=== PATIENT | female | born 1985 | race Caucasian/White ===

== ENCOUNTER 2019-11-16 11:21 | Outpatient (REF) | payer OTHER, SELFPAY ==
--- NOTE | 2019-11-16 | US_ITS ---
EXAMINATION: US PELVIS, COMPLETE CLINICAL INFORMATION: Menorrhagia COMPARISON: Previous CT of the abdomen and pelvis February 2019 and pelvic ultrasound from 2013 TECHNIQUE: Transabdominal imaging was performed. Patient declined transvaginal exam. FINDINGS: The uterus is anteverted and anteflexed and measures 8.4 x 4.9 x 7.3 cm in dimension. There is a hypoechoic lesion in the left uterine body suggestive of a fibroid that measures 3.1 x 2.6 x 3 cm. This was not appreciated on previous exam. No other focal uterine lesion is seen. Endometrial thickness is normal estimated at 0.4 cm. The ovaries are normal-appearing. The right ovary measures 2.5 x 1.7 x 1.9 cm and the left ovary measures 2.3 x 1.7 x 2.2 cm. There is no fluid in the pelvis. IMPRESSION: 3 cm left uterine body fibroid or otherwise unremarkable exam.
== END 2019-11-16 11:22 | disposition home or self-care (01) ==
LOC: HO.US 11:21
PROVIDERS: Visit Provider Advanced Practice Midwife
DX: N92.0 Excessive and frequent menstruation with regular cycle (principal)
CPT/HCPCS: 76856

== ENCOUNTER 2019-12-14 12:10 | Outpatient (REF) | payer OTHER, SELFPAY | END 2019-12-14 12:11 | disposition home or self-care (01) | LOC: HO.LAB 12:10 | PROVIDERS: PCP Family Medicine; Visit Provider Internal Medicine | DX: Z20.828 Contact with and (suspected) exposure to other viral communicable diseases (principal) | CPT/HCPCS: C9803; U0003 ==

== ENCOUNTER 2020-02-06 14:28 | Outpatient (REF) | payer OTHER, SELFPAY ==
--- NOTE | 2020-02-06 | US_ITS ---
EXAMINATION: US RETROPERITONEAL LIMITED (RENAL ONLY) CLINICAL INFORMATION: Renal stone. COMPARISON: Renal ultrasound 08/04/2019 and 03/07/2018. CT abdomen and pelvis 02/15/2019. KUB 07/28/2017. TECHNIQUE: Real-time imaging of the kidneys. FINDINGS: RIGHT KIDNEY: 10.0 x 5.6 x 5.3 cm (SAG x AP x TRV). The kidney is normal in size, contour, and echogenicity. Renal cortical thickness is normal. No calculi or focal parenchymal lesions. No hydronephrosis. LEFT KIDNEY: 10.0 x 4.8 x 4.4 cm (SAG x AP x TRV). The kidney is normal in size, contour, and echogenicity. Renal cortical thickness is normal. No calculi or focal parenchymal lesions. No hydronephrosis. US/US renal BI IMPRESSION: Unremarkable renal ultrasound..
== END 2020-02-06 14:29 | disposition home or self-care (01) ==
LOC: HO.US 14:28
PROVIDERS: Visit Provider Urology
DX: N20.0 Calculus of kidney (principal)
CPT/HCPCS: 76775

== ENCOUNTER → 2020-02-19 09:16 | Outpatient (BNVA) | payer OTHER, SELFPAY | PROVIDERS: PCP Family Medicine; Visit Provider Urology | DX: N20.0 Calculus of kidney (principal) | CPT/HCPCS: 99212 ==

== ENCOUNTER 2020-04-02 06:32 | Outpatient (REF) | payer OTHER, SELFPAY ==
--- NOTE | ~2020-04-02 | XR_ITS ---
EXAMINATION: XR KNEE, RIGHT CLINICAL INFORMATION: Pain. COMPARISON: None. TECHNIQUE: 4 views of the right knee. FINDINGS: No fracture or joint effusion. Alignment is anatomic. Joint spaces are well maintained. No abnormal soft tissue calcification. XR/XR knee RT 4V IMPRESSION: No acute osseous abnormality.
--- NOTE | ~2020-04-02 | XR_ITS ---
EXAMINATION: XR FOOT, RIGHT CLINICAL INFORMATION: Pain. COMPARISON: None TECHNIQUE: AP, lateral, and oblique views of the right foot. FINDINGS: There is a question of subtle cortical irregularity/periostitis along the lateral aspect of the 4th metatarsal distal shaft. Otherwise, no evidence of acute fracture or malalignment. Joint spaces are maintained. XR/XR foot RT min 3V IMPRESSION: Apparent subtle cortical irregularity/periostitis along the lateral aspect of the 4th metatarsal distal shaft. This is of indeterminate etiology. Please clinically correlate. Further evaluation with cross-sectional imaging/MRI as clinically warranted. Alternately, recommend followup radiograph for reassessment.
== END 2020-04-02 06:33 | disposition home or self-care (01) ==
LOC: HO.XRAY 06:32
PROVIDERS: Absent Provider Family Medicine; PCP Family Medicine; Visit Provider Emergency Medicine
DX: M25.561 Pain in right knee (principal); M79.671 Pain in right foot
CPT/HCPCS: 73564; 73630

== ENCOUNTER 2020-04-05 11:56 | Emergency (ER) | payer OTHER, SELFPAY ==
--- NOTE | ~2020-04-05 | XR_ITS ---
EXAMINATION: XR FOOT, RIGHT CLINICAL INFORMATION: Injury COMPARISON: April 02, 2020 TECHNIQUE: AP, lateral, and oblique views of the right foot. FINDINGS: The region of irregularity along the lateral cortex of the distal right fourth metatarsal appears unchanged. Clinical correlation for site of injury suggested. The region of periostitis, cortical irregularity, may be related to previous fracture or stress injury but not an acute fracture. This also could be related to an osteochondroma. No definite acute fractures appreciated. No dislocation. Joint spaces are maintained. No significant soft tissue swelling is seen. XR/XR foot RT min 3V IMPRESSION: No significant change in appearance of cortical irregularity about the lateral aspect of the right fourth metatarsal which does not have the appearance of an acute fracture but could be related to a healing fracture, previous fracture which worse stress injury, or possible osteochondroma. No acute fracture or significant degenerative change of the right foot identified.
[2020-04-05 12:02] VITALS: BP 141/66; PULSE 90; RESP 18; TEMP 36.4; O2SAT 99; BMI 27.1
--- NOTE | 2020-04-05 14:34 | ED.LOWEXIN ---
HPI - Extremity Injury (Lower) General Chief Complaint: Extremity Injury, Lower Stated Complaint: fx rt foot Time Seen by Provider: 04/05/20 13:14 History of Present Illness HPI Narrative: Patient complains of right foot pain for 1 month after twisting it and injuring it, no numbness no weakness no tingling, no other injury Related Data Home Medications Medication Instructions Recorded Confirmed beclomethasone dipropionate 40 mcg INHALATION 11/30/19 02/19/20 mcg/actuation aerosol inhaler montelukast 10 mg tablet 10 mg PO BEDTIME 11/30/19 02/19/20 melatonin 3 mg tablet 3 mg PO BEDTIME 02/19/20 02/19/20 mepolizumab 100 mg subcutaneous mg SUBCUT 02/19/20 02/19/20 solution mometasone-formoterol HFA 200 2 puff INHALATION BID 02/19/20 02/19/20 mcg-5 mcg/actuation aerosol inhaler Previous Rx's Medication Instructions Recorded ibuprofen 600 mg PO Q6H PRN #20 tab 04/05/20 Allergies Allergy/AdvReac Type Severity Reaction Status Date / Time benzonatate [BENZONATATE] Allergy Severe ANAPHYLAXIS Verified 04/05/20 12:09 banana [BANANA] Allergy Intermediate RASH Unverified 10/26/19 16:44 coconut [COCONUT] Allergy Intermediate RASH Unverified 10/26/19 16:44 cucumber [CUCUMBER] Allergy Intermediate RASH Unverified 10/26/19 16:44 grape [GRAPE] Allergy Intermediate RASH Unverified 10/26/19 16:44 arthur [ARTHUR] Allergy Intermediate RASH Unverified 10/26/19 16:44 sulfamethoxazole Allergy Intermediate RASH Verified 04/05/20 12:09 [From BACTRIM] trimethoprim [From BACTRIM] Allergy Intermediate RASH Verified 04/05/20 12:09 cephalexin [Keflex] Allergy Unknown Unknown Verified 04/05/20 12:08 duloxetine [From CYMBALTA] Allergy Unknown UNKNOWN Verified 04/05/20 12:08 Sulfa (Sulfonamide Allergy Unknown Unknown Verified 04/05/20 12:08 Antibiotics) SEAFOOD Allergy Intermediate RASH Uncoded 10/26/19 16:44 Tessalon Allergy Unknown Unknown Uncoded 04/05/20 12:08 Review of Systems Review of Systems: Positive for right foot pain negatives are dizziness weakness fainting head injury headache neck pain no numbness no tingling no paresthesias no redness no rash Yes all other systems are reviewed and are negative [facility] Past Medical History Source: nursing notes reviewed Medical History History of depression Hx of anxiety disorder Hx of migraine headaches Kidney stone Surgical History Hx laparoscopic cholecystectomy Hx of bilateral salpingectomy Hx of section Hx of tonsillectomy Hx of tubal ligation Family History Family History Mother Diabetes mellitus Hypertension Dementia Father Diabetes mellitus Hypertension Social History Social History Alcohol intake: never Smoking Status: Never smoker Physical Exam Vital Signs: Vital Signs: Last Vital Signs Temp 97.5 F 04/05/20 12:02 Pulse 90 04/05/20 12:02 Resp 18 04/05/20 12:02 BP 141/66 H 04/05/20 12:02 Pulse Ox 99 04/05/20 12:02 Body Mass Index 27.1 General appearance is no acute distress, comfortable and cooperative Head is normocephalic atraumatic Neck is supple and nontender Respiratory no distress Extremities the right foot head tenderness over the dorsal lateral aspect of the foot, there was mild swelling no ecchymosis, the ankle was nontender the knee was nontender with full range of motion in ankle and knee Skin was normal with no rash or laceration Course Course Course Narrative: X-ray showed question of right 4th metatarsal fracture, patient is given postop shoe for this 4-week-old fracture and will follow with orthopedist Discharge Plan Discharge Clinical Impression: Foot fracture, right Qualifiers: Encounter type: sequela Fracture type: closed Qualified Code(s): S92.901S - Unspecified fracture of right foot, sequela Patient Disposition: Home, Self-Care Additional Instructions: Follow with internet database specialist for further evaluation of right foot fracture Prescriptions: New ibuprofen 600 mg tablet 600 mg PO Q6H PRN (Reason: pain) Qty: 20 RF: 0 No Action beclomethasone dipropionate 40 mcg/actuation aerosol inhalation RF: 0 montelukast [Singulair] 10 mg tablet 10 mg PO BEDTIME RF: 0 Nucala 100 mg recon soln subcut RF: 0 Dulera 200-5 mcg/actuation HFA aerosol inhaler 2 puff inhalation BID RF: 0 melatonin 3 mg tablet 3 mg PO BEDTIME RF: 0 Referrals: Lynda Hameed MD [Physician] - 2 days (Right foot fracture several weeks old) Interventions: ED Discharge Assessment Last Done: 04/05/20 14:46 Discharge Date/Time: 04/05/20 14:46
== END 2020-04-05 14:46 | disposition home or self-care (01) ==
PROVIDERS: Emergency Provider Emergency Medicine Emergency Medical Services; PCP Family Medicine
DX: S92.901A Unspecified fracture of right foot, initial encounter for closed fracture (principal); X50.1XXA Overexertion from prolonged static or awkward postures, initial encounter; M79.671 Pain in right foot; Y93.01 Activity, walking, marching and hiking; Y92.9 Unspecified place or not applicable; Y99.9 Unspecified external cause status; Z79.899 Other long term (current) drug therapy
CPT/HCPCS: 73630; 99283

== ENCOUNTER → 2020-04-08 14:01 | Outpatient (BNVA) | payer OTHER, SELFPAY | PROVIDERS: PCP Family Medicine; Visit Provider Physician Assistant | DX: M84.374A Stress fracture, right foot, initial encounter for fracture (principal); M25.571 Pain in right ankle and joints of right foot | CPT/HCPCS: 99202 ==

== ENCOUNTER 2020-05-06 10:00 | Outpatient (RCR) | payer OTHER, SELFPAY ==
--- NOTE | 2020-04-15 10:53 | MHC.PT.EP ---
[facility] [place] Office [place] Office [place] Office [address] Kaitlyn Dsouza [address] [phone] F: [phone] F: [phone] F: [phone] F: [phone] Physical Therapy Plan of Care Date of Evaluation: 04/15/20 Date of Surgery: N/A Diagnosis: Pain in Right Ankle and Joints of Right Foot Stress Fracture, Right Foot Assessment: Claribel is a 34-year-old female presenting to physical therapy with pain in her right foot. She demonstrates impairments in BL LE strength, R ankle ROM, impaired posture, and impaired gait mechanics. She would benefit from skilled therapy to address the aforementioned impairments and improve her tolerance to standing, walking, performing bar catcher, and sleeping through the night. She is motivated to participate in therapy in order to return to her PLOF. Frequency and Duration: The patient will be seen 2 visits per week for 6 weeks Short Term Goals: -Pt will tolerate walking for 10 minutes w/o use of AD within 3 weeks in order to allow her to grocery shop. -Pt will have 50% decrease in pain which will enable her to sleep through the night in 3 weeks. Publications Sales Representative Goals: -Pt will demonstrate 5-/5 RLE strength to allow for performance of heavy bar catcher within 6 weeks -Pt will be independent with HEP for symptom management and maintenance following discharge from therapy within 6 weeks. Treatment Plan: Modalities to reduce pain, spasms and effusion. Manual therapy to restore motion and function. Therapeutic exercise to improve strength and flexibility. Neuromuscular re-education for posture and balance. Therapeutic activities to return to functional activities of daily living. Electronically signed by: Nahomi Duran, PT, DPT Please sign and return to therapist. Thank you for your referral.
--- NOTE | 2020-06-03 09:34 | MHC.PT.DC ---
[facility] [place] Office [place] Office [place] Office [address] Kaitlyn Dsouza 140 [facility] [phone] F: [phone] F: [phone] F: [phone] F: [phone] Physical Therapy Discharge Report Diagnosis: Pain in Right Ankle and Joints of Right Foot Stress Fracture, Right Foot Date of Surgery: N/A Date of Evaluation: 04/15/20 Date of Discharge: 06/03/20 Treatments to Date: 6 Cancellations to Date: 0 No Shows to Date: 0 Discharge Status: Visit Non-compliance Discharge Summary: Claribel nicholas showed 4 visits after her walking boot was discharged. Attempted to call her several times however pt did not return any of the calls. She is therefore being d/c for non compliance. Electronically signed by: Nahomi Duran DPT Please sign and return to therapist. Thank you for your referral.
== END 2020-06-03 09:35 | disposition other institution (70) ==
LOC: HO.PT 10:00
PROVIDERS: PCP Family Medicine; Visit Provider Physician Assistant
DX: M25.571 Pain in right ankle and joints of right foot (principal); M84.374A Stress fracture, right foot, initial encounter for fracture
CPT/HCPCS: 97110; 97112; 97161

== ENCOUNTER 2020-05-21 09:21 | Outpatient (REF) | payer OTHER, SELFPAY ==
--- NOTE | ~2020-05-21 | XR_ITS ---
EXAMINATION: XR FOOT, RIGHT CLINICAL INFORMATION: Right ankle and right foot pain. COMPARISON: Most recent right foot radiographs dated 04/05/2020. TECHNIQUE: AP, lateral, and oblique views of the right foot. FINDINGS: No acute fracture or dislocation. No joint space narrowing or marginal osteophytes. No osseous erosion. Stable focal cortical irregularity along the lateral aspect of the 4th metatarsal diaphysis, which may represent normal variation. XR/XR foot RT min 3V IMPRESSION: No acute osseous abnormality.
== END 2020-05-21 09:22 | disposition home or self-care (01) ==
LOC: HO.HOSX 09:21
PROVIDERS: PCP Family Medicine; Visit Provider Physician Assistant
DX: M25.571 Pain in right ankle and joints of right foot (principal)
CPT/HCPCS: 73630; 99212

== ENCOUNTER 2020-07-16 13:37 | Outpatient (REF) | payer OTHER, SELFPAY | END 2020-07-16 13:38 | disposition home or self-care (01) | LOC: HO.LAB 13:37 | PROVIDERS: PCP Family Medicine; Visit Provider Internal Medicine | DX: Z20.822 Contact with and (suspected) exposure to COVID-19 (principal) | CPT/HCPCS: C9803; U0003; U0005 ==

== ENCOUNTER 2020-10-06 09:18 | Emergency (ER) | payer OTHER, SELFPAY ==
[2020-10-06 09:24] VITALS: BP 140/89; PULSE 88; RESP 16; TEMP 36.1; O2SAT 100; BMI 28.2
[2020-10-06] MEDS: Meclizine HCl 25 MG TABLET 50 MG PO (10:26)
--- NOTE | 2020-10-06 10:39 | ED_ITS ---
HPI - Dizziness General Chief Complaint: Dizziness Stated Complaint: dizziness Time Seen by Provider: 10/06/20 09:40 Source: patient Mode of arrival: ambulatory Limitations: no limitations and language barrier History of Present Illness HPI Narrative: 35 y/o female with history of mild intermittent asthma presents t o the ER from home c/o dizziness with standing for the last 2 days. She reports when she changes positions it feels like the room is spinning and it is making her feel off balance. She denies history of similar episodes. She admits to not eating very much lately because she is stressed with taking care of her children and getting them ready for school. She reports drinking plenty of water and stay ing hydrated. No fever, chills, weakness, numbness. MD elicited complaint: dizziness Onset (ago): day(s) (2) Timing: awoke with symptoms Severity: moderate Description: room spinning History of similar symptoms: No Exacerbating factors: movement/ambulation and change in body position Relieving factors: remaining still, rest and lying down Associated symptoms: denies other symptoms Related Data Home Medications Medication Instructions Recorded Confirmed beclomethasone dipropionate 40 mcg INHALATION 11/30/19 02/19/20 mcg/actuation aerosol inhaler montelukast 10 mg tablet 10 mg PO BEDTIME 11/30/19 02/19/20 (Singulair) melatonin 3 mg tablet 3 mg PO BEDTIME 02/19/20 02/19/20 mepolizumab 100 mg subcutaneous mg SUBCUT 02/19/20 02/19/20 solution mometasone-formoterol HFA 200 2 puff INHALATION BID 02/19/20 02/19/20 mcg-5 mcg/actuation aerosol inhaler Previous Rx's Medication Instructions Recorded ibuprofen 600 mg tablet 600 mg PO Q6H PRN #20 tab 04/05/20 meclizine 25 mg tablet 25 mg PO TID PRN #10 tab 10/06/20 Allergies Allergy/AdvReac Type Severity Reaction Status Date / Time benzonatate [BENZONATATE] Allergy Severe ANAPHYLAXIS Verified 10/06/20 09:27 banana [BANANA] Allergy Intermediate RASH Verified 10/06/20 09:27 coconut [COCONUT] Allergy Intermediate RASH Verified 10/06/20 09:27 cucumber [CUCUMBER] Allergy Intermediate RASH Verified 08/29/21 09:27 grape [GRAPE] Allergy Intermediate RASH Verified 10/06/20 09:27 arthur [ARTHUR] Allergy Intermediate RASH Verified 10/06/20 09:27 sulfamethoxazole Allergy Intermediate RASH Verified 10/06/20 09:27 [From BACTRIM] trimethoprim [From BACTRIM] Allergy Intermediate RASH Verified 10/06/20 09:27 cephalexin [Keflex] Allergy Unknown Unknown Verified 10/06/20 09:27 duloxetine [From CYMBALTA] Allergy Unknown UNKNOWN Verified 10/06/20 09:27 Sulfa (Sulfonamide Allergy Unknown Unknown Verified 10/06/20 09:27 Antibiotics) SEAFOOD Allergy Intermediate RASH Uncoded 10/26/19 16:44 Tessalon Allergy Unknown Unknown Uncoded 04/05/20 12:08 Review of Systems Constitutional: Constitutional: Denies chills, Reports fatigue, Denies fev er(s) and Denies headache(s) Eyes: Eyes: Reports no additional eye complaints ENT: Reports Normal hearing present, Reports dizziness, Denies otalgia, Denies headache(s), Denies hearing loss, Denies neck pain, Denies tinnitus and Denies sore throat Cardiovascular: Cardiovascular: Denies chest pain and Denies dyspnea Respiratory: Respiratory: Denies cough and Denies dyspnea Gastrointestinal: Gastrointestinal: Denies abdominal pain, Denies diarrhea, Denies nausea and Denies vomiting Musculoskeletal: Musculoskeletal: Denies neck pain, Denies numbness and Denies tingling Integumentary/Breasts: Skin/Breast: Denies rash Neurologic: Reports Normal hearing present, Denies Abnormal speech present, Denies confusion, Reports dizziness, Denies headache(s), Denies memory loss, Denies numbness, Denies Sensory deficit (Neuro), Denies tingling and Denies paresthesias Psychiatric: Psychiatric: Denies confusion and Denies memory loss Endocrine: Endocrine: Reports fatigue PMFSH Past Medical History Attestation statement: The following information was validated with the patient. Medical History Asthma History of depression Hx of anxiety disorder Hx of migraine headaches Kidney stone Surgical History Hx laparoscopic cholecystectomy Hx of bilateral salpingectomy Hx of section Hx of tonsillectomy Hx of tubal ligation Family History Family History Mother Diabetes mellitus Hypertension Dementia Father Diabetes mellitus Hypertension Social History Social History (Updated 05/21/20 @ 09:42 by Zandra Peterson) Alcohol intake: never Advance Directives: Yes Advance Directives Information Provided: Yes Advance Directives on File: No Patient : No Current occupational status: disabled Current occupation: right handed Physical Exam Vital Signs: Vital Signs: Last Vital Signs Temp 97 F 10/06/20 09:24 Pulse 73 10/06/20 14:08 Resp 16 10/06/20 14:08 BP 113/82 10/06/20 14:08 Pulse Ox 100 10/06/20 14:08 Body Mass Index 28.2 Const: General: cooperative, healthy appearing, comfortable and no acute distress; No confusion Nutritional Appearance: average body habitus Orientation/consciousness: patient oriented x3 and No confusion Limitations: no limitations HENMT: Head: Yes normal to inspection, Yes normocephalic and Yes atraumatic Ears: hearing grossly normal bilaterally, external ears normal and TM's normal bilaterally General nose exam: Normal external nose present and Normal nares present Face and sinus: Yes normal facial exam and Yes face symmetric Mouth: Normal oral and palatal mucosa present, lip normal, tongue normal, oropharynx normal and moist mucous membranes Teeth and gingiva: dentition normal and gingiva normal Throat: Yes posterior oropharynx normal, Yes tonsils normal and Yes uvula midline Eyes: General: appearance normal, both eyes and all related structures Pupils: Equal, round and reactive pupils present EOM: EOMs intact bilaterally Neck: Neck: Yes normal visual inspection, Yes full ROM, Yes no lymphadenopathy and Yes no meningeal signs Chest: Chest palpation & inspection: normal inspection of the chest Resp: Effort & Inspection: normal respiratory effort and able to speak in complete sentences Auscultation: clear to auscultation bilaterally Cardio: Rate: regular rate Rhythm: regular rhythm Heart sounds: S1 normal heart sound present and S2 normal heart sound present GI: Inspection: Yes normal to inspection Palpation (GI): Soft to palpation and nontender Auscultation: normal bowel sounds Rectal Exam - Female: deferred Skin: General skin exam: no rashes or lesions noted Neuro: General: patient oriented x3, gait normal, tone normal, moves all extremities, no meningeal signs, no focal motor deficits, CN's II-XI intact bilaterally and No confusion Cranial nerves: Yes Equal, round and reactive pupils present and Yes Normal hearing present Speech: No Abnormal speech present Sensory Exam: No Sensory deficit (Neuro) Extrem: General: Yes normal to inspection, Yes full ROM, Yes no pedal edema and Yes no calf tenderness Psych: Appearance: grossly normal and well kempt Mental Status: mental status grossly normal Speech and movement: Normal speech and movement present Affect: normal affect Attitude: cooperative Thought process: Normal thought process present Thought content: Normal thought content present Course Course Course Narrative: 35 y/o female presenting with positional dizziness described as room spinning. Will check orthostatic VS and give a dose of Meclizine for probable vertigo. Will reassess. Reevaluation(s) Reevaluation #1: Orthostatics + increase in HR 20 points, BP stable. IVF ordered and labs. Reevaluation #2: Patient is feeling much better after meclizine and IVF. Labs are unremarkable. She is stable for d/c home with PRN meclizine. She will f/u with her PCP. MDM - Dizziness Lab Data Result diagrams: 10/06/20 11:40 10/06/20 12:40 Labs: Lab Results 10/06/20 10/06/20 10/06/20 Range/Units 11:40 11:40 12:40 WBC 7.8 (4.8-10.8) X10*3/uL RBC 4.50 (4.20-5.50) X10*6/uL Hgb 13.1 (12.0-16.0) g/dl Hct 38.9 (37-47) % MCV 86.4 (80-98) fL MCH 29.1 (27.0-33.0) pg MCHC 33.7 (31.0-35.0) g/dl RDW 12.6 (11.0-16.0) % Plt Count 339 (160-400) X10*3/uL MPV 9.3 L (9.4-12.3) fL Immature Gran % (Auto) 0.6 H (0.0-0.4) % Neut % (Auto) 64.0 (45-73) % Lymph % (Auto) 26.8 (20-40) % [place] % (Auto) 7.7 (2-11) % Eos % (Auto) 0.5 (0-4) % Baso % (Auto) 0.4 (0-2) % Lymph # (Auto) 2.1 (1.2-4.9) X10*3/uL [place] # (Auto) 0.6 (0.1-1.2) X10*3/uL Eos # (Auto) 0.0 (0.0-0.4) X10*3/uL Baso # (Auto) 0.0 (0.0-0.2) X10*3/uL Abs Immat Gran (auto) 0.05 H (0.00-0.03) X10*3/uL Absolute Neuts (auto) 5.0 (2.0-8.3) X10*3/uL Absolute Nucleated RBC 0.000 (0.0-0.012) X10*3/uL Nucleated RBC % (auto) 0.0 (0.0-0.2) /100WBC Sodium 137 (135-145) mmol/L Potassium 4.0 (3.3-5.1) mmol/L Chloride 107 (96-108) mmol/L Carbon Dioxide 23 (22-29) mmol/L Anion Gap 11 L (12-20) BUN 11 (9-16) mg/dL Creatinine 0.69 (0.5-1.4) mg/dL Estim Creat Clear Calc 88.1 Estimated GFR > 60 Random Glucose 86 (60-115) mg/dL Calcium 8.7 (8.4-10.2) mg/dL Magnesium 2.1 (1.6-2.6) mg/dL Total Bilirubin 0.2 (0.0-1.0) mg/dL Direct Bilirubin < 0.2 (0.0-0.5) mg/dL AST 12 (5-31) U/L ALT 21 (0-31) U/L Alkaline Phosphatase 71 (39-117) U/L Total Protein 6.9 (6.5-8.0) g/dL Albumin 4.0 (3.5-5.0) g/dL COVID-19 (ILENE) Negative (Negative) COVID-19 Clin Com See Note Discharge Plan Discharge Clinical Impression: Benign paroxysmal positional vertigo Qualifiers: Laterality: unspecified laterality Qualified Code(s): H81.10 - Benign paroxysmal vertigo, unspecified ear Patient Disposition: Home, Self-Care Instructions: Vertigo (ED) Additional Instructions: Your lab workup today was normal. Your COVID swab was negative. Your dizziness is most likely due to vertigo. Recommend rest. Drink plenty of water. When changing positions do so slowly. Take the prescribed medication as needed for dizziness. Follow up with your doctor this week. If you develop new or worsening symptoms call 911 or come back to the ER for further evaluation. Prescriptions: New meclizine 25 mg tablet 25 mg PO TID PRN (Reason: dizziness) Qty: 10 RF: 0 No Action ibuprofen 600 mg tablet 600 mg PO Q6H PRN (Reason: pain) Qty: 20 RF: 0 beclomethasone dipropionate 40 mcg/actuation aerosol inhalation RF: 0 montelukast [Singulair] 10 mg tablet 10 mg PO BEDTIME RF: 0 Nucala 100 mg recon soln subcut RF: 0 Dulera 200-5 mcg/actuation HFA aerosol inhaler 2 puff inhalation BID RF: 0 melatonin 3 mg tablet 3 mg PO BEDTIME RF: 0 Interventions: ED Discharge Assessment Last Done: 10/06/20 14:07 Discharge Date/Time: 10/06/20 14:08
[2020-10-06 10:54] VITALS: BP 113/72; PULSE 69
[2020-10-06 10:55] VITALS: BP 127/90; BP 129/78; PULSE 74; PULSE 89
[2020-10-06] MEDS: 0.9 % Sodium Chloride 1,000 ML 999 ML IVCONT (11:41)
[2020-10-06 11:44] LABS: MANUAL DIFF FLAG NO
[2020-10-06 11:46] LABS: Basophils Percent Auto 0.4 % (0-2); Eosinophils Percent Auto 0.5 % (0-4); Hematocrit 38.9 % (37-47); Hemoglobin 13.1 g/dl (12.0-16.0); Imm Gran Abs Auto 0.05 X10*3/uL (0.00-0.03); Imm Gran Pct Auto 0.6 % (0.0-0.4); Lymphocytes Absolute Auto 2.1 X10*3/uL (1.2-4.9); Lymphocytes Percent Auto 26.8 % (20-40); Mean Corpuscular HGB Conc 33.7 g/dl (31.0-35.0); Mean Corpuscular Hemoglobin 29.1 pg (27.0-33.0); Mean Corpuscular Volume 86.4 fL (80-98); Mean Platelet Volume 9.3 fL (9.4-12.3); Monocytes Absolute Auto 0.6 X10*3/uL (0.1-1.2); Monocytes Percent Auto 7.7 % (2-11); Platelet Count 339 X10*3/uL (160-400); Red Cell Distribution Width 12.6 % (11.0-16.0); White Blood Count 7.8 X10*3/uL (4.8-10.8)
[2020-10-06 12:02] LABS: COVID-19 Test Negative (Negative)
[2020-10-06 13:13] LABS: Alanine Aminotransferase 21 U/L (0-31); Alkaline Phosphatase 71 U/L (39-117); Anion Gap 11 (12-20); Aspartate Amino Transferase 12 U/L (5-31); Bilirubin Direct < 0.2 mg/dL (0.0-0.5); Bilirubin Total 0.2 mg/dL (0.0-1.0); Blood Urea Nitrogen 11 mg/dL (9-16); Calcium 8.7 mg/dL (8.4-10.2); Carbon Dioxide 23 mmol/L (22-29); Chloride 107 mmol/L (96-108); Creatinine Clr Calc Pharmacy 88.1; Estimated Glomerular Filt Rate > 60; Glucose Random 86 mg/dL (60-115); Magnesium 2.1 mg/dL (1.6-2.6); Sodium 137 mmol/L (135-145); Total Protein 6.9 g/dL (6.5-8.0)
[2020-10-06 14:08] VITALS: BP 113/82; PULSE 73; RESP 16; O2SAT 100
== END 2020-10-06 14:08 | disposition home or self-care (01) ==
PROVIDERS: Physician Assistant; Emergency Provider Emergency Medicine; PCP Family Medicine
DX: H81.10 Benign paroxysmal vertigo, unspecified ear (principal); J45.909 Unspecified asthma, uncomplicated; Z79.899 Other long term (current) drug therapy; Z20.822 Contact with and (suspected) exposure to COVID-19
CPT/HCPCS: 36415; 80048; 80076; 83735; 85025; 87635; 99283

== ENCOUNTER 2020-11-27 09:55 | Outpatient (REF) | payer OTHER, SELFPAY ==
--- NOTE | 2020-11-27 09:45 | EMG_ITS ---
This is a 35-year-old woman with 6-month history of bilateral hand pain and numbness. Neurological examination: Cranial nerves II through XII are normal. Muscle tone and strength are normal in all 4 extremities. Deep tendon reflexes are symmetrical. No sensory deficits. No Tinel or Phalen sign. IMPRESSION: Rule out carpal tunnel syndrome. Nerve conduction EMG study: Normal electrodiagnostic study of both upper extremity with no evidence of carpal tunnel syndrome or nerve entrapment. Normal EMG of the left C5-T1 innervated muscles. MD AAKASH Dave/JENNIFER / [phone]
== END 2020-11-27 09:56 | disposition home or self-care (01) ==
LOC: HO.NEURO 09:55
PROVIDERS: PCP Emergency Medicine; Visit Provider Emergency Medicine
DX: G56.03 Carpal tunnel syndrome, bilateral upper limbs (principal)
CPT/HCPCS: 95886; 95913

== ENCOUNTER 2021-02-06 10:58 | Outpatient (REF) | payer OTHER, SELFPAY ==
--- NOTE | ~2021-02-06 | US_ITS ---
EXAMINATION: US RETROPERITONEAL LIMITED (RENAL ONLY) CLINICAL INFORMATION: Calculus of kidney. COMPARISON: Renal ultrasound 02/06/2020 and 08/04/2019. CT abdomen and pelvis 02/15/2019. X-ray KUB 07/28/2017. TECHNIQUE: Real-time imaging of the kidneys. FINDINGS: RIGHT KIDNEY: 9.5 x 4.1 x 3.5 cm (SAG x AP x TRV). The kidney is normal in size, contour, and echogenicity. Renal cortical thickness is normal. No calculi or focal parenchymal lesions. No hydronephrosis. LEFT KIDNEY: 9.7 x 5.7 x 4.3 cm (SAG x AP x TRV). The kidney is normal in size, contour, and echogenicity. Renal cortical thickness is normal. No calculi or focal parenchymal lesions. No hydronephrosis. US/US renal BI IMPRESSION: No significant renal abnormality.
== END 2021-02-06 10:59 | disposition home or self-care (01) ==
LOC: HO.US 10:58
PROVIDERS: Visit Provider Urology
DX: N20.0 Calculus of kidney (principal)
CPT/HCPCS: 76775

== ENCOUNTER → 2021-02-21 09:35 | Outpatient (BNVA) | payer OTHER, SELFPAY | PROVIDERS: PCP Family Medicine | DX: Z13.89 Encounter for screening for other disorder (principal) | CPT/HCPCS: Q3014 ==

== ENCOUNTER 2021-05-27 11:18 | Emergency (ER) | payer OTHER, SELFPAY ==
[2021-05-27 11:30] VITALS: BP 146/86; PULSE 97; RESP 16; TEMP 37.1; O2SAT 100; BMI 26.4
[2021-05-27 12:03] LABS: Influenza A Negative (Negative); Influenza B2 Negative (Negative)
[2021-05-27 12:05] LABS: COVID-19 Test Negative (Negative); IDNOW Serial# 55D5AD1C
== END 2021-05-27 14:57 | disposition left against medical advice (07) ==
LOC: HO.ED 13:56
PROVIDERS: Emergency Provider Emergency Medicine; PCP Family Medicine
DX: R50.9 Fever, unspecified (principal); J45.909 Unspecified asthma, uncomplicated; Z20.822 Contact with and (suspected) exposure to COVID-19
CPT/HCPCS: 87502; 87635; 99281; 99283

== ENCOUNTER 2021-05-29 09:02 | Emergency (ER) | payer OTHER, SELFPAY ==
--- NOTE | 2021-05-29 | ECG_ITS ---
Test Reason : cp Blood Pressure : / mmHG Vent. Rate : 097 BPM Atrial Rate : 097 BPM P-R Int : 132 ms QRS Dur : 084 ms QT Int : 310 ms P-R-T Axes : 053 066 017 degrees QTc Int : 393 ms Sinus rhythm with marked sinus arrhythmia Nonspecific ST and T wave abnormality Abnormal ECG When compared with ECG of 13-DEC-2018 08:46, Nonspecific T wave abnormality, worse in Inferior leads Nonspecific T wave abnormality now evident in Lateral leads QT has shortened Referred By: Generic ED Physician Electronically Signed By:LINA BRANCH MD
--- NOTE | ~2021-05-29 | XR_ITS ---
EXAMINATION: XR CHEST CLINICAL INFORMATION: Chest pain COMPARISON: Chest radiograph from 02/22/2019 TECHNIQUE: Frontal view of the chest was obtained. FINDINGS: Bilateral low lung volumes. No pneumothorax. Trachea is midline. Cardiomediastinal silhouette is not enlarged. No large pleural effusion. Osseous structures are intact. Soft tissues are unremarkable. XR/XR chest 1V IMPRESSION: No acute cardiopulmonary process.
[2021-05-29 09:14] VITALS: BP 155/96; PULSE 85; RESP 20; TEMP 36.5; O2SAT 100; BMI 29.2
[2021-05-29 09:30] LABS: MANUAL DIFF FLAG NO
[2021-05-29 09:39] LABS: Basophils Percent Auto 0.5 % (0-2); Eosinophils Percent Auto 0.5 % (0-4); Hemoglobin 12.1 g/dl (12.0-16.0); Imm Gran Abs Auto 0.02 X10*3/uL (0.00-0.03); Imm Gran Pct Auto 0.3 % (0.0-0.4); Lymphocytes Percent Auto 29.4 % (20-40); Mean Corpuscular HGB Conc 33.6 g/dl (31.0-35.0); Mean Corpuscular Hemoglobin 27.9 pg (27.0-33.0); Mean Corpuscular Volume 82.9 fL (80.0-98.0); Mean Platelet Volume 8.9 fL (9.4-12.3); Monocytes Absolute Auto 0.5 X10*3/uL (0.1-1.2); Monocytes Percent Auto 6.8 % (2-11); Neutrophils Absolute Auto 4.2 x10*3/uL (2.0-8.3); Neutrophils Percent Auto 62.5 % (45-73); Platelet Count 323 X10*3/uL (160-400); Red Blood Count 4.34 X10*6/uL (4.20-5.50); Red Cell Distribution Width 12.8 % (11.0-16.0); White Blood Count 6.6 X10*3/uL (4.8-10.8)
[2021-05-29 09:49] LABS: COVID-19 Test Negative (Negative); IDNOW Serial# 16C4AD1C
[2021-05-29 09:51] LABS: Anion Gap 12 (12-20); Blood Urea Nitrogen 8 mg/dL (9-16); Carbon Dioxide 22 mmol/L (22-29); Chloride 105 mmol/L (96-108); Creatinine Clr Calc Pharmacy 82.5; Estimated Glomerular Filt Rate > 60; Glucose Random 101 mg/dL (60-115); Potassium 3.9 mmol/L (3.3-5.1); Sodium 135 mmol/L (135-145); Troponin-I High Sensitivity < 3.5 ng/L (<3.5-17.0)
--- NOTE | 2021-05-29 09:53 | ED_ITS ---
HPI - Chest Pain General Chief Complaint: Chest Pain Stated Complaint: cough chest pain hbp fever Time Seen by Provider: 05/29/21 09:53 Source: patient Mode of arrival: ambulatory Limitations: no limitations History of Present Illness HPI narrative: Patient is a 35 year old female presenting to the emergency department today with a cough and left sided chest pain. Patient states that for the last few days, she has had a cough and some left sided chest pain specifically when she coughs. Patient denies any dizziness, lightheadedness, abdominal pain, nausea, vomiting, fever, chills, blurry vision, double vision, loss of vision, difficulty breathing, shortness of breath, back pain, night sweats, pain with urination, increased urinary frequency, increased urinary urgency, blood in her urine or stool, syncope or a near syncopal episode, recent trauma or falls, bowel incontinence, bladder incontinence, bowel retention, bladder retention, or any other complaints at this time. MD complaint: chest pain Onset: other (with coughing) Pain radiation: none Severity: mild Pain scale (0-10): 3 Quality: dull Relieving factors: nothing Exacerbating factors: other (coughing) Treatment prior to arrival: none Risk Factors Coronary artery disease risk factors: none Thoracic aortic dissection risk factors: none Related Data Home Medications Medication Instructions Recorded Confirmed beclomethasone dipropionate 40 mcg INHALATION 11/30/19 02/19/20 mcg/actuation aerosol inhaler montelukast 10 mg tablet 10 mg PO BEDTIME 11/30/19 02/19/20 (Singulair) melatonin 3 mg tablet 3 mg PO BEDTIME 02/19/20 02/19/20 mepolizumab 100 mg subcutaneous mg SUBCUT 02/19/20 02/19/20 solution mometasone-formoterol HFA 200 2 puff INHALATION BID 02/19/20 02/19/20 mcg-5 mcg/actuation aerosol inhaler Previous Rx's Medication Instructions Recorded ibuprofen 600 mg tablet 600 mg PO Q6H PRN #20 tab 04/05/20 meclizine 25 mg tablet 25 mg PO TID PRN #10 tab 10/06/20 Allergies Allergy/AdvReac Type Severity Reaction Status Date / Time benzonatate [BENZONATATE] Allergy Severe ANAPHYLAXIS Verified 05/29/21 09:17 banana [BANANA] Allergy Intermediate RASH Verified 05/29/21 09:17 coconut [COCONUT] Allergy Intermediate RASH Verified 05/29/21 09:17 cucumber [CUCUMBER] Allergy Intermediate RASH Verified 05/29/21 09:17 grape [GRAPE] Allergy Intermediate RASH Verified 05/29/21 09:17 arthur [ARTHUR] Allergy Intermediate RASH Verified 05/29/21 09:17 sulfamethoxazole Allergy Intermediate RASH Verified 05/29/21 09:17 [From BACTRIM] trimethoprim [From BACTRIM] Allergy Intermediate RASH Verified 05/29/21 09:17 cephalexin [Keflex] Allergy Unknown Unknown Verified 05/29/21 09:17 duloxetine [From CYMBALTA] Allergy Unknown UNKNOWN Verified 05/29/21 09:17 Sulfa (Sulfonamide Allergy Unknown Unknown Verified 05/29/21 09:17 Antibiotics) SEAFOOD Allergy Intermediate RASH Uncoded 05/29/21 09:17 Tessalon Allergy Unknown Unknown Uncoded 05/29/21 09:17 Review of Systems Constitutional: Constitutional: Reports no additional constitutional complaints, Denies chills, Denies fever(s) and Denies night sweats Eyes: Eyes: Reports no additional eye complaints, Denies blurry vision, Denies change in vision, Denies diplopia, Denies eye discharge, Denies loss of vision and Denies eye pain ENT: Denies dizziness Cardiovascular: Cardiovascular: Reports no additional cardiovascular complaints, Reports chest pain, Denies lightheadedness, Denies Loss of Consciousness and Denies dyspnea Respiratory: Respiratory: Reports no additional respiratory complaints, Reports cough and Denies dyspnea Gastrointestinal: Gastrointestinal: Reports no additional gastrointestinal complaints, Denies abdominal pain, Denies melena, Denies hematochezia, Denies change in bowel habits and Denies change in stool character Genitourinary: Genitourinary: Denies hematuria, Denies urinary frequency, Denies dysuria, Denies urinary incontinence, Denies urinary hesitancy and Denies urinary urgency Musculoskeletal: Musculoskeletal: Reports no additional musculoskeletal complaints, Denies numbness and Denies tingling Neurologic: Denies dizziness, Denies loss of vision, Denies numbness and Denies tingling Psychiatric: Psychiatric: Reports no additional psychiatric complaints Endocrine: Endocrine: Reports no additional endocrine complaints Hematologic/Lymphatic: Hematologic/Lymphatic: Reports no additional hematologic/lymphatic complaints Allergic/Immunologic: Allergic/Immunologic: Reports no additional allergic/immunologic complaints PMFSH Past Medical History Attestation statement: The following information was validated with the patient. Source: old records reviewed Medical History Asthma History of depression Hx of anxiety disorder Hx of migraine headaches Kidney stone Surgical History Hx laparoscopic cholecystectomy Hx of bilateral salpingectomy Hx of section Hx of tonsillectomy Hx of tubal ligation Family History Family History Mother Diabetes mellitus Hypertension Dementia Father Diabetes mellitus Hypertension Social History Social History Alcohol intake: never Advance Directives: No Advance Directives Information Provided: Yes Patient : No Current occupational status: disabled Current occupation: right handed Physical Exam Vital Signs: Vital Signs: Last Vital Signs Temp 97.7 F 05/29/21 09:14 Pulse 85 05/29/21 09:14 Resp 20 05/29/21 09:14 BP 155/96 H 05/29/21 09:14 Pulse Ox 100 05/29/21 09:14 BMI result Body Mass Index 29.2 Const: General: cooperative, no acute distress, alert and awake Nutritional Appearance: well nourished Orientation/consciousness: patient oriented x3 Limitations: no limitations HEENT: Head: Yes normal to inspection and Yes atraumatic Ears: hearing grossly normal bilaterally and external ears normal General nose exam: Normal external nose present, no nasal discharge noted and no epistaxis Face and sinus: Yes normal facial exam, No abrasion and No laceration Mouth: Normal oral and palatal mucosa present, no drooling and no muffled voice Eyes: General: appearance normal, both eyes and all related structures Periorbital: periorbital findings normal Eyelids: Yes eyelids normal Conjunctivae: conjunctivae normal Pupils: Equal, round and reactive pupils present EOM: EOMs intact bilaterally Neck: Neck: Yes normal visual inspection, Yes full ROM and Yes no lymphadenopathy Chest: Chest palpation & inspection: normal inspection of the chest Resp: Effort & Inspection: normal respiratory effort and able to speak in complete sentences Auscultation: clear to auscultation bilaterally Cardio: Rate: regular rate Rhythm: regular rhythm GI: Inspection: Yes normal to inspection Neuro: General: patient oriented x3 and moves all extremities Cranial nerves: Yes Equal, round and reactive pupils present Cognition (Neuro): normal cognition Motor exam (neuro): 5/5 motor strength present throughout Sensory Exam: Normal double simultaneous stimulation for sensation Coordination: [id number] test normal Extrem: General: Yes normal to inspection, Yes full ROM and Yes capillary refill normal Psych: Appearance: grossly normal Mental Status: mental status grossly normal Affect: normal affect Attitude: cooperative Thought process: Normal thought process present Thought content: Normal thought content present Insight: Good insight present (Psych) MDM - Chest Pain MDM Narrative Medical decision making narrative: Patient is a 35 year old female presenting to the emergency department today with a cough. Patient's physical exam was unremarkable. Patient's blood work was unremarkable. Patient's urine showed no acute process. Patient's EKG was unremarkable. Patient's chest x-ray showed no acute process. I explained my phys ical exam findings as well as all test results to the patient. I answered all questions asked by the patient. I stressed the importance of the patient taking her medication as prescribed. I stressed the importance of the patient following up with her primary care provider. I stressed the importance of the patient returning to the emergency department immediately if her symptoms were to worsen or if she were to develop any dizziness, shortness of breath, difficulty breathing, chest pain, blurry vision, loss of vision, nausea, vomiting, abdominal pain, fever, chills, back pain, or any other complaints. Patient verbalized agreement and understanding with this treatment plan and discharge. Differential Diagnosis Differential diagnosis: Likely stable angina, atypical chest pain and costochondritis Differential diagnosis: URI Medical Records Data Attestation: I reviewed the patient's medical records. Lab Data Attestation: I reviewed the patient's lab results. Result diagrams: 05/29/21 09:25 05/29/21 09:25 Labs: Lab Results 05/29/21 05/29/21 05/29/21 Range/Units 09:25 09:25 09:25 WBC 6.6 (4.8-10.8) X10*3/uL RBC 4.34 (4.20-5.50) X10*6/uL Hgb 12.1 (12.0-16.0) g/dl Hct 36.0 L (37.0-47.0) % MCV 82.9 (80.0-98.0) fL MCH 27.9 (27.0-33.0) pg MCHC 33.6 (31.0-35.0) g/dl RDW 12.8 (11.0-16.0) % Plt Count 323 (160-400) X10*3/uL MPV 8.9 L (9.4-12.3) fL Immature Gran % (Auto) 0.3 (0.0-0.4) % Neut % (Auto) 62.5 (45-73) % Lymph % (Auto) 29.4 (20-40) % [place] % (Auto) 6.8 (2-11) % Eos % (Auto) 0.5 (0-4) % Baso % (Auto) 0.5 (0-2) % Lymph # (Auto) 2.0 (1.2-4.9) X10*3/uL [place] # (Auto) 0.5 (0.1-1.2) X10*3/uL Eos # (Auto) 0.0 (0.0-0.4) X10*3/uL Baso # (Auto) 0.0 (0.0-0.2) X10*3/uL Abs Immat Gran (auto) 0.02 (0.00-0.03) X10*3/uL Absolute Neuts (auto) 4.2 (2.0-8.3) x10*3/uL Absolute Nucleated RBC 0.000 (0.0-0.012) X10*3/uL Nucleated RBC % (auto) 0.0 (0.0-0.2) /100WBC Sodium 135 (135-145) mmol/L Potassium 3.9 (3.3-5.1) mmol/L Chloride 105 (96-108) mmol/L Carbon Dioxide 22 (22-29) mmol/L Anion Gap 12 (12-20) BUN 8 L (9-16) mg/dL Creatinine 0.75 (0.5-1.4) mg/dL Estim Creat Clear Calc 82.5 Estimated GFR > 60 Random Glucose 101 (60-115) mg/dL Calcium 9.0 (8.4-10.2) mg/dL Troponin I High Sens < 3.5 (<3.5-17.0) ng/L COVID-19 (ILENE) (Negative) COVID-19 Clin Com 05/29/21 Range/Units 09:25 WBC (4.8-10.8) X10*3/uL RBC (4.20-5.50) X10*6/uL Hgb (12.0-16.0) g/dl Hct (37.0-47.0) % MCV (80.0-98.0) fL MCH (27.0-33.0) pg MCHC (31.0-35.0) g/dl RDW (11.0-16.0) % Plt Count (160-400) X10*3/uL MPV (9.4-12.3) fL Immature Gran % (Auto) (0.0-0.4) % Neut % (Auto) (45-73) % Lymph % (Auto) (20-40) % [place] % (Auto) (2-11) % Eos % (Auto) (0-4) % Baso % (Auto) (0-2) % Lymph # (Auto) (1.2-4.9) X10*3/uL [place] # (Auto) (0.1-1.2) X10*3/uL Eos # (Auto) (0.0-0.4) X10*3/uL Baso # (Auto) (0.0-0.2) X10*3/uL Abs Immat Gran (auto) (0.00-0.03) X10*3/uL Absolute Neuts (auto) (2.0-8.3) x10*3/uL Absolute Nucleated RBC (0.0-0.012) X10*3/uL Nucleated RBC % (auto) (0.0-0.2) /100WBC Sodium (135-145) mmol/L Potassium (3.3-5.1) mmol/L Chloride (96-108) mmol/L Carbon Dioxide (22-29) mmol/L Anion Gap (12-20) BUN (9-16) mg/dL Creatinine (0.5-1.4) mg/dL Estim Creat Clear Calc Estimated GFR Random Glucose (60-115) mg/dL Calcium (8.4-10.2) mg/dL Troponin I High Sens (<3.5-17.0) ng/L COVID-19 (ILENE) Negative (Negative) COVID-19 Clin Com See Note Imaging Data Chest x-ray: Attestation: I personally reviewed and interpreted this imaging study as follows: My impression: No acute process. Radiologist's impression: EXAMINATION: XR CHEST CLINICAL INFORMATION: Chest pain COMPARISON: Chest radiograph from 02/22/2019 TECHNIQUE: Frontal view of the chest was obtained. FINDINGS: Bilateral low lung volumes. No pneumothorax. Trachea is midline. Cardiomediastinal silhouette is not enlarged. No large pleural effusion. Osseous structures are intact. Soft tissues are unremarkable. XR/XR chest 1V IMPRESSION: No acute cardiopulmonary process. ? Dictated By: Ren Singh MD Signed By: Electronically signed by Ren Singh MD 05/29/21 105 ECG Data ECG #1: Attestation: I personally reviewed and interpreted this ECG as follows: ECG interpretation date: 05/29/21 ECG interpretation time: 09:04 Prior ECG tracings: available for review Interpretation: Vent. Rate: 097 BPM ? ? Atrial Rate: 097 BPM P-R Int: 132 ms? QRS Dur: 084 ms QT Int: 310 ms ? ? ? P-R-T Axes: 053 066 017 degrees QTc Int: 393 ms ? Sinus rhythm with marked sinus arrhythmia Nonspecific ST and T wave abnormality Abnormal ECG When compared with ECG of 13-DEC-2018 08:46, Nonspecific T wave abnormality, worse in Inferior leads Nonspecific T wave abnormality now evident in Lateral leads QT has shortened ? Referred By: Generic ED Physician ? Electronically Signed By:DARNELL BRANCH MD Dictated By: Darnell Branch MD Signed By: Electronically signed by Darnell Branch MD 05/29/21 1647 Discharge Plan Discharge Clinical Impression: Upper respiratory infection Patient Disposition: Home, Self-Care Instructions: Upper Respiratory Infection (DC) Additional Instructions: Follow up with your primary care provider. Return to the emergency department immediately if your symptoms worsen or if you develop any dizziness, shortness of breath, difficulty breathing, chest pain, blurry vision, loss of vision, nausea, vomiting, abdominal pain, fever, chills, back pain, or any other complaints. Prescriptions: No Action ibuprofen 600 mg tablet 600 mg PO Q6H PRN (Reason: pain) Qty: 20 0RF meclizine 25 mg tablet 25 mg PO TID PRN (Reason: dizziness) Qty: 10 0RF beclomethasone dipropionate 40 mcg/actuation aerosol inhalation 0RF montelukast [Singulair] 10 mg tablet 10 mg PO BEDTIME 0RF Nucala 100 mg recon soln subcut 0RF Dulera 200-5 mcg/actuation HFA aerosol inhaler 2 puff inhalation BID 0RF melatonin 3 mg tablet 3 mg PO BEDTIME 0RF Referrals: Anne Carrion MD [Primary Care Provider] - (Follow up with your PCP. ) Interventions: ED Discharge Assessment Last Done: 05/29/21 11:21 Discharge Date/Time: 05/29/21 11:22 Print Language: Tajik
== END 2021-05-29 11:22 | disposition home or self-care (01) ==
PROVIDERS: Emergency Provider Student in an Organized Health Care Education/Training Program; PCP Family Medicine
DX: J06.9 Acute upper respiratory infection, unspecified (principal); R07.89 Other chest pain; R50.9 Fever, unspecified; R05.9 Cough, unspecified; Z20.822 Contact with and (suspected) exposure to COVID-19; Z79.899 Other long term (current) drug therapy
CPT/HCPCS: 36415; 71045; 80048; 84484; 85025; 87635; 93005; 99283; 99284

== ENCOUNTER 2021-08-12 11:46 | Emergency (ER) | payer OTHER, SELFPAY ==
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
[2021-08-12 12:11] VITALS: BP 142/74; PULSE 83; O2SAT 98
[2021-08-12 12:52] VITALS: BP 147/101; PULSE 80; RESP 18; TEMP 36.7; O2SAT 99; BMI 27.3
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
[2021-08-12] MEDS: Ibuprofen 600 MG TABLET PO (13:53)
== END 2021-08-12 14:31 | disposition home or self-care (01) ==
PROVIDERS: Emergency Provider Emergency Medicine; PCP Family Medicine
DX: S93.402A Sprain of unspecified ligament of left ankle, initial encounter (principal); M79.672 Pain in left foot; V43.52XA Car driver injured in collision with other type car in traffic accident, initial encounter; Y93.9 Activity, unspecified; Y92.410 Unspecified street and highway as the place of occurrence of the external cause; Y99.9 Unspecified external cause status; Z79.899 Other long term (current) drug therapy
CPT/HCPCS: 73600; 73620; 99284

== ENCOUNTER 2021-08-14 07:19 | Emergency (ER) | payer OTHER, SELFPAY ==
[2021-08-14 07:43] VITALS: BP 136/71; PULSE 84; RESP 16; TEMP 36.1; O2SAT 99; BMI 27.3
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
== END 2021-08-14 09:03 | disposition home or self-care (01) ==
PROVIDERS: Emergency Provider Emergency Medicine; PCP Family Medicine
DX: S93.402A Sprain of unspecified ligament of left ankle, initial encounter (principal); X58.XXXA Exposure to other specified factors, initial encounter; Y93.9 Activity, unspecified; Y92.9 Unspecified place or not applicable; Y99.9 Unspecified external cause status; Z79.899 Other long term (current) drug therapy
CPT/HCPCS: 29515; 99282; 99283

== ENCOUNTER 2021-10-31 08:15 | Emergency (ER) | payer OTHER, SELFPAY ==
--- NOTE | ~2021-10-31 | XR_ITS ---
EXAMINATION: XR CHEST 2 VIEW CLINICAL INFORMATION: Covid, cough and wheezing COMPARISON: 05/29/2021 TECHNIQUE: PA and lateral views of the chest obtained. FINDINGS: The lungs are clear. There are no pleural effusions. The cardiomediastinal silhouette is normal. XR/XR chest 2V IMPRESSION: No active cardiopulmonary disease.
[2021-10-31 08:44] VITALS: BP 134/98; PULSE 98; RESP 18; TEMP 36.9; O2SAT 100; BMI 27.3
[2021-10-31 09:00] LABS: COVID-19 Test Negative (Negative)
--- NOTE | 2021-10-31 11:17 | ED_ITS ---
HPI - Asthma General Chief Complaint: Upper Respiratory Symptoms Stated Complaint: flu like symptoms/diarrhea Time Seen by Provider: 10/31/21 10:32 Source: patient Mode of arrival: ambulatory Limitations: no limitations History of Present Illness HPI Narrative: 36-year-old female with a past medical history of asthma, anxiety disorder, depression, migraine headaches and kidney stones presenting to the ER with com plaints of subjective fevers, chills, fatigue, malaise, intermittent headaches, nasal congestion/rhinorrhea, nausea, diarrhea, intermittent productive cough with yellow colored sputum with chest tightness/wheezing despite using her albuterol inhaler and nebulizer along with her daily Montelukast 10 mg tablets for the past few days worse today. She denies any measured fevers, dizziness, neck pain/stiffness, jaw pain, sore throat, ear pain, vomiting, palpitations, chest pain, dyspnea on exertion, orthopnea, abdominal pain, flank pain, dysuria, hematuria, abnormal vaginal discharge, rashes, recent travel or sick contacts, lower extremity edema or calf tenderness, possible bad food exposure others with similar symptoms or any other symptoms complaints or concerns at this time. MD complaint: asthma attack , shortness of breath and wheezing Onset (ago): day(s) (Past few days worse today) Severity: mild Context: none known Associated symptoms: productive cough Asthma History: childhood onset, history of frequent attacks, history of prior ED visit and followed by specialist Treatments Prior to Arrival: inhaled bronchodilator and inhaled steroid Related Data Current Asthma Therapy: inhaled bronchodilator, inhaled steroid and recent oral steroid Home Medications Medication Instructions Recorded Confirmed beclomethasone dipropionate 40 mcg inhalation 11/30/19 02/19/20 mcg/actuation aerosol inhaler montelukast 10 mg tablet 10 mg PO BEDTIME 11/30/19 02/19/20 (Singulair) melatonin 3 mg tablet 3 mg PO BEDTIME 02/19/20 02/19/20 mepolizumab 100 mg subcutaneous mg subcut 02/19/20 02/19/20 solution mometasone-formoterol HFA 200 2 puff inhalation BID 02/19/20 02/19/20 mcg-5 mcg/actuation aerosol inhaler Previous Rx's Medication Instructions Recorded ibuprofen 600 mg tablet 600 mg PO Q6H PRN pain #20 tabs 04/05/20 meclizine 25 mg tablet 25 mg PO TID PRN dizziness #10 tabs 10/06/20 ibuprofen 800 mg tablet 800 mg PO Q8H PRN pain #30 tabs 08/14/21 albuterol sulfate 0.63 mg/3 mL 0.63 mg (3 mL) inhalation QID PRN 10/31/21 solution for nebulization shortness of breath or wheezing #75 mL albuterol sulfate 90 mcg/actuation 1 inh inhalation QID PRN shortness 10/31/21 aerosol inhaler of breath or wheezing #8.5 grams azithromycin 250 mg tablet See Rx Instructions PO .COMPLEX #6 10/31/21 tabs codeine 10 mg-guaifenesin 100 mg/5 5 ml PO Q6H PRN cold symptoms #120 10/31/21 mL oral liquid (Guaifenesin AC) mL prednisone 20 mg tablet 40 mg PO DAILY rash 5 days #10 tabs 10/31/21 Allergies Allergy/AdvReac Type Severity Reaction Status Date / Time benzonatate [BENZONATATE] Allergy Severe ANAPHYLAXIS Verified 08/12/21 12:54 banana [BANANA] Allergy Intermediate RASH Verified 08/12/21 12:54 coconut [COCONUT] Allergy Intermediate RASH Verified 08/12/21 12:54 cucumber [CUCUMBER] Allergy Intermediate RASH Verified 08/12/21 12:54 grape [GRAPE] Allergy Intermediate RASH Verified 08/12/21 12:54 arthur [ARTHUR] Allergy Intermediate RASH Verified 08/12/21 12:54 sulfamethoxazole Allergy Intermediate RASH Verified 08/12/21 12:54 [From BACTRIM] trimethoprim [From BACTRIM] Allergy Intermediate RASH Verified 08/12/21 12:54 cephalexin [Keflex] Allergy Unknown Unknown Verified 08/12/21 12:54 duloxetine [From CYMBALTA] Allergy Unknown UNKNOWN Verified 08/12/21 12:54 Sulfa (Sulfonamide Allergy Unknown Unknown Verified 08/12/21 12:54 Antibiotics) SEAFOOD Allergy Intermediate RASH Uncoded 05/29/21 09:17 Tessalon Allergy Unknown Unknown Uncoded 05/29/21 09:17 Review of Systems Review of Systems: Constitutional : + subjective fevers/chills, denies med noncompliance, no history of PE or DVT, denies recent travel ENT/Mouth : + nasal congestion/rhinorrhea, No Hoarseness, No sore throat, No Sinus Pressure, No Ear Pain, No stridor, Eyes: No Redness, No Discharge, No Vision Changes Cardiovascular : No Chest Pain, + SOB, No Dyspnea on Exertion, No Edema, no pleurisy, Respiratory : + Cough, + wheezing, + Sputum, no stridor, no hemoptysis, Gastrointestinal : + Nausea, No Vomiting, + Diarrhea, No abdominal Pain Genitourinary : No Dysuria, No Hematuria Musculoskeletal : No joint pain/swelling, + Myalgias Extremities: no extremity swelling /pain Skin : No rash, no itching, no swelling Neuro : No Weakness, No Numbness, No Headache, No Dizziness, No Paresthesias Psych : No anxiety, depression Heme/Lymph: No Bruising, No Bleeding Endocrine : No Polyuria, No Polydipsia Yes all other systems are reviewed and are negative [facility] Past Medical History Attestation statement: The following information was validated with the patient. Source: old records reviewed and nursing notes reviewed Medical History Asthma History of depression Hx of anxiety disorder Hx of migraine headaches Kidney stone Surgical History Hx laparoscopic cholecystectomy Hx of bilateral salpingectomy Hx of section Hx of tonsillectomy Hx of tubal ligation Family History Family History Mother Diabetes mellitus Hypertension Dementia Father Diabetes mellitus Hypertension Social History Social History Alcohol intake: never Advance Directives: No Advance Directives Information Provided: No Current occupational status: disabled Current occupation: right handed Physical Exam Vital Signs: Vital Signs: Last Vital Signs Temp 98.4 F 10/31/21 08:44 Pulse 98 10/31/21 08:44 Resp 18 10/31/21 08:44 BP 134/98 H 10/31/21 08:44 Pulse Ox 100 10/31/21 08:44 O2 Del Method 10/31/21 08:44 BMI result Body Mass Index 27.3 vital signs have been reviewed as normal and appeared to be correct. Blood pressure 134/98. Heart rate normal. Respiration rate normal. Temperature normal. Oxygen saturation normal. Appearance: Alert. Oriented X3. No acute distress. Head: Normal external exam. Normocephalic. Atraumatic. Eyes: PERRLA. EOMI. Conjunctiva and sclera normal. Eyelids normal. ENT: EAC normal. TM's Normal. Pharynx normal. Uvula midline. Moist mucous m embranes. No lesions/ulcerations or masses noted on the tongue. Normal voice. No trismus noted. No drooling noted. No muffled voice noted. Neck: Normal inspection. Neck supple. FROM. No adenopathy. Thyroid Normal. No tracheal deviation noted. No crepitus is noted. No meningeal signs. No neck mass noted. No signs of trauma noted. CVS: Normal heart rate and rhythm. Heart sound normal. Pulses normal throughout. No murmurs/rales/gallops. Respiratory: In mild respiratory distress with decreased breath sounds and inspiratory and expiratory wheezing throughout. No rales/rhonchi noted. Chest is nontender. No crepitus is noted. No accessory muscle usage noted or tracheal tugging or abdominal retractions. Abdomen: Soft and nontender. Nondistended. No guarding. No rigidity. Bowel sounds normal in all 4 quadrants. No distention noted. No organomegaly noted. No visible injury noted. No rebound tenderness. Negative Rovsing sign. Negative obturator's sign. Negative psoas sign. Negative Lowe sign. Back: No CVA tenderness. Full range of motion noted. Nontender. No signs of trauma. Patient neuro intact bilaterally and distally on all 4 extremities. Patient's reflexes intact bilaterally and distally on all 4 extremities. No rashes/lesion/induration/fluctuance or signs of infection noted. Skin: Skin warm and dry. Normal skin color. Normal skin turgor. No rashes/les ions/lacerations noted. Extremities: No lower extremity edema. No calf tenderness is noted. Extremities exhibit normal range of motion and nontender. Neuro: Oriented X 3. No motor deficit. No sensory deficit. Reflexes normal. Normal steady gait. No focal neuro deficits noted. CN's II-XII intact bilaterally? Vascular: + radial pulses/+ 2 distal pedal pulses/+2 dorsalis pedis b/l. Normal cap refill. No cyanosis noted to upper extremity nails and lower extremity toes nails. Course Course Course Narrative: 10:40am - 36-year-old female with a past medical history of asthma, anxiety disorder, depression, migraine headaches and kidney stones presenting to the ER with complaints of subjective fevers, chills, fatigue, malaise, intermittent headaches, nasal congestion/rhinorrhea, nausea, diarrhea, intermittent productive cough with yellow colored sputum with chest tightness/wheezing de spite using her albuterol inhaler and nebulizer along with her daily Montelukast 10 mg tablets for the past few days worse today. Plan: Will provide a breathing treatment, 60 mg of prednisone, Robitussin for the patient's cough, chest x-ray. Patient was negative for COVID and the waiting room. Will re-evaluate. Reevaluation(s) Reevaluation #1: - chest x-ray within normal limits. Will DC home with symptomatic treatment instructions return if any new or worsening symptoms follow up with primary care provider. Patient understands agrees with this plan. Time: 11:23 [facility] - Asthma Medical Records Attestation: I reviewed the patient's medical records. Lab Data Attestation: I reviewed the patient's lab results. Labs: Lab Results 10/31/21 Range/Units 08:31 COVID-19 ([facility]) Negative (Negative) COVID-19 Clin Com See Note Imaging Data Chest x-ray: Attestation: I personally reviewed and interpreted this imaging study as follows: Radiologist's impression: FINDINGS: The lungs are clear. There are no pleural effusions. The cardiomediastinal silhouette is normal. XR/XR chest 2V IMPRESSION: No active cardiopulmonary disease. Discharge Plan Discharge Clinical Impression: Acute bronchitis with asthma with acute exacerbation Patient Disposition: Home, Self-Care Instructions: Asthma (ED), Acute Bronchitis (ED), Bronchospasm (ED) Prescriptions: New albuterol sulfate 90 mcg/actuation HFA aerosol inhaler 1 inh inhalation QID PRN (Reason: shortness of breath or wheezing) Qty: 8.5 0RF albuterol sulfate 0.63 mg/3 mL solution for nebulization 0.63 mg inhalation QID PRN (Reason: shortness of breath or wheezing) Qty: 75 0RF azithromycin 250 mg tablet See Rx Instructions .ROUTE .COMPLEX Qty: 6 0RF Rx Instructions: take 500 mg today (day 1), then 250 mg for 4 days (days 2-5) codeine-guaifenesin [Guaifenesin AC] 10-100 mg/5 mL liquid 5 ml PO Q6H PRN (Reason: cold symptoms) Qty: 120 0RF prednisone 20 mg tablet 40 mg PO DAILY 5 Days Qty: 10 0RF No Action ibuprofen 600 mg tablet 600 mg PO Q6H PRN (Reason: pain) Qty: 20 0RF meclizine 25 mg tablet 25 mg PO TID PRN (Reason: dizziness) Qty: 10 0RF ibuprofen 800 mg tablet 800 mg PO Q8H PRN (Reason: pain) Qty: 30 0RF beclomethasone dipropionate 40 mcg/actuation aerosol inhalation montelukast [Singulair] 10 mg tablet 10 mg PO BEDTIME Nucala 100 mg recon soln subcut Dulera 200-5 mcg/actuation HFA aerosol inhaler 2 puff inhalation BID melatonin 3 mg tablet 3 mg PO BEDTIME Referrals: Anne Carrion MD [Primary Care Provider] - 2 days Stand Alone Forms: Work/School Release Print Language: [place]
[2021-10-31 11:49] VITALS: BP 136/84; PULSE 86; RESP 16; TEMP 37.6; O2SAT 100
[2021-10-31] MEDS: predniSONE 20 MG TABLET 60 MG PO (11:50)
[2021-10-31] MEDS: guaiFENesin 200 MG/10 ML 10 ML LIQUID PO (11:51)
--- NOTE | 2021-10-31 11:55 | PC.NURSE ---
pt is a/o x 4 no sob/lidia noted skin pink warm dry speaks in full sentences. lungs - slightly tight/diminished. duo neb tx as ordered then d/c'd home.
[2021-10-31] MEDS: Albuterol Sulfate 2.5 MG, Albuterol Sulfate (0.083%) 2.5 MG 5 MG INHALE (12:03)
[2021-10-31 12:04] VITALS: PULSE 88; RESP 16; O2SAT 98
== END 2021-10-31 12:51 | disposition home or self-care (01) ==
PROVIDERS: Emergency Provider Emergency Medicine; PCP Family Medicine
DX: J20.9 Acute bronchitis, unspecified (principal); J45.901 Unspecified asthma with (acute) exacerbation; Z20.822 Contact with and (suspected) exposure to COVID-19; R50.9 Fever, unspecified
CPT/HCPCS: 71046; 87635; 94640; 99284

== ENCOUNTER 2021-11-03 08:33 | Emergency (ER) | payer OTHER, SELFPAY ==
--- NOTE | ~2021-11-03 | XR_ITS ---
EXAMINATION: XR CHEST CLINICAL INFORMATION: Shortness of breath COMPARISON: 10/31/2021 TECHNIQUE: 2 views of the chest were obtained. FINDINGS: Lungs grossly clear. Heart and pulmonary vessels are normal. XR/XR chest 2V IMPRESSION: No active disease.
[2021-11-03 09:28] VITALS: BP 142/95; PULSE 101; RESP 20; TEMP 37; O2SAT 100; BMI 27.3
[2021-11-03 15:01] VITALS: PULSE 83; RESP 20; O2SAT 100
== END 2021-11-03 17:23 | disposition left against medical advice (07) ==
PROVIDERS: Emergency Provider Emergency Medicine; PCP Family Medicine
DX: J45.909 Unspecified asthma, uncomplicated (principal)
CPT/HCPCS: 71046; 99282; 99283

== ENCOUNTER 2021-12-09 02:05 | Observation (INO) | payer OTHER, SELFPAY ==
[2021-12-09] VITALS (10 sets, daily range): BP systolic 119–128; BP diastolic 74–91; PULSE 83–105; RESP 16–20; TEMP 36.3–36.8; O2SAT 09–99; BMI 26.4
--- NOTE | ~2021-12-09 | XR_ITS ---
EXAMINATION: XR CHEST CLINICAL INFORMATION: Shortness of breath, history of asthma. COMPARISON: 11/03/2021 chest radiographs. TECHNIQUE: Frontal view of the chest was obtained. FINDINGS: No significant abnormality is noted involving the heart, lungs, mediastinum, bony thorax or soft tissues. XR/XR chest 1V IMPRESSION: No acute cardiopulmonary process.
[2021-12-09 02:40] LABS: COVID-19 Test Negative (Negative); IDNOW Serial# 16C4AD1C; Influenza A Negative (Negative); Influenza B2 Negative (Negative)
--- NOTE | 2021-12-09 04:41 | ED_ITS ---
HPI - URI/Sore Throat General Chief Complaint: Upper Respiratory Symptoms Stated Complaint: asthma Time Seen by Provider: 12/09/21 04:36 Source: patient Mode of arrival: ambulatory Limitations: no limitations History of Present Illness HPI Narrative: Patient comes to the emergency room complaining of shortness of breath, wheezing, nasal congestion. Patient denies fever or chills. Patient states she has been using her inhaler every 4 hours without any significant relief. Related Data Home Medications Medication Instructions Recorded Confirmed beclomethasone dipropionate 40 mcg inhalation 11/30/19 02/19/20 mcg/actuation aerosol inhaler montelukast 10 mg tablet 10 mg PO BEDTIME 11/30/19 02/19/20 (Singulair) melatonin 3 mg tablet 3 mg PO BEDTIME 02/19/20 02/19/20 mepolizumab 100 mg subcutaneous mg subcut 02/19/20 02/19/20 solution mometasone-formoterol HFA 200 2 puff inhalation BID 02/19/20 02/19/20 mcg-5 mcg/actuation aerosol inhaler Previous Rx's Medication Instructions Recorded ibuprofen 600 mg tablet 600 mg PO Q6H PRN pain #20 tabs 04/05/20 meclizine 25 mg tablet 25 mg PO TID PRN dizziness #10 tabs 10/06/20 ibuprofen 800 mg tablet 800 mg PO Q8H PRN pain #30 tabs 08/14/21 albuterol sulfate 0.63 mg/3 mL 0.63 mg (3 mL) inhalation QID PRN 10/31/21 solution for nebulization shortness of breath or wheezing #75 mL albuterol sulfate 90 mcg/actuation 1 inh inhalation QID PRN shortness 10/31/21 aerosol inhaler of breath or wheezing #8.5 grams azithromycin 250 mg tablet See Rx Instructions PO .COMPLEX #6 10/31/21 tabs codeine 10 mg-guaifenesin 100 mg/5 5 ml PO Q6H PRN cold symptoms #120 10/31/21 mL oral liquid (Guaifenesin AC) mL prednisone 20 mg tablet 40 mg PO DAILY rash 5 days #10 tabs 10/31/21 Allergies Allergy/AdvReac Type Severity Reaction Status Date / Time benzonatate [BENZONATATE] Allergy Severe ANAPHYLAXIS Verified 12/09/21 02:16 banana [BANANA] Allergy Intermediate RASH Verified 12/09/21 02:16 coconut [COCONUT] Allergy Intermediate RASH Verified 12/09/21 02:16 cucumber [CUCUMBER] Allergy Intermediate RASH Verified 12/09/21 02:16 grape [GRAPE] Allergy Intermediate RASH Verified 12/09/21 02:16 arthur [ARTHUR] Allergy Intermediate RASH Verified 12/09/21 02:16 sulfamethoxazole Allergy Intermediate RASH Verified 12/09/21 02:16 [From BACTRIM] trimethoprim [From BACTRIM] Allergy Intermediate RASH Verified 12/09/21 02:16 cephalexin [Keflex] Allergy Unknown Unknown Verified 12/09/21 02:16 duloxetine [From CYMBALTA] Allergy Unknown UNKNOWN Verified 12/09/21 02:16 Sulfa (Sulfonamide Allergy Unknown Unknown Verified 12/09/21 02:16 Antibiotics) SEAFOOD Allergy Intermediate RASH Uncoded 05/29/21 09:17 Tessalon Allergy Unknown Unknown Uncoded 05/29/21 09:17 Review of Systems Review of Systems: Constitutional : No Weight loss, No Fever, No Chills, No Night Sweats, No Fatigue, No Malaise ENT/Mouth : No Hearing loss, No Ear Pain, No Nasal Congestion, No Sinus Pain, No Hoarseness, No sore throat, No Rhinorrhea, No Swallowing Difficulty Eyes: No Eye Pain, No Swelling, No Redness, No Foreign Body, No Discharge, No Vision Changes Cardiovascular : No Chest Pain, No SOB, No Dyspnea on Exertion, No Orthopnea, No Edema, No Palpitations Respiratory : Complaining of cough, wheezing, shortness of breath not responding well to breathing treatments/albuterol Gastrointestinal : No Nausea, No Vomiting, No Diarrhea, No Constipation, No abdominal Pain, No Hematochezia, No Melena Genitourinary : no irregular bleeding, No Dysuria, No Urinary Frequency, No Hematuria, No Urinary Incontinence, No Urgency, No Flank Pain, No Urinary Flow Changes, No Hesitancy Musculoskeletal : No joint pain, No Myalgias, No Joint Swelling Skin : No Skin Lesions, No rash Neuro : No Weakness, No Numbness, No Paresthesias, No Loss of Consciousness, No Dizziness, No Headache Psych : No Anxiety/Panic, No Depression, No SI/HI/AH/VH, No Social Issues, Heme/Lymph: No Bruising, No Bleeding,No Lymphadenopathy Endocrine : No Polyuria, No Polydipsia, No Temperature Intolerance COUNTS INCLUDE 234 BEDS AT THE [facility] Past Medical History Medical History Asthma History of depression Hx of anxiety disorder Hx of migraine headaches Kidney stone Surgical History Hx laparoscopic cholecystectomy Hx of bilateral salpingectomy Hx of section Hx of tonsillectomy Hx of tubal ligation Family History Family History Mother Diabetes mellitus Hypertension Dementia Father Diabetes mellitus Hypertension Social History Social History Alcohol intake: never Patient Tobacco Use Status: Never used Tobacco Smoked in Last 30 Days: No Use of substances other than those prescribed or required for medical reasons: No Advance Directives: No Advance Directives Information Provided: Yes Patient : No Current occupational status: disabled Current occupation: right handed Physical Exam Vital Signs: Vital Signs: Last Vital Signs Temp 98.3 F 12/09/21 05:03 Pulse 93 12/09/21 06:42 Resp 18 12/09/21 06:42 BP 122/83 12/09/21 05:03 Pulse Ox 97 12/09/21 05:03 O2 Del Method 12/09/21 05:03 BMI result Body Mass Index 26.4 Const: Other: Appearance: Alert. Oriented X3. No acute distress. Eyes: Pupils equal, round and reactive to light. ENT: Pharynx normal. Congested, nasal voice Neck: Normal inspection. Neck supple. No lymph nodes noted. No crepitus CVS: Normal heart rate and rhythm. Pulses normal. Normal S1 and S2 Respiratory: No respiratory distress. Bilateral wheezing, moderate air movement, oxygen saturation 98% on room air Abdomen: Soft and nontender. No rigidity. No distention. Skin: Skin warm and dry. Normal skin color. Normal skin turgor. Extremities: No lower extremity edema. No Lacerations. No Rash Neuro: Oriented X 3. No motor deficit. No sensory deficit. Moving all extremities. No slurred speech. CN 2 through 12 grossly intact Psych: calm, cooperative, normal affect Course Course Course Narrative: Patient has an asthma exacerbation, patient receiving IV magnesium, Solu-Medrol and 10 mg of inhaled albuterol. Influenza and COVID tests pending. Despite IV treatment, and nebulization treatments with albuterol and DuoNebs, patient still wheezing. Oxygen saturation in the mid to high 90s. all of the labs pending, sign out given to Dr. Morel MDM - URI/Sore Throat Lab Data Labs: Lab Results 12/09/21 12/09/21 Range/Units 02:18 02:18 COVID-19 (ILENE) Negative (Negative) COVID-19 Clin Com See Note Influenza Type A (DIONY) Negative (Negative) Influenza Type B (DIONY) Negative (Negative) Influenza A & B Note See Note Discharge Plan Discharge Clinical Impression: Asthma exacerbation Patient Disposition: Still a Patient Prescriptions: No Action ibuprofen 600 mg tablet 600 mg PO Q6H PRN (Reason: pain) Qty: 20 0RF meclizine 25 mg tablet 25 mg PO TID PRN (Reason: dizziness) Qty: 10 0RF ibuprofen 800 mg tablet 800 mg PO Q8H PRN (Reason: pain) Qty: 30 0RF albuterol sulfate 90 mcg/actuation HFA aerosol inhaler 1 inh inhalation QID PRN (Reason: shortness of breath or wheezing) Qty: 8.5 0RF albuterol sulfate 0.63 mg/3 mL solution for nebulization 0.63 mg inhalation QID PRN (Reason: shortness of breath or wheezing) Qty: 75 0RF azithromycin 250 mg tablet See Rx Instructions .ROUTE .COMPLEX Qty: 6 0RF Rx Instructions: take 500 mg today (day 1), then 250 mg for 4 days (days 2-5) codeine-guaifenesin [Guaifenesin AC] 10-100 mg/5 mL liquid 5 ml PO Q6H PRN (Reason: cold symptoms) Qty: 120 0RF prednisone 20 mg tablet 40 mg PO DAILY 5 Days Qty: 10 0RF beclomethasone dipropionate 40 mcg/actuation aerosol inhalation montelukast [Singulair] 10 mg tablet 10 mg PO BEDTIME Nucala 100 mg recon soln subcut Dulera 200-5 mcg/actuation HFA aerosol inhaler 2 puff inhalation BID melatonin 3 mg tablet 3 mg PO BEDTIME
[2021-12-09] MEDS: Albuterol Sulfate (0.083%) 2.5 MG/3 ML VIAL.NEB 10 MG INHALE (05:07)
[2021-12-09] MEDS: Magnesium Sulfate/H2O 2 GM/50 ML PIGGYBACK IV (05:46)
[2021-12-09] MEDS: methylPREDNISolone Sod Succ 125 MG/2 ML VIAL IVPUSH (05:46)
[2021-12-09] MEDS: Albuterol/Iprat 2.5/0.5MG 3 ML AMPUL.NEB INHALE ×4 (06:42→19:29)
[2021-12-09 07:54] LABS: Basophils Percent Auto 0.5 % (0-2); Eosinophils Percent Auto 0.1 % (0-4); Hematocrit 36.6 % (37.0-47.0); Hemoglobin 12.1 g/dl (12.0-16.0); Imm Gran Abs Auto 0.05 X10*3/uL (0.00-0.03); Imm Gran Pct Auto 0.7 % (0.0-0.4); Lymphocytes Absolute Auto 1.3 X10*3/uL (1.2-4.9); Lymphocytes Percent Auto 17.8 % (20-40); MANUAL DIFF FLAG NO; Mean Corpuscular HGB Conc 33.1 g/dl (31.0-35.0); Mean Corpuscular Volume 81.7 fL (80.0-98.0); Mean Platelet Volume 8.6 fL (9.4-12.3); Monocytes Absolute Auto 0.3 X10*3/uL (0.1-1.2); Monocytes Percent Auto 3.4 % (2-11); Neutrophils Absolute Auto 5.8 x10*3/uL (2.0-8.3); Neutrophils Percent Auto 77.5 % (45-73); Platelet Count 324 X10*3/uL (160-400); Red Blood Count 4.48 X10*6/uL (4.20-5.50); Red Cell Distribution Width 13.2 % (11.0-16.0); White Blood Count 7.4 X10*3/uL (4.8-10.8)
[2021-12-09 08:12] LABS: Anion Gap 17 (12-20); Blood Urea Nitrogen 11 mg/dL (9-16); Carbon Dioxide 21 mmol/L (22-29); Chloride 105 mmol/L (96-108); Creatinine Clr Calc Pharmacy 83.6; Estimated Glomerular Filt Rate > 60; Glucose Random 127 mg/dL (60-115); Potassium 3.8 mmol/L (3.3-5.1); Sodium 139 mmol/L (135-145)
[2021-12-09] MEDS: Ketorolac Tromethamine 15 MG/ML VIAL IVPUSH (08:12)
--- NOTE | 2021-12-09 08:23 | PC.NURSE ---
PT A&Ox3, reports increasing SOB and wheezing with no relief of home meds. Reports a dry non-productive cough and headache. Expiratory wheezing, o2 sat 97% on RA. No apparent distress. Meds given as documented.
--- NOTE | 2021-12-09 08:30 | PHA.MEDREC ---
Pharmacy Consult ? Medication Reconciliation Pharmacy has completed the medication reconciliation. Patient is no longer taking amlodipine [place]
[2021-12-09] MEDS: guaiFEN/Codeine SF 200/20/10ML 10 ML LIQUID 5 ML PO (10:00)
--- NOTE | 2021-12-09 10:46 | P.HPHOSP_ITS ---
History of Present Illness Date of Service: 12/09/21 Attending physician on admission: Beltran Leedzma Chief Complaint: sob 36-year-old female with past medical history of asthma, depression, anxiety, migraine, kidney stone: came to the hospital because of shortness of breath , nasal congestion, generalized weakness, aggressive coughing for 2 days duration. She said that she tried multiple doses of home inhalation treatment but did not help- subsequently came to the hospital because her wheezing shortness of breath was not improving. she denies any current trigger except may be seasonal changes. she denies any sick contacts or any recent travel. she denies any history of BiPAP use or intubations. She had COVID time to injections last year, Moderna. Denies any new complaint of chest pain or abdominal pain or fever or chills or nausea or vomiting Denies any weakness or numbness. lab imaging reviewed: New leukocytosis, BMP fine, chest x-ray seems fine . In the ED: patient received nebulizer, steroids, cough medication and magnesium but still feels short of breath, currently does not feel comfortable to go home- ED requested observation admission for asthma exacerbation. Review of Systems Review of Systems: As above. [facility] Medical History Asthma History of depression Hx of anxiety disorder Hx of migraine headaches Kidney stone Family History Mother Diabetes mellitus Hypertension Dementia Father Diabetes mellitus Hypertension Pertinent family history: As per the patient her children has asthma. Surgical History Hx laparoscopic cholecystectomy Hx of bilateral salpingectomy Hx of section Hx of tonsillectomy Hx of tubal ligation Social History Alcohol intake: never Patient Tobacco Use Status: Never used Tobacco Smoked in Last 30 Days: No Use of substances other than those prescribed or required for medical reasons: No Advance Directives: No Advance Directives Information Provided: Yes Patient : No Current occupational status: disabled Current occupation: right handed Meds Allergies Allergy/AdvReac Type Severity Reaction Status Date / Time benzonatate [BENZONATATE] Allergy Severe ANAPHYLAXIS Verified 12/09/21 02:16 banana [BANANA] Allergy Intermediate RASH Verified 12/09/21 02:16 coconut [COCONUT] Allergy Intermediate RASH Verified 12/09/21 02:16 cucumber [CUCUMBER] Allergy Intermediate RASH Verified 12/09/21 02:16 grape [GRAPE] Allergy Intermediate RASH Verified 12/09/21 02:16 arthur [ARTHUR] Allergy Intermediate RASH Verified 12/09/21 02:16 sulfamethoxazole Allergy Intermediate RASH Verified 12/09/21 02:16 [From BACTRIM] trimethoprim [From BACTRIM] Allergy Intermediate RASH Verified 12/09/21 02:16 cephalexin [Keflex] Allergy Unknown Unknown Verified 12/09/21 02:16 duloxetine [From CYMBALTA] Allergy Unknown UNKNOWN Verified 12/09/21 02:16 Sulfa (Sulfonamide Allergy Unknown Unknown Verified 12/09/21 02:16 Antibiotics) SEAFOOD Allergy Intermediate RASH Uncoded 05/29/21 09:17 Tessalon Allergy Unknown Unknown Uncoded 05/29/21 09:17 Active Medications: Current Medications Pharmacy Consult (Consult Rx Perform Med Rec) 1 each MISCELLANE ONCE PRN PRN Reason: Consult order Sodium Chloride (0.9 % Sodium Chloride Flush 3 Ml Syringe) 3 ml IVFLUSH [facility] Home Medications Medication Instructions Recorded Confirmed Last Taken Type montelukast 10 mg tablet 10 mg PO BEDTIME 11/30/19 12/09/21 12/08/21 History (Singulair) melatonin 3 mg tablet 3 mg PO BEDTIME 02/19/20 12/09/21 12/08/21 History mepolizumab 100 mg subcutaneous 100 mg subcut Q4W 02/19/20 12/09/21 Unknown History solution albuterol sulfate 2.5 mg/3 mL 3 mg inhalation Q4H PRN Wheezing 12/09/21 12/09/21 12/08/21 History (0.083 %) solution for nebulization cetirizine 10 mg tablet 10 mg PO BID 12/09/21 12/09/21 12/08/21 History mometasone-formoterol HFA 200 2 puff inhalation BID 12/09/21 12/09/21 12/08/21 History mcg-5 mcg/actuation aerosol inhaler (Dulera) Physical Exam Vital Signs and Narrative: Vital Signs: Last Vital Signs Temp 98.2 F 12/09/21 08:27 Pulse 99 12/09/21 08:27 Resp 16 12/09/21 08:27 BP 127/80 12/09/21 08:27 Pulse Ox 97 12/09/21 08:27 O2 Del Method 12/09/21 08:27 BMI result Body Mass Index 26.4 Appearance: Alert.? Oriented X3.? not in distress.? Eyes: Pupils equal, round and reactive to light.? Sclera nonicteric.? ENT: seems mild nasal congestion. cvs: rrr, [id number] , no murmur res: breath sounds somewhat diminshed at bases ,b/l expiratory wheezin abd: no rebound or guarding ,nt, bs present. ext pulses present , no cyanosis. neuro: axo3 , nonfocal. Results Labs CBC and Chem 7: 12/09/21 07:49 12/09/21 07:49 Labs: Laboratory Results - last 24 hr 12/09/21 12/09/21 12/09/21 02:18 02:18 07:49 MCV 81.7 MCH 27.0 MCHC 33.1 RDW 13.2 Plt Count 324 MPV 8.6 L Immature Gran % (Auto) 0.7 H Neut % (Auto) 77.5 H Lymph % (Auto) 17.8 L [place] % (Auto) 3.4 Eos % (Auto) 0.1 Baso % (Auto) 0.5 Lymph # (Auto) 1.3 [place] # (Auto) 0.3 Eos # (Auto) 0.0 Baso # (Auto) 0.0 Abs Immat Gran (auto) 0.05 H Absolute Neuts (auto) 5.8 Absolute Nucleated RBC 0.000 Nucleated RBC % (auto) 0.0 Anion Gap Estim Creat Clear Calc Estimated GFR Random Glucose Calcium COVID-19 (ILENE) Negative COVID-19 Clin Com See Note Influenza Type A (DIOYN) Negative Influenza Type B (DIONY) Negative Influenza A & B Note See Note 12/09/21 07:49 MCV MCH MCHC RDW Plt Count MPV Immature Gran % (Auto) Neut % (Auto) Lymph % (Auto) [place] % (Auto) Eos % (Auto) Baso % (Auto) Lymph # (Auto) [place] # (Auto) Eos # (Auto) Baso # (Auto) Abs Immat Gran (auto) Absolute Neuts (auto) Absolute Nucleated RBC Nucleated RBC % (auto) Anion Gap 17 Estim Creat Clear Calc 83.6 Estimated GFR > 60 Random Glucose 127 H Calcium 9.0 COVID-19 (ILENE) COVID-19 Clin Com Influenza Type A (DIONY) Influenza Type B (DIONY) Influenza A & B Note Imaging Radiologist's Impressions: Impressions Chest X-Ray 12/09/21 08:05 IMPRESSION: No acute cardiopulmonary process. Assessment and Plan (1) Asthma exacerbation: Status: Acute Plan 36-year-old female with past medical history of asthma, depression, anxiety, migraine, kidney stone-admitted for asthma excerebation. 1.asthma excerebation: admit obervation feels weak , still sob/cough ,?tight and wheezy, multiple nebs, notes her asthma has been bad x 1 month not hypoxic respanel added , continue nebs, steroids,loratidine,nucala if needed will add oxygen support. dvt prophylax: s/c lovenox Quality Stroke Does the patient have a stroke diagnosis?: No VTE Prior VTE?: No VTE Risk Level:: Medical - moderate - high VTE Device Contraindication: N/A - Device Ordered VTE Drug Contraindication: N/A - Med Ordered
[2021-12-09] MEDS: methylPREDNISolone Sod Succ 40 MG/ML VIAL IVPUSH ×2 (14:05→20:41)
[2021-12-09] MEDS: 0.9 % Sodium Chloride Flush 3 ML SYRINGE IVFLUSH (15:03)
--- NOTE | 2021-12-09 20:08 | PC.NURSE ---
Report was given to Clara nurse in [facility], pt is ready to be transported.
[2021-12-09] MEDS: Melatonin 3 MG TABLET PO (20:41)
[2021-12-09] MEDS: Montelukast Sodium 10 MG TABLET PO (20:41)
[2021-12-09] MEDS: Loratadine 10 MG TABLET PO (20:41)
[2021-12-09] MEDS: Enoxaparin Sodium 40 MG/0.4 ML SYRINGE SUBCUT (20:41)
[2021-12-09] MEDS: guaiFENesin 100 MG/5 ML LIQUID 10 ML PO (22:48)
[2021-12-09] MEDS: Acetaminophen 325 MG TABLET 650 MG PO (22:58)
[2021-12-10] MEDS: 0.9 % Sodium Chloride Flush 3 ML SYRINGE IVFLUSH ×2 (00:27→09:22)
[2021-12-10 03:40] VITALS: BP 117/75; PULSE 93; RESP 18; TEMP 37; O2SAT 98
[2021-12-10] MEDS: guaiFENesin 100 MG/5 ML LIQUID 10 ML PO ×2 (03:44→09:32)
[2021-12-10 07:26] VITALS: BP 136/92; PULSE 98; RESP 20; TEMP 36.3; O2SAT 96
[2021-12-10 07:37] VITALS: PULSE 98; RESP 18; O2SAT 95
[2021-12-10] MEDS: Albuterol/Iprat 2.5/0.5MG 3 ML AMPUL.NEB INHALE ×2 (07:37→11:37)
--- NOTE | 2021-12-10 07:47 | P.CDIC_ITS ---
CDI Concurrent Query Documentation Clarification: PHYSICIAN'S DOCUMENTATION REQUEST Date of Query: 12/10/21 0748 Patient Name: Claribel Albright Admit Date: 12/09/21 Dear Doctor, Please review the following and provide your response in the progress notes. Clinical Indicators: Risk Factors/Clinical Indicators/Treatments Dx: asthma exacerbation Still sob, cough, tight, wheezing. Add respanel, steroids, nebs. Based on the above, please clarify in the Progress Notes further specificity regarding the type and acuity of the asthma: Type: * Mild intermittent - less than 2x/week * Mild persistent - more than 2x/week but not daily * Moderate persistent - daily and may restrict physical activity * Severe persistent - throughout the day with frequent attacks, limiting activities * Exercise induced * Other ? please specify * Unable to determine Acuity: * With acute exacerbation * With status asthmaticus * Uncomplicated * Unable to determine Use of terms such as suspected, likely, concern for, or probable (associated with a specific diagnosis that is being evaluated, monitored, or treated as if it exists) are acceptable and can be coded in the inpatient setting, when documented at the time of discharge. Thank you, Yancy Childs [facility], CDIS Extension [phone] Please use your independent medical judgment in providing your response. THIS QUERY IS PART OF THE PERMANENT MEDICAL RECORD Provider Response: Other Other Diagnosis: Acute asthma exacerbation( mild intermittent).
--- NOTE | 2021-12-10 07:47 | MHC.CDI.CONC ---
CDI Concurrent Query Documentation Clarification: PHYSICIAN'S DOCUMENTATION REQUEST Date of Query: 12/10/21 0748 Patient Name: Claribel Albright Admit Date: 12/09/21 Dear Doctor, Please review the following and provide your response in the progress notes. Clinical Indicators: Risk Factors/Clinical Indicators/Treatments Dx: asthma exacerbation Still sob, cough, tight, wheezing. Add respanel, steroids, nebs. Based on the above, please clarify in the Progress Notes further specificity regarding the type and acuity of the asthma: Type: Mild intermittent - less than 2x/week Mild persistent - more than 2x/week but not daily Moderate persistent - daily and may restrict physical activity Severe persistent - throughout the day with frequent attacks, limiting activities Exercise induced Other ? please specify Unable to determine Acuity: With acute exacerbation With status asthmaticus Uncomplicated Unable to determine Use of terms such as suspected, likely, concern for, or probable (associated with a specific diagnosis that is being evaluated, monitored, or treated as if it exists) are acceptable and can be coded in the inpatient setting, when documented at the time of discharge. Thank you, Yancy Childs [facility], [facility] Extension [phone] Please use your independent medical judgment in providing your response. THIS QUERY IS PART OF THE PERMANENT MEDICAL RECORD Provider Response: Other Other Diagnosis: Acute asthma exacerbation( mild intermittent).
[2021-12-10 08:53] LABS: Adenovirus PCR Not Detected (Not Detect.); Bordetella parapertussis PCR Not Detected (Not Detect.); Bordetella pertussis PCR Not Detected (Not Detect.); Chlamydia pneumoniae PCR Not Detected (Not Detect.); Coronavirus 229E PCR Not Detected (Not Detect.); Coronavirus HKU1 PCR Not Detected (Not Detect.); Coronavirus NL63 PCR Not Detected (Not Detect.); Coronavirus OC43 PCR Not Detected (Not Detect.); Human metapneumovirus PCR Not Detected (Not Detect.); Influenza A PCR Not Detected (Not Detect.); Influenza B PCR Not Detected (Not Detect.); Mycoplasma pneumoniae PCR Not Detected (Not Detect.); Parainfluenza 1 PCR Not Detected (Not Detect.); Parainfluenza 2 PCR Not Detected (Not Detect.); Parainfluenza 3 PCR Not Detected (Not Detect.); Parainfluenza 4 PCR Not Detected (Not Detect.); RSV PCR Detected (Not Detect.); Rhino/Enterovirus PCR Not Detected (Not Detect.); SARS-CoV-2 PCR Not Detected (Not Detect.)
[2021-12-10] MEDS: methylPREDNISolone Sod Succ 40 MG/ML VIAL IVPUSH (09:22)
[2021-12-10] MEDS: Loratadine 10 MG TABLET PO (09:22)
[2021-12-10] MEDS: Acetaminophen 325 MG TABLET 650 MG PO (09:32)
[2021-12-10 11:32] VITALS: BP 131/75; PULSE 95; RESP 20; TEMP 36.1; O2SAT 97
[2021-12-10 11:37] VITALS: PULSE 97; RESP 18; O2SAT 94
--- NOTE | 2021-12-10 11:51 | PM.DS ---
DS: Providers Provider Date of Service: 12/10/21 Date of admission: 12/09/21 10:42 Date of discharge: 12/10/21 Primary care physician: Anne Carrion MD Admitting clinician: Beltran Ledezma Attending physician on discharge: Beltran Ledezma DS: Diagnosis Discharge Diagnosis (1) Acute asthma exacerbation: Status: Acute (2) RSV (respiratory syncytial virus infection): Status: Acute DS: Summary Hospital Course Hospital Course: 36-year-old female with past medical history of asthma, depression, anxiety, migraine, kidney stone:? came to the hospital because of shortness of breath , nasal congestion, generalized weakness, aggressive coughing for 2 days duration.? She said that she tried multiple doses of home? inhalation treatment but did not help- subsequently came to the hospital because her wheezing shortness of breath was not improving. ?she denies any current trigger except may be seasonal changes. ?she denies any sick contacts or any recent travel. ?she denies any history of BiPAP use or intubations. ? She had COVID time to injections last year, Moderna. ?Denies any new complaint of chest pain or abdominal pain or fever or chills or nausea or vomiting Denies any weakness or numbness. ?lab imaging reviewed:? New leukocytosis, BMP fine, chest x-ray seems fine . ? In the ED:? patient received nebulizer, steroids, cough medication and magnesium but still feels short of breath,? currently does not feel comfortable to go home- ED requested observation admission for asthma exacerbation. Hospital course: Acute asthma exacerbation ( asthma mild intermittent) possible secondary to use viral RSV/URI (positive respiratory panel)- patient was started on IV steroids and nebulizers- shortness of breath seems to be improving still has cough. patient will go home with p.o. steroids and cough medication. Follow-up outpatient with PCP. Plan: Complete course of steroids as well as given cough medication for cough follow-up with PCP outpatient. Above management discussed the patient detail length he understand and in agreement with the plan, time spent 50 minute. Time spent discussing smoking cessation with patient: more than 10 minutes Time Spent with Patient Time attestation: Total time spent providing and/or coordinating discharge services: Discharge coordination time: Greater than 30 minutes Quality: Safe Use of Opioids Does Pt have an Active Cancer Diagnosis on the Problem List?: No Quality: Stroke Does the patient have a stroke diagnosis?: No Physical Exam Vital Signs: Vital Signs: Last Vital Signs Temp 97 F 12/10/21 11:32 Pulse 97 12/10/21 11:37 Resp 18 12/10/21 11:37 BP 131/75 12/10/21 11:32 Pulse Ox 97 12/10/21 11:32 O2 Del Method 12/10/21 11:32 BMI result Body Mass Index 26.4 Appearance: Alert.? Oriented X3.? not in distress.? Eyes: Pupils equal, round and reactive to light.? Sclera nonicteric.? ENT: Pharynx normal.? Moist mucous membranes. cvs: rrr, [id number] . res: clear to auscultation ,no rhonchii or wheezing abd: no rebound or guarding ,nt, bs present. ext pulses present , no cyanosis ,Gait well balanced well coordinated. neuro: axo3 , nonfocal. DS: Data Data Completed and Pending Labs on day of discharge: Laboratory Results - last 24 hr 12/10/21 00:20 Respiratory Panel Lee See Note Adenovirus (Rapid PCR) Not Detected B.pert (TEM-PCR) Not Detected B.parapertussis DNA PCR Not Detected C. pneumoniae DNA (PCR) Not Detected Coronavirus OC43 (PCR) Not Detected Coronavirus HKU1 (PCR) Not Detected Coronavirus 229E (PCR) Not Detected Coronavirus NL63 (PCR) Not Detected Human Metapneumovir PCR Not Detected Influenza A (RT-PCR) Not Detected Influenza B (RT-PCR) Not Detected M. pneumoniae (PCR) Not Detected Parainfluenza 1 (PCR) Not Detected Parainfluenza 2 (PCR) Not Detected Parainfluenza 3 (PCR) Not Detected Parainfluenza 4 (PCR) Not Detected RSV (PCR) Detected A Entero/Rhino (PCR) Not Detected SARS-CoV-2 RNA (RT-PCR) Not Detected Additional Comments Additional comments: XR/XR chest 1V IMPRESSION: No acute cardiopulmonary process. Discharge Plan Discharge Patient Disposition: Home, Self-Care Discharge Diagnosis: Acute asthma exacerbation ( asthma mild intermittent),RSV URI. Referrals: Anne Carrion MD [Primary Care Provider] - 1 Week Discharge Medications: New prednisone 20 mg tablet 40 mg PO DAILY Qty: 8 0RF Robitussin Cough-Chest Air DM 5-100 mg/5 mL liquid 10 ml PO Q4-8H PRN (Reason: cough) Qty: 118 0RF Continued albuterol sulfate 2.5 mg /3 mL (0.083 %) solution for nebulization 3 mg inhalation Q4H PRN (Reason: Wheezing) Dulera 200-5 mcg/actuation HFA aerosol inhaler 2 puff inhalation BID cetirizine 10 mg tablet 10 mg PO BID albuterol sulfate 90 mcg/actuation HFA aerosol inhaler 1 inh inhalation QID PRN (Reason: shortness of breath or wheezing) Qty: 8.5 0RF montelukast [Singulair] 10 mg tablet 10 mg PO BEDTIME mepolizumab 100 mg recon soln 100 mg subcut Q4W melatonin 3 mg tablet 3 mg PO BEDTIME Discharge Orders: Discharge Order (Routine); Ordered 12/10/21 Ordered By: Beltran Ledezma Diet: Advance to usual diet Activity on Discharge: As tolerated Stand Alone Forms: Patient Portal Discharge page Care Plan Goals: Acute asthma exacerbation ( asthma mild intermittent) possible secondary to use viral URI( positive for RSV)- patient was started on IV steroids and nebulizers- shortness of breath seems to be improving still has cough. patient will go home with p.o. steroids and cough medication. Follow-up outpatient with PCP. Health Concerns: As above. Plan of Treatment: As above. Assessment: As above. Patient Instructions: Respiratory Syncytial Virus (DC), Asthma (DC)
--- NOTE | 2021-12-10 12:17 | MHC.CM.PN ---
pt dcd home no skilled servxies ordered by
== END 2021-12-10 13:15 | disposition home or self-care (01) ==
LOC: HO.ED 07:56 → HO.EDOVER 10:46 → HO.IMC 18:50
PROVIDERS: Emergency Medicine; Admitting Provider Internal Medicine; Emergency Provider Emergency Medicine; PCP Family Medicine; Visit Provider Internal Medicine
DX: J45.21 Mild intermittent asthma with (acute) exacerbation (principal); B97.4 Respiratory syncytial virus as the cause of diseases classified elsewhere; J06.9 Acute upper respiratory infection, unspecified; B33.8 Other specified viral diseases; Z20.822 Contact with and (suspected) exposure to COVID-19; Z79.899 Other long term (current) drug therapy
CPT/HCPCS: 36415; 71045; 80048; 85025; 87502; 87633; 87635; 94640; 96365; 96366; 96372; 96375; 96376; 99218; 99285; J1650; J1885; J2920; J2930; J3475

== ENCOUNTER 2022-02-11 09:21 | Outpatient (REF) | payer OTHER, SELFPAY ==
[2022-02-11 09:57] LABS: MANUAL DIFF FLAG NO
[2022-02-11 10:10] LABS: Basophils Percent Auto 0.4 % (0-2); Eosinophils Percent Auto 0.1 % (0-4); Hematocrit 35.1 % (37.0-47.0); Hemoglobin 11.6 g/dl (12.0-16.0); Imm Gran Abs Auto 0.03 X10*3/uL (0.00-0.03); Imm Gran Pct Auto 0.4 % (0.0-0.4); Lymphocytes Absolute Auto 2.1 X10*3/uL (1.2-4.9); Lymphocytes Percent Auto 30.2 % (20-40); Mean Corpuscular Hemoglobin 27.8 pg (27.0-33.0); Monocytes Absolute Auto 0.5 X10*3/uL (0.1-1.2); Monocytes Percent Auto 6.7 % (2-11); Neutrophils Absolute Auto 4.2 x10*3/uL (2.0-8.3); Neutrophils Percent Auto 62.2 % (45-73); Platelet Count 384 X10*3/uL (160-400); Red Blood Count 4.18 X10*6/uL (4.20-5.50); Red Cell Distribution Width 13.3 % (11.0-16.0); White Blood Count 6.8 X10*3/uL (4.8-10.8)
== END 2022-02-11 09:22 | disposition home or self-care (01) ==
LOC: HO.LAB 09:21
PROVIDERS: PCP Family Medicine; Visit Provider Internal Medicine Pulmonary Disease
DX: J45.909 Unspecified asthma, uncomplicated (principal); Z91.09 Other allergy status, other than to drugs and biological substances
CPT/HCPCS: 36415; 82785; 85025; 86003; 99202

== ENCOUNTER 2022-02-13 12:17 | Outpatient (REF) | payer OTHER, SELFPAY ==
--- NOTE | ~2022-02-13 | US_ITS ---
EXAMINATION: US RETROPERITONEAL LIMITED (RENAL ONLY) CLINICAL INFORMATION: Calculus of kidney. COMPARISON: Renal ultrasound 02/06/2021 and 02/06/2020. CT abdomen and pelvis 02/15/2019. X-ray KUB 07/28/2017. TECHNIQUE: Real-time imaging of the kidneys. FINDINGS: RIGHT KIDNEY: 9.4 x 4.7 x 4.6 cm (SAG x AP x TRV). The kidney is normal in size, contour, and echogenicity. Renal cortical thickness is normal. No calculi or focal parenchymal lesions. No hydronephrosis. Redemonstration of scattered nonspecific hyperechoic foci in the sinus fat, more prominent than when compared to 01/10/2021 with no associated shadowing nor twinkle artifact. LEFT KIDNEY: 10.1 x 4.6 x 4.4 cm (SAG x AP x TRV). The kidney is normal in size, contour, and echogenicity. Renal cortical thickness is normal. No renal calculi or focal parenchymal lesions. Mild pelviectasis, possibly increased compared to 02/06/2021. No calyectasis. US/US renal BI IMPRESSION: 1. No nephrolithiasis. 2. Mild left pelviectasis with no calyectasis, new/increased compared to 01/10/2021. 3. Scattered hyperechoic foci in the right renal sinus fat, more prominent than when compared to 01/10/2021, favoring to represent calcifications.
== END 2022-02-13 12:18 | disposition home or self-care (01) ==
LOC: HO.US 12:17
DX: N20.0 Calculus of kidney (principal)
CPT/HCPCS: 76775

== ENCOUNTER 2022-02-19 14:56 | Outpatient (REF) | payer OTHER, SELFPAY ==
--- NOTE | 2022-02-19 17:17 | PFT_ITS ---
FLOWS: FEV1 71% of predicted at 2.00 L. FVC 73% of predicted at 2.45 L. FEV1 to FVC ratio of 0.82. No bronchodilator response. LUNG VOLUMES: Total lung capacity 77% of predicted at 3.59 L. Residual volume 81% of predicted at 1.11 L. Slow vital capacity 76% of predicted at 2.48 L. Expiratory reserve volume 5% of predicted at 0.06 L. Diffusion capacity is normal. IMPRESSION: Moderate restrictive ventilatory defect with no bronchodilator response. Decreased expiratory reserve volume suggests extrathoracic restriction likely secondary to abdominal obesity. Carmine Rivas MD AP/MODL / [id number]
== END 2022-02-19 14:57 | disposition home or self-care (01) ==
LOC: HO.RESP 14:56
PROVIDERS: PCP Family Medicine; Visit Provider Internal Medicine Pulmonary Disease
DX: J45.909 Unspecified asthma, uncomplicated (principal)
CPT/HCPCS: 94060; 94727; 94729

== ENCOUNTER → 2022-02-23 10:38 | Outpatient (BNVA) | payer OTHER, SELFPAY | PROVIDERS: PCP Family Medicine; Visit Provider Nurse Practitioner Family | DX: N20.0 Calculus of kidney (principal); N28.89 Other specified disorders of kidney and ureter | CPT/HCPCS: 99212 ==

== ENCOUNTER 2022-03-13 14:17 | Outpatient (REF) | payer OTHER, SELFPAY ==
--- NOTE | ~2022-03-13 | US_ITS ---
EXAMINATION: US PELVIS COMPLETE CLINICAL INFORMATION: Abnormal uterine bleeding COMPARISON: CT abdomen pelvis 02/15/2019, pelvic ultrasound 11/16/2019 TECHNIQUE: Transabdominal and transvaginal imaging was performed. FINDINGS: The uterus is of normal size and echogenicity measuring 9.0 x 5.1 x 8.3 cm. A regular homogeneous endometrium is identified measuring 0.9 cm. Trace fluid is noted in the endometrial canal. 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 Both ovaries are of normal size and echogenicity. The right measures 3.7 x 2.0 x 1.9 cm for a volume of 7.4 mL. The left measures 1.9 x 1.9 x 1.4 cm for a volume of 2.7 mL. There is normal vascular flow present. There is question of somewhat whorled appearance of the vessels in the right adnexa however given normal morphology of the right ovary would be unlikely to reflect ovarian torsion. There is no pelvic free fluid. US/US pelvic and transvaginal IMPRESSION: There is question of somewhat whirled appearance of the vessels in the right adnexa however given the right ovary is normal in size, appearance and echogenicity with normal vascular flow present this would be considered very unlikely to reflect ovarian torsion. A 4.5 cm subserosal myoma in the left fundus increased in size from prior. Trace fluid in the endometrial canal.
== END 2022-03-13 14:18 | disposition home or self-care (01) ==
LOC: HO.US 14:17
PROVIDERS: Visit Provider Family Medicine
DX: N93.9 Abnormal uterine and vaginal bleeding, unspecified (principal)
CPT/HCPCS: 76830; 76856

== ENCOUNTER → 2022-03-26 10:04 | Outpatient (BNVA) | payer OTHER, SELFPAY | PROVIDERS: PCP Family Medicine; Visit Provider Internal Medicine Pulmonary Disease | DX: J45.909 Unspecified asthma, uncomplicated (principal); Z91.09 Other allergy status, other than to drugs and biological substances | CPT/HCPCS: 99212 ==

== ENCOUNTER 2022-03-31 11:04 | Outpatient (REF) | payer OTHER, SELFPAY | END 2022-03-31 11:05 | disposition home or self-care (01) | LOC: HO.MDS 11:04 | PROVIDERS: Visit Provider Internal Medicine Pulmonary Disease | DX: J45.50 Severe persistent asthma, uncomplicated (principal) | CPT/HCPCS: 96372 ==

== ENCOUNTER 2022-04-29 11:04 | Outpatient (REF) | payer OTHER, SELFPAY | END 2022-04-29 11:05 | disposition home or self-care (01) | LOC: HO.MDS 11:04 | PROVIDERS: Visit Provider Internal Medicine Pulmonary Disease | DX: J45.50 Severe persistent asthma, uncomplicated (principal) | CPT/HCPCS: 96372 ==

== ENCOUNTER 2022-05-14 13:57 | Outpatient (REF) | payer OTHER, SELFPAY ==
--- NOTE | ~2022-05-14 | MM_ITS ---
EXAMINATION: MM DIAGNOSTIC DIGITAL BREAST TOMOSYNTHESIS, BILATERAL US DIAGNOSTIC ULTRASOUND BREAST, RIGHT CLINICAL INFORMATION: 36-year-old with recent scaly rash near right areola. No discharge or palpable mass. No prior breast imaging. No known family history breast cancer. Symptoms improved on ointment. The lifetime risk of breast cancer based on the Tyrer-Cuzick Model is 9%. COMPARISON: None (current study represents initial baseline exam). TECHNIQUE: Digital breast tomosynthesis is performed in both the craniocaudal and mediolateral oblique views along with computer-aided detection (CAD). Synthesized 2D images are generated from the tomosynthesis. Additional magnification right CC and magnification right ML views are obtained. Ultrasound right breast is targeted to the areolar and subareolar breast as well as an intramammary node mid upper outer right breast. FINDINGS: There are scattered areas of fibroglandular density (ACR BI-RADS breast composition Category b). There is no significant mass or architectural abnormality. The bilateral axilla and skin contours are unremarkable. There is no skin thickening or coarsening of the Bry's ligaments. The right breast has an intramammary node mid upper outer quadrant with normal fatty hilus. There are circumferential calcifications in the node, relatively coarse on additional magnification views. No abnormal breast parenchymal calcifications. Ultrasound right areola and subareolar region shows no skin thickening or intradermal mass. There is no cystic or solid mass or focal duct ectasia. No architectural abnormality. Ultrasound targeted to the node upper outer quadrant demonstrates benign-appearing circumscribed node measuring approximately 0.9 x 0.5 cm with normal abundant fatty hilus and uniform thin yani cortex. There is normal color flow pattern. There is tattoo on the contralateral left breast but not on the right breast. No axillary node mineralization. Results are discussed with the patient at time of visit. Patient notes the rest right breast has largely resolved with topical ointment. There is no suspicious breast finding. The intramammary node with coarse calcifications is likely related to prior occult granulomatous infectious or inflammatory condition. MM/MM tomosynthesis diagnostic BI IMPRESSION: -No mammographic evidence of malignancy or acute inflammatory abnormality. -Unremarkable right breast ultrasound. ASSESSMENT: BI-RADS 2: Benign RECOMMENDATION: 1. Patient should be managed based on the clinical impression. 2. Otherwise, routine annual screening mammography, beginning age 40, or earlier as clinical risk factors warrant. This patient's information was entered into a reminder system with a target due date for their next mammogram.
== END 2022-05-14 13:58 | disposition home or self-care (01) ==
LOC: HO.MAMMO 13:57
PROVIDERS: PCP Family Medicine; Visit Provider Family Medicine
DX: R92.1 Mammographic calcification found on diagnostic imaging of breast (principal); R21 Rash and other nonspecific skin eruption
CPT/HCPCS: 76642; 77062; 77066

== ENCOUNTER 2022-05-27 10:46 | Outpatient (REF) | payer OTHER, SELFPAY | END 2022-05-27 10:47 | disposition home or self-care (01) | LOC: HO.MDS 10:46 | PROVIDERS: Visit Provider Internal Medicine | DX: J45.50 Severe persistent asthma, uncomplicated (principal) | CPT/HCPCS: 96372 ==

== ENCOUNTER → 2022-06-16 11:10 | Outpatient (BNVA) | payer OTHER, SELFPAY | PROVIDERS: PCP Family Medicine; Visit Provider Internal Medicine Pulmonary Disease | DX: J45.909 Unspecified asthma, uncomplicated (principal); Z91.09 Other allergy status, other than to drugs and biological substances; Z79.51 Long term (current) use of inhaled steroids | CPT/HCPCS: 99212 ==

== ENCOUNTER 2022-06-24 10:37 | Outpatient (REF) | payer OTHER, SELFPAY | END 2022-06-24 10:38 | disposition home or self-care (01) | LOC: HO.MDS 10:37 | PROVIDERS: Visit Provider Internal Medicine Pulmonary Disease | DX: J45.50 Severe persistent asthma, uncomplicated (principal) | CPT/HCPCS: 96372 ==

== ENCOUNTER 2022-07-22 14:56 | Outpatient (REF) | payer OTHER, SELFPAY | END 2022-07-22 14:57 | disposition home or self-care (01) | LOC: HO.MDS 14:56 | PROVIDERS: Visit Provider Internal Medicine Pulmonary Disease | DX: J45.50 Severe persistent asthma, uncomplicated (principal) | CPT/HCPCS: 96372 ==

== ENCOUNTER 2022-08-19 11:05 | Outpatient (REF) | payer OTHER, SELFPAY | END 2022-08-19 11:06 | disposition home or self-care (01) | LOC: HO.MDS 11:05 | PROVIDERS: Visit Provider Internal Medicine Pulmonary Disease | DX: J45.50 Severe persistent asthma, uncomplicated (principal) | CPT/HCPCS: 96372 ==

== ENCOUNTER 2022-09-03 13:19 | Emergency (ER) | payer OTHER, SELFPAY | END 2022-09-03 17:37 | disposition left against medical advice (07) | PROVIDERS: Emergency Provider Emergency Medicine; PCP Family Medicine | DX: S81.811A Laceration without foreign body, right lower leg, initial encounter (principal); X58.XXXA Exposure to other specified factors, initial encounter; Y93.9 Activity, unspecified; Y92.9 Unspecified place or not applicable; Y99.9 Unspecified external cause status ==

== ENCOUNTER 2022-09-16 10:44 | Outpatient (REF) | payer OTHER, SELFPAY | END 2022-09-16 10:45 | disposition home or self-care (01) | LOC: HO.MDS 10:44 | PROVIDERS: Visit Provider Internal Medicine Pulmonary Disease | DX: J45.50 Severe persistent asthma, uncomplicated (principal) | CPT/HCPCS: 96372 ==

== ENCOUNTER 2022-10-13 13:12 | Outpatient (REF) | payer OTHER, SELFPAY | END 2022-10-13 13:13 | disposition home or self-care (01) | LOC: HO.MDS 13:12 | PROVIDERS: Visit Provider Internal Medicine Pulmonary Disease | DX: J45.50 Severe persistent asthma, uncomplicated (principal) | CPT/HCPCS: 96372 ==

== ENCOUNTER 2022-11-10 08:54 | Outpatient (REF) | payer OTHER, SELFPAY | END 2022-11-10 08:55 | disposition home or self-care (01) | LOC: HO.MDS 08:54 | PROVIDERS: Visit Provider Internal Medicine Pulmonary Disease | DX: J45.50 Severe persistent asthma, uncomplicated (principal) | CPT/HCPCS: 96372 ==

== ENCOUNTER 2022-12-11 08:50 | Outpatient (REF) | payer OTHER, SELFPAY | END 2022-12-11 08:51 | disposition home or self-care (01) | LOC: HO.MDS 08:50 | PROVIDERS: Visit Provider Internal Medicine Pulmonary Disease | DX: J45.50 Severe persistent asthma, uncomplicated (principal) | CPT/HCPCS: 96372 ==

== ENCOUNTER 2022-12-15 11:36 | Outpatient (AMB) | payer OTHER, SELFPAY ==
[2022-12-15 11:37] VITALS: BP 118/80; PULSE 94; O2SAT 100; BMI 28.4
--- NOTE | 2022-12-15 11:37 | A.OFFVIS_ITS ---
Intake Vital Signs 12/15/22 11:37 Height 5 ft Weight 145 lb 8.081 oz BMI 28.4 BP 118/80 Blood Pressure Location Rt brachial Position Sitting Pulse 94 Pulse Source Auscultation Pulse Oximetry (%) 100 Oxygen Delivery Method Room Air Intake Visit Reasons: 3 Mo Follow Up Allergies benzonatate [BENZONATATE] Allergy (Severe, Verified 12/15/22 11:39) ANAPHYLAXIS banana [BANANA] Allergy (Intermediate, Verified 12/15/22 11:39) RASH coconut [COCONUT] Allergy (Intermediate, Verified 12/15/22 11:39) RASH cucumber [CUCUMBER] Allergy (Intermediate, Verified 12/15/22 11:39) RASH grape [GRAPE] Allergy (Intermediate, Verified 12/15/22 11:39) RASH arthur [ARTHUR] Allergy (Intermediate, Verified 12/15/22 11:39) RASH sulfamethoxazole [From BACTRIM] Allergy (Intermediate, Verified 12/15/22 11:39) RASH trimethoprim [From BACTRIM] Allergy (Intermediate, Verified 12/15/22 11:39) RASH cephalexin [Keflex] Allergy (Unknown, Verified 12/15/22 11:39) Unknown duloxetine [From CYMBALTA] Allergy (Unknown, Verified 12/15/22 11:39) UNKNOWN Sulfa (Sulfonamide Antibiotics) Allergy (Unknown, Verified 12/15/22 11:39) Unknown SEAFOOD Allergy (Intermediate, Uncoded 02/23/22 20:23) RASH Tessalon Allergy (Unknown, Uncoded 02/23/22 20:23) Unknown HPI 3 Mo Follow Up HPI Details 37-year-old lady followed for underlying asthma and environmental allergies. Her asthma symptoms much better controlled after she started Nucala. She continues to use Dulera and albuterol MDI. She denies recent exacerbations. Patient does complain of underlying food allergies and like to have additional testing. [facility] Medical History (Updated 02/23/22 @ 11:00 by JEFFREY Foster) Pelviectasis Asthma Kidney stone Hx of migraine headaches Hx of anxiety disorder History of depression Surgical History Hx laparoscopic cholecystectomy Hx of bilateral salpingectomy Hx of section Hx of tonsillectomy Hx of tubal ligation Family History Mother Diabetes mellitus Hypertension Dementia Father Diabetes mellitus Hypertension Social History (Updated 12/15/22 @ 11:40 by Georgie Watters Rolan) Alcohol intake: never Patient Tobacco Use Status: Current someday Tobacco user Tobacco use type: Cigarette Cigarettes Per Day: 2 service: No Current occupational status: disabled Current occupation: right handed Female Reproductive History Menstrual Age of Menarche: 10 Review of Systems Const Denies daytime sleepiness, Denies excessive sweating, Denies fatigue, Denies fever(s), Denies lethargy, Denies malaise, Denies night sweats, Denies snoring and Denies weight loss Eyes Denies blurry vision and Denies itchy eyes ENT Denies nasal congestion, Denies post nasal drip, Denies sinus pain, Denies sinus pressure and Denies other ( Thrush) Card Denies chest pain, Denies pedal edema, Denies dyspnea, Denies orthopnea and Denies paroxysmal nocturnal dyspnea Resp Denies cough, Denies hemoptysis, Denies excessive phlegm production, Denies dyspnea, Denies snoring and Denies wheezing GI Denies abdominal pain and Denies heartburn Musc Denies myalgias, Denies arthralgias and Denies joint swelling Skin/Breast Denies rash Neuro Denies memory loss and Denies seizure-like activity Psych Denies abnormal sleep pattern, Denies anxiety and Denies memory loss Endo Denies excessive sweating, Denies fatigue and Denies heat intolerance Edgar/Lymph Denies easy bruising Aller/Immun Denies itchy eyes, Denies seasonal rhinorrhea and Denies wheezing Physical Exam Vital Signs: Last Vital Signs Pulse 94 12/15/22 11:37 BP 118/80 12/15/22 11:37 Pulse Ox 100 12/15/22 11:37 Oxygen Delivery Method Room Air 12/15/22 11:37 BMI result Body Mass Index 28.4 Const General: no acute distress and alert Nutritional Appearance: not obese Orientation/consciousness: Other orientation findings ( oriented) HEENT Head: Yes atraumatic Eyes General: appearance normal, both eyes and all related structures Sclerae: sclerae normal EOM: EOMs intact bilaterally Neck Neck: Yes supple Lymphatic: no lymphadenopathy noted Resp Effort & Inspection: normal respiratory effort and no use of accessory muscles Auscultation: clear to auscultation bilaterally Cardio Rate: regular rate Rhythm: regular rhythm Heart sounds: no gallops, no murmurs and no rubs Skin General skin exam: other ( warm) Extrem General: No clubbing, No cyanosis and No edema Assessment & Plan Assessment & Plan (1) Asthma: Code(s): J45.909 - Unspecified asthma, uncomplicated Plan: Significantly improved control on Nucala. Continue Nucala, Dulera, and albuterol MDI. (2) Environmental allergies: Code(s): Z91.09 - Other allergy status, other than to drugs and biological substances Plan: Environmental allergies well controlled on Nucala. Will obtain RAST for evalua tion of food allergies. Orders: Orders Rast Allergen Today Z91.09 - Other allergy status, other than to drugs and biological substances Coding Level of Care Code Est Pt Level 4 (30327) Diagnoses Asthma J45.909 Environmental allergies Z91.09
== END 2022-12-15 11:52 | disposition home or self-care (01) ==
PROVIDERS: PCP Family Medicine; Visit Provider Internal Medicine Pulmonary Disease
DX: J45.909 Unspecified asthma, uncomplicated (principal); Z91.09 Other allergy status, other than to drugs and biological substances
CPT/HCPCS: 99214

== ENCOUNTER 2022-12-15 11:36 | Outpatient (REF) | payer OTHER, SELFPAY | END 2022-12-15 11:37 | disposition home or self-care (01) | LOC: HO.LAB 11:36 | PROVIDERS: PCP Family Medicine; Visit Provider Internal Medicine Pulmonary Disease | DX: J45.909 Unspecified asthma, uncomplicated (principal); Z91.09 Other allergy status, other than to drugs and biological substances | CPT/HCPCS: 36415; 99212 ==

== ENCOUNTER 2023-01-08 09:13 | Outpatient (REF) | payer OTHER, SELFPAY | END 2023-01-08 09:14 | disposition home or self-care (01) | LOC: HO.MDS 09:13 | PROVIDERS: Visit Provider Internal Medicine Pulmonary Disease | DX: J45.50 Severe persistent asthma, uncomplicated (principal) | CPT/HCPCS: 96372 ==

== ENCOUNTER 2023-02-05 12:02 | Outpatient (REF) | payer OTHER, SELFPAY | END 2023-02-05 12:03 | disposition home or self-care (01) | LOC: HO.MDS 12:02 | PROVIDERS: Visit Provider Internal Medicine Pulmonary Disease | DX: J45.50 Severe persistent asthma, uncomplicated (principal) | CPT/HCPCS: 96372 ==

== ENCOUNTER 2023-02-10 10:28 | Outpatient (AMB) | payer OTHER, SELFPAY ==
[2023-02-10 10:29] VITALS: BP 132/92; PULSE 93; O2SAT 100; BMI 28.0
--- NOTE | 2023-02-10 10:29 | MHC.OFFVIS ---
Intake Vital Signs 02/10/23 10:29 Height 5 ft Weight 143 lb 4.807 oz BMI 28.0 BP 132/92 H Blood Pressure Location Lt brachial Position Sitting Pulse 93 Pulse Source Doppler Pulse Oximetry (%) 100 Oxygen Delivery Method Room Air Intake Visit Reasons: Asthma Allergies benzonatate [BENZONATATE] Allergy (Severe, Verified 02/10/23 10:32) ANAPHYLAXIS banana [BANANA] Allergy (Intermediate, Verified 02/10/23 10:32) RASH coconut [COCONUT] Allergy (Intermediate, Verified 02/10/23 10:32) RASH cucumber [CUCUMBER] Allergy (Intermediate, Verified 02/10/23 10:32) RASH grape [GRAPE] Allergy (Intermediate, Verified 02/10/23 10:32) RASH arthur [ARTHUR] Allergy (Intermediate, Verified 02/10/23 10:32) RASH sulfamethoxazole [From BACTRIM] Allergy (Intermediate, Verified 02/10/23 10:32) RASH trimethoprim [From BACTRIM] Allergy (Intermediate, Verified 02/10/23 10:32) RASH cephalexin [Keflex] Allergy (Unknown, Verified 02/10/23 10:32) Unknown duloxetine [From CYMBALTA] Allergy (Unknown, Verified 02/10/23 10:32) UNKNOWN Sulfa (Sulfonamide Antibiotics) Allergy (Unknown, Verified 02/10/23 10:32) Unknown SEAFOOD Allergy (Intermediate, Uncoded 02/23/22 20:23) RASH Tessalon Allergy (Unknown, Uncoded 02/23/22 20:23) Unknown HPI Asthma HPI Details 37-year-old lady followed for underlying asthma and environmental allergies. Recently her asthma control started to get worse on Nucala and she also started getting more food allergies. With most recent event for days prior with significant hives. [facility] Medical History (Updated 02/23/22 @ 11:00 by JEFFREY Foster) Pelviectasis Asthma Kidney stone Hx of migraine headaches Hx of anxiety disorder History of depression Surgical History Hx laparoscopic cholecystectomy Hx of bilateral salpingectomy Hx of section Hx of tonsillectomy Hx of tubal ligation Family History Mother Diabetes mellitus Hypertension Dementia Father Diabetes mellitus Hypertension Social History Alcohol intake: never Patient Tobacco Use Status: Current someday Tobacco user Tobacco use type: Cigarette Cigarettes Per Day: 2 service: No Current occupational status: disabled Current occupation: right handed Female Reproductive History Menstrual Age of Menarche: 10 Review of Systems Const Denies daytime sleepiness, Denies excessive sweating, Denies fatigue, Denies fever(s), Denies lethargy, Denies malaise, Denies night sweats, Denies snoring and Denies weight loss Eyes Denies blurry vision and Denies itchy eyes ENT Denies nasal congestion, Denies post nasal drip, Denies sinus pain, Denies sinus pressure and Denies other ( Thrush) Card Denies chest pain, Denies pedal edema, Denies dyspnea, Denies orthopnea and Denies paroxysmal nocturnal dyspnea Resp Denies cough, Denies hemoptysis, Denies excessive phlegm production, Denies dyspnea, Denies snoring and Reports wheezing GI Denies abdominal pain and Denies heartburn Musc Denies myalgias, Denies arthralgias and Denies joint swelling Skin/Breast Denies rash and Reports other (hives) Neuro Denies memory loss and Denies seizure-like activity Psych Denies abnormal sleep pattern, Denies anxiety and Denies memory loss Endo Denies excessive sweating, Denies fatigue and Denies heat intolerance Edgar/Lymph Denies easy bruising Aller/Immun Denies itchy eyes, Denies seasonal rhinorrhea and Reports wheezing Physical Exam Vital Signs: Last Vital Signs Pulse 93 02/10/23 10:29 BP 132/92 H 02/10/23 10:29 Pulse Ox 100 02/10/23 10:29 Oxygen Delivery Method Room Air 02/10/23 10:29 BMI result Body Mass Index 28.0 Const General: no acute distress and alert Nutritional Appearance: not obese Orientation/consciousness: Other orientation findings ( oriented) HEENT Head: Yes atraumatic Eyes General: appearance normal, both eyes and all related structures Sclerae: sclerae normal EOM: EOMs intact bilaterally Neck Neck: Yes supple Lymphatic: no lymphadenopathy noted Resp Effort & Inspection: normal respiratory effort and no use of accessory muscles Auscultation: clear to auscultation bilaterally Cardio Rate: regular rate Rhythm: regular rhythm Heart sounds: no gallops, no murmurs and no rubs Skin General skin exam: other ( warm) Extrem General: No clubbing, No cyanosis and No edema Assessment & Plan Assessment & Plan (1) Asthma: Code(s): J45.909 - Unspecified asthma, uncomplicated Plan: Worsening control on Nucala, will request switching to Dupixent. Continue Dulera and albuterol MDI. (2) Environmental allergies: Code(s): Z91.09 - Other allergy status, other than to drugs and biological substances Plan: Expect to improve after switching to Dupixent. Continue Singulair. Medications: New prednisone 40 mg (2 x 20 mg) PO DAILY 10 tabs 0RF Coding Level of Care Code Est Pt Level 4 (13970) Diagnoses Asthma J45.909 Environmental allergies Z91.09
== END 2023-02-10 10:48 | disposition home or self-care (01) ==
PROVIDERS: PCP Family Medicine; Visit Provider Internal Medicine Pulmonary Disease
DX: J45.909 Unspecified asthma, uncomplicated (principal); Z91.09 Other allergy status, other than to drugs and biological substances
CPT/HCPCS: 99214

== ENCOUNTER → 2023-02-10 10:28 | Outpatient (BNVA) | payer OTHER, SELFPAY | PROVIDERS: PCP Family Medicine; Visit Provider Internal Medicine Pulmonary Disease | DX: J45.909 Unspecified asthma, uncomplicated (principal); Z91.09 Other allergy status, other than to drugs and biological substances | CPT/HCPCS: 99212 ==

== ENCOUNTER 2023-02-15 12:13 | Outpatient (REF) | payer OTHER, SELFPAY ==
--- NOTE | ~2023-02-15 | US_ITS ---
EXAMINATION: US RETROPERITONEAL LIMITED (RENAL ONLY) CLINICAL INFORMATION: Calculus of kidney. COMPARISON: Renal ultrasound 02/13/2022 and 02/06/2021. CT abdomen and pelvis without contrast 02/15/2019. X-ray abdomen KUB 07/28/2017. TECHNIQUE: Real-time imaging of the kidneys. FINDINGS: RIGHT KIDNEY: 9.8 x 5.9 x 4.8 cm (SAG x AP x TRV). The kidney is normal in size, contour, and echogenicity. Renal cortical thickness is normal. 3 mm nonobstructing lower pole calculus. No hydronephrosis. LEFT KIDNEY: 10.4 x 4.8 x 3.9 cm (SAG x AP x TRV). The kidney is normal in size, contour, and echogenicity. Renal cortical thickness is normal. 3 mm nonobstructing mid/lower pole calculus. No hydronephrosis. US/US retroperitoneal limited IMPRESSION: Tiny bilateral nonobstructing renal calculi. No hydronephrosis of either kidney.
== END 2023-02-15 12:14 | disposition home or self-care (01) ==
LOC: HO.US 12:13
PROVIDERS: PCP Family Medicine; Visit Provider Nurse Practitioner Family
DX: N20.0 Calculus of kidney (principal); N28.89 Other specified disorders of kidney and ureter
CPT/HCPCS: 76775

== ENCOUNTER 2023-02-16 08:22 | Emergency (ER) | payer OTHER, SELFPAY ==
--- NOTE | ~2023-02-16 | XR_ITS ---
EXAMINATION: XR ELBOW, RIGHT CLINICAL INFORMATION: Pain COMPARISON: None available. TECHNIQUE: AP, lateral, and oblique views of the right elbow. FINDINGS: The bones are intact. No fracture or joint effusion. Alignment is anatomic. Joint spaces are maintained. XR/XR elbow RT min 3V IMPRESSION: No bony abnormality.
[2023-02-16 08:46] VITALS: BP 137/95; PULSE 81; RESP 18; TEMP 36.6; O2SAT 98; BMI 29.3
--- NOTE | 2023-02-16 10:01 | ED.EXTPRO ---
HPI - Extremity Problem General Chief complaint: Extremity Injury, Upper Stated complaint: Pain R Elbow No Injury Time Seen by Provider: 02/16/23 09:31 Source: patient, RN notes reviewed and old records reviewed Mode of arrival: ambulatory History of Present Illness HPI Narrative: 37-year-old female with a past medical history of asthma, depression, tennis elbow, presenting to the ED complaining of atraumatic right elbow pain x5 days. Has been taking Tylenol/Motrin and lidocaine patches without relief. Denies known injury/trauma or fall, numbness/tingling, CP/SOB, fever MD Complaint: extremity pain Related Data Home Medications Medication Instructions Recorded Confirmed albuterol sulfate 2.5 mg/3 mL 3 mg inhalation Q4H PRN Wheezing 12/09/21 02/23/22 (0.083 %) solution for nebulization Previous Rx's Medication Instructions Recorded albuterol sulfate 90 mcg/actuation 1 inh inhalation QID PRN shortness 10/31/21 aerosol inhaler of breath or wheezing #8.5 grams Dulera 200 mcg-5 mcg/actuation HFA 2 puff inhalation BID 30 days #1 ea 03/26/22 aerosol inhaler (mometasone-formoterol) cetirizine 10 mg tablet 10 mg PO BID 30 days #60 tabs 09/18/22 montelukast 10 mg tablet 10 mg PO BEDTIME 30 days #30 tabs 09/18/22 (Singulair) prednisone 20 mg tablet 40 mg (2 x 20 mg) PO DAILY #10 tabs 02/10/23 cyclobenzaprine 5 mg tablet 5 mg PO Q8H PRN pain (scale score 02/16/23 7-10) 5 days #8 tabs diclofenac sodium 1 % topical gel 4 g topical QID #100 grams 02/16/23 (Arthritis Pain (diclofenac)) dupilumab 300 mg/2 mL subcutaneous 300 mg (2 mL) subcut Q2W 28 days 02/16/23 pen injector (Dupixent) #4 mL Allergies Allergy/AdvReac Type Severity Reaction Status Date / Time benzonatate [BENZONATATE] Allergy Severe ANAPHYLAXIS Verified 02/16/23 08:46 banana [BANANA] Allergy Intermediate RASH Verified 02/16/23 08:46 coconut [COCONUT] Allergy Intermediate RASH Verified 02/16/23 08:46 cucumber [CUCUMBER] Allergy Intermediate RASH Verified 02/16/23 08:46 grape [GRAPE] Allergy Intermediate RASH Verified 02/16/23 08:46 arthur [ARTHUR] Allergy Intermediate RASH Verified 02/16/23 08:46 sulfamethoxazole Allergy Intermediate RASH Verified 02/16/23 08:46 [From BACTRIM] trimethoprim [From BACTRIM] Allergy Intermediate RASH Verified 02/16/23 08:46 cephalexin [Keflex] Allergy Unknown Unknown Verified 02/16/23 08:46 duloxetine [From CYMBALTA] Allergy Unknown UNKNOWN Verified 02/16/23 08:46 Sulfa (Sulfonamide Allergy Unknown Unknown Verified 02/16/23 08:46 Antibiotics) SEAFOOD Allergy Intermediate RASH Uncoded 02/16/23 08:46 Tessalon Allergy Unknown Unknown Uncoded 02/16/23 08:46 Review of Systems Review of Systems: Constitutional: No Fever, No Chills ENT/Mouth: No Ear Pain, No Nasal Congestion, No sore throat, No Rhinorrhea, No Swallowing Difficulty Cardiovascular: No Chest Pain, No SOB Respiratory: No Cough, No Sputum, No Wheezing Gastrointestinal: No Nausea, No Vomiting, No Abdominal pain Musculoskeletal: +joint pain, No Myalgias, No Joint Swelling Skin: No Skin Lesions, No rash Neuro: No Weakness, No Numbness, No Paresthesias Yes all other systems are reviewed and are negative Constitutional: Constitutional: Reports as per [facility] Past Medical History Attestation statement: The following information was validated with the patient. Source: old records reviewed Onset Date is defined in the Problem List Problems that require an onset date and time if occurred within 24 hrs of arrival to the ED Aortic Dissection and Rupture; Neurologic impairment; Cardiopulmonary Arrest; Endotracheal Intubation; Insertion or Replacement of Mechanical Circulatory Assist Device Medical History Pelviectasis Asthma Kidney stone Hx of migraine headaches Hx of anxiety disorder History of depression Surgical History Hx of bilateral salpingectomy Hx of tubal ligation Hx of section Hx of tonsillectomy Hx laparoscopic cholecystectomy Family History Family History Mother Diabetes mellitus Hypertension Dementia Father Diabetes mellitus Hypertension Social History Social History Alcohol intake: never Patient Tobacco Use Status: Current someday Tobacco user Tobacco use type: Cigarette Cigarettes Per Day: 2 service: No Current occupational status: disabled Current occupation: right handed Physical Exam Vital Signs: Vital Signs: Last Vital Signs Temp 98 F 02/16/23 08:46 Pulse 81 02/16/23 08:46 Resp 18 02/16/23 08:46 BP 137/95 H 02/16/23 08:46 Pulse Ox 98 02/16/23 08:46 BMI result Body Mass Index 29.3 Const: General: cooperative, healthy appearing and no acute distress Orientation/consciousness: patient oriented x3 Limitations: no limitations HEENT: Head: Yes normal to inspection and Yes atraumatic Ears: hearing grossly normal bilaterally General nose exam: Normal external nose present Face and sinus: Yes normal facial exam Eyes: General: appearance normal, both eyes and all related structures EOM: EOMs intact bilaterally Neck: Neck: Yes normal visual inspection and Yes no meningeal signs Resp: Effort & Inspection: normal respiratory effort and no respiratory distress Cardio: Rate: regular rate : General: Yes no CVA tenderness Back/Spine/Pelvis: Back: no CVA tenderness Skin: Rashes: no rashes Wounds: no wounds Neuro: General: patient oriented x3, tone normal and no meningeal signs Cranial nerves: Yes CN's II-XII intact bilaterally Gait exam (Neuro): Normal gait present Extrem: Other: Right elbow without noted deformity. No erythema/warmth. Diffusely tender to palpation. No crepitus. ROM intact with pain. Neurovascularly intact distally General: Yes normal to inspection Course Course Course Narrative: XR elbow RT min 3V IMPRESSION: No bony abnormality. Results discussed with patient including worrisome signs and symptoms and strict return precautions, and when to return to the emergency department. They verbalized understanding and feel safe for discharge at this time. Medications Administered Discontinued Medications Generic Name Dose Route Start Last Admin Trade Name Freq PRN Reason Stop Dose Admin Ketorolac Tromethamine 30 mg 02/16/23 09:52 02/16/23 10:19 Ketorolac Tromethamine 30 Mg/Ml Vial IM 02/16/23 09:53 30 mg ONCE ONE Administration Medical Decision Making Medical Decision Making MDM Narrative: 37-year-old female with a past medical history of asthma, depression, tennis elbow, presenting to the ED complaining of atraumatic right elbow pain x5 days. On exam vital signs stable, NAD, nontoxic appearing, physical exam as noted above. Concern for tendinitis vs MSK pain/strain vs fracture/contusion. Low suspicion for septic joint/arthritis or abscess or ACS Plan: X-ray, IM Toradol Please refer to course for remaining clinical decision making, interpretation of labs/imaging results, and discussions with consultants and/or family members. Differential Diagnosis Differential Diagnoses: The differential diagnosis associated with the presentation includes As above Independent Interpretation I performed an independent interpretation of an: Plain X-Ray (Appears unremarkable) Radiology Impression Discussion of test interpretation with radiology: I have reviewed the radiologist's reading. External Record Review External record reviewed: Inpatient record, Office record, Outpatient record, Prior outpatient labs, Prior outpatient radiology, Primary care record and Outside ED record Tests considered The following testing was considered but not selected: As above Prescription Management I considered prescription management with: Pain Medication Discharge Plan Discharge Clinical Impression: Right elbow pain Patient Disposition: Home, Self-Care Instructions: Tendinitis (ED), Arm Pain (ED) Additional Instructions: Your x-ray is unremarkable Flexeril is a muscle relaxer, take at night as it makes you drowsy, do not drive, drink alcohol, or operate machinery while taking it Diclofenac as a topical anti-inflammatory/pain medicine apply to your elbow joint In addition take Tylenol and Motrin at home Please follow-up with retail service specialist as needed and your doctor If symptoms persist or worsen, pain becomes unbearable, you developed urinary retention or incontinence, or weakness return to the ED Prescriptions: New diclofenac sodium [Arthritis Pain (diclofenac)] 1 % gel 4 g topical QID Qty: 100 0RF Rx Instructions: apply to single knee, ankle, foot; for foot includes sole/toes/top of foot cyclobenzaprine 5 mg tablet 5 mg PO Q8H PRN (Reason: pain (scale score 7-10)) 5 Days Qty: 8 0RF No Action cetirizine 10 mg tablet 10 mg PO BID 30 Days Qty: 60 6RF montelukast [Singulair] 10 mg tablet 10 mg PO BEDTIME 30 Days Qty: 30 6RF Dupixent Pen 300 mg/2 mL pen injector 300 mg subcut Q2W 28 Days Qty: 4 12RF Rx Instructions: Initial loading dose 600 mg, then 300 mg subcutaneously every 2 weeks albuterol sulfate 2.5 mg /3 mL (0.083 %) solution for nebulization 3 mg inhalation Q4H PRN (Reason: Wheezing) albuterol sulfate 90 mcg/actuation HFA aerosol inhaler 1 inh inhalation QID PRN (Reason: shortness of breath or wheezing) Qty: 8.5 0RF Dulera 200-5 mcg/actuation HFA aerosol inhaler 2 puff inhalation BID 30 Days Qty: 1 6RF prednisone 20 mg tablet 40 mg PO DAILY Qty: 10 0RF Referrals: [facility] [place] [facility] [Provider Group] Anne Carrion MD [Primary Care Provider] - Interventions: ED Discharge Assessment Last Done: 02/16/23 10:23 Discharge Date/Time: 02/16/23 10:23
[2023-02-16] MEDS: Ketorolac Tromethamine 30 MG/ML VIAL IM (10:19)
== END 2023-02-16 10:23 | disposition home or self-care (01) ==
PROVIDERS: Emergency Provider Emergency Medicine Emergency Medical Services; PCP Family Medicine
DX: M25.521 Pain in right elbow (principal); Z79.899 Other long term (current) drug therapy
CPT/HCPCS: 73080; 96372; 99283; 99284; J1885

== ENCOUNTER 2023-02-17 07:49 | Emergency (ER) | payer OTHER, SELFPAY ==
[2023-02-17 08:05] VITALS: BP 143/94; PULSE 88; RESP 16; TEMP 36.1; O2SAT 99; BMI 29.3
--- NOTE | 2023-02-17 09:09 | ED_ITS ---
HPI - General Adult General Chief complaint: Skin/Abscess/Foreign Body Stated complaint: Pain/rash on elbow Time Seen by Provider: 02/17/23 09:05 Source: patient Mode of arrival: ambulatory Limitations: no limitations History of Present Illness HPI narrative: 37 year old female with pmhx significant for asthma and multiple allergies presents to the ED today for evaluation of skin rash x1 day. She was seen in ED yesterday for right elbow pain, diagnosed with tennis elbow, administered a dose of toradol in her left arm, & discharged home with diclofenac and flexeril. Upon waking up from her nap after being discharged, she reports noticing an itchy rash to her right elbow. Rash has remained the same since onset. Denies rash to any other area of her body. Denies taking any additional medications yesterday or today other than the toradol she received in ED. Denies sick contacts. Denies trauma or injury to the elbow. Denies new detergents, lotions, body washes. Denies is known tic or insect bites. Denies fever, chills, N/V, chest pain, SOB, sore throat, wheezing, difficulty swallowing. Related Data Home Medications Medication Instructions Recorded Confirmed albuterol sulfate 2.5 mg/3 mL 3 mg inhalation Q4H PRN Wheezing 12/09/21 02/23/22 (0.083 %) solution for nebulization Previous Rx's Medication Instructions Recorded albuterol sulfate 90 mcg/actuation 1 inh inhalation QID PRN shortness 10/31/21 aerosol inhaler of breath or wheezing #8.5 grams Dulera 200 mcg-5 mcg/actuation HFA 2 puff inhalation BID 30 days #1 ea 03/26/22 aerosol inhaler (mometasone-formoterol) cetirizine 10 mg tablet 10 mg PO BID 30 days #60 tabs 09/18/22 montelukast 10 mg tablet 10 mg PO BEDTIME 30 days #30 tabs 09/18/22 (Singulair) prednisone 20 mg tablet 40 mg (2 x 20 mg) PO DAILY #10 tabs 02/10/23 cyclobenzaprine 5 mg tablet 5 mg PO Q8H PRN pain (scale score 02/16/23 7-10) 5 days #8 tabs diclofenac sodium 1 % topical gel 4 g topical QID #100 grams 02/16/23 (Arthritis Pain (diclofenac)) dupilumab 300 mg/2 mL subcutaneous 300 mg (2 mL) subcut Q2W 28 days 02/16/23 pen injector (Dupixent) #4 mL cetirizine 10 mg tablet (Zyrtec) 10 mg PO DAILY PRN allergy 02/17/23 symptoms #10 tabs diphenhydramine HCl 25 mg tablet 25 mg PO Q8H PRN itching #14 tabs 02/17/23 (Benadryl Allergy) prednisone 20 mg tablet 20 mg PO DAILY 5 days #5 tabs 02/17/23 Allergies Allergy/AdvReac Type Severity Reaction Status Date / Time benzonatate [BENZONATATE] Allergy Severe ANAPHYLAXIS Verified 02/16/23 08:46 banana [BANANA] Allergy Intermediate RASH Verified 02/16/23 08:46 coconut [COCONUT] Allergy Intermediate RASH Verified 02/16/23 08:46 cucumber [CUCUMBER] Allergy Intermediate RASH Verified 02/16/23 08:46 grape [GRAPE] Allergy Intermediate RASH Verified 02/16/23 08:46 arthru [ARTHUR] Allergy Intermediate RASH Verified 02/16/23 08:46 sulfamethoxazole Allergy Intermediate RASH Verified 02/16/23 08:46 [From BACTRIM] trimethoprim [From BACTRIM] Allergy Intermediate RASH Verified 02/16/23 08:46 cephalexin [Keflex] Allergy Unknown Unknown Verified 02/16/23 08:46 duloxetine [From CYMBALTA] Allergy Unknown UNKNOWN Verified 02/16/23 08:46 Sulfa (Sulfonamide Allergy Unknown Unknown Verified 02/16/23 08:46 Antibiotics) SEAFOOD Allergy Intermediate RASH Uncoded 02/16/23 08:46 Tessalon Allergy Unknown Unknown Uncoded 02/16/23 08:46 Review of Systems 2 Review of Systems: Constitutional: No fever, chills, fatigue, night sweats, weight changes ENT/Mouth: No ear pain, hearing loss, nasal congestion, sinus pain, rhinorrhea, sore throat Eyes: No eye pain, swelling, redness, vision changes, discharge Cardio: No chest pain, palpitations, VERA, orthopnea, peripheral edema Pulm: No SOB, cough, sputum, wheezing, dyspnea, hemoptysis GI: No nausea, vomiting, hematemesis, abdominal pain, diarrhea, constipation, hematochezia, melena : No irregular bleeding, dysuria, frequency, urgency, hesitancy, hematuria, flank pain, urinary flow changes, urinary incontinence or retention MSK: No back pain, neck pain, joint pain, myalgias Skin: No lesions, +rash Neuro: No weakness, numbness, paresthesias, LOC, dizziness, headache All other systems reviewed and are negative. [facility] Past Medical History Attestation statement: The following information was validated with the patient. Source: old records reviewed and nursing notes reviewed Onset Date is defined in the Problem List Problems that require an onset date and time if occurred within 24 hrs of arrival to the ED Aortic Dissection and Rupture; Neurologic impairment; Cardiopulmonary Arrest; Endotracheal Intubation; Insertion or Replacement of Mechanical Circulatory Assist Device Medical History Pelviectasis Asthma Kidney stone Hx of migraine headaches Hx of anxiety disorder History of depression Surgical History Hx of bilateral salpingectomy Hx of tubal ligation Hx of section Hx of tonsillectomy Hx laparoscopic cholecystectomy Family History Family History Mother Diabetes mellitus Hypertension Dementia Father Diabetes mellitus Hypertension Social History Social History Alcohol intake: never Patient Tobacco Use Status: Current someday Tobacco user Tobacco use type: Cigarette Cigarettes Per Day: 2 Smoked in Last 30 Days: No Use of substances other than those prescribed or required for medical reasons: No Advance Directives: Yes Advance Directives on File: Yes Advance Directives Date on File: 12/11/21 service: No Current occupational status: disabled Current occupation: right handed Physical Exam ED Vital Signs: Vital Signs - 24 hr 02/17/23 08:05 02/17/23 10:20 02/17/23 11:47 Temperature 97 F 98.5 F 98.3 F Pulse Rate 88 73 76 Respiratory Rate 16 16 16 Blood Pressure 143/94 H 149/87 H 145/94 H Pulse Oximetry 99 98 98 Oxygen Delivery Method Room Air Room Air Room Air BMI result Body Mass Index 29.3 Patient hypertensive to 143/94. No history of HTN. Will repeat vitals. Const General: cooperative, no acute distress, alert and awake Orientation/consciousness: patient oriented x3 Limitations: no limitations HENMT Ears: hearing grossly normal bilaterally General nose exam: no nasal discharge noted Eyes General: appearance normal, both eyes and all related structures Neck Neck: Yes normal visual inspection Chest Chest palpation & inspection: normal inspection of the chest Resp Effort & Inspection: normal respiratory effort and able to speak in complete sentences Auscultation: clear to auscultation bilaterally and no wheezes Cardio Rate: regular rate Rhythm: regular rhythm Peripheral pulses: radial pulses present GI Inspection: Yes normal to inspection Palpation (GI): Soft to palpation, nontender, no guarding and hepatosplenomegaly present Skin Other: + please refer to photos below of right elbow/ upper arm no obvious edema of the right elbow joint. There are flat, purpuritic lesions noted to the dorsal aspect of the right elbow and ecchymosis noted the ventral aspect of the right tricep. No palpable effusion, warmth, fluctuance. Non blanching. No involvement of the webbed spaces or mucous membranes. No sloughing. Full ROM intact to right elbow, shoulder. No other rashes noted to skin. Neuro Other: Neurovascular intact distally.? General: patient oriented x3, gait normal and moves all extremities Extrem Other: + please refer to photos above General: Yes full ROM, Yes capillary refill normal, Yes normal exam except as noted, Yes no joint enlargement and Yes no clubbing, cyanosis or edema Course Course Course Narrative: 1119-- CBC with stable H&H. No leukocytosis. No eosinophilia. No thrombocytopenia or thrombocytosis. Coags wnl. No electrolyte abnormality requiring intervention. lyme/ tick bourne panel pending however unlikely that this is to return positive as rash is less consistent with tick etiology. >> On re-evaluation, patient's reports improvement with medications. On exam, her rash is improving. She no longer feels itchy. She tells me that she was heating her elbow at home prior to rash onset. Concern for heat rash vs allergic dermatitis. Will send patient home with prednisone, benadryl, and zyrtec along with derm referral. She was also noted to be mildly hypertensive in ED. Denies previous diagnosis of HTN. Advised her to follow up with her PCP for further work up. Patient has remained stable throughout ED visit today. Discussed strict return precautions. All questions answered at this time. Patient is agreeable with disposition and stable for discharge. Medications Administered Discontinued Medications Generic Name Dose Route Start Last Admin Trade Name [place] PRN Reason Stop Dose Admin Diphenhydramine HCl 50 mg 02/17/23 09:17 02/17/23 10:29 Diphenhydramine Hcl 50 Mg/Ml Vial IM 02/17/23 09:18 50 mg ONCE ONE Administration Famotidine 20 mg 02/17/23 09:17 02/17/23 10:29 Famotidine 20 Mg Tablet PO 02/17/23 09:18 20 mg ONCE ONE Administration Methylprednisolone Sodium Succinate 60 mg 02/17/23 09:17 02/17/23 10:29 Methylprednisolone Sod Succ 125 Mg/2 Ml Vial IM 02/17/23 09:18 60 mg ONCE ONE Administration Medical Decision Making Medical Decision Making [facility] Narrative: 37 year old female with pmhx significant for asthma and multiple allergies presents to the ED today for evaluation of skin rash x1 day. Vital signs notable for hypertension. Denies HTN history, will repeat and manage as indicated. Patient is nontoxic appearing and in NAD. airway patent. On exam, there is no obvious edema of the right elbow joint. There are flat, purpuritic lesions noted to the dorsal aspect of the right elbow and ecchymosis noted the ventral aspect of the right tricep. No palpable effusion, warmth, fluctuance. Non blanching. No involvement of the webbed spaces or mucous membranes. No sloughing. Full ROM intact to right elbow, shoulder. No other rashes noted to skin. Clinical concern for atraumatic ecchymosis, milliaria, anemia, thrombocytopenia, allergic reaction, contact dermatitis. Less likely lyme disease, tick bourne illness, gout, medication reaction, SJS, TEN, herpes zoster, fungal. Plan for labs and medication. Differential Diagnosis Differential Diagnoses: The differential diagnosis associated with the presentation includes as above Admission/Observation not indicated. Lab Data [facility] Lab Attestation statement: I reviewed the patient's lab results. as above. 02/17/23 10:20 02/17/23 10:20 Labs: Lab Results 02/17/23 Range/Units 10:20 WBC 6.5 (4.8-10.8) X10*3/uL RBC 4.29 (4.20-5.50) X10*6/uL Hgb 11.9 L (12.0-16.0) g/dl Hct 35.5 L (37.0-47.0) % MCV 82.8 (80.0-98.0) fL MCH 27.7 (27.0-33.0) pg MCHC 33.5 (31.0-35.0) g/dl RDW 13.2 (11.0-16.0) % Plt Count 344 (160-400) X10*3/uL MPV 8.7 L (9.4-12.3) fL Immature Gran % (Auto) 0.3 (0.0-0.4) % Neut % (Auto) 64.8 (45-73) % Lymph % (Auto) 28.8 (20-40) % [place] % (Auto) 5.3 (2-11) % Eos % (Auto) 0.3 (0-4) % Baso % (Auto) 0.5 (0-2) % Lymph # (Auto) 1.9 (1.2-4.9) X10*3/uL [place] # (Auto) 0.3 (0.1-1.2) X10*3/uL Eos # (Auto) 0.0 (0.0-0.4) X10*3/uL Baso # (Auto) 0.0 (0.0-0.2) X10*3/uL Abs Immat Gran (auto) 0.02 (0.00-0.03) X10*3/uL Absolute Neuts (auto) 4.2 (2.0-8.3) x10*3/uL Absolute Nucleated RBC 0.000 (0.0-0.012) X10*3/uL Nucleated RBC % (auto) 0.0 (0.0-0.2) /100WBC PT 11.1 (11.1-13.3) SEC INR 0.9 (0.9-1.1) Sodium 138 (135-145) mmol/L Potassium 4.1 (3.3-5.1) mmol/L Chloride 107 (96-108) mmol/L Carbon Dioxide 23 (22-29) mmol/L Anion Gap 12 (12-20) BUN 7 L (9-16) mg/dL Creatinine 0.67 (0.5-1.4) mg/dL Estim Creat Clear Calc 90.6 Estimated GFR > 60 Random Glucose 87 (60-115) mg/dL Calcium 8.8 (8.4-10.2) mg/dL Magnesium 2.1 (1.6-2.6) mg/dL Total Bilirubin 0.3 (0.0-1.0) mg/dL AST 12 (5-31) U/L ALT 13 (0-31) U/L Alkaline Phosphatase 66 (39-117) U/L Total Protein 6.9 (6.5-8.0) g/dL Albumin 3.9 (3.5-5.0) g/dL Lipase 16 (8-78) U/L External Record Review External record reviewed: Inpatient record, Office record, Outpatient record, Prior outpatient labs, Prior outpatient radiology, Primary care record and Outside ED record Prescription Management I considered prescription management with: Other (antihistamine, steroid) Chronic Conditions Patient?s care impacted by: Other (asthma) Critical Care Time Critical Care Time Critical Care Time: No Discharge Plan Discharge Clinical Impression: Rash Patient Disposition: Home, Self-Care Instructions: Contact Dermatitis (ED), Acute Rash (ED) Additional Instructions: Your blood work today was normal. You may have a heat rash vs allergic reaction. Your symptoms improved with medications today. Benadryl is an antihistamine that has been sent to your pharmacy. Take this as needed for rash. Zyrtec is an antihistamine that has been sent to your pharmacy. Take this as needed for rash. Prednisone is a steroid that has been sent to your pharmacy. Take this for the next five days. Do not apply heat to the area as this may worsen rash. You have been provided with a dermatology referral for follow up. You may call them to make an appointment. They will not call you. Please follow up with your primary care provider regarding your elevated blood pressure as this may warrant further work up. If symptoms persist or worsen, please return to the ED. In the case of an emergency, call 911. Prescriptions: New diphenhydramine HCl [Benadryl Allergy] 25 mg tablet 25 mg PO Q8H PRN (Reason: itching) Qty: 14 0RF cetirizine [Zyrtec] 10 mg tablet 10 mg PO DAILY PRN (Reason: allergy symptoms) Qty: 10 0RF prednisone 20 mg tablet 20 mg PO DAILY 5 Days Qty: 5 0RF No Action cetirizine 10 mg tablet 10 mg PO BID 30 Days Qty: 60 6RF montelukast [Singulair] 10 mg tablet 10 mg PO BEDTIME 30 Days Qty: 30 6RF Dupixent Pen 300 mg/2 mL pen injector 300 mg subcut Q2W 28 Days Qty: 4 12RF Rx Instructions: Initial loading dose 600 mg, then 300 mg subcutaneously every 2 weeks albuterol sulfate 2.5 mg /3 mL (0.083 %) solution for nebulization 3 mg inhalation Q4H PRN (Reason: Wheezing) albuterol sulfate 90 mcg/actuation HFA aerosol inhaler 1 inh inhalation QID PRN (Reason: shortness of breath or wheezing) Qty: 8.5 0RF diclofenac sodium [Arthritis Pain (diclofenac)] 1 % gel 4 g topical QID Qty: 100 0RF Rx Instructions: apply to single knee, ankle, foot; for foot includes sole/toes/top of foot cyclobenzaprine 5 mg tablet 5 mg PO Q8H PRN (Reason: pain (scale score 7-10)) 5 Days Qty: 8 0RF Dulera 200-5 mcg/actuation HFA aerosol inhaler 2 puff inhalation BID 30 Days Qty: 1 6RF prednisone 20 mg tablet 40 mg PO DAILY Qty: 10 0RF Referrals: Vipul Justice MD [Physician] - Randy Bazzi FNP-BC [Nurse Practitioner] - Interventions: ED Discharge Assessment Last Done: 02/17/23 11:47 Discharge Date/Time: 02/17/23 11:47
[2023-02-17 10:20] VITALS: BP 149/87; PULSE 73; RESP 16; TEMP 36.9; O2SAT 98
[2023-02-17 10:24] LABS: MANUAL DIFF FLAG NO
[2023-02-17 10:26] LABS: Basophils Percent Auto 0.5 % (0-2); Eosinophils Percent Auto 0.3 % (0-4); Hematocrit 35.5 % (37.0-47.0); Hemoglobin 11.9 g/dl (12.0-16.0); Imm Gran Abs Auto 0.02 X10*3/uL (0.00-0.03); Imm Gran Pct Auto 0.3 % (0.0-0.4); Lymphocytes Absolute Auto 1.9 X10*3/uL (1.2-4.9); Lymphocytes Percent Auto 28.8 % (20-40); Mean Corpuscular HGB Conc 33.5 g/dl (31.0-35.0); Mean Corpuscular Hemoglobin 27.7 pg (27.0-33.0); Mean Corpuscular Volume 82.8 fL (80.0-98.0); Mean Platelet Volume 8.7 fL (9.4-12.3); Monocytes Absolute Auto 0.3 X10*3/uL (0.1-1.2); Monocytes Percent Auto 5.3 % (2-11); Neutrophils Absolute Auto 4.2 x10*3/uL (2.0-8.3); Neutrophils Percent Auto 64.8 % (45-73); Platelet Count 344 X10*3/uL (160-400); Red Blood Count 4.29 X10*6/uL (4.20-5.50); Red Cell Distribution Width 13.2 % (11.0-16.0); White Blood Count 6.5 X10*3/uL (4.8-10.8)
[2023-02-17] MEDS: methylPREDNISolone Sod Succ 125 MG/2 ML VIAL 60 MG IM (10:29)
[2023-02-17] MEDS: Famotidine 20 MG TABLET PO (10:29)
[2023-02-17] MEDS: diphenhydrAMINE HCL 50 MG/ML VIAL IM (10:29)
[2023-02-17 10:39] LABS: INTERNATIONAL NORM RATIO 0.9 (0.9-1.1); Prothrombin Time 11.1 SEC (11.1-13.3)
[2023-02-17 10:45] LABS: Alanine Aminotransferase 13 U/L (0-31); Albumin Level 3.9 g/dL (3.5-5.0); Alkaline Phosphatase 66 U/L (39-117); Anion Gap 12 (12-20); Aspartate Amino Transferase 12 U/L (5-31); Bilirubin Total 0.3 mg/dL (0.0-1.0); Blood Urea Nitrogen 7 mg/dL (9-16); Calcium 8.8 mg/dL (8.4-10.2); Carbon Dioxide 23 mmol/L (22-29); Chloride 107 mmol/L (96-108); Creatinine Clr Calc Pharmacy 90.6; Estimated Glomerular Filt Rate > 60; Glucose Random 87 mg/dL (60-115); Lipase 16 U/L (8-78); Magnesium 2.1 mg/dL (1.6-2.6); Potassium 4.1 mmol/L (3.3-5.1); Sodium 138 mmol/L (135-145); Total Protein 6.9 g/dL (6.5-8.0)
[2023-02-17 11:47] VITALS: BP 145/94; PULSE 76; RESP 16; TEMP 36.8; O2SAT 98
[2023-02-19 02:19] LABS: Lyme Abs Screen <0.90 index
[2023-02-20 15:18] LABS: A. Phagocytphilium DNA,RT-PCR NOT DETECTED (NOT DETECTED); Babesia Microti DNA, RT-PCR NOT DETECTED (NOT DETECTED); Borrelia Miyamotoi,DNA RT-PCR NOT DETECTED (NOT DETECTED); E.Chaffeensis DNA RT-PCR NOT DETECTED (NOT DETECTED); Lyme(Borrelia ssp)DNA RT-PCR NOT DETECTED (NOT DETECTED)
== END 2023-02-17 11:47 | disposition home or self-care (01) ==
PROVIDERS: Physician Assistant Medical; Emergency Provider Emergency Medicine; PCP Family Medicine
DX: R21 Rash and other nonspecific skin eruption (principal); R03.0 Elevated blood-pressure reading, without diagnosis of hypertension; J45.909 Unspecified asthma, uncomplicated; N28.89 Other specified disorders of kidney and ureter; Z91.09 Other allergy status, other than to drugs and biological substances; F17.210 Nicotine dependence, cigarettes, uncomplicated; Z79.899 Other long term (current) drug therapy
CPT/HCPCS: 36415; 80053; 83690; 83735; 85025; 85610; 86617; 86618; 87468; 87469; 87478; 87484; 87798; 96372; 99284; J1200; J2930

== ENCOUNTER 2023-03-02 09:31 | Outpatient (AMB) | payer OTHER, SELFPAY ==
--- NOTE | 2023-03-02 09:44 | MHC.OFFVIS ---
Intake Intake Visit Reasons: 1Y Us(set) Intake Note: Patient is present for follow up ultrasound/kidney stones (imaging 02/15/23) Urology Medication: none Blood Thinner: none Trauma Surgeon Required: No Accompanied by: Self / Same As Patient Allergies benzonatate [BENZONATATE] Allergy (Severe, Verified 03/02/23 10:40) ANAPHYLAXIS banana [BANANA] Allergy (Intermediate, Verified 03/02/23 10:40) RASH coconut [COCONUT] Allergy (Intermediate, Verified 03/02/23 10:40) RASH cucumber [CUCUMBER] Allergy (Intermediate, Verified 03/02/23 10:40) RASH grape [GRAPE] Allergy (Intermediate, Verified 03/02/23 10:40) RASH arthur [ARTHUR] Allergy (Intermediate, Verified 03/02/23 10:40) RASH sulfamethoxazole [From BACTRIM] Allergy (Intermediate, Verified 03/02/23 10:40) RASH trimethoprim [From BACTRIM] Allergy (Intermediate, Verified 03/02/23 10:40) RASH cephalexin [Keflex] Allergy (Unknown, Verified 03/02/23 10:40) Unknown duloxetine [From CYMBALTA] Allergy (Unknown, Verified 03/02/23 10:40) UNKNOWN Sulfa (Sulfonamide Antibiotics) Allergy (Unknown, Verified 03/02/23 10:40) Unknown SEAFOOD Allergy (Intermediate, Uncoded 03/02/23 10:40) RASH Tessalon Allergy (Unknown, Uncoded 03/02/23 10:40) Unknown Medication List - Last Reconciled 03/02/23 by JEFFREY Foster albuterol sulfate 3 mg inhalation Q4H PRN albuterol sulfate 90 mcg/actuation 1 inh inhalation QID PRN cetirizine (Zyrtec) 10 mg PO DAILY PRN cetirizine 10 mg PO BID 30 days cyclobenzaprine 5 mg PO Q8H PRN 5 days diclofenac sodium 1% (Arthritis Pain (diclofenac)) 4 grams topical QID diphenhydramine HCl (Benadryl Allergy) 25 mg PO Q8H PRN Dulera 200-5 mcg/actuation (mometasone-formoterol) 2 puffs inhalation BID 30 days NS dupilumab (Dupixent) 300 mg (2 mL) subcut Q2W 28 days montelukast (Singulair) 10 mg PO BEDTIME 30 days HPI HPI Comments History of Present Illness Details Claribel is a pleasant 37-year-old female patient of Dr. Carrion. She has a past medical history of asthma, migraines, anxiety, and depression. She is being seen today in the office for follow-up regarding her nephrolithiasis. Patient reports losing her mother approximately 4 months ago and has been having ongoing health issues with low iron, abdominal pain, and generally just not feeling well. She reports following up with [facility] for therapy for her mental health. She does report having intermittent episodes of bilateral flank pain. She otherwise denies any bothersome urinary issues or concerns. Recent renal imaging results reviewed with the patient today. Bilateral 0.3 cm nonobstructing renal calculi. When asked she denies urinary urgency, urinary frequency, incontinence, nocturia, hematuria, dysuria, foul smelling urine, changes to urinary stream, fever, and or chills. She is happy with her current voiding parameters. In office urinalysis results reviewed with the patient today. Microscopic hematuria noted. Discussed at length potential causes for microscopic hematuria. Discussed further workup with cytology, CT urogram, and in office cystoscopy versus surveillance monitoring. Risks and benefits of these interventions were discussed at length. She does report to be smoking cigarettes daily as well as recreational marijuana at times. She otherwise denies any previous known chemical workplace exposure. Discussed at length potential causes of nephrolithiasis. Discussed and stressed the importance of drinking plenty of water daily. [facility] Medical History Pelviectasis Asthma Kidney stone Hx of migraine headaches Hx of anxiety disorder History of depression Surgical History Hx of bilateral salpingectomy Hx of tubal ligation Hx of section Hx of tonsillectomy Hx laparoscopic cholecystectomy Family History Mother Diabetes mellitus Hypertension Dementia Father Diabetes mellitus Hypertension Social History Alcohol intake: never Patient Tobacco Use Status: Current someday Tobacco user Tobacco use type: Cigarette Cigarettes Per Day: 2 Advance Directives Date on File: 12/11/21 service: No Current occupational status: disabled Current occupation: right handed Female Reproductive History Menstrual Age of Menarche: 10 Review of Systems Const Reports as per HPI Eyes Reports no additional complaints ENT Reports no additional complaints Card Reports no additional complaints Resp Reports as per HPI GI Reports as per HPI Reports as per HPI Musc Reports no additional complaints Neuro Reports no additional complaints Psych Reports as per HPI Endo Reports no additional complaints Physical Exam Const General: cooperative, healthy appearing, comfortable, no acute distress, well developed, alert and awake Orientation/consciousness: patient oriented x3 Limitations: no limitations HEENT Head: Yes normal to inspection, Yes normocephalic and Yes atraumatic Ears: hearing grossly normal bilaterally Eyes General: appearance normal, both eyes and all related structures Neck Neck: Yes normal visual inspection and Yes trachea midline Chest Chest palpation & inspection: normal inspection of the chest Resp Effort & Inspection: normal respiratory effort and able to speak in complete sentences Cardio Rate: regular rate GI Inspection: Yes normal to inspection General: Yes no CVA tenderness Back/Spine/Pelvis Back: no CVA tenderness Cervical Spine: normal cervical lordosis Neuro General: patient oriented x3 Extrem General: Yes normal to inspection Psych Appearance: grossly normal and well kempt Mental Status: mental status grossly normal Speech and movement: Normal speech and movement present and Clear speech present Affect: normal affect Attitude: cooperative Thought process: Normal thought process present Thought content: Normal thought content present Insight: Good insight present (Psych) Judgement: Good judgement present (Psych) Results AMB Urinalysis, Automated UA Leukoctes 0 Mandi/uL Last Edit by Sprinklr Alexsandra on 03/02/23 10:07 UA Nitrite Negative Last Edit by Jabier Upton on 03/02/23 10:07 UA Urobilinogen 0.2 mg/dL Last Edit by Urbantechmena on 03/02/23 10:07 UA Protein 15 mg/dL Last Edit by Sprinklr Alexsandra on 03/02/23 10:07 UA pH 6.0 Last Edit by Bjondjoe Upton on 03/02/23 10:07 UA Blood 200 Santos/uL Last Edit by Sprinklr Alexsandra on 03/02/23 10:07 UA Specific [place] 1.025 Last Edit by Sprinklr Alexsandra on 03/02/23 10:07 UA Ketone Negative Last Edit by Jabier Uptno on 03/02/23 10:07 UA Bilirubin 0 mg/dL Last Edit by Jabier Upton on 03/02/23 10:07 UA Glucose 0 mg/dL Last Edit by Jabier Upton on 03/02/23 10:07 Results Reviewed Results Reviewed: Laboratory Last Values Urine pH (Auto) 6.0 03/02/23 09:46 Specific [place] (Auto) 1.025 03/02/23 09:46 Urine Protein (Auto) 15 mg/dL 03/02/23 09:46 Glucose (UA)(Auto) 0 mg/dL 03/02/23 09:46 Urine Ketones (Auto) Negative 03/02/23 09:46 Urine Blood (Auto) 200 Santos/uL 03/02/23 09:46 Urine Nitrite (Auto) Negative 03/02/23 09:46 Urine Bilirubin (Auto) 0 mg/dL 03/02/23 09:46 Urine Urobilinogen (Auto) 0.2 mg/dL 03/02/23 09:46 Leukocyte Esterase (Auto) 0 Mandi/uL 03/02/23 09:46 Assessment & Plan Assessment & Plan (1) Kidney stone: Code(s): N20.0 - Calculus of kidney (2) Pelviectasis: Code(s): N28.89 - Other specified disorders of kidney and ureter Plan In office urinalysis results reviewed with the patient today; as noted above; will send for urine cytology. Recent renal imaging results reviewed with the patient today. Discussed at length potential causes for nephrolithiasis as well as microscopic hematuria. Discussed at length further workup of microscopic hematuria given history of nicotine dependence as well as recreational marijuana with CT urogram, cytology, in office cystoscopy versus surveillance monitoring; these interventions were discussed at length risks and benefits of these interventions; will continue with surveillance monitoring at this time per patient request. Discussed and stressed the importance of limiting/quitting nicotine dependence as well as recreational marijuana for overall health and well-being. Educated, instructed, and encouraged to continue drinking adequate amount of daily fluid intake. Continue to follow-up with PCP regarding low iron and abdominal pain as planned Renal ultrasound in 6 months. Follow-up in 6 months with imaging to be completed prior; or sooner with any issues, concerns, and or questions. Orders: Orders Urine Cytology Today Z13.9 - Encounter for screening, unspecified AMB Urinalysis Automated Today Z13.9 - Encounter for screening, unspecified US renal BI 6 Months N20.0 - Calculus of kidney Patient Instructions: The patient had an opportunity to ask questions regarding the treatment plan. All questions were answered. Physical exam, labs, and imaging were discussed and reviewed in detail. As well as risks, benefits, and discussion of treatment choices. No major barriers to understanding were identified. The patient expressed understanding and agreement with the above treatment plan. The patient was made aware they should contact our office by phone for worsening of their current condition, the appearance of new symptoms, or with any questions or concerns. Compliance is encouraged with any medications and follow up testing that is ordered. It is a privilege to be allowed the opportunity to participate in? your urological care.? Again, if you have any questions or concerns If you have any questions or concerns please do not hesitate to contact me. The office is [phone]. This note is constructed using voice recognition software. While every effort has been made to ensure accuracy sanding machine operator errors may have been included. Yours sincerely, JEFFREY Foster Coding Level of Care Code Est Pt Level 3 (90442) Diagnoses Kidney stone N20.0 Pelviectasis N28.89
== END 2023-03-02 10:27 | disposition home or self-care (01) ==
PROVIDERS: PCP Family Medicine; Visit Provider Nurse Practitioner Family
DX: N20.0 Calculus of kidney (principal); N28.89 Other specified disorders of kidney and ureter; Z13.9 Encounter for screening, unspecified
CPT/HCPCS: 99213

== ENCOUNTER 2023-03-02 09:31 | Outpatient (REF) | payer OTHER, SELFPAY ==
[2023-03-02 16:45] LABS: Urine Cytology See Pathology rpt
== END 2023-03-02 09:32 | disposition home or self-care (01) ==
LOC: HO.LNP 09:31
PROVIDERS: Visit Provider Nurse Practitioner Family
DX: N20.0 Calculus of kidney (principal); N28.89 Other specified disorders of kidney and ureter; Z79.899 Other long term (current) drug therapy
CPT/HCPCS: 81003; 88112; 99212

== ENCOUNTER 2023-03-05 09:55 | Outpatient (REF) | payer OTHER, SELFPAY | END 2023-03-05 09:56 | disposition home or self-care (01) | LOC: HO.MDS 09:55 | PROVIDERS: Visit Provider Internal Medicine Pulmonary Disease | DX: J45.50 Severe persistent asthma, uncomplicated (principal) ==

== ENCOUNTER 2023-03-12 08:54 | Outpatient (AMB) | payer OTHER, SELFPAY ==
[2023-03-12 09:01] VITALS: BMI 29.3
--- NOTE | 2023-03-12 09:01 | A.OFFVIS_ITS ---
Intake Vital Signs 03/12/23 09:01 Height 4 ft 10 in Weight 140 lb BMI 29.3 Intake Visit Reasons: Newprob- RT Elbow pain Intake Note: Claribel is a 37 year old right hand dominant female who presents today for a evaluation of her right elbow pain. Patient reports ongoing pain for about a month an a half. She states that her pain stays near the elbow. Allergies benzonatate [BENZONATATE] Allergy (Severe, Verified 03/12/23 09:02) ANAPHYLAXIS banana [BANANA] Allergy (Intermediate, Verified 03/12/23 09:02) RASH coconut [COCONUT] Allergy (Intermediate, Verified 03/12/23 09:02) RASH cucumber [CUCUMBER] Allergy (Intermediate, Verified 03/12/23 09:02) RASH grape [GRAPE] Allergy (Intermediate, Verified 03/12/23 09:02) RASH arthur [ARTHUR] Allergy (Intermediate, Verified 03/12/23 09:02) RASH sulfamethoxazole [From BACTRIM] Allergy (Intermediate, Verified 03/12/23 09:02) RASH trimethoprim [From BACTRIM] Allergy (Intermediate, Verified 03/12/23 09:02) RASH cephalexin [Keflex] Allergy (Unknown, Verified 03/12/23 09:02) Unknown duloxetine [From CYMBALTA] Allergy (Unknown, Verified 03/12/23 09:02) UNKNOWN Sulfa (Sulfonamide Antibiotics) Allergy (Unknown, Verified 03/12/23 09:02) Unknown SEAFOOD Allergy (Intermediate, Uncoded 03/03/23 14:11) RASH antibacterial soap Allergy (Unknown, Uncoded 03/03/23 14:11) rash Tessalon Allergy (Unknown, Uncoded 03/03/23 14:11) Unknown HPI Newprob- RT Elbow pain HPI Details 37-year-old right hand dominant female jas mccarthy presents in the office today, as a new patient, for an evaluation of right elbow pain. The patient pr esented to the ED on 02/16/2023 with a complaint of right elbow pain for the past 5 days (02/11/2023). X-rays were obtained. She was prescribed Diclofenac topical QID and Cyclobenzaprine 5 mg PO Q8H PRN. While in the office today the patient reports ongoing pain for 1.5 months. She states the pain is in the right elbow with no radiation. [facility] Medical History Pelviectasis Asthma Kidney stone Hx of migraine headaches Hx of anxiety disorder History of depression Surgical History Hx of bilateral salpingectomy Hx of tubal ligation Hx of section Hx of tonsillectomy Hx laparoscopic cholecystectomy Family History Mother Diabetes mellitus Hypertension Dementia Father Diabetes mellitus Hypertension Social History Alcohol intake: never Patient Tobacco Use Status: Current someday Tobacco user Tobacco use type: Cigarette Cigarettes Per Day: 2 Advance Directives Date on File: 12/11/21 service: No Current occupational status: disabled Current occupation: right handed Female Reproductive History Menstrual Age of Menarche: 10 Review of Systems Const All systems reviewed & are unremarkable except as noted in HPI and below Physical Exam Vital Signs: BMI result Body Mass Index 29.3 Const General: cooperative and no acute distress Orientation/consciousness: patient oriented x3 Resp Effort & Inspection: normal respiratory effort and able to speak in complete sentences Cardio Peripheral pulses: Peripheral pulses 2+ throughout Skin General skin exam: no rashes or lesions noted Neuro General: patient oriented x3 Extrem Other: Right elbow: Full ROM with flexion, extension, pronation, supination. Extreme tenderness to palpation medial and lateral epicondyles and over the olecranon. NVI. Assessment & Plan Assessment & Plan (1) Medial epicondylitis: Comment: Right elbow Code(s): M77.00 - Medial epicondylitis, unspecified elbow Qualifiers: Laterality: right Qualified Code(s): M77.01 - Medial epicondylitis, right elbow (2) Lateral epicondylitis: Comment: Right elbow Code(s): M77.10 - Lateral epicondylitis, unspecified elbow Qualifiers: Laterality: right Qualified Code(s): M77.11 - Lateral epicondylitis, right elbow Plan Ms. Elvis Albright is a 37-year-old right hand dominant female who presents in the office today, as a new patient, for an evaluation of right elbow pain. The patient presented to the ED on 02/16/2023 with a complaint of right elbow pain for the past 5 days (02/11/2023). X-rays were obtained. She was prescribed Diclofenac topical QID and Cyclobenzaprine 5 mg PO Q8H PRN. While in the office today the patient reports ongoing pain for 1.5 months. She states the pain is in the right elbow with no radiation. The patient will be referred to occupational therapy. After 6 weeks of therapy I would like to see her back for re-evaluation. I have sent a prescription for Diclofenac sodium 75 mg PO BID to the pharmacy. Follow up will be in 6 weeks, or sooner if needed. X-rays of the right elbow which were obtained while in the office today and were reviewed by me, Desi Quijano PA-C, revealed no acute fracture or dislocation. X-rays of the right elbow, obtained on 02/16/2023, revealed no acute fracture or dislocation. Orders: Orders XR elbow RT min 3V Today M25.529 - Pain in unspecified elbow OT Evaluation and Treatment Today M77.11 - Lateral epicondylitis, right elbow Medications: New diclofenac sodium 75 mg PO BID 30 days 60 tabs 0RF Patient Instructions: Scribed for Desi Quijano PA-C by Nely Ortega senior medical director, on 03/12/2023 at 8:58 am, EST. Coding Level of Care Code Est Pt Level 3 (26342) Diagnoses Medial epicondylitis of right elbow M77.01 Laterality: right Lateral epicondylitis of right elbow M77.11 Laterality: right
== END 2023-03-12 09:18 | disposition home or self-care (01) ==
PROVIDERS: PCP Family Medicine; Visit Provider Physician Assistant
DX: M77.01 Medial epicondylitis, right elbow (principal); M77.11 Lateral epicondylitis, right elbow
CPT/HCPCS: 99213

== ENCOUNTER 2023-03-12 09:17 | Outpatient (REF) | payer OTHER, SELFPAY ==
--- NOTE | ~2023-03-12 | XR_ITS ---
EXAMINATION: XR ELBOW, RIGHT CLINICAL INFORMATION: Pain. COMPARISON: Radiographs dated 02/16/2023. TECHNIQUE: AP, lateral, and oblique views of the right elbow. FINDINGS: The bones and soft tissues are normal. No fracture or joint effusion. Alignment is anatomic. Joint spaces are maintained. XR/XR elbow RT min 3V IMPRESSION: Normal right elbow.
== END 2023-03-12 09:18 | disposition home or self-care (01) ==
LOC: HO.HOSX 09:17
PROVIDERS: Visit Provider Physician Assistant
DX: M25.521 Pain in right elbow (principal); M77.11 Lateral epicondylitis, right elbow; M77.01 Medial epicondylitis, right elbow
CPT/HCPCS: 73080; 99212

== ENCOUNTER 2023-04-06 10:37 | Outpatient (AMB) | payer OTHER, SELFPAY ==
--- NOTE | 2023-04-06 10:38 | A.OFFVIS_ITS ---
Intake Vital Signs 04/06/23 10:39 Height 4 ft 10 in Weight 147 lb BMI 30.7 BP 118/84 Blood Pressure Location Lt brachial Position Sitting Pulse 120 H Pulse Source Doppler Pulse Oximetry (%) 100 Oxygen Delivery Method Room Air Intake Visit Reasons: Asthma Allergies benzonatate [BENZONATATE] Allergy (Severe, Verified 04/06/23 10:43) ANAPHYLAXIS banana [BANANA] Allergy (Intermediate, Verified 04/06/23 10:43) RASH coconut [COCONUT] Allergy (Intermediate, Verified 04/06/23 10:43) RASH cucumber [CUCUMBER] Allergy (Intermediate, Verified 04/06/23 10:43) RASH grape [GRAPE] Allergy (Intermediate, Verified 04/06/23 10:43) RASH arthur [ARTHUR] Allergy (Intermediate, Verified 04/06/23 10:43) RASH sulfamethoxazole [From BACTRIM] Allergy (Intermediate, Verified 04/06/23 10:43) RASH trimethoprim [From BACTRIM] Allergy (Intermediate, Verified 04/06/23 10:43) RASH cephalexin [Keflex] Allergy (Unknown, Verified 04/06/23 10:43) Unknown duloxetine [From CYMBALTA] Allergy (Unknown, Verified 04/06/23 10:43) UNKNOWN Sulfa (Sulfonamide Antibiotics) Allergy (Unknown, Verified 04/06/23 10:43) Unknown SEAFOOD Allergy (Intermediate, Uncoded 03/03/23 14:11) RASH antibacterial soap Allergy (Unknown, Uncoded 03/03/23 14:11) rash Tessalon Allergy (Unknown, Uncoded 03/03/23 14:11) Unknown HPI Asthma HPI Details 37-year-old lady followed for underlying asthma and environmental allergies. At the last office visit patient was switched from Nucala to Tezspire, however she has not started on it yet. She continues on Dulera and albuterol MDI. She denies recent exacerbations. [facility] Medical History Pelviectasis Asthma Kidney stone Hx of migraine headaches Hx of anxiety disorder History of depression Surgical History Hx of bilateral salpingectomy Hx of tubal ligation Hx of section Hx of tonsillectomy Hx laparoscopic cholecystectomy Family History Mother Diabetes mellitus Hypertension Dementia Father Diabetes mellitus Hypertension Social History Alcohol intake: never Patient Tobacco Use Status: Current someday Tobacco user Tobacco use type: Cigarette Cigarettes Per Day: 2 Advance Directives Date on File: 12/11/21 service: No Current occupational status: disabled Current occupation: right handed Female Reproductive History Menstrual Age of Menarche: 10 Review of Systems Const Denies daytime sleepiness, Denies excessive sweating, Denies fatigue, Denies fever(s), Denies lethargy, Denies malaise, Denies night sweats, Denies snoring and Denies weight loss Eyes Denies blurry vision and Denies itchy eyes ENT Denies nasal congestion, Denies post nasal drip, Denies sinus pain, Denies sinus pressure and Denies other ( Thrush) Card Denies chest pain, Denies pedal edema, Denies dyspnea, Denies orthopnea and Denies paroxysmal nocturnal dyspnea Resp Denies cough, Denies hemoptysis, Denies excessive phlegm production, Denies dyspnea, Denies snoring and Denies wheezing GI Denies abdominal pain and Denies heartburn Musc Denies myalgias, Denies arthralgias and Denies joint swelling Skin/Breast Denies rash Neuro Denies memory loss and Denies seizure-like activity Psych Denies abnormal sleep pattern, Denies anxiety and Denies memory loss Endo Denies excessive sweating, Denies fatigue and Denies heat intolerance Edgar/Lymph Denies easy bruising Aller/Immun Denies itchy eyes, Denies seasonal rhinorrhea and Denies wheezing Physical Exam Vital Signs: Last Vital Signs Pulse 120 H 04/06/23 10:39 BP 118/84 04/06/23 10:39 Pulse Ox 100 04/06/23 10:39 Oxygen Delivery Method Room Air 04/06/23 10:39 BMI result Body Mass Index 30.7 Const General: no acute distress and alert Nutritional Appearance: not obese Orientation/consciousness: Other orientation findings ( oriented) HEENT Head: Yes atraumatic Eyes General: appearance normal, both eyes and all related structures Sclerae: sclerae normal EOM: EOMs intact bilaterally Neck Neck: Yes supple Lymphatic: no lymphadenopathy noted Resp Effort & Inspection: normal respiratory effort and no use of accessory muscles Auscultation: clear to auscultation bilaterally Cardio Rate: regular rate Rhythm: regular rhythm Heart sounds: no gallops, no murmurs and no rubs Skin General skin exam: other ( warm) Extrem General: No clubbing, No cyanosis and No edema Assessment & Plan Assessment & Plan (1) Asthma: Code(s): J45.909 - Unspecified asthma, uncomplicated Plan: Suboptimal control on Dulera and albuterol MDI. Expect to improve after switching from Nucala to Tezspire. Continue Dulera and albuterol MDI. (2) Environmental allergies: Code(s): Z91.09 - Other allergy status, other than to drugs and biological substances Plan: Expect to improve on Tezspire. Coding Level of Care Code Est Pt Level 4 (64701) Diagnoses Asthma J45.909 Environmental allergies Z91.09
[2023-04-06 10:39] VITALS: BP 118/84; PULSE 120; O2SAT 100; BMI 30.7
== END 2023-04-06 10:55 | disposition home or self-care (01) ==
PROVIDERS: PCP Family Medicine; Visit Provider Internal Medicine Pulmonary Disease
DX: J45.909 Unspecified asthma, uncomplicated (principal); Z91.09 Other allergy status, other than to drugs and biological substances
CPT/HCPCS: 99214

== ENCOUNTER → 2023-04-06 10:37 | Outpatient (BNVA) | payer OTHER, SELFPAY | PROVIDERS: PCP Family Medicine; Visit Provider Internal Medicine Pulmonary Disease | DX: J45.909 Unspecified asthma, uncomplicated (principal); Z91.09 Other allergy status, other than to drugs and biological substances | CPT/HCPCS: 99212 ==

== ENCOUNTER 2023-04-26 10:30 | Outpatient (RCR) | payer OTHER, SELFPAY ==
--- NOTE | 2023-03-17 15:44 | MHC.OT.EP ---
[address] [phone] Occupational Therapy Plan of Care Patient Name: Claribel Albright Date of Evaluation: 03/17/23 Diagnosis: Right lateral epicondylitis Pain Location: 3-10/10 Right lateral elbow , Constant ache Pain Score: 6 Pain Scale Used: Numeric (0 - 10) Aggravating Factors: Right hand and arm use with light activity. Constant pain . Worsening at night Alleviating Factors: nothing Assessment: Pt is a 37 yo right dominant female with worsening right lateral elbow pain since this past February. Initially with writing and texting then worsening in February. She was seen in the ED and referred to OT and prescribed topical Didofenac and Cyclobenzaprine . Pt reports no improvement in pain. She reports she is unable to use her right hand with daily activities due to pain Today she presents with S+S consistent with her diagnosis of right lateral epicondylitis. 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 Thank you once again for your referral.
--- NOTE | 2023-04-22 11:37 | MHC.OT.OP ---
[address] [phone] F: [phone] Occupational Therapy Progress Note Patient Name: Claribel Albright Diagnosis: Right lateral epicondylitis Date of Surgery: 02/11/22 Date of Evaluation: 03/17/23 Treatments to Date: 10 Cancellations to Date: No Shows to Date: Subjective: Pt reports pain improving I can move it move it more. Can't put my hand back to brush my hair Still can not eat with this hand. I can tie my shoes still bother me to sleep Pain Score: 4 Pain Location: Right lat elbow Objective Measures: AROM WNL Procurement Analyst R 5 lb with pain , lateral and medial elbow Status: Not Progressing Assessment: Claribel reports significant improvement in pain since starting OT however continues to grimace with elbow ROM and Tang stretch. There is no change in pain over the past two weeks.She is unable to feed herself with her right dominant hand due to pain. She denies straightening her hair and doing other aggravating activities. Treatment has included heat, massage, US ,NMES, TENS , ROM ex and use of a counter force brace. We have not progressed ex due to continued complaint of high pain. 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
--- NOTE | 2023-04-27 11:34 | MHC.OT.DC ---
[address] [phone] F: [phone] Occupational Therapy Discharge Note Patient Name: Claribel Albright Provider: Desi Quijano PA-C Diagnosis: Right lateral epicondylitis Date of Surgery: 02/11/22 Date of Evaluation: 03/17/23 Date of Discharge: 04/26/23 Treatments to Date: 11 Discharge Status: Independent with HEP Discharge Summary: Claribel reports significant improvement in right elbow pain since starting OT, however continues to report pain w/ full elbow range and general daily activities. She is limited still w/ hair care, oral care, feeding herself, but states she has not been wearing her CFB as often because her pain is down. Treatment has included heat, massage, US ,NMES, TENS, ROM ex and use of a counter force brace. She is Ind w/ HEP and has good understanding of activity modification and joint protection; I anticipate she will continue to improve w/ self management techniques. Electronically Signed By: Padmini Rosales OTR/L CHT Please Sign and return to therapist, thank you for your referral.
== END 2023-04-27 11:34 | disposition home or self-care (01) ==
LOC: HO.OT 10:30
PROVIDERS: PCP Family Medicine; Visit Provider Physician Assistant
DX: M77.11 Lateral epicondylitis, right elbow (principal)
CPT/HCPCS: 29125; 97014; 97035; 97110; 97140; 97166; 97760

== ENCOUNTER 2023-04-27 12:36 | Outpatient (AMB) | payer OTHER, SELFPAY ==
--- NOTE | 2023-04-27 12:42 | A.OFFVIS_ITS ---
Intake Vital Signs 04/27/23 12:44 Height 4 ft 10 in Weight 147 lb BMI 30.7 Handedness Right Intake Visit Reasons: OV-Right elbow follow up Intake Note: Claribel is a 37 year old right hand dominant female who presents today for a follow up of her right lateral epicondylitis. Patient reports that O.T has been helping her a little bit. She has no relief when she takes ibuprofen. Allergies benzonatate [BENZONATATE] Allergy (Severe, Verified 04/27/23 12:45) ANAPHYLAXIS banana [BANANA] Allergy (Intermediate, Verified 04/27/23 12:45) RASH coconut [COCONUT] Allergy (Intermediate, Verified 04/27/23 12:45) RASH cucumber [CUCUMBER] Allergy (Intermediate, Verified 04/27/23 12:45) RASH grape [GRAPE] Allergy (Intermediate, Verified 04/27/23 12:45) RASH arthur [ARTHUR] Allergy (Intermediate, Verified 04/27/23 12:45) RASH sulfamethoxazole [From BACTRIM] Allergy (Intermediate, Verified 04/27/23 12:45) RASH trimethoprim [From BACTRIM] Allergy (Intermediate, Verified 04/27/23 12:45) RASH cephalexin [Keflex] Allergy (Unknown, Verified 04/27/23 12:45) Unknown duloxetine [From CYMBALTA] Allergy (Unknown, Verified 04/27/23 12:45) UNKNOWN Sulfa (Sulfonamide Antibiotics) Allergy (Unknown, Verified 04/27/23 12:45) Unknown SEAFOOD Allergy (Intermediate, Uncoded 03/03/23 14:11) RASH antibacterial soap Allergy (Unknown, Uncoded 03/03/23 14:11) rash Tessalon Allergy (Unknown, Uncoded 03/03/23 14:11) Unknown HPI OV-Right elbow follow up HPI Details 37-year-old right hand dominant female jas mccarthy presents in the office today for a follow up of right elbow pain. I last saw the patient in the office on 03/12/2023 at which time she was referred to occupational therapy and a prescription for Dicolfenac 75 mg PO BID was sent to the pharmacy. While in the office today the patient reports that occupational therapy has been helping her a little. She does not have relief when taking the Ibuprofen. [facility] Medical History Pelviectasis Asthma Kidney stone Hx of migraine headaches Hx of anxiety disorder History of depression Surgical History Hx of bilateral salpingectomy Hx of tubal ligation Hx of section Hx of tonsillectomy Hx laparoscopic cholecystectomy Family History Mother Diabetes mellitus Hypertension Dementia Father Diabetes mellitus Hypertension Social History Alcohol intake: never Patient Tobacco Use Status: Current someday Tobacco user Tobacco use type: Cigarette Cigarettes Per Day: 2 Advance Directives Date on File: 12/11/21 service: No Current occupational status: disabled Current occupation: right handed Female Reproductive History Menstrual Age of Menarche: 10 Review of Systems Const All systems reviewed & are unremarkable except as noted in HPI and below Physical Exam Vital Signs: BMI result Body Mass Index 30.7 Const General: cooperative, healthy appearing and no acute distress Resp Effort & Inspection: normal respiratory effort and able to speak in complete sentences Cardio Rate: regular rate Peripheral pulses: Peripheral pulses 2+ throughout GI Palpation (GI): Soft to palpation Skin Lesions: no lesions Rashes: no rashes Extrem Other: Right elbow: Full ROM with flexion, extension, pronation, supination. Extreme tenderness to palpation medial and lateral epicondyles and over the olecranon. NVI. Assessment & Plan Assessment & Plan (1) Medial epicondylitis: Comment: Right elbow Code(s): M77.00 - Medial epicondylitis, unspecified elbow Qualifiers: Laterality: right Qualified Code(s): M77.01 - Medial epicondylitis, right elbow (2) Lateral epicondylitis: Comment: Right elbow Code(s): M77.10 - Lateral epicondylitis, unspecified elbow Qualifiers: Laterality: right Qualified Code(s): M77.11 - Lateral epicondylitis, right elbow Plan Ms. Elvis Albright is a 37-year-old right hand dominant female who presents in the office today for a follow up of right elbow pain. I last saw the patient in the office on 03/12/2023 at which time she was referred to occupational therapy and a prescription for Dicolfenac 75 mg PO BID was sent to the pharmacy. While in the office today the patient reports that occupational therapy has been helping her a little. She does not have relief when taking the Ibuprofen. Patient reports she is unable to have cortisone injection due to a prior allergic reaction. She has tried the counter force brace with no relief. She has been attending physical therapy and has shown signs of slight improvement. I did discuss PRP injections with the patient, but this would be an out of pocket expense. She would like to exacerbate all conservative treatment options before trying to pursue this. I would like for the patient to be seen by Dr. Aguirre to explore any other possible treatment options. Follow up with Orthopedics will be PRN, or sooner if needed. Patient Instructions: Scribed by Nely Ortega medical record librarians teacher, for Desi Quijano PA-C on 04/27/2023 at 12:38 pm, EST. Coding Level of Care Code Est Pt Level 3 (47714) Diagnoses Medial epicondylitis of right elbow M77.01 Laterality: right Lateral epicondylitis of right elbow M77.11 Laterality: right
[2023-04-27 12:44] VITALS: BMI 30.7
== END 2023-04-27 13:44 | disposition home or self-care (01) ==
PROVIDERS: PCP Family Medicine; Visit Provider Physician Assistant
DX: M77.01 Medial epicondylitis, right elbow (principal); M77.11 Lateral epicondylitis, right elbow
CPT/HCPCS: 99213

== ENCOUNTER → 2023-04-27 12:36 | Outpatient (BNVA) | payer OTHER, SELFPAY | PROVIDERS: PCP Family Medicine; Visit Provider Physician Assistant | DX: M77.01 Medial epicondylitis, right elbow (principal); M77.11 Lateral epicondylitis, right elbow | CPT/HCPCS: 99212 ==

== ENCOUNTER 2023-06-04 11:19 | Outpatient (REF) | payer OTHER, SELFPAY ==
[2023-06-04 13:32] LABS: MANUAL DIFF FLAG NO
[2023-06-04 13:37] LABS: Basophils Absolute Auto 0.1 X10*3/uL (0.0-0.2); Basophils Percent Auto 0.7 % (0-2); Eosinophils Absolute Auto 0.2 X10*3/uL (0.0-0.4); Eosinophils Percent Auto 2.8 % (0-4); Hematocrit 34.7 % (37.0-47.0); Hemoglobin 11.8 g/dl (12.0-16.0); Imm Gran Abs Auto 0.03 X10*3/uL (0.00-0.03); Imm Gran Pct Auto 0.4 % (0.0-0.4); Lymphocytes Absolute Auto 2.2 X10*3/uL (1.2-4.9); Lymphocytes Percent Auto 26.1 % (20-40); Mean Corpuscular Hemoglobin 28.1 pg (27.0-33.0); Mean Corpuscular Volume 82.6 fL (80.0-98.0); Mean Platelet Volume 9.2 fL (9.4-12.3); Monocytes Absolute Auto 0.5 X10*3/uL (0.1-1.2); Monocytes Percent Auto 6.5 % (2-11); Neutrophils Absolute Auto 5.3 x10*3/uL (2.0-8.3); Neutrophils Percent Auto 63.5 % (45-73); Platelet Count 381 X10*3/uL (160-400); White Blood Count 8.3 X10*3/uL (4.8-10.8)
[2023-06-04 14:28] LABS: Cholesterol 199 mg/dL (<200); HDL Cholesterol 40 mg/dL (>40); Iron 31 mcg/dL (30-160); LDL Cholesterol Calculated 144 mg/dL (<100); Percent Iron Saturation 14 % (15-50); Total Iron Binding Capacity 226 mcg/dL (228-428); Triglycerides 77 mg/dL (<150); Unsaturated Iron Binding 195 ug/dL
[2023-06-04 14:29] LABS: TSH reflex Free T4 2.05 uIU/mL (0.32-4.0)
[2023-06-04 14:35] LABS: Folate 4.3 ng/mL (> or = 4.0); Vitamin B12 442 pg/mL (200-900)
== END 2023-06-04 11:20 | disposition home or self-care (01) ==
LOC: HO.HHCL 11:19
PROVIDERS: Visit Provider Family Medicine
DX: Z00.00 Encounter for general adult medical examination without abnormal findings (principal); D64.9 Anemia, unspecified
CPT/HCPCS: 36415; 80061; 82607; 82746; 83540; 84443; 85025

== ENCOUNTER 2023-08-23 10:45 | Outpatient (REF) | payer OTHER, SELFPAY ==
--- NOTE | ~2023-08-23 | US_ITS ---
EXAMINATION: US RETROPERITONEAL LIMITED (RENAL ONLY) CLINICAL INFORMATION: Calculus of kidney. COMPARISON: Renal ultrasound 02/15/2023 and 02/13/2022. CT abdomen and pelvis 02/15/2019. X-ray abdomen 07/28/2017. TECHNIQUE: Real-time imaging of the kidneys. Limited visualization due to bowel gas. FINDINGS: RIGHT KIDNEY: 9.9 x 5.0 x 5.2 cm (SAG x AP x TRV). No hydronephrosis. 5 mm and 4 mm lower pole calculi. Renal cortical thickness is normal. Limited visualization. LEFT KIDNEY: 10.7 x 4.5 x 5.0 cm (SAG x AP x TRV). No hydronephrosis. 5 mm mdx-my-chlia pole calculus. Renal cortical thickness is normal. Limited visualization. US/US renal BI IMPRESSION: Bilateral nonobstructive renal calculi. No hydronephrosis.
== END 2023-08-23 10:46 | disposition home or self-care (01) ==
LOC: HO.US 10:45
PROVIDERS: PCP Family Medicine; Visit Provider Nurse Practitioner Family
DX: N20.0 Calculus of kidney (principal)
CPT/HCPCS: 76775

== ENCOUNTER 2023-08-31 10:33 | Outpatient (AMB) | payer OTHER, SELFPAY ==
--- NOTE | 2023-08-31 10:49 | MHC.OFFVIS ---
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 Accompanied by: Self / Same As Patient Allergies benzonatate [BENZONATATE] Allergy (Severe, Verified 08/31/23 11:12) ANAPHYLAXIS banana [BANANA] Allergy (Intermediate, Verified 08/31/23 11:12) RASH coconut [COCONUT] Allergy (Intermediate, Verified 08/31/23 11:12) RASH cucumber [CUCUMBER] Allergy (Intermediate, Verified 08/31/23 11:12) RASH grape [GRAPE] Allergy (Intermediate, Verified 08/31/23 11:12) RASH arthur [ARTHUR] Allergy (Intermediate, Verified 08/31/23 11:12) RASH sulfamethoxazole [From BACTRIM] Allergy (Intermediate, Verified 08/31/23 11:12) RASH trimethoprim [From BACTRIM] Allergy (Intermediate, Verified 08/31/23 11:12) RASH cephalexin [Keflex] Allergy (Unknown, Verified 08/31/23 11:12) Unknown duloxetine [From CYMBALTA] Allergy (Unknown, Verified 08/31/23 11:12) UNKNOWN Sulfa (Sulfonamide Antibiotics) Allergy (Unknown, Verified 08/31/23 11:12) Unknown SEAFOOD Allergy (Intermediate, Uncoded 08/31/23 11:12) RASH antibacterial soap Allergy (Unknown, Uncoded 08/31/23 11:12) rash Tessalon Allergy (Unknown, Uncoded 08/31/23 11:12) Unknown Medication List - Last Reconciled 08/31/23 by JEFFREY Foster albuterol sulfate 3 mg inhalation Q4H PRN albuterol sulfate 90 mcg/actuation 1 inh inhalation QID PRN cetirizine (Zyrtec) 10 mg PO DAILY PRN cetirizine 10 mg PO BID cyclobenzaprine 5 mg PO Q8H PRN 5 days diclofenac sodium 1% (Arthritis Pain (diclofenac)) 4 grams topical QID diphenhydramine HCl (Benadryl Allergy) 25 mg PO Q8H PRN Dulera 200-5 mcg/actuation (mometasone-formoterol) 2 puffs inhalation BID 30 days NS montelukast 10 mg PO BEDTIME pyridoxine (vitamin B6) 100 mg PO DAILY 90 days tezepelumab-ekko (Tezspire) 210 mg (1.91 mL) subcut Q4W 28 days HPI Comments Details: Claribel is a pleasant 38-year-old female patient of Dr. Carrion. She has a past medical history of asthma, migraines, anxiety, and depression. She is being seen today in the office for follow-up regarding her nephrolithiasis. In discussion with the patient today she reports to be doing and feeling well. Recent renal imaging results reviewed with the patient today. Bilateral kidneys with no hydronephrosis. Right kidney with 5 mm and 4 mm lower pole calculi. Left kidney with 5 mm mid to lower pole calculus. She does report having intermittent episodes of right sided flank pain. She otherwise denies any bothersome urinary issues or concerns. When asked she denies urinary urgency, urinary frequency, incontinence, nocturia, hematuria, dysuria, foul smelling urine, changes to urinary stream, fever, and or chills. She is happy with her current voiding parameters. In office urinalysis results reviewed with the patient today. Microscopic hematuria noted. Discussed at length potential causes for microscopic hematuria. Discussed further workup with cytology, CT urogram, and in office cystoscopy versus surveillance monitoring. Risks and benefits of these interventions were discussed at length. She does report to be smoking cigarettes daily as well as recreational marijuana at times. She otherwise denies any previous known chemical workplace exposure. Discussed at length potential causes of nephrolithiasis. Discussed and stressed the importance of drinking plenty of water daily. Previous urine cytology results reviewed with the patient today 03/03 Negative for high-grade urothelial carcinoma. She otherwise offers no other issues or concerns at this time. [facility] Medical History Pelviectasis Asthma Kidney stone Hx of migraine headaches Hx of anxiety disorder History of depression Surgical History Hx of bilateral salpingectomy Hx of tubal ligation Hx of section Hx of tonsillectomy Hx laparoscopic cholecystectomy Family History Mother Diabetes mellitus Hypertension Dementia Father Diabetes mellitus Hypertension Social History Alcohol intake: never Patient Tobacco Use Status: Current someday Tobacco user Tobacco use type: Cigarette Cigarettes Per Day: 2 Advance Directives Date on File: 12/11/21 service: No Current occupational status: disabled Current occupation: right handed Female Reproductive History Menstrual Age of Menarche: 10 Review of Systems Const Reports as per HPI Eyes Reports no additional complaints ENT Reports no additional complaints Card Reports no additional complaints Resp Reports as per HPI GI Reports as per HPI Reports as per HPI Musc Reports no additional complaints Neuro Reports no additional complaints Psych Reports as per HPI Endo Reports no additional complaints Physical Exam Const General: cooperative, healthy appearing, comfortable, no acute distress, well developed, alert and awake Orientation/consciousness: patient oriented x3 Limitations: no limitations HEENT Head: Yes normal to inspection, Yes normocephalic and Yes atraumatic Ears: hearing grossly normal bilaterally Eyes General: appearance normal, both eyes and all related structures Neck Neck: Yes normal visual inspection and Yes trachea midline Chest Chest palpation & inspection: normal inspection of the chest Resp Effort & Inspection: normal respiratory effort and able to speak in complete sentences Cardio Rate: regular rate GI Inspection: Yes normal to inspection General: Yes no CVA tenderness Back/Spine/Pelvis Back: no CVA tenderness Cervical Spine: normal cervical lordosis Neuro General: patient oriented x3 Extrem General: Yes normal to inspection Psych Appearance: grossly normal and well kempt Mental Status: mental status grossly normal Speech and movement: Normal speech and movement present and Clear speech present Affect: normal affect Attitude: cooperative Thought process: Normal thought process present Thought content: Normal thought content present Insight: Good insight present (Psych) Judgement: Good judgement present (Psych) Results AMB Urinalysis, Automated UA Leukoctes 0 Mandi/uL Last Edit by Jabier Upton on 08/31/23 11:02 UA Nitrite Negative Last Edit by Jabier Upton on 08/31/23 11:02 UA Urobilinogen 0.2 mg/dL Last Edit by Jabier Upton on 08/31/23 11:02 UA Protein 0 mg/dL Last Edit by Jabier Upton on 08/31/23 11:02 UA pH 6.0 Last Edit by Jabier Upton on 08/31/23 11:02 UA Blood 200 Santos/uL Last Edit by Bertazizajoe Lawsmena on 08/31/23 11:02 UA Specific [place] 1.015 Last Edit by Bertazizajoe Lawsmena on 08/31/23 11:02 UA Ketone Negative Last Edit by Jabier Eusebiamena on 08/31/23 11:02 UA Bilirubin 0 mg/dL Last Edit by Jabier Eusebiamena on 08/31/23 11:02 UA Glucose 0 mg/dL Last Edit by Jabier Eusebiamena on 08/31/23 11:02 Results Reviewed Results Reviewed: Laboratory Last Values Urine pH (Auto) 6.0 08/31/23 10:55 Specific [place] (Auto) 1.015 08/31/23 10:55 Urine Protein (Auto) 0 mg/dL 08/31/23 10:55 Glucose (UA)(Auto) 0 mg/dL 08/31/23 10:55 Urine Ketones (Auto) Negative 08/31/23 10:55 Urine Blood (Auto) 200 Santos/uL 08/31/23 10:55 Urine Nitrite (Auto) Negative 08/31/23 10:55 Urine Bilirubin (Auto) 0 mg/dL 08/31/23 10:55 Urine Urobilinogen (Auto) 0.2 mg/dL 08/31/23 10:55 Leukocyte Esterase (Auto) 0 Mandi/uL 08/31/23 10:55 Date of Service: 08/23/23 EXAMINATION: US RETROPERITONEAL LIMITED (RENAL ONLY) FINDINGS: RIGHT KIDNEY: 9.9 x 5.0 x 5.2 cm (SAG x AP x TRV). No hydronephrosis. 5 mm and 4 mm lower pole calculi. Renal cortical thickness is normal. Limited visualization. LEFT KIDNEY: 10.7 x 4.5 x 5.0 cm (SAG x AP x TRV). No hydronephrosis. 5 mm fyj-qa-mreeo pole calculus. Renal cortical thickness is normal. Limited visualization. IMPRESSION: Bilateral nonobstructive renal calculi. No hydronephrosis. Assessment & Plan Assessment & Plan (1) Kidney stone: Code(s): N20.0 - Calculus of kidney Category: Medical (2) Pelviectasis: Code(s): N28.89 - Other specified disorders of kidney and ureter Category: Medical Plan In office urinalysis results reviewed with the patient today; as noted above; Recent renal imaging results reviewed with the patient today. Discussed further metabolic workup with 24 hour urine collection and labs. Previous urine cytology results reviewed with the patient today; as noted above. Discussed at length potential causes for nephrolithiasis as well as microscopic hematuria. Discussed at length further workup of microscopic hematuria given history of nicotine dependence as well as recreational marijuana with CT urogram, cytology, in office cystoscopy versus surveillance monitoring; these interventions were discussed at length risks and benefits of these interventions; will continue with surveillance monitoring at this time per patient request. Discussed and stressed the importance of limiting/quitting nicotine dependence as well as recreational marijuana for overall health and well-being. Educated, instructed, and encouraged to continue drinking adequate amount of daily fluid intake. Start vitamin B6 as discussed and prescribed. Renal ultrasound in 6 months. Follow-up in 6 months with imaging to be completed prior; or sooner with any issues, concerns, and or questions. Orders: Orders US renal BI 6 Months N20.0 - Calculus of kidney AMB Urinalysis Automated 08/31/23 Z13.9 - Encounter for screening, unspecified Medications: New pyridoxine (vitamin B6) 100 mg PO DAILY 90 tabs 1RF 90 days Patient Instructions: The patient had an opportunity to ask questions regarding the treatment plan. All questions were answered. Physical exam, labs, and imaging were discussed and reviewed in detail. As well as risks, benefits, and discussion of treatment choices. No major barriers to understanding were identified. The patient expressed understanding and agreement with the above treatment plan. The patient was made aware they should contact our office by phone for worsening of their current condition, the appearance of new symptoms, or with any questions or concerns. Compliance is encouraged with any medications and follow up testing that is ordered. It is a privilege to be allowed the opportunity to participate in? your urological care.? Again, if you have any questions or concerns If you have any questions or concerns please do not hesitate to contact me. The office is [phone]. This note is constructed using voice recognition software. While every effort has been made to ensure accuracy traffic control officer errors may have been included. Yours sincerely, JEFFREY Foster Coding Level of Care Code Est Pt Level 4 (24574) Diagnoses Kidney stone N20.0 Pelviectasis N28.89
== END 2023-08-31 11:20 | disposition home or self-care (01) ==
PROVIDERS: PCP Family Medicine; Visit Provider Nurse Practitioner Family
DX: N20.0 Calculus of kidney (principal); N28.89 Other specified disorders of kidney and ureter
CPT/HCPCS: 99214

== ENCOUNTER → 2023-08-31 10:33 | Outpatient (BNVA) | payer OTHER, SELFPAY | PROVIDERS: PCP Family Medicine; Visit Provider Nurse Practitioner Family | DX: N20.0 Calculus of kidney (principal); N28.89 Other specified disorders of kidney and ureter | CPT/HCPCS: 81003; 99212 ==

== ENCOUNTER 2023-09-11 10:28 | Emergency (ER) | payer OTHER, SELFPAY ==
--- NOTE | ~2023-09-11 | XR_ITS ---
EXAMINATION: XR CHEST CLINICAL INFORMATION: Cough COMPARISON: 12/09/2021 TECHNIQUE: 2 views of the chest were obtained. FINDINGS: No focal consolidation, pulmonary edema, or pleural effusion. Stable cardiomediastinal silhouette. XR/XR chest 2V IMPRESSION: Normal chest.
[2023-09-11 10:33] VITALS: BP 124/90; PULSE 113; RESP 18; TEMP 37.1; O2SAT 96; BMI 27.8
[2023-09-11 10:47] VITALS: BP 124/90; PULSE 113; RESP 18; TEMP 37.1; O2SAT 96
[2023-09-11 10:48] LABS: MANUAL DIFF FLAG NO
[2023-09-11 10:58] LABS: UPreg QC Valid YES; Urine Pregnancy NEGATIVE (NEGATIVE)
[2023-09-11 11:08] LABS: Basophils Percent Auto 0.7 % (0-2); Eosinophils Absolute Auto 0.1 X10*3/uL (0.0-0.4); Eosinophils Percent Auto 1.7 % (0-4); Hematocrit 38.3 % (37.0-47.0); Hemoglobin 13.1 g/dl (12.0-16.0); Imm Gran Abs Auto 0.02 X10*3/uL (0.00-0.03); Imm Gran Pct Auto 0.3 % (0.0-0.4); Mean Corpuscular HGB Conc 34.2 g/dl (31.0-35.0); Mean Corpuscular Hemoglobin 28.1 pg (27.0-33.0); Mean Corpuscular Volume 82.2 fL (80.0-98.0); Mean Platelet Volume 8.9 fL (9.4-12.3); Monocytes Absolute Auto 0.8 X10*3/uL (0.1-1.2); Monocytes Percent Auto 14.7 % (2-11); Neutrophils Absolute Auto 2.7 x10*3/uL (2.0-8.3); Neutrophils Percent Auto 47.6 % (45-73); Platelet Count 368 X10*3/uL (160-400); Red Blood Count 4.66 X10*6/uL (4.20-5.50); Red Cell Distribution Width 13.7 % (11.0-16.0); White Blood Count 5.7 X10*3/uL (4.8-10.8)
--- NOTE | 2023-09-11 11:09 | ED_ITS ---
HPI - Nausea/Vomiting/Diarrhea General Chief complaint: Nausea/Vomiting/Diarrhea Stated complaint: vomiting x 4 days Time Seen by Provider: 09/11/23 10:41 Source: patient, RN notes reviewed and old records reviewed Mode of arrival: ambulatory History of Present Illness ED Provider: Cristal Burciaga PA-C HPI Narrative: 38-year-old female with past medical history of asthma, renal stones, presenting to the ED complaining of rhinorrhea/congestion, productive cough, epigastric abdominal pain, nausea, nonbloody emesis and diarrhea times 4-5 days. Reports inability to tolerate p.o. + sick contact, son with similar symptoms. Denies fever/chills, chest pain, dysuria/hematuria, suspicious food intake MD elicited complaint: nausea, vomiting, diarrhea and abdominal pain Related Data Home Medications ?Medication ?Instructions ?Recorded ?Confirmed albuterol sulfate 2.5 mg/3 mL 3 mg inhalation Q4H PRN Wheezing 12/09/21 02/23/22 (0.083 %) solution for nebulization Previous Rx's ?Medication ?Instructions ?Recorded albuterol sulfate 90 mcg/actuation 1 inh inhalation QID PRN shortness 10/31/21 aerosol inhaler of breath or wheezing #8.5 grams cyclobenzaprine 5 mg tablet 5 mg PO Q8H PRN pain (scale score 02/16/23 7-10) 5 days #8 tabs diclofenac sodium 1 % topical gel 4 g topical QID #100 grams 02/16/23 (Arthritis Pain (diclofenac)) cetirizine 10 mg tablet (Zyrtec) 10 mg PO DAILY PRN allergy 02/17/23 symptoms #10 tabs diphenhydramine HCl 25 mg tablet 25 mg PO Q8H PRN itching #14 tabs 02/17/23 (Benadryl Allergy) cetirizine 10 mg tablet 10 mg PO BID #180 tabs 04/02/23 Dulera 200 mcg-5 mcg/actuation HFA 2 puff inhalation BID 30 days #1 ea 04/13/23 aerosol inhaler (mometasone-formoterol) tezepelumab-ekko 210 mg/1.91 mL 210 mg (1.91 mL) subcut Q4W 28 06/03/23 (110 mg/mL) subcutaneous syringe days #1.91 mL (Tezspire) montelukast 10 mg tablet 10 mg PO BEDTIME #90 tabs 06/28/23 pyridoxine (vitamin B6) 100 mg 100 mg PO DAILY 90 days #90 tabs 08/31/23 tablet ondansetron 4 mg disintegrating 4 mg PO Q8H PRN nausea and 09/11/23 tablet vomiting #10 tabs Allergies Allergy/AdvReac Type Severity Reaction Status Date / Time benzonatate [BENZONATATE] Allergy Severe ANAPHYLAXIS Verified 09/11/23 10:34 banana [BANANA] Allergy Intermediate RASH Verified 09/11/23 10:34 coconut [COCONUT] Allergy Intermediate RASH Verified 09/11/23 10:34 cucumber [CUCUMBER] Allergy Intermediate RASH Verified 09/11/23 10:34 grape [GRAPE] Allergy Intermediate RASH Verified 09/11/23 10:34 arthur [ARTHUR] Allergy Intermediate RASH Verified 09/11/23 10:34 sulfamethoxazole Allergy Intermediate RASH Verified 09/11/23 10:34 [From BACTRIM] trimethoprim [From BACTRIM] Allergy Intermediate RASH Verified 09/11/23 10:34 cephalexin [Keflex] Allergy Unknown Unknown Verified 09/11/23 10:34 duloxetine [From CYMBALTA] Allergy Unknown UNKNOWN Verified 09/11/23 10:34 Sulfa (Sulfonamide Allergy Unknown Unknown Verified 09/11/23 10:34 Antibiotics) SEAFOOD Allergy Intermediate RASH Uncoded 08/31/23 11:12 antibacterial soap Allergy Unknown rash Uncoded 08/31/23 11:12 Tessalon Allergy Unknown Unknown Uncoded 08/31/23 11:12 Review of Systems 2 Review of Systems: Constitutional: No Fever, No Chills ENT/Mouth: No Ear Pain, + Nasal Congestion, + sore throat, +Rhinorrhea, No Swallowing Difficulty Cardiovascular: No Chest Pain, + SOB Respiratory: + Cough, + Sputum, No Wheezing Gastrointestinal: + Nausea,+Vomiting, +Diarrhea, No Constipation, + Abdominal pain Genitourinary: No Dysuria, No Urinary Frequency, No Hematuria Musculoskeletal: No joint pain, No Myalgias, No Joint Swelling Skin: No Skin Lesions, No rash Neuro: No Weakness, No Numbness, No Paresthesias Yes all other systems are reviewed and are negative Constitutional: Constitutional: Reports as per [facility] Past Medical History Attestation statement: The following information was validated with the patient. Source: old records reviewed Medical History Pelviectasis Asthma Kidney stone Hx of migraine headaches Hx of anxiety disorder History of depression Surgical History Hx of bilateral salpingectomy Hx of tubal ligation Hx of section Hx of tonsillectomy Hx laparoscopic cholecystectomy Family History Family History Mother Diabetes mellitus Hypertension Dementia Father Diabetes mellitus Hypertension Social History Social History Alcohol intake: never Patient Tobacco Use Status: Current someday Tobacco user Tobacco use type: Cigarette Cigarettes Per Day: 2 Smoked in Last 30 Days: No Advance Directives: Yes Advance Directives on File: Yes Advance Directives Date on File: 12/11/21 Do you have a plan to hurt others: No Plan Patient : No service: No Current occupational status: disabled Current occupation: right handed Physical Exam 2 Vital Signs: Vital Signs: Last Vital Signs Temp 98.7 F 09/11/23 14:24 Pulse 74 09/11/23 14:24 Resp 16 09/11/23 14:24 BP 135/74 09/11/23 14:24 Pulse Ox 100 09/11/23 14:24 O2 Del Method Room Air 09/11/23 14:24 BMI result Body Mass Index 27.8 Const: General: cooperative, healthy appearing and no acute distress O rientation/consciousness: patient oriented x3 Limitations: no limitations HEENT: Head: Yes normal to inspection and Yes atraumatic Ears: hearing grossly normal bilaterally and external ears normal General nose exam: Normal external nose present Face and sinus: Yes normal facial exam Mouth: Normal oral and palatal mucosa present Throat: Yes posterior oropharynx normal, Yes tonsils normal, Yes uvula midline, No uvula laterally displaced and No uvular edema Eyes: General: appearance normal, both eyes and all related structures EOM: EOMs intact bilaterally Neck: Neck: Yes normal visual inspection and Yes no meningeal signs Resp: Effort & Inspection: normal respiratory effort and no respiratory distress Auscultation: clear to auscultation bilaterally, no crackles and no wheezes Cardio: Rate: regular rate Heart sounds: S1 normal heart sound present and S2 normal heart sound present GI: Inspection: Yes normal to inspection Palpation (GI): Soft to palpation, Tenderness to palpation present (GI) in the epigastrum and in the RUQ; with no rebound tenderness, no guarding and not rigid : General: Yes no CVA tenderness Back/Spine/Pelvis: Back: no CVA tenderness Skin: Rashes: no rashes Wounds: no wounds Neuro: General: patient oriented x3, tone normal and no meningeal signs C ranial nerves: Yes CN's II-XII intact bilaterally Gait exam (Neuro): Normal gait present Extrem: General: Yes normal to inspection Course Course Course Narrative: -labs and UA reassuring. -1416--COVID/flu/RSV negative. Rapid strep negative. -chest x-ray unremarkable > patient tolerated p.o. in the ED without difficulty. Plan for discharge home Results discussed with patient including worrisome signs and symptoms and strict return precautions, and when to return to the emergency department. They verbalized understanding and feel safe for discharge at this time. Medications Administered Discontinued Medications Generic Name Dose Route Start Last Admin Trade Name Freq PRN Reason Stop Dose Admin Albuterol/Ipratropium 3 ml 09/11/23 11:41 09/11/23 11:43 Albuterol/Iprat 2.5/0.5mg 3 Ml Ampul.Neb INHALE 09/11/23 11:42 3 ml ONCE ONE Administration Famotidine 20 mg 09/11/23 11:18 09/11/23 11:57 Famotidine/Pf 20 Mg/2 Ml Vial IVPUSH 09/11/23 11:19 20 mg ONCE ONE Administration Sodium Chloride 1,000 mls @ 999 mls/hr 09/11/23 11:15 09/11/23 13:14 Ns IV 09/11/23 12:15 Infused .Q1H1M LIZ Infusion Ketorolac Tromethamine 15 mg 09/11/23 14:00 09/11/23 14:11 Ketorolac Tromethamine 15 Mg/Ml Vial IVPUSH 09/11/23 14:01 15 mg ONCE ONE Administration Ondansetron HCl 4 mg 09/11/23 11:11 09/11/23 11:18 Ondansetron Hcl 4 Mg/2 Ml Vial IVPUSH 09/11/23 11:12 4 mg ONCE ONE Administration Medical Decision Making Medical Decision Making [facility] Narrative: 38-year-old female with past medical history of asthma, renal stones, presenting to the ED complaining of rhinorrhea/congestion, productive cough, epigastric abdominal pain, nausea, nonbloody emesis and diarrhea times 4-5 days. On exam initially tachycardic, coughing during evaluation, NAD/nontoxic appearing, congestion appreciated, abdomen soft with epigastric/RUQ tenderness, no rebound or guarding. Concern for viral illness vs pneumonia vs bronchitis vs pancreatitis vs gastritis/GERD and dehydration. Rule out metabolic abnormalities. Low suspicion for appendicitis/diverticulitis or ACS Plan: EKG, labs, CXR, viral studies, IVF, GI cocktail, p.o. challenge Please refer to course for remaining clinical decision making, interpretation of labs/imaging results, and discussions with consultants and/or family members. Differential Diagnosis Differential Diagnoses: The differential diagnosis associated with the presentation includes As above Admission/Observation Consideration of admission/observation: Escalation of care including admission/observation considered Lab Data [facility] Lab Attestation statement: I reviewed the patient's lab results. 09/11/23 10:44 09/11/23 10:44 Labs: Lab Results 09/11/23 09/11/23 09/11/23 Range/Units 10:44 11:28 13:12 WBC 5.7 (4.8-10.8) X10*3/uL RBC 4.66 (4.20-5.50) X10*6/uL Hgb 13.1 (12.0-16.0) g/dl Hct 38.3 (37.0-47.0) % MCV 82.2 (80.0-98.0) fL MCH 28.1 (27.0-33.0) pg MCHC 34.2 (31.0-35.0) g/dl RDW 13.7 (11.0-16.0) % Plt Count 368 (160-400) X10*3/uL MPV 8.9 L (9.4-12.3) fL Immature Gran % (Auto) 0.3 (0.0-0.4) % Neut % (Auto) 47.6 (45-73) % Lymph % (Auto) 35.0 (20-40) % Person % (Auto) 14.7 H (2-11) % Eos % (Auto) 1.7 (0-4) % Baso % (Auto) 0.7 (0-2) % Lymph # (Auto) 2.0 (1.2-4.9) X10*3/uL Person # (Auto) 0.8 (0.1-1.2) X10*3/uL Eos # (Auto) 0.1 (0.0-0.4) X10*3/uL Baso # (Auto) 0.0 (0.0-0.2) X10*3/uL Abs Immat Gran (auto) 0.02 (0.00-0.03) X10*3/uL Absolute Neuts (auto) 2.7 (2.0-8.3) x10*3/uL Absolute Nucleated RBC 0.000 (0.0-0.012) X10*3/uL Nucleated RBC % (auto) 0.0 (0.0-0.2) /100WBC Sodium 138 (135-145) mmol/L Potassium 3.8 (3.3-5.1) mmol/L Chloride 105 (96-108) mmol/L Carbon Dioxide 23 (22-29) mmol/L Anion Gap 14 (12-20) BUN 8 L (9-16) mg/dL Creatinine 0.82 (0.5-1.4) mg/dL Estim Creat Clear Calc 77.9 Estimated GFR > 60 Random Glucose 103 (60-115) mg/dL Calcium 9.3 (8.4-10.2) mg/dL Magnesium 2.0 (1.6-2.6) mg/dL Total Bilirubin 0.3 (0.0-1.0) mg/dL Direct Bilirubin 0.1 (0.0-0.5) mg/dL AST 28 (5-31) U/L ALT 28 (0-31) U/L Alkaline Phosphatase 72 (39-117) U/L Total Protein 7.8 (6.5-8.0) g/dL Albumin 4.4 (3.5-5.0) g/dL Lipase 18 (8-78) U/L Urine Color Yellow Urine Appearance Clear Urine pH 6.5 (5.0-9.0) Ur Specific [place] 1.015 (1.005-1.025) Urine Protein Negative (Neg-Trace) mg/dL Urine Glucose (UA) Negative (Negative) mg/dL Urine Ketones Negative (Negative) mg/dL Urine Blood Small (1+) H (Negative) Urine Nitrite Negative (Negative) Ur Leukocyte Esterase Negative (Negative) Urine RBC 11-20 H (0-2) /HPF Urine WBC 0-5 (0-5) /HPF Ur Squamous Epith Cells 6-10 (0-2) /HPF Urine Bacteria Trace (None Seen) Hyaline Casts 0-2 (0-2) /LPF Urine Test NEGATIVE (NEGATIVE) Influenza Type A (PCR) NEGATIVE (Negative) Influenza Type B (PCR) NEGATIVE (Negative) RSV RNA Qual (PCR) NEGATIVE (Negative) SARS-CoV-2 RNA (RT-PCR) NEGATIVE (Negative) S. pyogenes GrpA DIONY Negative (Negative) Independent Interpretation I performed an independent interpretation of an: EKG and Plain X-Ray Radiology Impression Discussion of test interpretation with radiology: I have reviewed the radiologist's reading. External Record Review External record reviewed: Inpatient record, Office record, Outpatient record, Prior outpatient labs, Prior outpatient radiology, Primary care record and Outside ED record Tests considered The following testing was considered but not selected: As above Prescription Management I considered prescription management with: Pain Medication and Antibiotic Chronic Conditions Patient?s care impacted by: Other Discharge Plan Discharge Clinical Impression: Gastroenteritis, Acute viral syndrome Patient Disposition: Home, Self-Care Instructions: Gastroenteritis (DC), Viral Syndrome (ED) Additional Instructions: Your blood work was reassuring You tested negative for COVID, flu, and RSV Zofran as an antinausea medicine take as needed for nausea and vomiting. Take 15 minutes prior to eating or drinking If you are unable to eat or drink, persistent nausea/vomiting, abdominal pain, or fevers return to the emergency department Follow-up with her doctor Prescriptions: New ondansetron 4 mg tablet,disintegrating 4 mg PO Q8H PRN (Reason: nausea and vomiting) Qty: 10 0RF No Action cetirizine 10 mg tablet 10 mg PO BID Qty: 180 0RF Dulera 200-5 mcg/actuation HFA aerosol inhaler 2 puff inhalation BID 30 Days Qty: 1 6RF Tezspire 210 mg/1.91 mL (110 mg/mL) syringe 210 mg subcut Q4W 28 Days Qty: 1.91 12RF montelukast 10 mg tablet 10 mg PO BEDTIME Qty: 90 0RF albuterol sulfate 2.5 mg /3 mL (0.083 %) solution for nebulization 3 mg inhalation Q4H PRN (Reason: Wheezing) albuterol sulfate 90 mcg/actuation HFA aerosol inhaler 1 inh inhalation QID PRN (Reason: shortness of breath or wheezing) Qty: 8.5 0RF diclofenac sodium [Arthritis Pain (diclofenac)] 1 % gel 4 g topical QID Qty: 100 0RF Rx Instructions: apply to single knee, ankle, foot; for foot includes sole/toes/top of foot cyclobenzaprine 5 mg tablet 5 mg PO Q8H PRN (Reason: pain (scale score 7-10)) 5 Days Qty: 8 0RF diphenhydramine HCl [Benadryl Allergy] 25 mg tablet 25 mg PO Q8H PRN (Reason: itching) Qty: 14 0RF cetirizine [Zyrtec] 10 mg tablet 10 mg PO DAILY PRN (Reason: allergy symptoms) Qty: 10 0RF pyridoxine (vitamin B6) 100 mg tablet 100 mg PO DAILY 90 Days Qty: 90 1RF Referrals: Anne Carrion MD [Primary Care Provider] - 5 days Interventions: ED Discharge Assessment Last Done: 09/11/23 14:24 Discharge Date/Time: 09/11/23 14:25 Print Language: Greek
[2023-09-11] MEDS: 0.9 % Sodium Chloride 1,000 ML 999 ML IV (11:17)
[2023-09-11] MEDS: ondansetron HCL 4 MG/2 ML VIAL IVPUSH (11:18)
[2023-09-11 11:34] LABS: Alanine Aminotransferase 28 U/L (0-31); Albumin Level 4.4 g/dL (3.5-5.0); Alkaline Phosphatase 72 U/L (39-117); Anion Gap 14 (12-20); Aspartate Amino Transferase 28 U/L (5-31); Bilirubin Direct 0.1 mg/dL (0.0-0.5); Bilirubin Total 0.3 mg/dL (0.0-1.0); Blood Urea Nitrogen 8 mg/dL (9-16); Calcium 9.3 mg/dL (8.4-10.2); Carbon Dioxide 23 mmol/L (22-29); Chloride 105 mmol/L (96-108); Creatinine Clr Calc Pharmacy 77.9; Estimated Glomerular Filt Rate > 60; Glucose Random 103 mg/dL (60-115); Potassium 3.8 mmol/L (3.3-5.1); Sodium 138 mmol/L (135-145); Total Protein 7.8 g/dL (6.5-8.0)
[2023-09-11 11:39] LABS: Lipase 18 U/L (8-78)
[2023-09-11 11:43] LABS: IDNOW Serial# 58CA691E; Strep A Nucleic Acid Negative (Negative)
[2023-09-11] MEDS: Albuterol/Iprat 2.5/0.5MG 3 ML AMPUL.NEB INHALE (11:43)
[2023-09-11 11:44] VITALS: PULSE 86; RESP 18; O2SAT 97
[2023-09-11] MEDS: Famotidine/PF 20 MG/2 ML VIAL IVPUSH (11:57)
[2023-09-11 12:29] VITALS: BP 135/74; PULSE 74; RESP 16; O2SAT 100
[2023-09-11 13:23] LABS: Appearance Urine Clear; Color Urine Yellow; Glucose Urine UA Negative (Negative); Leukocyte Esterase Urine Negative (Negative); Nitrite Urine Negative (Negative); PH 6.5 (5.0-9.0); Specific Gravity - Urine 1.015 (1.005-1.025); UMIC TRIGGER UACC YES; Urine Blood Small (1+) (Negative); Urine Ketones Negative (Negative); Urine Protein Negative (Neg-Trace)
[2023-09-11 13:29] LABS: Bacteria Urine Trace (None Seen); Hyaline Casts Urine 0-2 /LPF (0-2); WBC Urine 0-5 /HPF (0-5)
[2023-09-11 14:07] LABS: Influenza A PCR NEGATIVE (Negative); Influenza B PCR NEGATIVE (Negative); Resp Syncy Virus RNA Qual PCR NEGATIVE (Negative); SARS COV2 PCR INHOUSE NEGATIVE (Negative)
[2023-09-11] MEDS: Ketorolac Tromethamine 15 MG/ML VIAL IVPUSH (14:11)
[2023-09-11 14:24] VITALS: BP 135/74; PULSE 74; RESP 16; TEMP 37.1; O2SAT 100
== END 2023-09-11 14:25 | disposition home or self-care (01) ==
PROVIDERS: Physician Assistant; Emergency Provider Emergency Medicine; PCP Family Medicine
DX: K52.9 Noninfective gastroenteritis and colitis, unspecified (principal); B34.9 Viral infection, unspecified; R05.9 Cough, unspecified; Z03.818 Encounter for observation for suspected exposure to other biological agents ruled out; J45.909 Unspecified asthma, uncomplicated; Z79.899 Other long term (current) drug therapy
CPT/HCPCS: 0241U; 36415; 71046; 80053; 81001; 81025; 82248; 83690; 83735; 85025; 87651; 94640; 96361; 96374; 96375; 99284; 99285; J1885; J2405

== ENCOUNTER 2023-10-26 11:22 | Outpatient (AMB) | payer OTHER, SELFPAY ==
[2023-10-26 11:28] VITALS: BP 116/64; PULSE 94; O2SAT 99; BMI 27.8
--- NOTE | 2023-10-26 11:28 | MHC.OFFVIS ---
Vital Signs 10/26/23 11:28 Height 5 ft Weight 142 lb 3.17 oz BMI 27.8 BP 116/64 Blood Pressure Location Rt brachial Position Sitting Pulse 94 Pulse Source Doppler Pulse Oximetry (%) 99 Oxygen Delivery Method Room Air Intake Visit Reasons: asthma Allergies benzonatate [BENZONATATE] Allergy (Severe, Verified 09/11/23 10:34) ANAPHYLAXIS banana [BANANA] Allergy (Intermediate, Verified 09/11/23 10:34) RASH coconut [COCONUT] Allergy (Intermediate, Verified 09/11/23 10:34) RASH cucumber [CUCUMBER] Allergy (Intermediate, Verified 09/11/23 10:34) RASH grape [GRAPE] Allergy (Intermediate, Verified 09/11/23 10:34) RASH arthur [ARTHUR] Allergy (Intermediate, Verified 09/11/23 10:34) RASH sulfamethoxazole [From BACTRIM] Allergy (Intermediate, Verified 09/11/23 10:34) RASH trimethoprim [From BACTRIM] Allergy (Intermediate, Verified 09/11/23 10:34) RASH cephalexin [Keflex] Allergy (Unknown, Verified 09/11/23 10:34) Unknown duloxetine [From CYMBALTA] Allergy (Unknown, Verified 09/11/23 10:34) UNKNOWN Sulfa (Sulfonamide Antibiotics) Allergy (Unknown, Verified 09/11/23 10:34) Unknown SEAFOOD Allergy (Intermediate, Uncoded 08/31/23 11:12) RASH antibacterial soap Allergy (Unknown, Uncoded 08/31/23 11:12) rash Tessalon Allergy (Unknown, Uncoded 08/31/23 11:12) Unknown HPI HPI asthma: Details: 38-year-old lady followed for underlying asthma and environmental allergies. Recently switched from Nucala to Tezspire, and had 4 injections so far with some improvement in her symptoms. She continues on Dulera and albuterol MDI. She denies recent exacerbations. [facility] Medical History Pelviectasis Asthma Kidney stone Hx of migraine headaches Hx of anxiety disorder History of depression Surgical History Hx of bilateral salpingectomy Hx of tubal ligation Hx of section Hx of tonsillectomy Hx laparoscopic cholecystectomy Family History Mother Diabetes mellitus Hypertension Dementia Father Diabetes mellitus Hypertension Social History Alcohol intake: never Patient Tobacco Use Status: Current someday Tobacco user Tobacco use type: Cigarette Cigarettes Per Day: 2 Advance Directives Date on File: 12/11/21 service: No Current occupational status: disabled Current occupation: right handed Female Reproductive History Menstrual Age of Menarche: 10 Review of Systems Const Denies daytime sleepiness, Denies excessive sweating, Denies fatigue, Denies fever(s), Denies lethargy, Denies malaise, Denies night sweats, Denies snoring and Denies weight loss Eyes Denies blurry vision and Denies itchy eyes ENT Denies nasal congestion, Denies post nasal drip, Denies sinus pain, Denies sinus pressure and Denies other ( Thrush) Card Denies chest pain, Denies pedal edema, Denies dyspnea, Denies orthopnea and Denies paroxysmal nocturnal dyspnea Resp Denies cough, Denies hemoptysis, Denies excessive phlegm production, Denies dyspnea, Denies snoring and Denies wheezing GI Denies abdominal pain and Denies heartburn Musc Denies myalgias, Denies arthralgias and Denies joint swelling Skin/Breast Denies rash Neuro Denies memory loss and Denies seizure-like activity Psych Denies abnormal sleep pattern, Denies anxiety and Denies memory loss Endo Denies excessive sweating, Denies fatigue and Denies heat intolerance Edgar/Lymph Denies easy bruising Aller/Immun Denies itchy eyes, Denies seasonal rhinorrhea and Denies wheezing Physical Exam Vital Signs: Last Vital Signs Pulse 94 10/26/23 11:28 BP 116/64 10/26/23 11:28 Pulse Ox 99 10/26/23 11:28 Oxygen Delivery Method Room Air 10/26/23 11:28 BMI result Body Mass Index 27.8 Const General: no acute distress and alert Nutritional Appearance: not obese Orientation/consciousness: Other orientation findings ( oriented) HEENT Head: Yes atraumatic Eyes General: appearance normal, both eyes and all related structures Sclerae: sclerae normal EOM: EOMs intact bilaterally Neck Neck: Yes supple Lymphatic: no lymphadenopathy noted Resp Effort & Inspection: normal respiratory effort and no use of accessory muscles Auscultation: clear to auscultation bilaterally Cardio Rate: regular rate Rhythm: regular rhythm Heart sounds: no gallops, no murmurs and no rubs Skin General skin exam: other ( warm) Extrem General: No clubbing, No cyanosis and No edema Assessment & Plan Assessment & Plan (1) Asthma: Code(s): J45.909 - Unspecified asthma, uncomplicated Category: Medical Plan: Improving control on Tezspire. Continue current regimen including Tezspire, Dulera, and albuterol MDI/nebs. (2) Environmental allergies: Code(s): Z91.09 - Other allergy status, other than to drugs and biological substances Category: Medical Plan: Improving control on Tezspire. Continue current regimen. Medications: Refilled albuterol sulfate 90 mcg/actuation 1 inh inhalation QID PRN 8.5 grams 6RF shortness of breath or wheezing J20.9 - Acute bronchitis, unspecified, J45.901 - Unspecified asthma with (acute) exacerbation Coding Level of Care Code Est Pt Level 4 (05092) Diagnoses Asthma J45.909 Environmental allergies Z91.09
== END 2023-10-26 11:37 | disposition home or self-care (01) ==
PROVIDERS: PCP Family Medicine; Visit Provider Internal Medicine Pulmonary Disease
DX: J45.909 Unspecified asthma, uncomplicated (principal); Z91.09 Other allergy status, other than to drugs and biological substances
CPT/HCPCS: 99214

== ENCOUNTER → 2023-10-26 11:22 | Outpatient (BNVA) | payer OTHER, SELFPAY | PROVIDERS: PCP Family Medicine; Visit Provider Internal Medicine Pulmonary Disease | DX: J45.901 Unspecified asthma with (acute) exacerbation (principal); J20.9 Acute bronchitis, unspecified; Z91.09 Other allergy status, other than to drugs and biological substances | CPT/HCPCS: 99212 ==

== ENCOUNTER 2023-11-25 07:28 | Emergency (ER) | payer OTHER, SELFPAY ==
--- NOTE | ~2023-11-25 | XR_ITS ---
EXAMINATION: XR LUMBOSACRAL SPINE CLINICAL INFORMATION: Lower back pain. No trauma. COMPARISON: None available. TECHNIQUE: Three views of the lumbosacral spine. FINDINGS: 5 nonrib-bearing lumbar vertebral bodies are visualized. Alignment is within normal limits. Lumbar vertebral body heights are maintained. There is mild to moderate narrowing of the L5/S1 disc space height. Sacroiliac joints are symmetric. Surgical clips in the right upper abdomen consistent with prior cholecystectomy. XR/XR lumbar spine 2-3V IMPRESSION: Mild degenerative changes of the lower lumbar spine. Electronically signed by: Bright Strauss MD 11/25/2023 10:40 AM EDT
--- NOTE | ~2023-11-25 | CT_ITS ---
EXAMINATION: CT ABDOMEN AND PELVIS WITHOUT CONTRAST CLINICAL INFORMATION: Right CVA tenderness. History of renal stones. COMPARISON: Renal ultrasound August 23, [address] abdomen pelvis February 15, 2019 TECHNIQUE: Multidetector volumetric imaging was performed from the superior aspect of the liver through the pubic symphysis. Sagittal and coronal reformatted images were obtained on the technologist's workstation. This CT examination was performed using dose optimization techniques as appropriate, variously including the following: *Automated exposure control *Adjustment of mA and/or kV according to patient size (this includes techniques or standardized protocols for targeted exams where dose is matched to indication/reason for exam; i.e. extremities or head) *Use of iterative reconstruction technique DLP: 419 mGy-cm FINDINGS: Visualized lung bases are well aerated. The liver is normal in size. The gallbladder is surgically absent. The pancreas, spleen and adrenal glands are unremarkable. Symmetrically sized kidneys. There are a few 1 to 2 mm nonobstructing calculi within both kidneys, however, there is no hydronephrosis of either kidney. Normal caliber loops of small and large bowel. Mild colonic stool burden. Normal appendix. Normal caliber abdominal aorta. No retroperitoneal lymphadenopathy. The bladder is decompressed and therefore not accurately evaluated. Enlarged uterus containing several suspected fibroids, the largest measuring approximately 5 cm. There is a small amount of free pelvic fluid present. No inguinal lymphadenopathy. No gross free pelvic fluid. No acute osseous abnormality. CT/CT abdomen pelvis wo IV con IMPRESSION: 1. There are a few 1 to 2 mm nonobstructing calculi within both kidneys, however, there is no hydronephrosis of either kidney. 2. Enlarged uterus containing several suspected fibroids, the largest measuring approximately 5 cm. Fleischner guidelines were followed. Electronically signed by: Bright Strauss MD 11/25/2023 11:47 AM EDT
[2023-11-25 07:34] VITALS: BP 132/82; PULSE 94; RESP 16; TEMP 36.7; O2SAT 94; BMI 26.8
--- NOTE | 2023-11-25 09:03 | ED.BACK ---
HPI - Back Pain/Injury General Chief Complaint: Back Pain/Injury Stated Complaint: Back pain Time Seen by Provider: 11/25/23 09:00 Source: patient, RN notes reviewed and old records reviewed Mode of arrival: ambulatory Limitations: no limitations History of Present Illness ED Provider: SHASHI PALUMBO PA-C HPI Narrative: 38 year old female with pmhx significant for asthma and renal stones presents to the ED today for evaluation of bilateral lower back pain, R>L, x3 days. Reports pain began while relaxed and seated. Admits pain has been constant since onset, waxing and waning in severity. 8/10 pain at present. Endorses radiation into her right thigh/groin region which began today. Denies injury or trauma to the back. Denies recent heavy lifting/ exercising. Admits to hx of renal stones requiring lithotripsy, the last being years ago. Is unsure if this feels similar. She has been taking Tylenol and ibuprofen at home with minimal relief. Last dose of these were around 0200 today. Denies fever, chills, abdominal pain, N/V, dysuria, hematuria, bowel or bladder incontinence or retention, saddle anesthesia, numbness/tingling/weakness of the lower extremities. Denies history of IV drug use. Denies history of spinal surgery. Related Data Home Medications ?Medication ?Instructions ?Recorded ?Confirmed albuterol sulfate 2.5 mg/3 mL 3 mg inhalation Q4H PRN Wheezing 12/09/21 02/23/22 (0.083 %) solution for nebulization cholecalciferol (vitamin D3) 25 25 mcg PO DAILY 10/26/23 mcg (1,000 unit) tablet Previous Rx's ?Medication ?Instructions ?Recorded cyclobenzaprine 5 mg tablet 5 mg PO Q8H PRN pain (scale score 02/16/23 7-10) 5 days #8 tabs diclofenac sodium 1 % topical gel 4 g topical QID #100 grams 02/16/23 (Arthritis Pain (diclofenac)) cetirizine 10 mg tablet (Zyrtec) 10 mg PO DAILY PRN allergy 02/17/23 symptoms #10 tabs diphenhydramine HCl 25 mg tablet 25 mg PO Q8H PRN itching #14 tabs 02/17/23 (Benadryl Allergy) cetirizine 10 mg tablet 10 mg PO BID #180 tabs 04/02/23 Dulera 200 mcg-5 mcg/actuation HFA 2 puff inhalation BID 30 days #1 ea 04/13/23 aerosol inhaler (mometasone-formoterol) tezepelumab-ekko 210 mg/1.91 mL 210 mg (1.91 mL) subcut Q4W 28 06/03/23 (110 mg/mL) subcutaneous syringe days #1.91 mL (Tezspire) pyridoxine (vitamin B6) 100 mg 100 mg PO DAILY 90 days #90 tabs 08/31/23 tablet ondansetron 4 mg disintegrating 4 mg PO Q8H PRN nausea and 09/11/23 tablet vomiting #10 tabs montelukast 10 mg tablet 10 mg PO BEDTIME #90 tabs 09/20/23 albuterol sulfate 90 mcg/actuation 1 inh inhalation QID PRN shortness 10/26/23 aerosol inhaler of breath or wheezing #8.5 grams morphine 15 mg immediate release 15 mg PO Q8H PRN pain (scale score 11/25/23 tablet 4-6) #6 tabs nitrofurantoin 100 mg PO BID 5 days #10 caps 11/25/23 monohydrate/macrocrystals 100 mg capsule Allergies Allergy/AdvReac Type Severity Reaction Status Date / Time benzonatate [BENZONATATE] Allergy Severe ANAPHYLAXIS Verified 11/25/23 07:34 banana [BANANA] Allergy Intermediate RASH Verified 11/25/23 07:34 coconut [COCONUT] Allergy Intermediate RASH Verified 11/25/23 07:34 cucumber [CUCUMBER] Allergy Intermediate RASH Verified 11/25/23 07:34 grape [GRAPE] Allergy Intermediate RASH Verified 11/25/23 07:34 arthur [ARTHUR] Allergy Intermediate RASH Verified 11/25/23 07:34 sulfamethoxazole Allergy Intermediate RASH Verified 11/25/23 07:34 [From BACTRIM] trimethoprim [From BACTRIM] Allergy Intermediate RASH Verified 11/25/23 07:34 cephalexin [Keflex] Allergy Unknown Unknown Verified 11/25/23 07:34 duloxetine [From CYMBALTA] Allergy Unknown UNKNOWN Verified 11/25/23 07:34 Sulfa (Sulfonamide Allergy Unknown Unknown Verified 11/25/23 07:34 Antibiotics) SEAFOOD Allergy Intermediate RASH Uncoded 08/31/23 11:12 antibacterial soap Allergy Unknown rash Uncoded 08/31/23 11:12 Tessalon Allergy Unknown Unknown Uncoded 08/31/23 11:12 Review of Systems Review of Systems: Constitutional: No fever, chills, fatigue, night sweats, weight changes ENT/Mouth: No ear pain, hearing loss, nasal congestion, sinus pain, rhinorrhea, sore throat Eyes: No eye pain, swelling, redness, vision changes, discharge Cardio: No chest pain, palpitations, VERA, orthopnea, peripheral edema Pulm: No SOB, cough, sputum, wheezing, dyspnea, hemoptysis GI: No nausea, vomiting, hematemesis, abdominal pain, diarrhea, constipation, hematochezia, melena : No irregular bleeding, dysuria, frequency, urgency, hesitancy, hematuria, flank pain, urinary flow changes, urinary incontinence or retention MSK: No neck pain, joint pain, myalgias, +back pain Skin: No lesions, rashes Neuro: No weakness, numbness, paresthesias, LOC, dizziness, headache Psych: No anxiety/panic, depression, SI/HI, AH/VH All other systems reviewed and are negative. [facility] Past Medical History Attestation statement: The following information was validated with the patient. Source: old records reviewed and nursing notes reviewed Medical History Pelviectasis Asthma Kidney stone Hx of migraine headaches Hx of anxiety disorder History of depression Surgical History Hx of bilateral salpingectomy Hx of tubal ligation Hx of section Hx of tonsillectomy Hx laparoscopic cholecystectomy Family History Family History Mother Diabetes mellitus Hypertension Dementia Father Diabetes mellitus Hypertension Social History Social History Alcohol intake: never Patient Tobacco Use Status: Current someday Tobacco user Tobacco use type: Cigarette Cigarettes Per Day: 2 Advance Directives: Yes Advance Directives on File: Yes Advance Directives Date on File: 12/11/21 Do you have a plan to hurt others: No Plan service: No Current occupational status: disabled Current occupation: right handed Physical Exam Vital Signs: Vital Signs: Last Vital Signs Temp 97.7 F 11/25/23 12:41 Pulse 68 11/25/23 12:41 Resp 12 11/25/23 12:41 BP 114/72 11/25/23 12:41 Pulse Ox 99 11/25/23 12:41 O2 Del Method Room Air 11/25/23 12:41 BMI result Body Mass Index 26.8 vital signs stable, afebrile General: Well appearing, in no acute distress. Skin: Warm, dry, intact. No rashes or lesions. Head: Normocephalic, atraumatic. EENT: Hearing is intact b/l. Conjunctiva clear. PERRLA. Moist mucous membranes.? Neck: Supple without LAD Cardiac: Chest wall symmetric. RRR Lungs: Normal respiratory effort without accessory muscle use. CTA bilaterally. Abdomen: Soft, non-tender, non-distended. No rebound tenderness or guarding. Positive BS x4. + minimal right CVAT Back: No midline spinous or paraspinal tenderness. No step off deformity. Ext: Upper and lower extremities atraumatic, without tenderness, deformity, swelling or erythema. Full ROM throughout. Neuro: AOx3. Normal speech. Strength 5/5 intact throughout. No saddle anesthesia. Sensation intact to light touch. NV intact distally. Ambulating with steady gait. Psych: Appropriate mood and affect. Responds appropriately to questions. Course Course Course Narrative: 1240 -- CBC without leukocytosis or left shift. No anemia. H&H stable. Chemistry without acute electrolyte abnormality requiring intervention. No MAGDALENE. Normal liver function. Urine with small amount of blood, negative nitrites, negative leukocyte esterase, 6-10 RBCs with trace urine bacteria. X-ray lumbar spine showing mild degenerative changes, no fracture. CT abdomen/pelvis showing a few 1-2 mm nonobstructing calculi within both kidneys. No hydronephrosis. Also incidental finding of enlarged uterus containing several suspected fibroids with the largest measuring approximately 5 cm. > discussed workup results with patient. Will treat for mild UTI. Recommend Tylenol and ibuprofen for pain/discomfort. Tramadol send for breakthrough pain. 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 Patient has remained stable throughout ED visit today. Discussed worrisome signs and symptoms and when to return to the ED. All questions answered at this time. Patient is agreeable with disposition and stable for discharge. Medications Administered Discontinued Medications Generic Name Dose Route Start Last Admin Trade Name [place] PRN Reason Stop Dose Admin Ketorolac Tromethamine 30 mg 11/25/23 09:31 11/25/23 10:10 Ketorolac Tromethamine 30 Mg/Ml Vial IM 11/25/23 09:32 30 mg ONCE ONE Administration Medical Decision Making Medical Decision Making [facility] Narrative: 38 year old female with pmhx significant for asthma and renal stones presents to the ED today for evaluation of bilateral lower back pain, R>L, x3 days. Vital signs stable, afebrile. She is nontoxic-appearing and in no acute distress. Abdomen is soft, nondistended, nontender to palpation, no rebound or guarding. No midline spinous tenderness or step-off deformity. There is minimal right CVAT. Neurovascularly intact distally. Ambulating with steady gait. Sensation and strength intact throughout. Differential diagnosis includes lumbar sprain/strain, sciatica, contusion, arthritis, renal colic, nephrolithiasis, hydronephrosis, urinary tract infection. Unlikely cauda equina, Guillain-Jay, epidural abscess, cord compression. Unlikely pyelonephritis. Plan for basic labs, UA, urine , x-ray lumbar spine +/-CT abdomen/pelvis. Toradol given for pain control. Differential Diagnosis Differential Diagnoses: The differential diagnosis associated with the presentation includes as above. Admission/Observation not indicated. Lab Data [facility] Lab Attestation statement: I reviewed the patient's lab results. as above. 11/25/23 09:24 11/25/23 09:24 Labs: Lab Results 11/25/23 11/25/23 Range/Units 09:24 09:59 WBC 6.3 (4.8-10.8) X10*3/uL RBC 4.50 (4.20-5.50) X10*6/uL Hgb 12.8 (12.0-16.0) g/dl Hct 37.8 (37.0-47.0) % MCV 84.0 (80.0-98.0) fL MCH 28.4 (27.0-33.0) pg MCHC 33.9 (31.0-35.0) g/dl RDW 13.4 (11.0-16.0) % Plt Count 346 (160-400) X10*3/uL MPV 8.6 L (9.4-12.3) fL Immature Gran % (Auto) 0.3 (0.0-0.4) % Neut % (Auto) 60.1 (45-73) % Lymph % (Auto) 30.8 (20-40) % [place] % (Auto) 7.3 (2-11) % Eos % (Auto) 0.9 (0-4) % Baso % (Auto) 0.6 (0-2) % Lymph # (Auto) 2.0 (1.2-4.9) X10*3/uL [place] # (Auto) 0.5 (0.1-1.2) X10*3/uL Eos # (Auto) 0.1 (0.0-0.4) X10*3/uL Baso # (Auto) 0.0 (0.0-0.2) X10*3/uL Abs Immat Gran (auto) 0.02 (0.00-0.03) X10*3/uL Absolute Neuts (auto) 3.8 (2.0-8.3) x10*3/uL Absolute Nucleated RBC 0.000 (0.0-0.012) X10*3/uL Nucleated RBC % (auto) 0.0 (0.0-0.2) /100WBC Sodium 136 (135-145) mmol/L Potassium 3.8 (3.3-5.1) mmol/L Chloride 104 (96-108) mmol/L Carbon Dioxide 24 (22-29) mmol/L Anion Gap 12 (12-20) BUN 10 (9-16) mg/dL Creatinine 0.79 (0.5-1.4) mg/dL Estim Creat Clear Calc 79.5 Estimated GFR > 60 Random Glucose 94 (60-115) mg/dL Calcium 9.3 (8.4-10.2) mg/dL Magnesium 2.1 (1.6-2.6) mg/dL Total Bilirubin 0.3 (0.0-1.0) mg/dL AST 15 (5-31) U/L ALT 17 (0-31) U/L Alkaline Phosphatase 64 (39-117) U/L Total Protein 7.8 (6.5-8.0) g/dL Albumin 4.5 (3.5-5.0) g/dL Urine Color Yellow Urine Appearance Clear Urine pH 5.5 (5.0-9.0) Ur Specific [place] 1.015 (1.005-1.025) Urine Protein Negative (Neg-Trace) mg/dL Urine Glucose (UA) Negative (Negative) mg/dL Urine Ketones Negative (Negative) mg/dL Urine Blood Small (1+) H (Negative) Urine Nitrite Negative (Negative) Ur Leukocyte Esterase Negative (Negative) Urine RBC 6-10 H (0-2) /HPF Urine WBC 0-5 (0-5) /HPF Ur Squamous Epith Cells 3-5 (0-2) /HPF Urine Bacteria Trace (None Seen) Hyaline Casts 0-2 (0-2) /LPF Urine Test NEGATIVE (NEGATIVE) Independent Interpretation I performed an independent interpretation of an: Plain X-Ray and CT Scan Interpretation: xr lumbar spine without acute fracture, agree with radiologist's interpretation. CT abdomen/pelvis with bilateral renal stones, agree with radiologist's interpretation. Radiology Impression Discussion of test interpretation with radiology: I have reviewed the radiologist's reading. Radiologist Impression: EXAMINATION: CT ABDOMEN AND PELVIS WITHOUT CONTRAST CLINICAL INFORMATION: Right CVA tenderness. History of renal stones. COMPARISON: Renal ultrasound August 23, [address] abdomen pelvis February 15, 2019 TECHNIQUE: Multidetector volumetric imaging was performed from the superior aspect of the liver through the pubic symphysis. Sagittal and coronal reformatted images were obtained on the technologist's workstation. This CT examination was performed using dose optimization techniques as appropriate, variously including the following: *Automated exposure control *Adjustment of mA and/or kV according to patient size (this includes techniques or standardized protocols for targeted exams where dose is matched to indication/reason for exam; i.e. extremities or head) *Use of iterative reconstruction technique DLP: 419 mGy-cm FINDINGS: Visualized lung bases are well aerated. The liver is normal in size. The gallbladder is surgically absent. The pancreas, spleen and adrenal glands are unremarkable. Symmetrically sized kidneys. There are a few 1 to 2 mm nonobstructing calculi within both kidneys, however, there is no hydronephrosis of either kidney. Normal caliber loops of small and large bowel. Mild colonic stool burden. Normal appendix. Normal caliber abdominal aorta. No retroperitoneal lymphadenopathy. The bladder is decompressed and therefore not accurately evaluated. Enlarged uterus containing several suspected fibroids, the largest measuring approximately 5 cm. There is a small amount of free pelvic fluid present. No inguinal lymphadenopathy. No gross free pelvic fluid. No acute osseous abnormality. CT/CT abdomen pelvis wo IV con IMPRESSION: 1. There are a few 1 to 2 mm nonobstructing calculi within both kidneys, however, there is no hydronephrosis of either kidney. 2. Enlarged uterus containing several suspected fibroids, the largest measuring approximately 5 cm. Fleischner guidelines were followed. Electronically signed by: Bright Strauss MD 11/25/2023 11:47 AM EDT [employer] EXAMINATION: XR LUMBOSACRAL SPINE CLINICAL INFORMATION: Lower back pain. No trauma. COMPARISON: None available. TECHNIQUE: Three views of the lumbosacral spine. FINDINGS: 5 nonrib-bearing lumbar vertebral bodies are visualized. Alignment is within normal limits. Lumbar vertebral body heights are maintained. There is mild to moderate narrowing of the L5/S1 disc space height. Sacroiliac joints are symmetric. Surgical clips in the right upper abdomen consistent with prior cholecystectomy. XR/XR lumbar spine 2-3V IMPRESSION: Mild degenerative changes of the lower lumbar spine. Electronically signed by: Bright Strauss MD 11/25/2023 10:40 AM EDT [employer] [facility] External Record Review External record reviewed: Inpatient record, Office record, Outpatient record, Prior outpatient labs, Prior outpatient radiology, Primary care record and Outside ED record Prescription Management I considered prescription management with: Pain Medication (tramadol) and Antibiotic (Nitrofurantoin) Chronic Conditions Patient?s care impacted by: Other (renal stones) Social Determinants Patient?s care significantly limited by Social Determinants of Health including: Other Social Determinant of Health Critical Care Time Critical Care Time Critical Care Time: No Discharge Plan Discharge Clinical Impression: Urinary tract infection, DDD (degenerative disc disease), lumbar, Fibroid uterus, Bilateral renal stones Patient Disposition: Home, Self-Care Instructions: Kidney Stones (ED), Urinary Tract Infection in Women (DC), Back Pain (ED) Additional Instructions: Your blood work today is reassuring. Your urine shows trace bacteria. Nitrofurantoin is an antibiotic that has been sent to your pharmacy. Take this as prescribed and do not miss any doses. You must complete the entire course of antibiotics. If you do not, there is a risk of the infection coming back or worsening. The xray of your lower back shows chronic degenerative changes. The ct scan of your abdomen shows a few 1-2mm stones within your kidneys without evidence of obstruction. You may be passing small kidney stones and there is a small amount of blood in your urine. I recommend you take 600mg ibuprofen every 6 hours or Tylenol 650mg every 6 hours as needed for pain. If needed, you can alternate these medications so that you take one medication every 3 hours. For example, at noon take ibuprofen, then at 3pm take Tylenol, then at 6pm take ibuprofen. I have also sent morphine, a controlled pain medication, to your pharmacy for you to take as needed for break through pain. Please follow up with your urologist as scheduled. CT also shows incidental finding of enlarged uterus with fibroids. Please follow-up with your OBGYN doctor out patient for this. If you do not have one, a referral has been provided to you. Follow up with your primary care provider as needed. If you develop a fever or new/ worsening symptoms call 911 or come back to the ER for further evaluation. Prescriptions: New nitrofurantoin monohyd/m-cryst 100 mg capsule 100 mg PO BID 5 Days Qty: 10 0RF Rx Instructions: must administer with a meal/food morphine 15 mg tablet 15 mg PO Q8H PRN (Reason: pain (scale score 4-6)) Qty: 6 0RF Rx Instructions: Partial Fill upon patient request. No Action cetirizine 10 mg tablet 10 mg PO BID Qty: 180 0RF Dulera 200-5 mcg/actuation HFA aerosol inhaler 2 puff inhalation BID 30 Days Qty: 1 6RF Tezspire 210 mg/1.91 mL (110 mg/mL) syringe 210 mg subcut Q4W 28 Days Qty: 1.91 12RF montelukast 10 mg tablet 10 mg PO BEDTIME Qty: 90 0RF albuterol sulfate 2.5 mg /3 mL (0.083 %) solution for nebulization 3 mg inhalation Q4H PRN (Reason: Wheezing) ondansetron 4 mg tablet,disintegrating 4 mg PO Q8H PRN (Reason: nausea and vomiting) Qty: 10 0RF diclofenac sodium [Arthritis Pain (diclofenac)] 1 % gel 4 g topical QID Qty: 100 0RF Rx Instructions: apply to single knee, ankle, foot; for foot includes sole/toes/top of foot cyclobenzaprine 5 mg tablet 5 mg PO Q8H PRN (Reason: pain (scale score 7-10)) 5 Days Qty: 8 0RF diphenhydramine HCl [Benadryl Allergy] 25 mg tablet 25 mg PO Q8H PRN (Reason: itching) Qty: 14 0RF cetirizine [Zyrtec] 10 mg tablet 10 mg PO DAILY PRN (Reason: allergy symptoms) Qty: 10 0RF pyridoxine (vitamin B6) 100 mg tablet 100 mg PO DAILY 90 Days Qty: 90 1RF cholecalciferol (vitamin D3) 25 mcg (1,000 unit) tablet 25 mcg PO DAILY albuterol sulfate 90 mcg/actuation HFA aerosol inhaler 1 inh inhalation QID PRN (Reason: shortness of breath or wheezing) Qty: 8.5 6RF Referrals: [facility] [Provider Group] Anne Carrion MD [Primary Care Provider] - Leo Rao MD [Physician] - 1 week (fibroid uterus) Discharge Date/Time: 11/25/23 12:46 Print Language: Luxembourgish
[2023-11-25 09:28] LABS: MANUAL DIFF FLAG NO
[2023-11-25 09:29] LABS: Basophils Percent Auto 0.6 % (0-2); Eosinophils Absolute Auto 0.1 X10*3/uL (0.0-0.4); Eosinophils Percent Auto 0.9 % (0-4); Hematocrit 37.8 % (37.0-47.0); Hemoglobin 12.8 g/dl (12.0-16.0); Imm Gran Abs Auto 0.02 X10*3/uL (0.00-0.03); Imm Gran Pct Auto 0.3 % (0.0-0.4); Lymphocytes Percent Auto 30.8 % (20-40); Mean Corpuscular HGB Conc 33.9 g/dl (31.0-35.0); Mean Corpuscular Hemoglobin 28.4 pg (27.0-33.0); Mean Platelet Volume 8.6 fL (9.4-12.3); Monocytes Absolute Auto 0.5 X10*3/uL (0.1-1.2); Monocytes Percent Auto 7.3 % (2-11); Neutrophils Absolute Auto 3.8 x10*3/uL (2.0-8.3); Neutrophils Percent Auto 60.1 % (45-73); Platelet Count 346 X10*3/uL (160-400); Red Cell Distribution Width 13.4 % (11.0-16.0); White Blood Count 6.3 X10*3/uL (4.8-10.8)
[2023-11-25 09:45] LABS: Alanine Aminotransferase 17 U/L (0-31); Albumin Level 4.5 g/dL (3.5-5.0); Alkaline Phosphatase 64 U/L (39-117); Anion Gap 12 (12-20); Aspartate Amino Transferase 15 U/L (5-31); Bilirubin Total 0.3 mg/dL (0.0-1.0); Blood Urea Nitrogen 10 mg/dL (9-16); Calcium 9.3 mg/dL (8.4-10.2); Carbon Dioxide 24 mmol/L (22-29); Chloride 104 mmol/L (96-108); Creatinine Clr Calc Pharmacy 79.5; Estimated Glomerular Filt Rate > 60; Glucose Random 94 mg/dL (60-115); Magnesium 2.1 mg/dL (1.6-2.6); Potassium 3.8 mmol/L (3.3-5.1); Sodium 136 mmol/L (135-145); Total Protein 7.8 g/dL (6.5-8.0)
[2023-11-25] MEDS: Ketorolac Tromethamine 30 MG/ML VIAL IM (10:10)
[2023-11-25 10:12] LABS: Appearance Urine Clear; Color Urine Yellow; Glucose Urine UA Negative (Negative); Leukocyte Esterase Urine Negative (Negative); Nitrite Urine Negative (Negative); PH 5.5 (5.0-9.0); Specific Gravity - Urine 1.015 (1.005-1.025); UMIC TRIGGER UACC YES; Urine Blood Small (1+) (Negative); Urine Ketones Negative (Negative); Urine Protein Negative (Neg-Trace)
[2023-11-25 10:14] LABS: UPreg QC Valid YES; Urine Pregnancy NEGATIVE (NEGATIVE)
[2023-11-25 10:17] LABS: Bacteria Urine Trace (None Seen); Hyaline Casts Urine 0-2 /LPF (0-2); WBC Urine 0-5 /HPF (0-5)
[2023-11-25 12:41] VITALS: BP 114/72; PULSE 68; RESP 12; TEMP 36.5; O2SAT 99
== END 2023-11-25 12:46 | disposition home or self-care (01) ==
PROVIDERS: Physician Assistant Medical; Emergency Provider Emergency Medicine; PCP Family Medicine
DX: N39.0 Urinary tract infection, site not specified (principal); D25.9 Leiomyoma of uterus, unspecified; N20.0 Calculus of kidney; M54.50 Low back pain, unspecified; M51.369 Other intervertebral disc degeneration, lumbar region without mention of lumbar back pain or lower extremity pain; Z79.899 Other long term (current) drug therapy; F17.210 Nicotine dependence, cigarettes, uncomplicated
CPT/HCPCS: 36415; 72100; 74176; 80053; 81001; 81025; 83735; 85025; 96372; 99283; 99284; J1885

== ENCOUNTER 2024-02-21 11:29 | Outpatient (REF) | payer OTHER, SELFPAY ==
--- NOTE | ~2024-02-21 | US_ITS ---
CLINICAL HISTORY: N20.0 - Calculus of kidney US Renal Comparison: None Findings: Right kidney normal size and echotexture, 10.8 cm length. Multiple nonobstructing calculi, the largest within the pole measuring up to 4 mm. Left kidney normal size and echotexture, 11.0 cm length. Nonobstructing 3 mm calculus noted. No collecting system dilatation of either kidney. Normal color Doppler. IMPRESSION: Nonobstructing bilateral calculi. This document has been electronically signed by: Karson Walsh MD on 02/22/2024 12:53:43
== END 2024-02-21 11:30 | disposition home or self-care (01) ==
LOC: HO.US 11:29
PROVIDERS: PCP Family Medicine; Visit Provider Nurse Practitioner Family
DX: N20.0 Calculus of kidney (principal)
CPT/HCPCS: 76775

== ENCOUNTER → 2024-02-21 11:31 | Outpatient (BNV) | payer OTHER, SELFPAY | PROVIDERS: PCP Family Medicine; Visit Provider Radiology Vascular & Interventional Radiology | DX: N20.0 Calculus of kidney (principal) | CPT/HCPCS: 76775 ==

== ENCOUNTER 2024-03-01 10:23 | Outpatient (AMB) | payer OTHER, SELFPAY ==
--- NOTE | 2024-03-01 10:55 | A.OFFVIS_ITS ---
Intake Visit Reasons: 6m/US Intake Note: Patient presents for follow up visit on: Kidney Stone and Ultrasound Results Imaging Completed: 02/22/24 Urology Medication: Vitamin B6 Blood Thinner: none [employer] Required: No Accompanied by: Self / Same As Patient Allergies benzonatate [BENZONATATE] Allergy (Severe, Verified 03/01/24 11:18) ANAPHYLAXIS banana [BANANA] Allergy (Intermediate, Verified 03/01/24 11:18) RASH coconut [COCONUT] Allergy (Intermediate, Verified 03/01/24 11:18) RASH cucumber [CUCUMBER] Allergy (Intermediate, Verified 03/01/24 11:18) RASH grape [GRAPE] Allergy (Intermediate, Verified 03/01/24 11:18) RASH arthur [ARTHUR] Allergy (Intermediate, Verified 03/01/24 11:18) RASH sulfamethoxazole [From BACTRIM] Allergy (Intermediate, Verified 03/01/24 11:18) RASH trimethoprim [From BACTRIM] Allergy (Intermediate, Verified 03/01/24 11:18) RASH cephalexin [Keflex] Allergy (Unknown, Verified 03/01/24 11:18) Unknown duloxetine [From CYMBALTA] Allergy (Unknown, Verified 03/01/24 11:18) UNKNOWN Sulfa (Sulfonamide Antibiotics) Allergy (Unknown, Verified 03/01/24 11:18) Unknown SEAFOOD Allergy (Intermediate, Uncoded 03/01/24 11:18) RASH antibacterial soap Allergy (Unknown, Uncoded 03/01/24 11:18) rash Tessalon Allergy (Unknown, Uncoded 03/01/24 11:18) Unknown Medication List - Last Reconciled 03/01/24 by JEFFREY Foster albuterol sulfate 90 mcg/actuation 1 inh inhalation QID PRN albuterol sulfate 3 mg (3.6 mL) inhalation Q4H PRN cetirizine (Zyrtec) 10 mg PO DAILY PRN cetirizine 10 mg PO BID cholecalciferol (vitamin D3) 25 mcg PO DAILY cyclobenzaprine 5 mg PO Q8H PRN 5 days diclofenac sodium 1% (Arthritis Pain (diclofenac)) 4 grams topical QID diphenhydramine HCl (Benadryl Allergy) 25 mg PO Q8H PRN Dulera 200-5 mcg/actuation (mometasone-formoterol) 2 puffs PO BID NS montelukast 10 mg PO BEDTIME morphine 15 mg PO Q8H PRN ondansetron 4 mg PO Q8H PRN pyridoxine (vitamin B6) 100 mg PO DAILY 90 days tezepelumab-ekko (Tezspire) 210 mg (1.91 mL) subcut Q4W 28 days HPI Comments Details: Claribel is a pleasant 38-year-old female patient of Dr. Carrion. She has a past medical history of asthma, migraines, anxiety, and depression. She is being seen today in the office for follow-up regarding her nephrolithiasis. In discussion with the patient today she reports to be doing and feeling well. She discusses having seeked emergency room care a few months ago for back pain she had been experiencing as she was unsure if this was related to her history of nephrolithiasis and or fibromyalgia. She reports pain has since subsided. Recent renal imaging results reviewed with the patient today 03/04 bilateral kidneys with nonobstructing renal calculi measuring approximately 3-4 mm. We discussed at length importance of adequate hydration relation to nephrolithiasis as well as overall health and well-being. In office urinalysis results reviewed with the patient today 2+ microscopic hematuria. We discussed urine cytology 03/03 Negative for high-grade urothelial carcinoma. We discussed at length potential causes of microscopic hematuria as well as further workup in risks and benefits of these interventions. She does have a history of nicotine dependence as well as recreational marijuana. Will continue with surveillance monitoring at this time per patient request. She otherwise denies any bothersome urinary issues or concerns. When asked she denies urinary urgency, urinary frequency, incontinence, nocturia, hematuria, dysuria, foul smelling urine, changes to urinary stream, fever, and or chills. She is happy with her current voiding parameters. She otherwise offers no other issues or concerns at this time. [facility] Medical History Pelviectasis Asthma Kidney stone Hx of migraine headaches Hx of anxiety disorder History of depression Surgical History Hx of bilateral salpingectomy Hx of tubal ligation Hx of section Hx of tonsillectomy Hx laparoscopic cholecystectomy Family History Mother Diabetes mellitus Hypertension Dementia Father Diabetes mellitus Hypertension Social History Alcohol intake: never Patient Tobacco Use Status: Current someday Tobacco user Tobacco use type: Cigarette Cigarettes Per Day: 2 Advance Directives Date on File: 12/11/21 service: No Current occupational status: disabled Current occupation: right handed Female Reproductive History Menstrual Age of Menarche: 10 Review of Systems Const Reports as per HPI Eyes Reports no additional complaints ENT Reports no additional complaints Card Reports no additional complaints Resp Reports as per HPI GI Reports as per HPI Reports as per HPI Musc Reports no additional complaints Neuro Reports no additional complaints Psych Reports as per HPI Endo Reports no additional complaints Physical Exam Const General: cooperative, healthy appearing, comfortable, no acute distress, well developed, alert and awake Orientation/consciousness: patient oriented x3 Limitations: no limitations HEENT Head: Yes normal to inspection, Yes normocephalic and Yes atraumatic Ears: hearing grossly normal bilaterally Eyes General: appearance normal, both eyes and all related structures Neck Neck: Yes normal visual inspection and Yes trachea midline Chest Chest palpation & inspection: normal inspection of the chest Resp Effort & Inspection: normal respiratory effort and able to speak in complete sentences Cardio Rate: regular rate GI Inspection: Yes normal to inspection General: Yes no CVA tenderness Back/Spine/Pelvis Back: no CVA tenderness Cervical Spine: normal cervical lordosis Neuro General: patient oriented x3 Extrem General: Yes normal to inspection Psych Appearance: grossly normal and well kempt Mental Status: mental status grossly normal Speech and movement: Normal speech and movement present and Clear speech present Affect: normal affect Attitude: cooperative Thought process: Normal thought process present Thought content: Normal thought content present Insight: Fair insight present (Psych) Judgement: Fair judgement present (Psych) Results AMB Urinalysis, Automated UA Leukoctes 0 Mandi/uL Last Edit by Jabier Upton on 03/01/24 11:09 UA Nitrite Last Edit by [employer] U[employer] on 03/01/24 11:09 UA Urobilinogen 0.2 mg/dL Last Edit by Bertyce Alexsandra on 03/01/24 11:09 UA Protein 15 mg/dL Last Edit by Brandyce Eusebiass on 03/01/24 11:09 UA pH 6.5 Last Edit by [employer] Alexsandra on 03/01/24 11:09 UA Blood 80 Santos/uL Last Edit by [employer] on 03/01/24 11:09 UA Specific [place] 1.015 Last Edit by [employer] on 03/01/24 11:09 UA Ketone Last Edit by [employer] on 03/01/24 11:09 UA Bilirubin 0 mg/dL Last Edit by [employer] on 03/01/24 11:09 UA Glucose 0 mg/dL Last Edit by [employer] on 03/01/24 11:09 Results Reviewed Results Reviewed: Laboratory Last Values Urine pH (Auto) 6.5 03/01/24 10:57 Specific [place] (Auto) 1.015 03/01/24 10:57 Urine Protein (Auto) 15 mg/dL 03/01/24 10:57 Glucose (UA)(Auto) 0 mg/dL 03/01/24 10:57 Urine Blood (Auto) 80 Santos/uL 03/01/24 10:57 Urine Bilirubin (Auto) 0 mg/dL 03/01/24 10:57 Urine Urobilinogen (Auto) 0.2 mg/dL 03/01/24 10:57 Leukocyte Esterase (Auto) 0 Mandi/uL 03/01/24 10:57 Date of Service: 02/21/24 Procedure(s): US renal BI US Renal Comparison: None Findings: Right kidney normal size and echotexture, 10.8 cm length. Multiple nonobstructing calculi, the largest within the pole measuring up to 4 mm. Left kidney normal size and echotexture, 11.0 cm length. Nonobstructing 3 mm calculus noted. No collecting system dilatation of either kidney. Normal color Doppler. IMPRESSION: Nonobstructing bilateral calculi. Assessment & Plan Assessment & Plan (1) Kidney stone: Code(s): N20.0 - Calculus of kidney Category: Medical Plan In office urinalysis results reviewed with the patient today; as noted above; Recent renal imaging results reviewed with the patient today. Previous urine cytology results reviewed with the patient today; as noted above. Discussed at length potential causes for nephrolithiasis as well as microscopic hematuria. Discussed at length further workup of microscopic hematuria given history of nicotine dependence as well as recreational marijuana with CT urogram, cytology, in office cystoscopy versus surveillance monitoring; these interventions were discussed at length risks and benefits of these interventions; will continue with surveillance monitoring at this time per patient request. Discussed and stressed the importance of limiting/quitting nicotine dependence as well as recreational marijuana for overall health and well-being. Educated, instructed, and encouraged to continue drinking adequate amount of daily fluid intake. Continue vitamin B6 as discussed and prescribed. Renal ultrasound in 6 months. Follow-up in 6 months with imaging to be completed prior; or sooner with any issues, concerns, and or questions. Orders: Orders AMB Urinalysis Automated Today Z13.9 - Encounter for screening, unspecified US renal BI 6 Months N20.0 - Calculus of kidney Patient Instructions: The patient had an opportunity to ask questions regarding the treatment plan. All questions were answered. Physical exam, labs, and imaging were discussed and reviewed in detail. As well as risks, benefits, and discussion of treatment choices. No major barriers to understanding were identified. The patient expressed understanding and agreement with the above treatment plan. The patient was made aware they should contact our office by phone for worsening of their current condition, the appearance of new symptoms, or with any questions or concerns. Compliance is encouraged with any medications and follow up testing that is ordered. It is a privilege to be allowed the opportunity to participate in? your urological care.? Again, if you have any questions or concerns If you have any questions or concerns please do not hesitate to contact me. The office is [phone]. This note is constructed using voice recognition software. While every effort has been made to ensure accuracy breadman errors may have been included. Yours sincerely, JEFFREY Foster Coding Level of Care Code Est Pt Level 3 (95204) Diagnoses Kidney stone N20.0
--- OUTSIDE RECORDS SUMMARY | 2024-03-01 11:28 | XMS_ITS | Encounter Summary ---
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 I have otilio saucedo 06/03/[address] you li ve. Do you have problems with any of the following? None of the above 06/03/2023 Food Insecurity Answer Date Recorded Within the past 12 months, y ou worried that your food would run out before you got money to buy more: Never True 06/03/2023 Within the past 12 months,th e food you bought just didn't last and you didn't have enough money to get more: Never True Transportation Answer Date Recorded In the past 12 months, has l ack of transportation kept you from medical appts, meetings, work or from getting things needed for daily living? No 06/03/2023 Utilities Answer Date Recorded In the past 12 months, has t he electric, gas, oil or water company threatened to shut off services in your home? No 06/03/2023 Depression Answer Date Recorded Patient Health Questionnaire-2 Score 6 09/06/2023 Comments Unknown Sex and Gender Information Value Date Recorded Sex Assigned at Female 12/08/2021 10:15 AM EDT Legal Sex Female 10:15 AM EDT Gender Identity Female 12/08/2021 10:15 AM EDT Sexual Orientation Straight 12/08/2021 10 :15 AM EDT documented as of this encounter Plan of Treatment Not on file documented as of this encounter Visit Diagnoses Not on filedocumented in this encounter Additional Health Concerns Assessment Noted Time PHQ-9 Depression Total Score: 18 024 1:45 PM EDT documented as of this encounter Care Teams Plant Taxonomy Teacher Relationship Specialty Start Date End Date Anne Carrion MD [address] [place] [address] PCP - General Family Medicine 02/08/18 documented as of this encounter
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
--- OUTSIDE RECORDS SUMMARY | 2024-03-01 11:28 | XMS_ITS | Encounter Summary ---
Author Organization [employer] Address [address] [place] [address] [address] [place] [address] Care Team Providers Care Door Worker Name Role Phone Anne Carrion MD Primary Care Provider [phone]- [phone] Reason for Visit * Reason Comments Med Refill Encounter Details Date Type Department Care Team (Late st Contact Info) Description 01/07/2023 Refill [facility] [address] [place] [address] [phone] Jaiden Mccarthy MD [address] [place] [address] Rash Social History Tobacco Use Types Packs/Day Years Used Date Smoking Tobacco: Never Passive Smoke Exposure: Never Smokeless Tobacco: Never Comments Unknown Sex and Gender Information Value Date Recorded Sex Assigned at Female 12/08/2021 10:15 AM EDT Legal Sex Female 10:15 AM EDT Gender Identity Female 12/08/2021 10:15 AM EDT Sexual Orientation Straight 12/08/2021 10 :15 AM EDT documented as of this encounter Plan of Treatment Not on file documented as of this encounter Visit Diagnoses Diagnosis Rash Rash and other nonspecific skin eruption documented in this encounter Care Teams Door Worker Relationship Specialty Start Date End Date Anne Carrion MD [address] [place] [address] [phone] PCP - General Family Medicine 02/08/18 documented as of this encounter
--- OUTSIDE RECORDS SUMMARY | 2024-03-01 11:28 | XMS_ITS | Encounter Summary ---
Author Organization [employer] Address [address] [facility] 7t [place] [address] Care Team Providers Care Casey Saw Operator Name Role Phone Anne Carrion MD Primary Care Provider +1- [phone] Reason for Visit * Reason Onset Date Comments Nurse Triage 11/29/2023 Encounter Details Date Type Department Care Team ([facility] st Contact Info) Description 11/29/2023 Telephone [facility] [address] [place], [place] [phone] Anne Carrion MD [address] [place], [place] [phone] Nurse Triage Social History Tobacco Use Types Packs/Day Years [...] AM EDT documented as of this encounter Miscellaneous Notes * Telephone Encounter - Santa Trejo RN - 11/29/2023 9:41 AM EDT Triage call Pt was seen in ED [facility] 11/25/23 , report is on the chart. Pt main concern is low back pain which xray shows degenerative process. Pt was prescribed motrin which is reported to be ineffective for pain relief. Pt also has kidney stones and UTI. Pt reports was prescribed antibiotic (nitrofurantoin) but, after first dose had a reaction and stopped taking them. Pt is drinking adequate liquids. Pt is asked if contact with sick person and denies this. Pt sounds like sx of nasal congestionbut, denies any sx of PORTILLO. Pt is scheduled for ED follow up today at 145pm with Dr. Name. Workman verified as active prior to booking and Pt agrees with disposition. Protocol Used: Urinary Tract Infection on Antibiotic Follow-up Call - Female (Adult) Protocol-Based Disposition: See in Office or Video Visit Today or Tomorrow Positive Triage Question: * Patient wants to be seen * All higher-acuity triage questions were negative Care Advice Discussed: * Cranberry Juice * Reasons To Call Back - You have more questions * Telephone Encounter - Kaiser Rios - 11/29/2023 9:00 AM EDT Symptom: Back Pain - Not From Injury Outcome: Talk to a nurse or provider within 15 minutes Reason: Can't walk (unless normally can't walk) The caller accepted this outcome. documented in this encounter Plan of Treatment Not on file documented as of this encounter Visit Diagnoses Not on filedocumented in this encounter Additional Health Concerns Assessment Noted Time PHQ-9 Depression Total Score: 18 024 1:45 PM EDT documented as of this encounter Care Teams Casey Saw Operator Relationship Specialty Start Date End Date Anne Carrion MD [address] [place] [phone] PCP - General Family Medicine 02/08/18 documented as of this encounter
--- OUTSIDE RECORDS SUMMARY | 2024-03-01 11:28 | XMS_ITS | Encounter Summary ---
Author Organization [employer] Address [address] [facility] 7t [place] [address] Care Team Providers Care Rock Breaker Name Role Phone Anne Carrion MD Primary Care Provider +1- [phone] Encounter Details Date Type Department Care Team ([facility] st Contact Info) Description 02/21/2024 Orders Only [facility] External Provider, [facility] Social History Tobacco Use Types Packs/Day Years [...] on file documented as of this encounter Procedures Procedure Name Priority Date/Time Associated Diagnosis Comments US RENAL BI Routine 02/22/2024 12:53 PM EST documented in this encounter Results * US RENAL BI (02/22/2024 12:53 PM EST) Anatomical Region Laterality Modality Abdomen Ultrasound 02/22/2024 12:5 3 PM EST Narrative 02/22/2024 12:55 PM EST ? [facility] ?[address] ?[place] [address] ? Ultrasound Report ? Signed ? Patient: Leal Jose Ramon,Marangeli ?MR ?? #: [id number] ? : 1985 ?Acct:[id number] ? Age/Sex: 38 / F ?ADM Date: 02/21/24 ? Loc: HO.US ? Attending Dr: Nataly MURPHY ? Ordering Physician: Nataly Tay ?? Date of Service: 02/21/24 ?? Procedure(s): US renal BI ?? Accession Number(s): [id number] ? cc: Anne Carrion MD; Nataly Tay [...] by Karson Walsh MD in OV> ? 02/22/241253 ? DD/ 52 ? TD/TT: 01/14/25 1253 ? Sintering Plant Supervisor: ? Procedure Note Kiya, Image - 02/22/2024 [place] [address] Ultrasound Report Signed Patient: Edouard Roy #: [id number] : 1985Acct:[id number] Age/Sex: 38 / FADM Date: 02/21/24 Loc: HO.US Attending Dr: Nataly MURPHY Ordering Physician: Nataly Tay Date of Service: 02/21/24 Procedure(s): US renal BI Accession Number(s): [id number] cc: Anne Carrion MD; Nataly Tay CLINICAL HISTORY: N20.0 - Calculus of kidney [...] 02/22/24 1254 DD/ 1253 TD/TT: 02/22/24 1253 Sintering Plant Supervisor: [facility] External Provider IMG US PROCEDURES Final Result documented in this encounter Visit Diagnoses Not on filedocumented in this encounter Additional Health Concerns Assessment Noted Time PHQ-9 Depression Total Score: 18 07/29/2 024 1:45 PM EDT documented as of this encounter Care Teams Rock Breaker Relationship Specialty Start Date End Date Anne Carrion MD [address] [place] [address] PCP - General Family Medicine 02/08/18 documented as of this encounter
--- OUTSIDE RECORDS SUMMARY | 2024-03-01 11:28 | XMS_ITS | Patient Health Record ---
Author Organization [facility] Address [address] [facility] [place] [address] Care Team Providers Care [facility] Associate Name Role Phone Anne Carrion MD Primary Care Provider Radha Kavin Abad Unavailable [phone] Allergies Allergen (clinical drug ingredient) Drug/Non Drug Allergy documented on EMR Reaction Allergy Type Onset Date Status Tessalon Unknown Drug Allergy Active banana allergenic extract Banana (Diagnostic) Unknown Drug Allergy Active benzonatate Benzonatate anaphylaxis Drug Allergy A ctive cephalexin Cephalexin Unknown Drug Allergy Activ e coconut oil Coconut Oil Unknown Drug Allergy Act rukhsana duloxetine Duloxetine Unknown Drug Allergy Activ e Shellfish (FN) Shellfish-derived Products rash Drug Allergy Active Substance with sulfonamide structure and antibacterial mechanism of action (substance) Sulfa Antibiotics Unknown Drug Allergy Active sulfamethoxazole Sulfamethoxazole rash Drug Allergy Active trimethoprim Trimethoprim rash Drug Allergy A ctive Reason For Referral No Information Medications Medication SIG (Take, Route, Frequency, Duration) Notes Start Date End Date Status Nucala Active Montelukast Sodium 10 MG Oral for 30 Active Dulera Active Cetirizine HCl 10 MG Oral for 30 Active Albuterol Sulfate HFA 108 (90 Base) MCG/ACT Inhalation for 16 Activ e Social History Tobacco Use: Social History Observation Description Date Details (start date - stop date) Never Smoker NA - NA Tobacco Use/Smoking Question Answer Notes Are you a: nonsmoker Additional Findings: Tobacco Non-User Current no n-smoker Alcohol Screen Question Answer Notes Did you have a drink containing alcohol in the p ast year? No Points 0 Interpretation Negative Tobacco use other than smoking: Question Answer Notes Are you an other tobacco user? No Problems Problem Type SNOMED Code ICD Code Onset Dates Problem Status W/U Status Risk Notes Problem Reflex sympathetic dystrophy of lower extremity (710617820) Complex regional pain syndrome I of right lower limb (G90.521) Active confirmed Problem Mononeuropathy of lower limb (884421810) Neuritis of right foot (G57.91) Active confirmed Plan Of Treatment No Information Insurance Providers Payer Name Payer Address Payer Phone Subscriber Number Group Number Insured Name Patient Relationship to Insured Coverage Start Date Coverage End Date [facility] [employer] Claims [address] [place] [id number] Claribel Leal Self - patient is the insured Medical (General) History Medical History History ICD Code Depression Anxiety disorder Migraines Kidney stones Broken bones Back pain asthma Surgical History Surgery Date(Month/Year) cholecystectomy laparoscopic salpingectomy bilateral section 2011 tonsillectomy tubal ligation foot surgery 1994 elbow sx
--- OUTSIDE RECORDS SUMMARY | 2024-03-01 11:28 | XMS_ITS | Encounter Summary ---
Author Organization [employer] Address [address] [facility] 7t [place] [address] Care Team Providers Care Dispatcher Street Department Name Role Phone Anne Carrion MD Primary Care Provider +1- [phone] Encounter Details Date Type Department Care Team (Latest Contact Info) Description 01/31/2024 Travel Social History Tobacco Use Types Packs/Day [...] documented as of this encounter Care Teams Dispatcher Street Department Relationship Specialty Start Date End Date Anne Carrion MD [address] [place] [address] PCP - General Family Medicine 02/08/18 documented as of this encounter
== END 2024-03-01 11:16 | disposition home or self-care (01) ==
PROVIDERS: PCP Family Medicine; Visit Provider Nurse Practitioner Family
DX: N20.0 Calculus of kidney (principal); Z13.9 Encounter for screening, unspecified
CPT/HCPCS: 99213

== ENCOUNTER 2024-03-01 10:23 | Outpatient (REF) | payer OTHER, SELFPAY ==
--- OUTSIDE RECORDS SUMMARY | 2024-03-01 13:33 | XMS_ITS | Encounter Summary ---
Author Organization [employer] Address [address] [facility] 7t [place] [address] Care Team Providers Care Sex Worker Or Escort Name Role Phone Anne Carrion MD Primary Care Provider +1- [phone] Encounter Details Date Type Department Care Team ([facility] st Contact Info) Description 02/21/2024 Orders Only [facility] External Provider, [facility] Social History Tobacco Use Types Packs/Day Years [...] EST Narrative 02/22/2024 12:55 PM EST ? [facility] ?[address] ?[place] [address] ? Ultrasound Report ? Signed ? Patient: Leal Jose Ramon,Marangeli ?MR ?? #: [id number] ? : 1985 ?Acct:[id number] ? Age/Sex: 38 / F ?ADM Date: 02/21/24 ? Loc: HO.US ? Attending Dr: Nataly MURPHY ? Ordering Physician: Nataly Tay ?? Date of Service: 02/21/24 ?? Procedure(s): US renal BI ?? Accession Number(s): [id number] ? cc: Anne Carrion MD; Nataly Tay [...] DD/ 52 ? TD/TT: 01/14/25 1253 ? Outboard Motors Experimental Mechanic: ? Procedure Note Kiya, Image - 02/22/2024 [place] [address] Ultrasound Report Signed Patient: Edouard Roy #: [id number] : 1985Acct:[id number] Age/Sex: 38 / FADM Date: 02/21/24 Loc: HO.US Attending Dr: Nataly MURPHY Ordering Physician: Nataly Tay Date of Service: 02/21/24 Procedure(s): US renal BI Accession Number(s): [id number] cc: Anne Carrion MD; Nataly Tay CLINICAL [...] 02/22/24 1254 DD/ 1253 TD/TT: 02/22/24 1253 Outboard Motors Experimental Mechanic: [facility] External Provider IMG US PROCEDURES Final Result documented in this encounter Visit Diagnoses Not on filedocumented in this encounter Additional Health Concerns Assessment Noted Time PHQ-9 Depression Total Score: 18 07/29/2 024 1:45 PM EDT documented as of this encounter Care Teams Sex Worker Or Escort Relationship Specialty Start Date End Date Anne Carrion MD [address] [place] [address] PCP - General Family Medicine 02/08/18 documented as of this encounter
--- OUTSIDE RECORDS SUMMARY | 2024-03-01 13:33 | XMS_ITS | Encounter Summary ---
Author Organization [employer] Address [address] [facility] 7t [place] [address] Care Team Providers Care Activities Director Scouting Name Role Phone Anne Carrion MD Primary Care Provider +1- [phone] Encounter Details Date Type Department Care Team [...] documented as of this encounter Care Teams Activities Director Scouting Relationship Specialty Start Date End Date Anne Carrion MD [address] [place] [address] PCP - General Family Medicine 02/08/18 documented as of this encounter
--- OUTSIDE RECORDS SUMMARY | 2024-03-01 13:33 | XMS_ITS | Encounter Summary ---
Author Organization [employer] Address 75 [facility] 7t [place] [address] Care Team Providers Care Electrician Apprentice Powerhouse Name Role Phone Anne Carrion MD Primary Care Provider +1- [phone] Reason for Visit * Reason Onset Date Comments Nurse Triage 11/29/2023 Encounter Details Date Type Department Care Team ([facility] st Contact Info) Description 11/29/2023 Telephone [facility] [address] [place], [place] [phone] Anne Carrion MD [address] [place], [place] [phone] Nurse Triage Social History Tobacco Use Types [...] Triage call Pt was seen in ED [facility] 11/25/23 , report is on the chart. [...] documented as of this encounter Care Teams Electrician Apprentice Powerhouse Relationship Specialty Start Date End Date Anne Carrion MD [address] [place] [phone] PCP - General Family Medicine 02/08/18 documented as of this encounter
--- OUTSIDE RECORDS SUMMARY | 2024-03-01 13:33 | XMS_ITS | Encounter Summary ---
Author Organization [employer] Address 75 [facility] 7t [place] [address] Care Team Providers Care Die Maker Electronic Name Role Phone Anne Carrion MD Primary Care Provider +1- [phone] Encounter Details Date Type Department Care Team [...] documented as of this encounter Care Teams Die Maker Electronic Relationship Specialty Start Date End Date Anne Carrion MD [address] [place] [address] PCP - General Family Medicine 02/08/18 documented as of this encounter
--- OUTSIDE RECORDS SUMMARY | 2024-03-01 13:33 | XMS_ITS | Clinical Summary ---
Author Organization [employer] Address [address] [place] [address] 7 [place] [address] Care Team Providers Care Leaf Binner Name Role Phone Anne Carrion MD Primary Care Provider +1- [phone] Allergies Active Allergy Reactions Criticality Noted Date [...] migh t be different from the original. [facility] [place] Lead Vulcanizing Operator: Minnie, member services number [phone] Valve Seater Operator Agency: [employer] Problem Noted Date Diagnosed Date [...] as pharmacomtherapy, [facility] smoking cessation group, and [facility] pharmacy smoking cessation clinic Discussed USPSTF recommends [...] as pharmacomtherapy, [facility] smoking cessation group, and [facility] pharmacy smoking cessation clinic Discussed USPSTF recommends [...] due after 06/02/24 -eye care facilitated by [facility] -dental home is [facility] - Health care proxy completed and filed Assessment & Plan (06/03/2023 10:34 AM EDT): -next physical exam due after 06/02/24 -eye care facilitated by [facility] -dental home is [facility] - Health care proxy completed and filed Papanicolaou smear of cervix with atypical squamous cells of undetermined significance (ASC-US) 02/26/2022 Overview (02/26/2022): ASCUS on pap 2012 HPV negative with [facility]. repeat PAP 05/04/16 nilm. -Repeat pap [...] Hospitalized 11/2018 and 12/2021. Improved. Followed by manager flight. Continue Tezspire, and Dulera and singulair as well as albuterol prn. Seen by Fur Tanner Carmine Rivas MD 04/06/23. Nucala changed to Tezspire. Call to Pulmonology to check the status of her injectable medicine 06/03/23 Call placed to [facility] pulmonology spoke to the nurse yesenia who reports patient should be on Tezspire 210mg every 4 weeks and that patient had appt on 04/15/23 for inj but no showed to the visit. Yesenia states they redid the orders for her today and short stay should be reaching out to patient to set up an appt. Referral placed to [facility] Pulmonology as it is closer to home, seen by Dr. Monique Hillman, [facility], FACP,FCCP 07/29/23, no changes made to regimin Assessment & Plan (06/03/2023 10:30 AM EDT): Hospitalized 11/2018 and 12/2021. Improved. Followed by manager flight. Continue Tezspire, and Dulera and singulair as well as albuterol prn. Seen by Fur Tanner Carmine Rivas MD 04/06/23. Nucala changed to Tezspire. Will call to Pulmonology to check the status of her injectable medicine 06/03/23 Referral placed to [facility] Pulmonology as it is closer to home 06/03/23 Assessment & Plan (02/26/2022 9:22 AM EST): Hospitalized 11/2018. Improved. Followed by manager flight. Continue Nucala, and Dulera and singulair as well as albuterol prn. Referral sent 12/2021 to pulmonology at [facility], Pt was hospitalized 12/2021 and asthma [...] Department Care Team Description 02/21/2024 Orders Only [facility] External Provider, [facility] 02/14/2024 Travel 01/31/2024 Travel 12/30/2023 Refill [facility] [address] [place] [address] Jaiden Mccarthy MD Rash 12/21/2023 Refill [facility] [address] [place] [address] Anne Carrion MD Low back pain, unspecified [...] EST Narrative 02/22/2024 12:55 PM EST ? [facility] ?[address] ?[place] [address] ? Ultrasound Report ? Signed ? Patient: Claribel Roy ?MR ?? #: [id number] ? : 1985 ?Acct:[id number] ? Age/Sex: 38 / F ?ADM Date: 02/21/24 ? Loc: HO.US ? Attending Dr: Nataly MURPHY ? Ordering Physician: Nataly Tay ?? Date of Service: 02/21/24 ?? Procedure(s): US renal BI ?? Accession Number(s): [id number] ? cc: Anne Carrion MD; Nataly Tay [...] DD/ 1253 ? TD/TT: 02/22/24 1253 ? Data Science And Iot Manager: ? Procedure Note Kiya, Julito - 02/22/[address] [address] Ultrasound Report Signed Patient: Edouard Roy #: [id number] : 1985Acct:[id number] Age/Sex: 38 / FADM Date: 02/21/24 Loc: HO.US Attending Dr: Nataly MURPHY Ordering Physician: Nataly Tay Date of Service: 02/21/24 Procedure(s): US renal BI Accession Number(s): [id number] cc: Anne Carrion MD; Nataly Tay [facility] CLINICAL HISTORY: N20.0 - Calculus of kidney [...] 02/22/24 1254 DD/ 1253 TD/TT: 02/22/24 1253 Data Science And Iot Manager: [facility] External Provider IMG US PROCEDURES Final Result * (ABNORMAL) Lipid Panel, Standard (06/04/2023 11:20 AM EDT) Triglycerides 77 <150 mg/dL [facility] Comment:Desirable Triglyceri de: less than 150 mg/dLBorderline High Triglyceride 150-199 mg/dLHigh Triglyceride: 200-499 mg/dLVery High Triglyceride: greater than or equal to 5OO mg/dL Cholesterol 199 <200 mg/dL [facility] Comment:Desirable Cholestero l: less than 200 mg/dLBorderline High Cholesterol: 200-239 mg/dLHigh Cholesterol: greater than 239 mg/dL LDL Cholesterol Calculated 144(H) <100 mg/dL [facility] Comment:Desirable LDL: less than 100 mg/dLNear Optimal/Above Optimal LDL: 110- 129 mg/dLBorderline High LDL: 130-159 mg/dLHigh LDL: 160-189 mg/dLVery High LDL: greater than or equal to 190 mg/dL HDL Cholesterol 40(L) >40 mg/dL [facility] Comment:Desirable HDL: great er than 40 mg/dL Note: This HDL assay may give artificially low results in patients with liver disease. Blood Venous blood specimen / Unknown 06/04/2023 11:20 AM EDT 06/04/2023 1:22 PM EDT Anne Carrion MD LAB BLOOD ORDERABLES Final Result Performing Organization Address [facility] Co de Phone Number [facility] [address] [place] [phone] * HPV High Risk PCR (06/12/2021 12:00 AM EDT) Swab Cervical swab / Unknown Anne Carrion MD LAB MICROBIOLOGY - GENERAL ORDERABLES Final Result Performing Organization Address [facility] Co de Phone Number [facility] [address] [place] [phone] * Pap Smear (06/12/2021 12:00 AM EDT) Swab Anne Carrion MD LAB CYTOLOGY ORDERABLES Fi nal Result Performing Organization Address [facility] Co de Phone Number [facility] [address] [place] [phone] * HEPATITIS C ANTIBODY (11/08/2019 12:39 PM EDT) Pathologist [facility] HEPATITIS C ANTIBODY NONREACTIVE NONREACTIVE [facility] Comment: Antibodies to HCV not detected; does not exclude early acute HCV infection. 11/08/2019 12:3 9 PM EDT Sandhya Syoney HISTORICAL/NON ORDERABLE LABS Fi nal Result Performing Organization Address [facility] de Phone Number [facility] [address] * HIV AB/AG (11/08/2019 12:39 PM EDT) [facility] HIV AG/AB NONREACTIVE [facility] [...] detection of this assay. ?? The [employer] Blanking Press Adjuster HIV Ag/Ab Combo assay result and supplemental assay results should be interpreted in conjunction with the patient's clinical presentation, history and other laboratory results. ??If the results are inconsistent with clinical evidence, additional testing is suggested to confirm the result. 11/08/2019 12:3 9 PM EDT Sandhya Syoney HISTORICAL/NON ORDERABLE LABS Fi nal Result Performing Organization Address [facility] Number [facility] Critical access hospital [address] from Last 3 Months or Most Recently Relevant to Health Maintenance Insurance [facility] Care Teams Leaf Binner Relationship Specialty Start Date End Date Murali, MD Anne [address] [place] [address] PCP - General Family Medicine 02/08/18
--- OUTSIDE RECORDS SUMMARY | 2024-03-01 13:34 | XMS_ITS | Encounter Summary ---
Author Organization [employer] Address [address] [place] [address] 7t [place] [address] Care Team Providers Care Paste Up Worker Name Role Phone Anne Carrion MD Primary Care Provider +1- [phone] Reason for Visit * Reason Comments Med Refill Encounter Details Date Type Department Care Team (Late st Contact Info) Description 01/07/2023 Refill [facility] [address] [place] [phone] Jaiden Mccarthy MD [address] [place] [address] Rash Social History Tobacco Use Types Packs/Day [...] eruption documented in this encounter Care Teams Paste Up Worker Relationship Specialty Start Date End Date Anne Carrion MD [address] [place] [phone] PCP - General Family Medicine 02/08/18 documented as of this encounter
[2024-03-01 17:14] LABS: Urine Cytology See Pathology rpt
== END 2024-03-01 10:24 | disposition home or self-care (01) ==
LOC: HO.LNP 10:23
PROVIDERS: PCP Family Medicine; Visit Provider Nurse Practitioner Family
DX: N20.0 Calculus of kidney (principal)
CPT/HCPCS: 81003; 88112; 99212

== ENCOUNTER 2024-03-14 07:40 | Emergency (ER) | payer OTHER, SELFPAY ==
--- NOTE | ~2024-03-14 | XR_ITS ---
EXAMINATION: XR CHEST 2 VIEWS HISTORY: cough COMPARISON: Comparison is made with the prior examination dated 09/11/2023. FINDINGS: PA and lateral views of the chest are submitted. The lungs are expanded and clear. There is no pleural effusion, pneumothorax, or pulmonary vascular congestion. The heart is normal in size. The bones are intact. XR/XR chest 2V IMPRESSION: No acute cardiopulmonary abnormality. Electronically signed by: Kelton Rankin MD 03/14/2024 08:36 AM [facility]
[2024-03-14 07:46] VITALS: BP 124/93; PULSE 107; RESP 20; TEMP 36.9; O2SAT 97; BMI 28.3
[2024-03-14 08:23] LABS: IDNOW Serial# 58CA691E; Strep A Nucleic Acid Negative (Negative)
[2024-03-14 08:47] LABS: Influenza A PCR POSITIVE (Negative); Influenza B PCR NEGATIVE (Negative); Resp Syncy Virus RNA Qual PCR NEGATIVE (Negative); SARS COV2 PCR INHOUSE NEGATIVE (Negative)
--- OUTSIDE RECORDS SUMMARY | 2024-03-14 14:16 | XMS_ITS | Encounter Summary ---
Author Organization [employer] Address [address] [facility] 7t [place] [address] Care Team Providers Care Blood Bank Credit Clerk Name Role Phone Anne Carrion MD Primary Care Provider +1- [phone] Nataly Tay NP Unavailable Encounter Details Date Type Department Care Team (Late st Contact Info) Description 03/14/2024 Orders Only GENERIC EXTERNAL DATA DEPARTMENT Provider, Generic External Data Social History Tobacco Use Types Packs/Day Years [...] Procedure Name Priority Date/Time Associated Diagnosis Comments XR CHEST 2 VIEWS Routine 03/14/2024 8:18 AM EST STREP A NUCLEIC ACID Routine 03/14/2024 8:02 AM EST SARS COV2/INFLUENZA A/B AND RSV RNA QL NAAT Routine 03/14/2024 8:02 AM EST documented in this encounter Results * XR Chest 2 Views (03/14/2024 8:18 AM EST) Anatomical Region Laterality Modality Chest Radiographic Chaparrita ging 03/14/2024 8:18 AM EST Narrative 03/14/2024 8:39 AM EST ? [facility] ?[address] ?[place] [address] ?XRay Report ? Signed ? Patient: Claribel Roy ?MR ?? #: [id number] ? : 1985 ?Acct:[id number] ? Age/Sex: 38 / F ?ADM Date: 03/14/24 ? Loc: HO.ED ? Attending Dr: ? Ordering Physician: Generic ED Physician ?? Date of Service: 03/14/24 ?? Procedure(s): XR chest 2V ?? Accession Number(s): [id number] ? cc: Anne Carrion MD; Generic ED Physician ? EXAMINATION: ??XR CHEST 2 VIEWS ? HISTORY: cough ? COMPARISON: Comparison is made with the prior examination dated ?? 09/11/2023. ? FINDINGS: ??PA and lateral views of the chest are submitted. The lungs ?? are expanded and clear. ??There is no pleural effusion, pneumothorax, or ?? pulmonary vascular congestion. ??The heart is normal in size. ??The bones ?? are intact. ? XR/XR chest 2V ?? IMPRESSION: ?? No acute cardiopulmonary abnormality. ? Electronically signed by: ??Kelton Rankin MD ??03/14/2024 08:36 AM EST ?? RP ? Dictated By: ?Kelton Rankin MD ? Signed By: ?<Electronically signed by Kelton Rankin MD in OV> ?03/14/24 0836 ? DD/ 0818 ? TD/TT: 03/14/24 08 ? Inside Wireman: ? Procedure Note Kiya, Image - 03/14/[address] [address] XRay Report Signed Patient: Edouard Roy #: [id number] : 1985Acct:[id number] Age/Sex: 38 / FADM Date: 03/14/24 Loc: HO.ED Attending Dr: Ordering Physician: Generic ED Physician Date of Service: 03/14/24 Procedure(s): XR chest 2V Accession Number(s): [id number] cc: Anne Carrion MD; Generic ED Physician EXAMINATION: XR CHEST 2 VIEWS HISTORY: cough COMPARISON: Comparison is made with the prior examination dated 09/11/2023. FINDINGS: PA and lateral views of the chest are submitted. The lungs are expanded and clear. There is no pleural effusion, pneumothorax, or pulmonary vascular congestion. The heart is normal in size. The bones are intact. XR/XR chest 2V IMPRESSION: No acute cardiopulmonary abnormality. Electronically signed by: Kelton Rankin MD 03/14/2024 08:36 AM EST Dictated By: Kelton Rankin MD Signed By: <Electronically signed by Kelton aRnkin MD in OV> 03/14/24835 DD/ 7 TD/TT: 03/14/24822 Inside Wireman: [facility] External Provider IMG XR PROCEDURES Edited Result - Final * (ABNORMAL) SARS-CoV-2 RNA, Influenza A/B, and RSV RNA, Ql NAAT (03/14/2024 8:02 AM EST) Influenza A PCR POSITIVE(A) Negative [facility] Influenza B PCR NEGATIVE Negative [facility] Resp Syncy Virus RNA Qual PCR NEGATIVE Negative [facility] SARS COV2 PCR NEGATIVE Negative [facility] Comment:All test results mus t be correlated with clinical findings.Negative results do not preclude SARS-CoV2, influenza Avirus, influenza B virus and/or RSV infectionand should not be used as the sole basis for treatment orother patient management decisions. Negative results must becombined with clinical observations, patient history, andepidemiological information.This test has not been evaluated for monitoring treatment ofinfection.This test has been authorized by the FDA under an EmergencyUse Authorization (EUA) for use by authorized laboratories.Testing performed on the [employer] GeneXpert utilizingreal-time RT-PCR.All SARS CoV2 and positive influenza A/B results arereported to [facility]. 03/14/2024 8:02 AM EST 03/14/2024 8:07 AM EST Generic External Data Provider LAB MICROBIOLOGY - GENERAL ORDERABLES Final Result [facility] [address] [place] [phone] * Strep A Nucleic Acid (03/14/2024 8:02 AM EST) IDNOW SERIAL# [id number] [facility] Strep A Nucleic Acid Negative Negative [facility] Comment:All test results mus t be correlated with clinical findings.This test has not been evaluated for monitoring treatment ofinfection.Additional follow-up testing using the culture method isrequired if the result is negative and clinical symptomspersist, or in the event of an acute rheumatic feveroutbreak. 03/14/2024 8:02 AM EST 03/14/2024 8:07 AM EST us Generic External Data Provider LAB MICROBIOLOGY - GENERAL ORDERABLES Final Result [facility] [address] [place] [phone] [phone] documented in this encounter Visit Diagnoses Not on filedocumented in this encounter Additional Health Concerns Assessment Noted Time PHQ-9 Depression Total Score: 18 09/05/ 024 1:45 PM EDT documented as of this encounter Care Teams Blood Bank Credit Clerk Relationship Specialty Start Date End Date Anne Carrion MD [address] [place] [address] PCP - General Family Medicine 02/08/18 Nataly Tay NP [address] [place] [address] Drive [address] [place] [address] Urology 03/02/24 documented as of this encounter
--- OUTSIDE RECORDS SUMMARY | 2024-03-14 14:16 | XMS_ITS | Clinical Summary ---
Author Organization [employer] Address [address] [place] [address] 7t [place] [address] Care Team Providers Care Power Operator Name Role Phone Anne Carrion MD Primary Care Provider +1- [phone] Nataly Tay NP Unavailable Allergies Active Allergy Reactions Criticality Noted Date [...] NEEDED FOR RASH. APPLY SPARINGLY. 15 g Active Active Problems Patient Care Coordination No te Formatting of this note migh t be different from the original. [facility] Field Support Technician: Minnie, member services number [phone] [employer] Agency: P[employer]rez Problem Noted Date Diagnosed Date [...] as pharmacomtherapy, [facility] smoking cessation group, and [facility] pharmacy smoking cessation clinic Discussed [facility] recommends annual lung cancer screening with low [...] as pharmacomtherapy, [facility] smoking cessation group, and [facility] pharmacy smoking cessation clinic Discussed USPSTF [...] due after 06/02/24 -eye care facilitated by none -dental home is [facility] - Health care proxy completed and filed Assessment & Plan (06/03/2023 10:34 AM EDT): -next physical exam due after 06/02/24 -eye care facilitated by none -dental home is [facility] - Health care proxy completed and filed Papanicolaou smear of cervix with atypical squamous cells of undetermined significance (ASC-US) 02/26/2022 Overview (02/26/2022): ASCUS on pap 2012 HPV negative with [facility]. repeat PAP 05/04/16 nilm. -Repeat pap done 06/12/2021 Abnormal uterine bleeding 02/26/2022 Overview (11/25/2023): CT done in ER 11/25/23 revealed multiple fibroids Assessment & Plan (02/26/2022 9:31 AM EST): Menses coming every 2 months. US and labs ordered 02/26/2022. Kidney stones 02/26/2022 Overview (03/03/2024): Followed by urology -US 08/23/23 Bilateral nonobstructive renal calculi. No hydronephrosis. -seen by Roger Tay NP of [facility] urology 03/02/24, follow up 6 mo -urine cytology 03/04/24 Urine: Negative for high-grade urothelial carcinoma. Assessment & Plan (02/26/2022 9:30 AM EST): [...] Hospitalized 11/2018 and 12/2021. Improved. Followed by label operator. Continue Tezspire, and Dulera and singulair as well as albuterol prn. Seen by Package Checker Carmine Rivas MD 04/06/23. Nucala changed to Tezspire. Call to Pulmonology to check the status of her injectable medicine 06/03/23 Call placed to [facility] pulmon[facility] spoke to the nurse yesenia who reports patient should be on Tezspire 210mg every 4 weeks and that patient had appt on 04/15/23 for inj but no showed to the visit. Yesenia states they redid the orders for her today and short stay should be reaching out to patient to set up an appt. Referral placed to [facility] Pulmonology as it is closer to home, seen by Dr. Monique Hillman, [facility], FACP,FCCP 07/29/23, no changes made to regimin Assessment & Plan (06/03/2023 10:30 AM EDT): Hospitalized 11/2018 and 12/2021. Improved. Followed by label operator. Continue Tezspire, and Dulera and singulair as well as albuterol prn. Seen by Package Checker Carmine Rivas MD 04/06/23. Nucala changed to Tezspire. Will call to Pulmonology to check the status of her injectable medicine 06/03/23 Referral placed to [facility] Pulmonology as it is closer to home 06/03/23 Assessment & Plan (02/26/2022 9:22 AM EST): Hospitalized 11/2018. Improved. Followed by label operator. Continue Nucala, and Dulera and singulair as well as albuterol prn. Referral sent 12/2021 to pulmonology at [facility], Pt was hospitalized 12/2021 and asthma [...] organization. Date Type Department Care Team Description 03/14/2024 Orders Only GENERIC EXTERNAL DATA DEPARTMENT Provider, Generic External Data 03/08/2024 Travel 03/01/2024 Orders Only GENERIC EXTERNAL DATA DEPARTMENT Provider, Generic External Data Kidney stones (Primary Dx) 02/21/2024 Orders Only [facility] External Provider, [facility] 02/14/2024 Travel 01/31/2024 Travel 12/30/2023 Refill [facility] [address] [place] [address] Jaiden Mccarthy MD Rash 12/21/2023 Refill [facility] [address] [place] [address] Anne Carrion MD Low back pain, unspecified [...] Last Done Comments Alcohol/Substance Use Screening 1997 Family Planning (PISQ) 2000 DTaP/Tdap/Td Vaccines (7 - Td or Tdap) [...] 5 Years) and At-Risk Patients (6 to 49) Years) Completed 06/03/2023 HIB Vaccines Aged Out [...] 2 VIEWS Routine 03/14/2024 8:18 AM EST SARS COV2/INFLUENZA A/B AND RSV RNA QL NAAT Routine 03/14/2024 8:02 AM EST STREP A NUCLEIC ACID Routine 03/14/2024 8:02 AM EST CYTOPATH-CELL ENHANCED Routine 03/01/2024 5:07 PM EST US RENAL BI Routine 02/22/2024 12:53 PM EST LIPID PANEL, STANDARD Routine 06/04/2023 11:20 AM EDT Preventative health care HPV HIGH RISK PCR Routine 06/12/2021 12: 00 AM EDT PAP SMEAR Routine 06/12/2021 12:00 AM EDT ZZZ HISTORICAL HEPATITIS C ANTIBODY Routine 11/08/2019 12:39 PM EDT ZZZ HISTORICAL HIV AB/AG Routine 11/08/2019 12:39 PM EDT from Last 3 Months or Most Recently Relevant to Health Maintenance Results * XR Chest 2 Views (03/14/2024 8:18 AM EST) Anatomical Region Laterality Modality Chest Radiographic Chaparrita ging 03/14/2024 8:18 AM EST Narrative 03/14/2024 8:39 AM EST ? [facility] ?[address] ?[place] [address] ?XRay Report ? Signed ? Patient: Leal Jose Ramon,Marangeli ?MR ?? #: [id number] ? : 1985 ?Acct:[id number] ? Age/Sex: 38 / F ?ADM Date: 02/04/25 ? Loc: HO.ED ? Attending Dr: ? Ordering Physician: Generic ED Physician ?? Date of Service: 03/14/24 ?? Procedure(s): XR chest 2V ?? Accession Number(s): [id number] ? cc: Anne Carrion MD; Generic ED [...] MD in OV> ?03/14/24 0836 ? DD/ ? TD/TT: 03/14/24822 ? Insurance Claims Examiner: ? Procedure Note Julito Huertas - 03/14/[address] [address] XRay Report Signed Patient: Edouard Roy #: [id number] : 1985Acct:[id number] Age/Sex: 38 / FADM Date: 03/14/24 Loc: .ED Attending Dr: Ordering Physician: Generic ED Physician Date of Service: 03/14/24 Procedure(s): XR chest 2V Accession Number(s): [id number] cc: Anne Carrion MD; Generic ED Physician [...] MD Signed By: <Electronically signed by Kelton Rankin MD in OV> 03/14/2436 DD/ 7 TD/TT: 03/14/24822 Insurance Claims Examiner: [facility] External Provider IMG XR PROCEDURES Edited Result - Final * Strep A Nucleic Acid (03/14/2024 8:02 AM EST) IDNOW SERIAL# [id number] [facility] Strep A Nucleic Acid Negative Negative [facility] Comment:All test results mus t [...] LAB MICROBIOLOGY - GENERAL ORDERABLES Final Result [facility] [address] [place] [phone] * (ABNORMAL) SARS-CoV-2 RNA, Influenza A/B, and RSV RNA, Ql NAAT (03/14/2024 8:02 AM EST) Influenza A PCR POSITIVE(A) Negative [facility] Influenza B PCR NEGATIVE Negative [facility] Resp Syncy Virus RNA Qual PCR NEGATIVE Negative [facility] SARS COV2 PCR NEGATIVE Negative [facility] Comment:All test results mus t [...] use by authorized laboratories.Testing performed on the [employer] GeneXpert utilizingreal-time RT-PCR.All SARS CoV2 and positive influenza A/B results arereported to [facility]. 03/14/2024 8:02 AM EST 03/14/2024 8:07 AM EST us Generic External Data Provider LAB MICROBIOLOGY - GENERAL ORDERABLES Final Result Performing Organization Address City/State/[facility] Co de Phone Number [facility] [address] [place] [phone] * Cytopath-cell enhanced (03/01/2024 5:07 PM EST) 03/01/2024 5:07 PM EST 03/02/2024 9:00 AM EST Narrative [facility] - 03/02/2024 6:32 PM EST ----- ------- Name: Claribel Roy ?Age/Sex: 38/F ? : 1985 Unit#: [id number] ?? Attend Dr: Nataly Tay [facility] ?Re03/01/24 ?Status: DEP REF ? Location: HO.LNP ?Disch: ? ----- ------- SPEC : [id number] ?RECD: 03/02/24 ? STATUS: ??SOUT ? REQ NUM: [id number] ? MICHAELLE: 03/01/24-1706 ? SUBM DR: Nataly Tay-BC ? ENTERED: ??03/02/24 ?SP TYPE: Cytology ? OTHR DR: Anne Carrion MD ? ORDERED: ??Cyto-enhanced ? Diagnosis ?? Urine: ??Negative for high-grade urothelial carcinoma. ? COMMENT: ??Examination of a monolayer preparation slide shows many benign superficial ?? squamous cells with bacteria, scattered benign urothelial cells, rare columnar cells with ?? low nuclear:cytoplasmic ratios (? cystitis glandularis), occasional red blood cells, and ?? few inflammatory cells. ?Clinical History Encounter for screening, unspecified ? Material Received ?? Urine ? Gross Description Received is 28 cc of clear yellow fluid from which a ThinPrep slide is prepared. Copies To: ?? Anne Carrion MD ?? [facility] ?? [address] ?? [place] [address] ?? [phone] ?? Nataly Tay-OLU ?? [facility]rology Services ?? [address] [place] [address] [address] ?? [place] ?? [phone] ?? [email or web address] ----- ------- Signed (signature on file) Nati Julia 03/02/241831 ? ----- ------- ? END OF REPORT ? us Generic External Data Provider LAB CYTOLOGY ELIZABETHE BEBETO Final Result [facility] [address] [place] [phone] * US RENAL BI (02/22/2024 12:53 PM EST) Anatomical Region Laterality Modality Abdomen Ultrasound 02/22/2024 12:5 3 PM EST Narrative 02/22/2024 12:55 PM EST ? [facility] ?[address] ?[place] [address] ? Ultrasound Report ? Signed ? Patient: Leal Jose Ramon,Marangeli ?MR ?? #: [id number] ? : 1985 ?Acct:[id number] ? Age/Sex: 38 / F ?ADM Date: /13/25 ? Loc: HO.US ? Attending Dr: Nataly MURPHY ? Ordering Physician: Nataly Tay ?? Date of Service: 02/21/24 ?? Procedure(s): US renal BI ?? Accession Number(s): [id number] ? cc: Anne Carrion MD; Nataly Tay [...] DD/ 1253 ? TD/TT: 02/22/24 1253 ? Insurance Claims Examiner: ? Procedure Note Julito Huertas - 02/22/2024 [place] [address] Ultrasound Report Signed Patient: Edouard Roy #: [id number] : 1985Acct:[id number] Age/Sex: 38 / FADM Date: 02/21/24 Loc: HO.US Attending Dr: Nataly MURPHY Ordering Physician: Nataly Tay Date of Service: 02/21/24 Procedure(s): US renal BI Accession Number(s): [id number] cc: Anne Carrion MD; Nataly Tay CLINICAL [...] 02/22/24 1254 DD/ 1253 TD/TT: 02/22/24 1253 Insurance Claims Examiner: [facility] External Provider IMG US PROCEDURES Final Result * (ABNORMAL) Lipid Panel, Standard (06/04/2023 11:20 AM EDT) Triglycerides 77 <150 mg/dL [facility] Comment:Desirable Triglyceri de: less than 150 mg/dLBorderline High Triglyceride 150-199 mg/dLHigh Triglyceride: 200-499 mg/dLVery High Triglyceride: greater than or equal to 5OO mg/dL Cholesterol 199 <200 mg/dL [facility] Comment:Desirable Cholestero l: less than 200 mg/dLBorderline High Cholesterol: 200-239 mg/dLHigh Cholesterol: greater than 239 mg/dL LDL Cholesterol Calculated 144(H) <100 mg/dL [facility] Comment:Desirable LDL: less than 100 mg/dLNear Optimal/Above Optimal LDL: 110- 129 mg/dLBorderline High LDL: 130-159 mg/dLHigh LDL: 160-189 mg/dLVery High LDL: greater than or equal to 190 mg/dL HDL Cholesterol 40(L) >40 mg/dL [facility] Comment:Desirable HDL: great er than 40 mg/dL Note: This HDL assay may give artificially low results in patients with liver disease. Blood Venous blood specimen / Unknown 06/04/2023 11:20 AM EDT 06/04/2023 1:22 PM EDT Anne Carrion MD LAB BLOOD ORDERABLES Final Result [facility] [address] [place] [phone] * HPV High Risk PCR (06/12/2021 12:00 AM EDT) Swab Cervical swab / Unknown Anne Carrion MD LAB MICROBIOLOGY - GENERAL ORDERABLES Final Result Performing Organization Address [facility] de Phone Number [facility] [address] [place] [phone] * Pap Smear (06/12/2021 12:00 AM EDT) Swab Anne Carrion MD LAB CYTOLOGY ORDERABLES Fi nal Result Performing Organization Address [facility] de Phone Number [facility] [address] [place] [phone] * HEPATITIS C ANTIBODY (11/08/2019 12:39 PM EDT) HEPATITIS C ANTIBODY [facility]ACTIVE [facility] Comment: Antibodies to HCV not detected; does not exclude early acute HCV infection. 11/08/2019 12:3 9 PM EDT Sandhya Brody HISTORICAL/NON ORDERABLE LABS Fi nal Result Performing Organization Address [facility] de Phone Number [facility] [address] [place] [address], * HIV AB/AG (11/08/2019 12:39 PM EDT) HIV AG/AB NONREACTIVE NR [facility]OUND[facility] ON LAB [...] detection of this assay. ?? The [employer] HIV Ag/Ab Combo assay result and supplemental assay results should be interpreted in conjunction with the patient's clinical presentation, history and other laboratory results. ??If the results are inconsistent with clinical evidence, additional testing is suggested to confirm the result. 11/08/2019 12:3 9 PM EDT us Sandhya Brody HISTORICAL/NON ORDERABLE LABS Fi nal Result [facility] [address] from Last 3 Months or Most Recently Relevant to Health Maintenance Insurance - [employer] Care Teams Power Operator Relationship Specialty Start Date End Date Murali, MD Anne [address] [place] [address] PCP - General Family Medicine 02/08/18 Nataly Tay NP [address] [place] [address] Drive [address] [place] [address] Urology 03/02/24
--- OUTSIDE RECORDS SUMMARY | 2024-03-14 14:16 | XMS_ITS | Encounter Summary ---
Author Organization [employer] Address [address] [facility] 7t [place] [address] Care Team Providers Care Oak Tanner Name Role Phone Anne Carrion MD Primary Care Provider +1- [phone] Nataly Tay NP Unavailable Encounter Details Date Type Department Care Team ([facility] st Contact Info) Description 03/01/2024 Orders Only GENERIC EXTERNAL DATA DEPARTMENT Provider, Generic External Data Kidney stones (Primary Dx) Social History Tobacco Use Types Packs/Day Years [...] Procedure Name Priority Date/Time Associated Diagnosis Comments CYTOPATH-CELL ENHANCED Routine 03/01/2024 5:07 PM EST documented in this encounter Results * Cytopath-cell enhanced (03/01/2024 5:07 PM EST) 03/01/2024 5:07 PM EST 03/02/2024 9:00 AM EST [facility] - 03/02/2024 6:32 PM EST ----- ------- Name: Claribel Roy ?Age/Sex: 38/F ? : 1985 Unit#: [id number] ?? Attend Dr: Nataly Tay [facility] ?Re03/01/24 ?Status: DEP REF ? Location: HO.LNP ?Disch: ? ----- ------- SPEC : [id number] ?RECD: 03/02/24 ? STATUS: ??SOUT ? REQ NUM: [id number] ? MICHAELLE: 03/01/24-170 ? SUBM DR: Nataly Tay ? ENTERED: ??03/02/24 ?SP TYPE: Cytology ? [...] Copies To: ?? Anne Carrion MD ?? [facility] ?? [address] ?? [place] [address] ?? [phone] ?? Nataly Tay ?? [facility] Urology Services ?? [address] [place] [address] Dr. [address] ?? [place] [address] ?? [phone] ?? [email or web address] ----- ------- Signed (signature on file) Nati Dumont 03/02/241831 ? ----- ------- ? END OF REPORT ? us Generic External Data Provider LAB CYTOLOGY ABBY TATE Final Result [facility] [address] [place] [phone] documented in this encounter Visit Diagnoses Diagnosis Kidney stones- Primary Calculus of kidney documented in this encounter Additional Health Concerns Assessment Noted Time PHQ-9 Depression Total Score: 18 //2 024 1:45 PM EDT documented as of this encounter Care Teams Oak Tanner Relationship Specialty Start Date End Date Anne Carrion MD [address] [place] [address] [place] [address] PCP - General Family Medicine 02/08/18 Nataly Tay NP [address] [place] [address] Drive [address] [place] [address] Urology 03/02/24 documented as of this encounter
--- OUTSIDE RECORDS SUMMARY | 2024-03-14 14:16 | XMS_ITS | Encounter Summary ---
Author Organization [employer] Address [address] [facility] 7t [place] [address] Care Team Providers Care Inclusion Internship Name Role Phone Anne Carrion MD Primary Care Provider +1- [phone] Nataly Tay ACADEMIC SERVICES PROFESSIONAL Unavailable Reason for Visit * Reason Onset Date Comments Nurse Triage 11/29/2023 Encounter Details Date Type Department Care Team ([facility] st Contact Info) Description 11/29/2023 Telephone [facility] [address] [place], [place] [phone] Anne Carrion MD [address] [place], [place] [phone] Nurse Triage Social History Tobacco Use Types [...] Triage call Pt was seen in ED [facility] 11/25/23 , report is on the chart. [...] documented as of this encounter Care Teams Inclusion Internship Relationship Specialty Start Date End Date Anne Carrion MD [address] [place] [address] PCP - General Family Medicine 02/08/18 Nataly Tay NP [address] [place] [address] [address] [place] [address] Urology 03/02/24 documented as of this encounter
--- OUTSIDE RECORDS SUMMARY | 2024-03-14 14:16 | XMS_ITS | Encounter Summary ---
Author Organization [employer] Address [address] [facility] 7t [place] [address] Care Team Providers Care Communications Marketing Intern Name Role Phone Anne Carrion MD Primary Care Provider +1- [phone] Encounter Details Date Type Department Care Team [...] documented as of this encounter Care Teams Communications Marketing Intern Relationship Specialty Start Date End Date Anne Carrion MD [address] [place] [address] PCP - General Family Medicine 02/08/18 documented as of this encounter
--- OUTSIDE RECORDS SUMMARY | 2024-03-14 14:16 | XMS_ITS | Encounter Summary ---
Author Organization [employer] Address [address] [facility] 7t [place] [address] Care Team Providers Care Electron Beam Machine Welder Setter Name Role Phone Anne Carrion MD Primary Care Provider +1- [phone] Nataly Tay NP Unavailable Encounter Details Date Type Department Care Team (Latest Contact Info) Description 03/08/2024 Travel Social History Tobacco Use Types Packs/Day [...] documented as of this encounter Care Teams Electron Beam Machine Welder Setter Relationship Specialty Start Date End Date Anne Carrion MD [address] [place] [address] PCP - General Family Medicine 02/08/18 Nataly Tay NP [address] [place] [address] Urology 03/02/24 documented as of this encounter
--- OUTSIDE RECORDS SUMMARY | 2024-03-14 14:16 | XMS_ITS | Encounter Summary ---
Author Organization [employer] Address [address] [facility] 7t [place] [address] Care Team Providers Care County Agent Name Role Phone Anne Carrion MD Primary Care Provider +1- [phone] Nataly Tay NP Unavailable Reason for Visit * Reason Comments Med Refill Encounter Details Date Type Department Care Team (Late st Contact Info) Description 01/07/2023 Refill [facility] [address] [place] [address] Jaiden Mccarthy MD [address] [place] [address] Rash Social History Tobacco Use Types Packs/Day [...] eruption documented in this encounter Care Teams County Agent Relationship Specialty Start Date End Date Anne Carrion MD [address] [place] [address] PCP - General Family Medicine 02/08/18 Nataly Tay NP [address] [place] [address] Urology 03/02/24 documented as of this encounter
--- OUTSIDE RECORDS SUMMARY | 2024-03-14 14:16 | XMS_ITS | Encounter Summary ---
Author Organization [employer] Address [address] [facility] 7t [place] [address] Care Team Providers Care Clinical Trial Educator Name Role Phone Anne Carrion MD Primary Care Provider +1- [phone] Encounter Details Date Type Department Care Team ([facility] st Contact Info) Description 02/21/2024 Orders Only [facility] External Provider, [facility] Social History Tobacco Use Types Packs/Day [...] EST Narrative 02/22/2024 12:55 PM EST ? [facility] ?[address] ?[place] [address] ? Ultrasound Report ? Signed ? Patient: Leal Jose Ramon,Marangeli ?MR ?? #: [id number] ? : 1985 ?Acct:[id number] ? Age/Sex: 38 / F ?ADM Date: 02/21/24 ? Loc: HO.US ? Attending Dr: Nataly MURPHY ? Ordering Physician: Nataly Tay ?? Date of Service: 02/21/24 ?? Procedure(s): US renal BI ?? Accession Number(s): [id number] ? cc: Anne Carrion MD; Nataly Tay [...] DD/ 52 ? TD/TT: 01/14/25 1253 ? Campus Wellness Coordinator: ? Procedure Note Kiya, Image - 02/22/2024 [place] [address] Ultrasound Report Signed Patient: Edouard Roy #: [id number] : 1985Acct:[id number] Age/Sex: 38 / FADM Date: 02/21/24 Loc: HO.US Attending Dr: Nataly MURPHY Ordering Physician: Nataly Tay Date of Service: 02/21/24 Procedure(s): US renal BI Accession Number(s): [id number] cc: Anne Carrion MD; Nataly Tay CLINICAL [...] 02/22/24 1254 DD/ 1253 TD/TT: 02/22/24 1253 Campus Wellness Coordinator: [facility] External Provider IMG US PROCEDURES Final Result documented in this encounter Visit Diagnoses Not on filedocumented in this encounter Additional Health Concerns Assessment Noted Time PHQ-9 Depression Total Score: 18 07/29/2 024 1:45 PM EDT documented as of this encounter Care Teams Clinical Trial Educator Relationship Specialty Start Date End Date Anne Carrion MD [address] [place] [address] PCP - General Family Medicine 02/08/18 documented as of this encounter
== END 2024-03-14 14:11 | disposition left against medical advice (07) ==
PROVIDERS: Emergency Provider Emergency Medicine; PCP Family Medicine
DX: R05.9 Cough, unspecified (principal); M79.10 Myalgia, unspecified site; R50.9 Fever, unspecified; R11.2 Nausea with vomiting, unspecified; Z03.818 Encounter for observation for suspected exposure to other biological agents ruled out
CPT/HCPCS: 0241U; 71046; 87651; 99281; 99283

== ENCOUNTER → 2024-03-14 08:18 | Outpatient (BNV) | payer OTHER, SELFPAY | PROVIDERS: PCP Family Medicine; Visit Provider Radiology Diagnostic Radiology | DX: R05.9 Cough, unspecified (principal) | CPT/HCPCS: 71046 ==

== ENCOUNTER 2024-04-25 10:53 | Outpatient (AMB) | payer OTHER, SELFPAY ==
[2024-04-25 10:57] VITALS: BP 118/80; PULSE 89; O2SAT 99; BMI 29.7
--- NOTE | 2024-04-25 10:57 | A.OFFVIS_ITS ---
Vital Signs 04/25/24 10:57 Height 5 ft Weight 152 lb 1.903 oz BMI 29.7 BP 118/80 Blood Pressure Location Lt brachial Position Sitting Pulse 89 Pulse Source Doppler Pulse Oximetry (%) 99 Oxygen Delivery Method Room Air Intake Visit Reasons: Asthma Allergies benzonatate [BENZONATATE] Allergy (Severe, Verified 04/25/24 11:03) ANAPHYLAXIS banana [BANANA] Allergy (Intermediate, Verified 04/25/24 11:03) RASH coconut [COCONUT] Allergy (Intermediate, Verified 04/25/24 11:03) RASH cucumber [CUCUMBER] Allergy (Intermediate, Verified 04/25/24 11:03) RASH grape [GRAPE] Allergy (Intermediate, Verified 04/25/24 11:03) RASH arthur [ARTHUR] Allergy (Intermediate, Verified 04/25/24 11:03) RASH sulfamethoxazole [From BACTRIM] Allergy (Intermediate, Verified 04/25/24 11:03) RASH trimethoprim [From BACTRIM] Allergy (Intermediate, Verified 04/25/24 11:03) RASH cephalexin [Keflex] Allergy (Unknown, Verified 04/25/24 11:03) Unknown duloxetine [From CYMBALTA] Allergy (Unknown, Verified 04/25/24 11:03) UNKNOWN Sulfa (Sulfonamide Antibiotics) Allergy (Unknown, Verified 04/25/24 11:03) Unknown nitrofurantoin Allergy (Verified 04/25/24 11:03) Rash SEAFOOD Allergy (Intermediate, Uncoded 03/01/24 11:18) RASH antibacterial soap Allergy (Unknown, Uncoded 03/01/24 11:18) rash Tessalon Allergy (Unknown, Uncoded 03/01/24 11:18) Unknown HPI HPI Asthma: Details: 38-year-old lady followed for underlying asthma and environmental allergies. She has been switched from Nucala to Tezspire, a with improvement in her symptoms. She continues on Dulera and albuterol MDI. She denies recent exacerbations. Patient does complain of seasonally worsening dry skin and multiple other environmental allergies. [facility] Medical History Pelviectasis Asthma Kidney stone Hx of migraine headaches Hx of anxiety disorder History of depression Surgical History Hx of bilateral salpingectomy Hx of tubal ligation Hx of section Hx of tonsillectomy Hx laparoscopic cholecystectomy Family History Mother Diabetes mellitus Hypertension Dementia Father Diabetes mellitus Hypertension Social History Alcohol intake: never Patient Tobacco Use Status: Current someday Tobacco user Tobacco use type: Cigarette Cigarettes Per Day: 2 Advance Directives Date on File: 12/11/21 service: No Current occupational status: disabled Current occupation: right handed Female Reproductive History Menstrual Age of Menarche: 10 Review of Systems Const Denies daytime sleepiness, Denies excessive sweating, Denies fatigue, Denies fever(s), Denies lethargy, Denies malaise, Denies night sweats, Denies snoring and Denies weight loss Eyes Denies blurry vision and Denies itchy eyes ENT Denies nasal congestion, Denies post nasal drip, Denies sinus pain, Denies sinus pressure and Denies other ( Thrush) Card Denies chest pain, Denies pedal edema, Denies dyspnea, Denies orthopnea and Denies paroxysmal nocturnal dyspnea Resp Denies cough, Denies hemoptysis, Denies excessive phlegm production, Denies dyspnea, Denies snoring and Denies wheezing GI Denies abdominal pain and Denies heartburn Musc Denies myalgias, Denies arthralgias and Denies joint swelling Skin/Breast Denies rash Neuro Denies memory loss and Denies seizure-like activity Psych Denies abnormal sleep pattern, Denies anxiety and Denies memory loss Endo Denies excessive sweating, Denies fatigue and Denies heat intolerance Egdar/Lymph Denies easy bruising Aller/Immun Denies itchy eyes, Denies seasonal rhinorrhea and Denies wheezing Physical Exam Vital Signs: Last Vital Signs Pulse 89 04/25/24 10:57 BP 118/80 04/25/24 10:57 Pulse Ox 99 04/25/24 10:57 Oxygen Delivery Method Room Air 04/25/24 10:57 BMI result Body Mass Index 29.7 Const General: no acute distress and alert Nutritional Appearance: not obese Orientation/consciousness: Other orientation findings ( oriented) HEENT Head: Yes atraumatic Eyes General: appearance normal, both eyes and all related structures Sclerae: sclerae normal EOM: EOMs intact bilaterally Neck Neck: Yes supple Lymphatic: no lymphadenopathy noted Resp Effort & Inspection: normal respiratory effort and no use of accessory muscles Auscultation: clear to auscultation bilaterally Cardio Rate: regular rate Rhythm: regular rhythm Heart sounds: no gallops, no murmurs and no rubs Skin General skin exam: other ( warm) Extrem General: No clubbing, No cyanosis and No edema Assessment & Plan Assessment & Plan (1) Severe persistent asthma: Code(s): J45.50 - Severe persistent asthma, uncomplicated Category: Medical Plan: Well controlled on Tezspire, Dulera, and albuterol MDI/nebs. Continue current regimen. (2) Environmental allergies: Code(s): Z91.09 - Other allergy status, other than to drugs and biological substances Category: Medical Plan: Improved control on Tezspire, however patient is interested in seeing an keno writer / runner. Will refer to allergy provider. (3) Eczema: Code(s): L30.9 - Dermatitis, unspecified Category: Medical Plan: Worsening over time and seasonally, will refer to Dermatology. Orders: Referrals Dermatology Referral L30.9 - Dermatitis, unspecified Allergy & Immunology Referral Z91.09 - Other allergy status, other than to drugs and biological substances Coding Level of Care Code Est Pt Level 4 (07480) Diagnoses Severe persistent asthma J45.50 Environmental allergies Z91.09 Eczema L30.9
--- OUTSIDE RECORDS SUMMARY | 2024-04-25 12:57 | XMS_ITS | Encounter Summary ---
Author Organization [employer] Address [address] [facility] 7t [place] [address] Care Team Providers Care Mat Repairer Name Role Phone Anne Carrion MD Primary Care Provider +1- [phone] Nataly Tay NP Unavailable Carmine Rivas MD Unavailable [phone] Marivel Bang Unavailable Encounter Details Date Type Department Care Team (Late st Contact Info) Description 04/10/2024 Orders Only [facility] MEDICINE [address] [place], [place] [phone] Anne Carrion MD [address] [place], [place] [phone] Moderate persistent asthma without complication (Primary Dx) Social History Tobacco Use Types Packs/Day Years Used Date Smoking Tobacco: Never Passive Smoke Exposure: Never Smokeless Tobacco: Never Depression Answer Date Recorded Patient Health Questionnaire-9 Score 18 09/06/2023 Patient Health Questionnaire-9 Score 18 09/06/2023 Last PHQ-9: Questionnaire Data Not on file 0 09/06/2023 Housing Stability Answer Date Recorded What is your housing situation today? I have otilio lewis 06/03/[address] you li [...] as of this encounter Visit Diagnoses Diagnosis Moderate persistent asthma without complication- Primary documented in this encounter Additional Health Concerns Assessment Noted Time PHQ-9 Depression Total Score: 18 024 1:45 PM EDT documented as of this encounter Care Teams Mat Repairer Relationship Specialty Start Date End Date Anne Carrion MD [address] [place] [address] PCP - General Family Medicine 02/08/18 Nataly Tay NP [address] [facility] [address] [place] [address] Urology 03/02/24 Carmine Rivas MD [address] [place] [address] Pulmonary Disease 04/10/24 Marivel Bang [address] [place] [address] Orthopaedic Surgery 04/10/24 documented as of this encounter
--- OUTSIDE RECORDS SUMMARY | 2024-04-25 12:57 | XMS_ITS | Encounter Summary ---
Author Organization [employer] [facility] Address [address] [place] [address] 7t [place] [address] Care Team Providers Care Engineering Instructor Name Role Phone Anne Carrion MD Primary Care Provider [phone]- [phone] Nataly Tay NP Unavailable Carmine Rivas MD Unavailable [phone] Marivel Bang Unavailable Reason for Visit * Reason Comments Med Refill Encounter Details Date Type Department Care Team (Late st Contact Info) Description 01/07/2023 Refill [facility] [address] [place], [place] [phone] Jaiden Mccarthy MD [address] [place], [place] [phone] Rash Social History Tobacco Use Types Packs/Day [...] eruption documented in this encounter Care Teams Engineering Instructor Relationship Specialty Start Date End Date Anne Carrion MD [address] [place], [place] [phone] PCP - General Family Medicine 02/08/18 Nataly Tya NP [address] [place] [address] Urology 03/02/24 Carmine Rivas MD [address] [place] [address] Pulmonary Disease 04/10/24 Marivel Bang [address] [place] [address] Orthopaedic Surgery 04/10/24 documented as of this encounter
--- OUTSIDE RECORDS SUMMARY | 2024-04-25 12:57 | XMS_ITS | Patient Health Record ---
Author Organization [facility] Address [address] [facility] [place] [address] Care Team Providers Care Laminating Machine Feeder Name Role Phone Anne Carrion MD Primary Care Provider Radha Kavin Abad Unavailable [phone] Allergies Allergen (clinical drug ingredient) Drug/Non Drug [...] Problem Reflex sympathetic dystrophy of lower extremity (627566598) Complex regional pain syndrome I of right lower limb (G90.521) Active confirmed Problem Mononeuropathy of lower limb (528009083) Neuritis of right foot (G57.91) Active confirmed Plan Of Treatment No Information Insurance Providers Payer Name Payer Address Payer Phone Subscriber Number Group Number Insured Name Patient Relationship to Insured Coverage Start Date Coverage End Date [facility] [employer] Claims [address] [place] [id number] Claribel Leal Self - patient is the insured Medical (General) History Medical History History ICD Code Depression Anxiety disorder Migraines Kidney stones Broken bones Back pain asthma Surgical History Surgery Date(Month/Year) cholecystectomy laparoscopic salpingectomy bilateral section 2011 tonsillectomy tubal ligation foot surgery 1994 elbow sx
--- OUTSIDE RECORDS SUMMARY | 2024-04-25 12:57 | XMS_ITS | Encounter Summary ---
Author Organization [employer] Address [address] [facility] 7t [place] [address] Care Team Providers Care School Lunch Monitor Name Role Phone Anne Carrion MD Primary Care Provider +1- [phone] Nataly Tay NP Unavailable Encounter Details Date Type Department Care Team (Latest Contact Info) Description 03/28/2024 Travel Social History Tobacco Use Types Packs/Day [...] documented as of this encounter Care Teams School Lunch Monitor Relationship Specialty Start Date End Date Anne Carrion MD [address] [place] [address] PCP - General Family Medicine 02/08/18 Nataly Tay NP [address] [address] [place] [address] Urology 03/02/24 documented as of this encounter
--- OUTSIDE RECORDS SUMMARY | 2024-04-25 12:57 | XMS_ITS | Encounter Summary ---
Author Organization [employer] Address [address] [facility] 7t [place] [address] Care Team Providers Care Inside Sales Person Name Role Phone Anne Carrion MD Primary Care Provider [phone]- [phone] Nataly Tay NP Unavailable Carmine Rivas MD Unavailable [phone] Marivel Bang Unavailable Reason for Visit * Reason Onset Date Comments Nurse Triage 11/29/2023 Encounter Details Date Type Department Care Team (Late st Contact Info) Description 11/29/2023 Telephone [facility] [address] [place] [address] Anne Carrion MD [address] [place], [place] [phone] Nurse Triage Social History Tobacco Use Types [...] Triage call Pt was seen in ED [facility] 11/25/23 , report is on the chart. [...] documented as of this encounter Care Teams Inside Sales Person Relationship Specialty Start Date End Date Anne Carrion MD [address] [place] [address] PCP - General Family Medicine 02/08/18 Nataly Tay NP [address] [facility] [address] [place] [address] Urology 03/02/24 Carmine Rivas MD [address] [place] [address] Pulmonary Disease 04/10/24 Marivel Bang [address] [place] [address] Orthopaedic Surgery 04/10/24 documented as of this encounter
--- OUTSIDE RECORDS SUMMARY | 2024-04-25 12:57 | XMS_ITS | Clinical Summary ---
Author Organization [employer] Address [address] [place] [address] 7[address] [place] [address] Care Team Providers Care Power Electronics Research Engineer Name Role Phone Anne Carrion MD Primary Care Provider [phone] Nataly Tay NP Unavailable Carmine Rivas MD Unavailable [phone] Marivel Bang Unavailable Allergies Active Allergy Reactions Criticality Noted [...] that organization. albuterol (2.5 MG/3ML) 0.083% nebulizer solutionIndicat ions:Moderate persistent asthma without complication INHALE 3 ML BY NEBULIZATION ROUTE THREE TIMES DAILY IF NEEDED Active montelukast (Singulair) 10 MG tabletIndicatio ns:Allergic rhinitis, unspecified seasonality, unspecified trigger TAKE 1 TABLET BY MOUTH ONCE DAILY 022 Active cyclobenzaprine (Flexeril) 5 MG tabletIndicatio ns:Low back pain, unspecified back pain laterality, unspecified chronicity, unspecified whether sciatica present Active Diclofenac Sodium 1 % gelIndications: Low back pain, unspecified back pain laterality, unspecified chronicity, unspecified whether sciatica present Active Dupixent 300 MG/2ML injectionIndica tions:Moderate persistent asthma without complication Active Tezspire 210 MG/1.91ML solution prefilled syringeIndicati ons:Moderate persistent asthma without complication 024 Active albuterol 108 (90 Base) MCG/ACT inhalerIndicati ons:Moderate persistent asthma without complication 4 times a day 022 Active mepolizumab (Nucala) 100 mg/mL injectionIndica tions:Moderate persistent asthma without complication 100 mg. 023 Active cetirizine (ZyrTEC) 10 MG tabletIndicatio ns:Allergic rhinitis, unspecified seasonality, unspecified trigger Take 1 tablet (10 mg) by mouth Once per day. 90 tablet 3 Active FLUoxetine (PROzac) 20 MG capsuleIndicati ons:Severe episode of recurrent major depressive disorder, without psychotic features (CMS/HCC) Take 1 capsule (20 mg) by mouth Once per day. 30 capsule 024 2024 Active cholecalciferol (Vitamin D-3) 25 MCG (1000 UT) tabletIndicatio ns:Vitamin D Deficiency Take 1 tablet (25 mcg) by mouth Once per day. 90 tablet 024 2024 Active EPINEPHrine (Epipen) 0.3 MG/0.3ML injection syringeIndicati ons:Moderate persistent asthma without complication Use IM prn anaphlayxis 1 each 2 Active nabumetone (Relafen) 500 MG tablet Take 1 tablet (500 mg) by mouth 2 times daily. 60 tablet 024 2024 Active Acetaminophen Extra Strength 500 MG tabletIndicatio ns:Low back pain, unspecified back pain laterality, unspecified chronicity, unspecified whether sciatica present TAKE 2 TABLETS BY MOUTH EVERY 6 HOURS NEEDED 60 tablet 2 Active triamcinolone (Kenalog) 0.1 % creamIndication s:Rash APPLY TOPICALLY IN THE MORNING AND AT BEDTIME IF NEEDED FOR RASH. APPLY SPARINGLY. 15 g 024 Active mometasone-form oterol (Dulera) 200-5 MCG/ACT inhalerIndicati ons:Moderate persistent asthma without complication Inhale 2 puffs in the morning and at bedtime. Rinse mouth with water after use to reduce aftertaste and incidence of candidiasis. Do not swallow. Active Dulera 200-5 MCG/ACT inhaler 023 2024 Discontinued(M ed list cleanup (will not trigger notification to Pharmacy)) Active Problems Patient Care Coordination No te Formatting of this note migh t be different from the original. [facility] It Administrative Assistant: Minnie, member services number [phone] Cigarette Maker Agency: [employer] Problem Noted Date Diagnosed Date [...] as pharmacomtherapy, [facility] smoking cessation group, and [facility] smoking cessation clinic Discussed USPSTF recommends [...] as pharmacomtherapy, [facility] smoking cessation group, and [facility] pharmacy smoking cessation clinic Discussed USPSTF recommends [...] fluoxetine 12/16/2022 Preventative health care 11/25/2022 Overview (04/10/2024): -next physical exam due after 06/02/24 -[facility] filed Assessment & Plan (06/03/2023 10:34 AM EDT): -next physical exam due after 06/02/24 -[facility] - Health care proxy completed and filed Papanicolaou smear of cervix with atypical squamous cells of undetermined significance (ASC-US) 02/26/2022 Overview (02/26/2022): ASCUS on pap 2012 HPV negative with [facility]. repeat PAP 05/04/16 nilm. -Repeat pap done 06/12/2021 Abnormal uterine bleeding 02/26/2022 Overview (11/25/2023): CT done in ER 11/25/23 revealed multiple fibroids Assessment & Plan (02/26/2022 9:31 AM EST): Menses coming every 2 months. US and labs ordered 02/26/2022. Kidney stones 02/26/2022 Overview (03/03/2024): Followed by urology -US 08/23/23 Bilateral nonobstructive renal calculi. No hydronephrosis. -seen by Roger Tay NP of [facility] urology 03/02/24, follow up 6 mo -urine [...] Hospitalized 11/2018 and 12/2021. Improved. Followed by [employer]. Continue Tezspire, and Dulera and singulair as well as albuterol prn. Seen by Section Leader And Machine Setter Carmine Rivas MD 04/06/23. Nucala changed to Tezspire. Call to Pulmonology to check the status of her injectable medicine 06/03/23 Call placed to [facility] spoke to the nurse yesenia who reports patient should be on Tezspire 210mg every 4 weeks and that patient had appt on 04/15/23 for inj but no showed to the visit. Yesenia states they redid the orders for her today and short stay should be reaching out to patient to set up an appt. Referral placed to [facility] as it is closer to home, seen by Dr. Monique Hillman, [facility], FACP,FCCP 07/29/23, no changes made to regimin Assessment & Plan (06/03/2023 10:30 AM EDT): Hospitalized 11/2018 and 12/2021. Improved. Followed by [employer] [employer]. Continue Tezspire, and Dulera and singulair as well as albuterol prn. Seen by Section Leader And Machine Setter Carmine Rivas MD 04/06/23. Nucala changed to Tezspire. Will call to Pulmonology to check the status of her injectable medicine 06/03/23 Referral placed to [facility] as it is closer to home 06/03/23 Assessment & Plan (02/26/2022 9:22 AM EST): Hospitalized 11/2018. Improved. Followed by [employer]. Continue Nucala, and Dulera and singulair as well as albuterol prn. Referral sent 12/2021 to pulmonology at [facility], Pt was hospitalized 12/2021 and asthma [...] organization. Date Type Department Care Team Description 04/25/2024 Travel 04/10/2024 Orders Only [facility] [address] [place] [address] Anne Carrion MD Moderate persistent asthma without complication (Primary Dx) 03/28/2024 Travel 03/14/2024 Orders Only GENERIC EXTERNAL DATA DEPARTMENT Provider, Generic External Data 03/08/2024 Travel 03/01/2024 Orders Only GENERIC EXTERNAL DATA DEPARTMENT Provider, Generic External Data Kidney stones (Primary Dx) 02/21/2024 Orders Only [facility] External Provider, [facility] 02/14/2024 Travel 01/31/2024 Travel from Last 3 Months Immunizations Name Administration [...] EST Narrative 03/14/2024 8:39 AM EST ? [facility] ?[address] ?[place] [address] ?XRay Report ? Signed ? Patient: Leal Jose Ramon,Marangeli ?MR ?? #: [id number] ? : 1985 ?Acct:[id number] ? Age/Sex: 38 / F ?ADM Date: 03/14/24 ? Loc: HO.ED ? Attending Dr: ? Ordering Physician: Generic ED Physician ?? Date of Service: 03/14/24 ?? Procedure(s): XR chest 2V ?? Accession Number(s): [id number] ? cc: Anne Carrion MD; Generic ED [...] ??Kelton Rankin MD ??03/14/2024 08:36 AM EST ? Dictated By: ?Kelton Rankin MD ? Signed By: ?<Electronically signed by Kelton Rankin MD in OV> ?03/14/24 0836 ? DD/ ? TD/TT: 03/14/24822 ? Seed Yeast Operator: ? Procedure Note Marcossalvatoreaishaashley, Image - 03/14/2024 [place] [address] XRay Report Signed Patient: Edouard Roy #: [id number] : 1985Acct:[id number] Age/Sex: 38 / FADM Date: 03/14/24 Loc: HO.ED Attending Dr: Ordering Physician: Generic ED Physician Date of Service: 03/14/24 Procedure(s): XR chest 2V Accession Number(s): [id number] cc: Anne Carrion MD; Generic ED Physician [...] signed by Kelton Rankin MD in OV> 03/14/24835 DD/ 7 TD/TT: 03/14/24822 Seed Yeast Operator: [facility] External Provider IMG XR PROCEDURES Edited Result - Final * Strep A Nucleic Acid (03/14/2024 8:02 AM EST) IDNOW SERIAL# [id number] [facility] Strep A Nucleic Acid Negative Negative [facility] Comment:All test results mus [...] LAB MICROBIOLOGY - GENERAL ORDERABLES Final Result [facility] [address] [place] [phone] * (ABNORMAL) SARS-CoV-2 RNA, Influenza A/B, and RSV RNA, Ql NAAT (03/14/2024 8:02 AM EST) Influenza A PCR POSITIVE(A) Negative [facility] Influenza B PCR NEGATIVE Negative [facility] Resp Syncy Virus RNA Qual PCR NEGATIVE Negative [facility] SARS COV2 PCR NEGATIVE Negative [facility] Comment:All test results mus [...] use by authorized laboratories.Testing performed on the [employer] GeneXpert utilizingreal-time RT-PCR.All SARS CoV2 and positive influenza A/B results arereported to [facility]. 03/14/2024 8:02 AM EST 03/14/2024 8:07 AM EST us Generic External Data Provider LAB MICROBIOLOGY - GENERAL ORDERABLES Final Result [facility] [address] [place] [phone] * Cytopath-cell enhanced (03/01/2024 5:07 PM EST) 03/01/2024 5:07 PM EST 03/02/2024 9:00 AM EST Narrative [facility] - 03/02/2024 6:32 PM EST ----- ------- Name: Claribel Roy ?Age/Sex: 38/F ? : 1985 Unit#: [id number] ?? Attend Dr: Nataly Tay [facility] ?Re03/01/24 ?Status: DEP REF ? Location: HO.LNP ?Disch: ? ----- ------- SPEC : [id number] ?RECD: 03/02/24 ? STATUS: ??SOUT ? REQ NUM: [id number] ? MICHAELLE: 03/01/24-275 ? SUBM DR: Nataly Tay [employer]ER AND RENDERER-BC ? ENTERED: ??03/02/244 ?SP TYPE: Cytology ? OTHR DR: Anne [...] Copies To: ?? Anne Carrion MD ?? [facility] ?? [address] ?? [place] [address] ?? [phone] ?? Nataly Tay [facility]- ?? [facility] Urology Services ?? [address] ?? [place] [address] ?? [phone] ?? [email or web address] ----- ------- Signed (signature on file) Nati [place] 03/02/241831 ? ----- ------- ? END OF REPORT ? us Generic External Data Provider LAB CYTOLOGY ABBY TATE Final Result [facility] [address] [place] [address] [phone] * US RENAL BI (02/22/2024 12:53 PM EST) Anatomical Region Laterality Modality Abdomen Ultrasound 02/22/2024 12:5 3 PM EST Narrative 02/22/2024 12:55 PM EST ? [facility] ?[address] ?[place] [address] ? Ultrasound Report ? Signed ? Patient: Leal Jose Ramon,Marangeli ?MR ?? #: [id number] ? : 1985 ?Acct:[id number] ? Age/Sex: 38 / F ?ADM Date: 02/21/24 ? Loc: HO.US ? Attending Dr: Nataly MURPHY ? Ordering Physician: Nataly Tay ?? Date of Service: 02/21/24 ?? Procedure(s): US renal BI ?? Accession Number(s): [id number] ? cc: Anne Carrion MD; Nataly Tay [...] DD/ 1253 ? TD/TT: 02/22/24 1253 ? Seed Yeast Operator: ? Procedure Note Kiya, Image - 02/22/[address] [address] Ultrasound Report Signed Patient: Edouard Roy #: [id number] : 1985Acct:[id number] Age/Sex: 38 / FADM Date: 02/21/24 Loc: HO.US Attending Dr: Nataly GARCIAP-BC Ordering Physician: Nataly Tay Date of Service: 02/21/24 Procedure(s): US renal BI Accession Number(s): [id number] cc: Anne Carrion MD; Nataly Tay [facility] CLINICAL HISTORY: N20.0 - Calculus of [...] 02/22/24 1254 DD/ 1253 TD/TT: 02/22/24 1253 Seed Yeast Operator: [facility] External Provider IMG US PROCEDURES Final Result * (ABNORMAL) Lipid Panel, Standard (06/04/2023 11:20 AM EDT) Triglycerides 77 <150 mg/dL [facility] Comment:Desirable Triglyceri de: less than 150 mg/dLBorderline High Triglyceride 150-199 mg/dLHigh Triglyceride: 200-499 mg/dLVery High Triglyceride: greater than or equal to 5OO mg/dL Cholesterol 199 <200 mg/dL [facility] Comment:Desirable Cholestero l: less than 200 mg/dLBorderline High Cholesterol: 200-239 mg/dLHigh Cholesterol: greater than 239 mg/dL LDL Cholesterol Calculated 144(H) <100 mg/dL [facility] Comment:Desirable LDL: less than 100 mg/dLNear Optimal/Above Optimal LDL: 110- 129 mg/dLBorderline High LDL: 130-159 mg/dLHigh LDL: 160-189 mg/dLVery High LDL: greater than or equal to 190 mg/dL HDL Cholesterol 40(L) >40 mg/dL [facility] Comment:Desirable HDL: great er than 40 mg/dL Note: This HDL assay may give artificially low results in patients with liver disease. Blood Venous blood specimen / Unknown 06/04/2023 11:20 AM EDT 06/04/2023 1:22 PM EDT Anne Carrion MD LAB BLOOD ORDERABLES Final Result Performing Organization Address [facility] Co de Phone Number [facility] [address] [place] [phone] * HPV High Risk PCR (06/12/2021 12:00 AM EDT) Swab Cervical swab / Unknown Anne Carrion MD LAB MICROBIOLOGY - GENERAL ORDERABLES Final Result Performing Organization Address [facility] Co de Phone Number [facility] [address] [place] [phone] * Pap Smear (06/12/2021 12:00 AM EDT) Swab Anne Carrion MD LAB CYTOLOGY ORDERABLES Fi nal Result Performing Organization Address [facility] de Phone Number [facility] [address] [place] [phone] * HEPATITIS C ANTIBODY (11/08/2019 12:39 PM EDT) Pathologist [facility] HEPATITIS C ANTIBODY NONREACTIVE NONREACTIVE [facility] Comment: Antibodies to HCV not detected; does not exclude early acute HCV infection. 11/08/2019 12:3 9 PM EDT Sandhya Brody HISTORICAL/NON ORDERABLE LABS Fi nal Result Performing Organization Address [facility] de Phone Number [facility] [address] * HIV AB/AG (11/08/2019 12:39 PM [...] detection of this assay. ?? The [employer] Water Safety Instructor HIV Ag/Ab Combo assay result and supplemental assay results should be interpreted in conjunction with the patient's clinical presentation, history and other laboratory results. ??If the results are inconsistent with clinical evidence, additional testing is suggested to confirm the result. 11/08/2019 12:3 9 PM EDT us Sandhya Brody HISTORICAL/NON ORDERABLE LABS Fi nal Result [facility] [address] from Last 3 Months or Most Recently Relevant to Health Maintenance Insurance CARE Care Teams Power Electronics Research Engineer Relationship Specialty Start Date End Date [place], MD Anne [address] [place] [phone] PCP - General Family Medicine 02/08/18 Nataly Tay NP [address] [place] [address] Urology 03/02/24 Carmine Rivas MD [address] [place] [phone] Pulmonary Disease 04/10/24 Marivle Bang [address] [place] [address] Orthopaedic Surgery 04/10/24
--- OUTSIDE RECORDS SUMMARY | 2024-04-25 12:57 | XMS_ITS | Encounter Summary ---
Author Organization [employer] Address [address] [facility] [address] [place] [address] Care Team Providers Care Brine Room Laborer Name Role Phone Anne Carrion MD Primary Care Provider [phone] Nataly Tay NP Unavailable Carmine Rivas MD Unavailable [phone] Marivel Bang Unavailable Encounter Details Date Type Department Care Team (Latest Contact Info) Description 04/25/2024 Travel Social History Tobacco Use Types Packs/Day [...] t he electric, gas, oil or water [employer] threatened to shut off services in your [...] documented as of this encounter Care Teams Brine Room Laborer Relationship Specialty Start Date End Date Anne Carrion MD [address] [place] [phone] PCP - General Family Medicine 02/08/18 Nataly Tay NP [address] [place] [address] Urology 03/02/24 Carmine Rivas MD [address] [place] [phone] Pulmonary Disease 04/10/24 Marivel Bang [address] [place] [address] Orthopaedic Surgery 04/10/24 documented as of this encounter
== END 2024-04-25 11:12 | disposition home or self-care (01) ==
LOC: HO.HPS 10:54
PROVIDERS: PCP Family Medicine; Visit Provider Internal Medicine Pulmonary Disease
DX: J45.50 Severe persistent asthma, uncomplicated (principal); Z91.09 Other allergy status, other than to drugs and biological substances; L30.9 Dermatitis, unspecified
CPT/HCPCS: 99214

== ENCOUNTER → 2024-04-25 10:53 | Outpatient (BNVA) | payer OTHER, SELFPAY | PROVIDERS: PCP Family Medicine; Visit Provider Internal Medicine Pulmonary Disease | DX: J45.50 Severe persistent asthma, uncomplicated (principal); L30.9 Dermatitis, unspecified; Z91.09 Other allergy status, other than to drugs and biological substances | CPT/HCPCS: 99212 ==

== ENCOUNTER 2024-04-27 13:01 | Outpatient (REF) | payer OTHER, SELFPAY ==
[2024-04-27 15:12] LABS: Hematocrit 36.3 % (37.0-47.0); Hemoglobin 12.5 g/dl (12.0-16.0); Mean Corpuscular HGB Conc 34.4 g/dl (31.0-35.0); Mean Corpuscular Hemoglobin 28.3 pg (27.0-33.0); Mean Corpuscular Volume 82.3 fL (80.0-98.0); Mean Platelet Volume 9.1 fL (9.4-12.3); Platelet Count 384 X10*3/uL (160-400); Red Blood Count 4.41 X10*6/uL (4.20-5.50); Red Cell Distribution Width 13.8 % (11.0-16.0); White Blood Count 8.7 X10*3/uL (4.8-10.8)
[2024-04-27 16:09] LABS: HCG Quantitative < 2 mIU/mL; TSH reflex Free T4 3.76 uIU/mL (0.32-4.0)
== END 2024-04-27 13:02 | disposition home or self-care (01) ==
LOC: HO.LAB 13:01
PROVIDERS: PCP Family Medicine; Visit Provider Obstetrics & Gynecology
DX: Z13.89 Encounter for screening for other disorder (principal)
CPT/HCPCS: 36415; 84443; 84702; 85027

== ENCOUNTER 2024-04-27 13:01 | Outpatient (AMB) | payer OTHER, SELFPAY ==
--- NOTE | 2024-04-27 13:23 | MHC.OFFVIS ---
Vital Signs 04/27/24 13:28 Height 5 ft Weight 152 lb BMI 29.7 BP 118/70 Intake Visit Reasons: AUB Intake Note: Last pap smear per patient 1 year ago, normal. Apartment Maintenance Supervisor: Apartment Maintenance Supervisor Present (Tiffanie) Accompanied by: Self / Same As Patient Allergies benzonatate [BENZONATATE] Allergy (Severe, Verified 04/27/24 13:26) ANAPHYLAXIS banana [BANANA] Allergy (Intermediate, Verified 04/27/24 13:26) RASH coconut [COCONUT] Allergy (Intermediate, Verified 04/27/24 13:26) RASH cucumber [CUCUMBER] Allergy (Intermediate, Verified 04/27/24 13:26) RASH grape [GRAPE] Allergy (Intermediate, Verified 04/27/24 13:26) RASH arthur [ARTHUR] Allergy (Intermediate, Verified 04/27/24 13:26) RASH sulfamethoxazole [From BACTRIM] Allergy (Intermediate, Verified 04/27/24 13:26) RASH trimethoprim [From BACTRIM] Allergy (Intermediate, Verified 04/27/24 13:26) RASH cephalexin [Keflex] Allergy (Unknown, Verified 04/27/24 13:26) Unknown duloxetine [From CYMBALTA] Allergy (Unknown, Verified 04/27/24 13:26) UNKNOWN Sulfa (Sulfonamide Antibiotics) Allergy (Unknown, Verified 04/27/24 13:26) Unknown nitrofurantoin Allergy (Verified 04/27/24 13:26) Rash SEAFOOD Allergy (Intermediate, Uncoded 03/01/24 11:18) RASH antibacterial soap Allergy (Unknown, Uncoded 03/01/24 11:18) rash Tessalon Allergy (Unknown, Uncoded 03/01/24 11:18) Unknown Is last menstrual period known: Yes Last menstrual period: 04/08/24 Post menopausal: No Patient : No HPI Comments Details: Presenting complaining of irregular menstrual cycles associated with pelvic cramping over the last few months PFSH Medical History Pelviectasis Asthma Kidney stone Hx of migraine headaches Hx of anxiety disorder History of depression Surgical History Hx of bilateral salpingectomy Hx of tubal ligation Hx of section Hx of tonsillectomy Hx laparoscopic cholecystectomy Family History Mother Diabetes mellitus Hypertension Dementia Father Diabetes mellitus Hypertension Social History Alcohol intake: never Patient Tobacco Use Status: Current someday Tobacco user Tobacco use type: Cigarette Cigarettes Per Day: 2 Advance Directives Date on File: 12/11/21 Patient : No service: No Current occupational status: disabled Current occupation: right handed Female Reproductive History Menstrual Age of Menarche: 10 Duration of menses: 3-5 days Date of last menstrual period: 04/08/24 Total pregnancies: 2 Full term: 1 Premature: 1 History of abnormal pap smear: Yes (18 years ago) Date of Mammogram: 05/14/22 (bi rad 2) Review of Systems Const All systems reviewed & are unremarkable except as noted in HPI and below Card Reports as per HPI Resp Reports as per HPI GI Reports as per HPI and Reports no additional complaints Reports as per HPI Physical Exam Vital Signs: Last Vital Signs BP 118/70 04/27/24 13:28 BMI result Body Mass Index 29.7 Const General: cooperative, healthy appearing and comfortable Chest Chest palpation & inspection: normal inspection of the chest and normal palpation of entire chest wall Breast/axilla inspection: normal inspection of the breasts and normal inspection of the axillae Breast/axilla palpation: normal palpation of the breasts, normal palpation of the axillae and no axillary lymphadenopathy Resp Effort & Inspection: normal respiratory effort Auscultation: clear to auscultation bilaterally Percussion: percussion normal Cardio Palpation: normal PMI Rate: regular rate Rhythm: regular rhythm Heart sounds: no murmurs and no rubs Peripheral pulses: Peripheral pulses 2+ throughout GI Inspection: Yes normal to inspection Palpation (GI): Soft to palpation, nontender, no guarding, not rigid and No hepatosplenomegaly present Percussion: Yes normal to percussion Auscultation: normal bowel sounds Rectal Exam - Female: deferred General: Yes bladder normal to palpation External Female Exam: No lesion Speculum Exam - Vagina: normal appearance of the vagina, normal palpation, normal vaginal discharge and not erythematous Speculum Exam - Cervix: normal appearance of the cervix and normal palpation Bimanual exam- vagina & uterus: normal bimanual exam, normal palpation, uterine size normal, bladder normal to palpation, consistency normal and normal palpation Bimanual Exam- Adnexa, other: normal adnexae, no masses and no tenderness Assessment & Plan Assessment & Plan (1) Abnormal uterine bleeding (AUB): Code(s): N93.9 - Abnormal uterine and vaginal bleeding, unspecified Category: Medical Plan: Co testing done, GC and chlamydia taken CBC, TSH, HCG, and pelvic ultrasound ordered. Discussed with the patient the different causes of abnormal bleeding including thyroid disorders, uterine and ovarian pathology, endometrial hyperplasia, carcinoma and other potential causes. Discussed with the patient the work up including CBC (to r/o anemia), TSH, pelvic Ultrasound, endometrial biopsy to r/o endometrial pathology. All questions answered and the patient verbalized understanding. Instructed the patient to schedule an appointment for an endometrial biopsy in 2 weeks. Orders: Orders TSH reflex Free T4 Today N93.9 - Abnormal uterine and vaginal bleeding, unspecified US pelvic and transvaginal Today N93.9 - Abnormal uterine and vaginal bleeding, unspecified HCG Quantitative Today N93.9 - Abnormal uterine and vaginal bleeding, unspecified Complete Blood Count no Diff Today N93.9 - Abnormal uterine and vaginal bleeding, unspecified Coding Level of Care Code New Pt Level 3 (89365) Diagnoses Abnormal uterine bleeding (AUB) N93.9
[2024-04-27 13:28] VITALS: BP 118/70; BMI 29.7
--- OUTSIDE RECORDS SUMMARY | 2024-04-27 15:28 | XMS_ITS | Encounter Summary ---
Author Organization [facility] Address [address] [place] [address] 7t [place] [address] Care Team Providers Care Photographer Name Role Phone Anne Carrion MD Primary Care Provider [phone] Nataly Tay NP Unavailable Carmine Rivas MD Unavailable [phone] Marivel Bang Unavailable Reason for Visit * Reason Comments Med Refill Encounter Details Date Type Department Care Team (Late st Contact Info) Description 01/07/2023 Refill [facility] [address] [place], [place] [phone] Jaiden Mccarthy MD [address] [place], [place] [phone] Rash Social History Tobacco Use Types Packs/Day [...] eruption documented in this encounter Care Teams Photographer Relationship Specialty Start Date End Date Anne Carrion MD [address] [place], [place] [phone] PCP - General Family Medicine 02/08/18 Nataly Tay NP [address] [place] [address] Urology 03/02/24 Carmine Rivas MD [address] [place] [place] [address] Pulmonary Disease 04/10/24 Marivel Bang [address] [place] [address] Orthopaedic Surgery 04/10/24 documented as of this encounter
--- OUTSIDE RECORDS SUMMARY | 2024-04-27 15:28 | XMS_ITS | Encounter Summary ---
Author Organization [employer] Address [address] [facility] 7t [place] [address] Care Team Providers Care Clinical Team Lead Name Role Phone Anne Carrion MD Primary Care Provider [phone]- [phone] Nataly Tay NP Unavailable Carmine Rivas MD Unavailable [phone] Marivel Bang Unavailable Encounter Details Date Type Department Care Team (Late st Contact Info) Description 04/10/2024 Orders Only [facility] MEDICINE [address] [place], [place] [phone] Anne Carrion MD 230 [place], [place] [phone] Moderate persistent asthma without complication (Primary Dx) [...] as of this encounter Care Teams Clinical Team Lead Relationship Specialty Start Date End Date Anne Carrion MD [address] [place] [address] PCP - General Family Medicine 02/08/18 Nataly Tay NP 10 [facility] [address] [place] [address] Urology 03/02/24 Carmine Rivas MD [address] [place] [address] Pulmonary Disease 04/10/24 Marivel Bang [address] [place] [address] Orthopaedic Surgery 04/10/24 documented as of this encounter
--- OUTSIDE RECORDS SUMMARY | 2024-04-27 15:28 | XMS_ITS | Encounter Summary ---
Author Organization [employer] Address [address] [facility] 7t [place] [address] Care Team Providers Care Aircraft Skin Burnisher Name Role Phone Anne Carrion MD Primary Care Provider [phone]- [phone] Nataly Tay NP Unavailable Carmine Rivas MD Unavailable [phone] Marivel Bang Unavailable Reason for Visit * Reason Onset Date Comments Nurse Triage 11/29/2023 Encounter Details Date Type Department Care Team (Late st Contact Info) Description 11/29/2023 Telephone [facility] MEDICINE 230 [place] [address] Anne Carrion MD 230 [place], [place] [phone] Nurse Triage Social History Tobacco Use Types [...] Triage call Pt was seen in ED [facility] 11/25/23 , report is on the chart. [...] documented as of this encounter Care Teams Aircraft Skin Burnisher Relationship Specialty Start Date End Date Anne Carrion MD [address] [place] [address] PCP - General Family Medicine 02/08/18 Nataly Tay NP 10 [facility] [address] [place] [address] Urology 03/02/24 Carmine Rivas MD [address] [place] [address] Pulmonary Disease 04/10/24 Marivel Bang [address] [place] [address] Orthopaedic Surgery 04/10/24 documented as of this encounter
--- OUTSIDE RECORDS SUMMARY | 2024-04-27 15:28 | XMS_ITS | Patient Health Record ---
Author Organization [facility] Address [address] [facility] [place] [address] Care Team Providers Care Riverboat Captain Name Role Phone Anne Carrion MD Primary Care Provider Radha Kavin Abad Unavailable [phone] Allergies Allergen (clinical drug ingredient) Drug/Non Drug [...] Problem Reflex sympathetic dystrophy of lower extremity (599836807) Complex regional pain syndrome I of right lower limb (G90.521) Active confirmed Problem Mononeuropathy of lower limb (705177584) Neuritis of right foot (G57.91) Active confirmed Plan Of Treatment No Information Insurance Providers Payer Name Payer Address Payer Phone Subscriber Number Group Number Insured Name Patient Relationship to Insured Coverage Start Date Coverage End Date [facility] CCA [employer] Claims [address] [place] [id number] Claribel Leal Self - patient is the insured Medical (General) History Medical History History ICD Code Depression Anxiety disorder Migraines Kidney stones Broken bones Back pain asthma Surgical History Surgery Date(Month/Year) cholecystectomy laparoscopic salpingectomy bilateral section 2011 tonsillectomy tubal ligation foot surgery 1994 elbow sx
--- OUTSIDE RECORDS SUMMARY | 2024-04-27 15:28 | XMS_ITS | Encounter Summary ---
Author Organization [employer] Address [address] [facility] 7t [place] [address] Care Team Providers Care Tennis Ball Cover Cementer Name Role Phone Anne Carrion MD Primary Care Provider [phone]- [phone] Nataly Tay NP Unavailable Carmine Rivas MD Unavailable [phone] Marivel Bang Unavailable Encounter Details Date [...] t he electric, gas, oil or water [employer] threatened to shut off services in your [...] documented as of this encounter Care Teams Tennis Ball Cover Cementer Relationship Specialty Start Date End Date Anne Carrion MD [address] [place] [address] PCP - General Family Medicine 02/08/18 Nataly Tay NP 10 [facility] [address] [place] [address] Urology 03/02/24 Carmine Rivas MD [address] [place] [address] Pulmonary Disease 04/10/24 Marivel Bang [address] [place] [address] Orthopaedic Surgery 04/10/24 documented as of this encounter
--- OUTSIDE RECORDS SUMMARY | 2024-04-27 15:28 | XMS_ITS | Clinical Summary ---
Author Organization [employer] Address [address] [place] [address] 7t [place] [address] Care Team Providers Care Subsorter Name Role Phone Anne Carrion MD Primary Care Provider [phone]- [phone] Nataly Tay NP Unavailable Carmine Rivas MD Unavailable [phone] Marivel Bang Unavailable Allergies Active Allergy [...] migh t be different from the original. [facility] Combination Window Installer: Minnie, member services number [phone] Polisher And Buffer Agency: [employer] Problem Noted Date Diagnosed Date [...] as pharmacomtherapy, [facility] smoking [facility], and [facility] pharmacy smoking cessation clinic Discussed USPSTF recommends [...] as pharmacomtherapy, [facility] smoking cessation group, and [facility] pharmacy smoking cessation clinic Discussed USPSTF recommends [...] due after 06/02/24 -eye care [facility] Assessment & Plan (06/03/2023 10:34 AM EDT): -next physical exam due after 06/02/24 -eye care facilitated by [facility] - Health care proxy completed and filed Papanicolaou smear of cervix with atypical squamous cells of undetermined significance (ASC-US) 02/26/2022 Overview (02/26/2022): ASCUS on pap 2012 HPV negative with [facility]. repeat PAP 05/04/16 nilm. -Repeat pap done 06/12/2021 Abnormal uterine bleeding 02/26/2022 Overview (11/25/2023): CT done in ER 11/25/23 revealed multiple fibroids Assessment & Plan (02/26/2022 9:31 AM EST): Menses coming every 2 months. US and labs ordered 02/26/2022. Kidney stones 02/26/2022 Overview (03/03/2024): Followed by urology -US 08/23/23 Bilateral nonobstructive renal calculi. No hydronephrosis. -seen by Roger Tay NP of [facility] urology 03/02/24, follow up 6 mo [...] Moderate persistent asthma without complication 02/24/2022 Overview (04/25/2024): Hospitalized 11/2018 and 12/2021. Improved. Followed by android programmer. Continue Tezspire, and Dulera and singulair as well as albuterol prn. Seen by Core Fitter Carmine Rivas MD 04/06/23. Nucala changed to Tezspire. Call to Pulmonology to check the status of her injectable medicine 06/03/23 Call placed to [facility] spoke to the nurse yesenia who reports patient should be on Tezspire 210mg every 4 weeks and that patient had appt on 04/15/23 for inj but no showed to the visit. Yesenia states they redid the orders for her today and short stay should be reaching out to patient to set up an appt. Referral placed to [facility] Pulmonology as it is closer to home, seen by Dr. Monique Hillman, [facility], FACP,FCCP 07/29/23, no changes made to regimen -seen by Dr. Rivas 04/25/24 Well controlled on Tezspire, Dulera, and albuterol MDI/nebs. Continue current regimen. Assessment & Plan (06/03/2023 10:30 AM EDT): Hospitalized 11/2018 and 12/2021. Improved. Followed by android programmer. Continue Tezspire, and Dulera and singulair as well as albuterol prn. Seen by Core Fitter Carmine Rivas MD 04/06/23. Nucala changed to Tezspire. Will call to Pulmonology to check the status of her injectable medicine 06/03/23 Referral placed to [facility] Pulmonology as it is closer to home 06/03/23 Assessment & Plan (02/26/2022 9:22 AM EST): Hospitalized 11/2018. Improved. Followed by android programmer. Continue Nucala, and Dulera and singulair as well as albuterol prn. Referral sent 12/2021 to pulmonology at [facility], Pt was hospitalized 12/2021 and asthma [...] organization. Date Type Department Care Team Description 04/27/2024 Orders Only GENERIC EXTERNAL DATA DEPARTMENT Provider, Generic External Data 04/25/2024 Travel 04/10/2024 Orders Only [facility] MEDICINE [address] [place] [address] Anne Carrion MD Moderate persistent asthma without complication (Primary Dx) 03/28/2024 Travel 03/14/2024 Orders Only GENERIC EXTERNAL DATA DEPARTMENT Provider, Generic External Data 03/08/2024 Travel 03/01/2024 Orders Only GENERIC EXTERNAL DATA DEPARTMENT Provider, Generic External Data Kidney stones (Primary Dx) 02/21/2024 Orders Only [facility] External Provider, [facility] 02/14/2024 Travel 01/31/2024 Travel from Last 3 [...] Procedure Name Priority Date/Time Associated Diagnosis Comments CBC Routine 04/27/2024 2:08 PM EDT XR CHEST 2 VIEWS Routine 03/14/2024 8:18 [...] Recently Relevant to Health Maintenance Results * (ABNORMAL) CBC (04/27/2024 2:08 PM EDT) White Blood Count 8.7 4.8 - 10.8 X10*3/uL [facility] Red Blood Count 4.41 4.20 - 5.50 X10*6/uL [facility] Hemoglobin 12.5 12.0 - 16.0 g/dl [facility] Hematocrit 36.3(L) 37.0 - 47.0 % [facility] Mean Corpuscular Volume 82.3 80.0 - 98.0 fL [facility] Mean Corpuscular Hemoglobin 28.3 27.0 - 33.0 pg [facility] Mean Corpuscular HGB Conc 34.4 31.0 - 35.0 g/dl [facility] Red Cell Distribution Width 13.8 11.0 - 16.0 % [facility] Platelet Count 384 160 - 400 X10*3/uL [facility] Mean Platelet Volume 9.1(L) 9.4 - 12.3 fL [facility] NRBC Pct Auto 0.0 0.0 - 0.2 /100WBC [facility] NRBC Abs Auto 0.000 0.0 - 0.012 X10*3/uL [facility] 04/27/2024 2:08 PM EDT 04/27/2024 2:08 PM EDT us Generic External Data Provider LAB BLOOD ORDERAB LES Final Result Performing Organization Address [facility]/State/[facility] Co de Phone Number [facility] [address] [place] [phone] * XR Chest 2 Views (03/14/2024 8:18 AM EST) Anatomical Region Laterality Modality Chest Radiographic Chaparrita ging 03/14/2024 8:18 AM EST Narrative 03/14/2024 8:39 AM EST ? [facility] ?[address] ?[place] [address] ?XRay Report ? Signed ? Patient: Leal Jose Ramon,Marangeli ?MR ?? #: [id number] ? : 1985 ?Acct:[id number] ? Age/Sex: 38 / F ?ADM Date: 02/04/25 ? Loc: HO.ED ? Attending Dr: ? Ordering Physician: Generic ED Physician ?? Date of Service: 03/14/24 ?? Procedure(s): XR chest 2V ?? Accession Number(s): [id number] ? cc: Anne Carrion MD; Generic ED [...] MD in OV> ?03/14/24 0836 ? DD/ 7 ? TD/TT: 03/14/24822 ? Remotely Piloted Vehicle Controller: ? Procedure Note Julito Huertas - 03/14/2024 [place] [address] XRay Report Signed Patient: Edouard Roy #: [id number] : 1985Acct:[id number] Age/Sex: 38 / FADM Date: 03/14/24 Loc: HO.ED Attending Dr: Ordering Physician: Generic ED Physician Date of Service: 03/14/24 Procedure(s): XR chest 2V Accession Number(s): [id number] cc: Anne Carrion MD; Generic ED Physician [...] No acute cardiopulmonary abnormality. Electronically signed by: Kleton Rankin MD 03/14/2024 08:36 AM EST Dictated By: Kelton Rankin MD Signed By: <Electronically signed by Kelton Rankin MD in OV> 03/14/24835 DD/ 7 TD/TT: 03/14/24822 Remotely Piloted Vehicle Controller: [facility] External Provider IMG XR PROCEDURES Edited Result - Final * Strep A Nucleic Acid (03/14/2024 8:02 AM EST) IDNOW SERIAL# [id number] [facility] Strep A Nucleic Acid Negative Negative [facility] Comment:All test results mus t [...] LAB MICROBIOLOGY - GENERAL ORDERABLES Final Result [facility] [address] [place] [phone] * (ABNORMAL) SARS-CoV-2 RNA, Influenza A/B, and RSV RNA, Ql NAAT (03/14/2024 8:02 AM EST) Influenza A PCR POSITIVE(A) Negative [facility] Influenza B PCR NEGATIVE Negative [facility] Resp Syncy Virus RNA Qual PCR NEGATIVE Negative [facility] SARS COV2 PCR NEGATIVE Negative [facility] Comment:All test results mus t [...] use by authorized laboratories.Testing performed on the [employer] GeneXpert utilizingreal-time RT-PCR.All SARS CoV2 and positive influenza A/B results arereported to [facility]. 03/14/2024 8:02 AM EST 03/14/2024 8:07 AM EST us Generic External Data Provider LAB MICROBIOLOGY - GENERAL ORDERABLES Final Result Performing Organization Address City/State/[facility] Co de Phone Number [facility] [address] [place] [phone] * Cytopath-cell enhanced (03/01/2024 5:07 PM EST) 03/01/2024 5:07 PM EST 03/02/2024 9:00 AM EST Narrative [facility] - 03/02/2024 6:32 PM EST ----- ------- Name: Claribel Roy ?Age/Sex: 38/F ? : 1985 Unit#: [id number] ?? Attend Dr: Nataly Tay [facility] ?Re03/01/24 ?Status: DEP REF ? Location: .LN ?Disch: ? ----- ------- SPEC : [id number] ?RECD: 03/02/24 ? STATUS: ??SOUT ? REQ NUM: [id number] ? MICHAELLE: 03/01/24-278 ? SUBM DR: Nataly Tay MERCHANDISE SUPERVISOR- ? ENTERED: ??03/02/24-115 ?SP TYPE: Cytology ? OTHR DR: Anne [...] Copies To: ?? Anne Carrion MD ?? [facility] ?? [address] [facility] ?? [place] [address] ?? [phone] ?? Nataly Tay [facility] ?? [facility] Urology Services ?? [address] [place] [address] [address]. [address] ?? [place] [address] ?? [phone] ?? [email or web address] ----- ------- Signed (signature on file) Nati Dumont 03/02/241831 ? ----- ------- ? END OF REPORT ? us Generic External Data Provider LAB CYTOLOGY ABBY TATE Final Result [facility] [address] [place] [phone] [phone] * US RENAL BI (02/22/2024 12:53 PM EST) Anatomical Region Laterality Modality Abdomen Ultrasound 02/22/2024 12:5 3 PM EST Narrative 02/22/2024 12:55 PM EST ? [facility] ?[address] ?[place] [address] ? Ultrasound Report ? Signed ? Patient: Leal Jose Ramon,Marangeli ?MR ?? #: [id number] ? : 1985 ?Acct:[id number] ? Age/Sex: 38 / F ?ADM Date: 02/21/24 ? Loc: HO.US ? Attending Dr: Nataly MURPHY ? Ordering Physician: Nataly Tay ?? Date of Service: 02/21/24 ?? Procedure(s): US renal BI ?? Accession Number(s): [id number] ? cc: Anne Carrion MD; Nataly Tay [...] DD/ 1253 ? TD/TT: 02/22/24 1253 ? Remotely Piloted Vehicle Controller: ? Procedure Note Julito Huertas - 02/22/[address] [address] Ultrasound Report Signed Patient: Edouard Roy #: [id number] : 1985Acct:[id number] Age/Sex: 38 / FADM Date: 02/21/24 Loc: HO.US Attending Dr: Nataly ROMERO-OLU Ordering Physician: Nataly Tay Date of Service: 02/21/24 Procedure(s): US renal BI Accession Number(s): [id number] cc: Anne Carrion MD; Nataly Tay [facility] CLINICAL HISTORY: N20.0 - Calculus of [...] 02/22/24 1254 DD/ 1253 TD/TT: 02/22/24 1253 Remotely Piloted Vehicle Controller: us [facility] External Provider IMG US PROCEDURES Final Result * (ABNORMAL) Lipid Panel, Standard (06/04/2023 11:20 AM EDT) Triglycerides 77 <150 mg/dL [facility] Comment:Desirable Triglyceri de: less than 150 mg/dLBorderline High Triglyceride 150-199 mg/dLHigh Triglyceride: 200-499 mg/dLVery High Triglyceride: greater than or equal to 5OO mg/dL Cholesterol 199 <200 mg/dL [facility] Comment:Desirable Cholestero l: less than 200 mg/dLBorderline High Cholesterol: 200-239 mg/dLHigh Cholesterol: greater than 239 mg/dL LDL Cholesterol Calculated 144(H) <100 mg/dL [facility] Comment:Desirable LDL: less than 100 mg/dLNear Optimal/Above Optimal LDL: 110- 129 mg/dLBorderline High LDL: 130-159 mg/dLHigh LDL: 160-189 mg/dLVery High LDL: greater than or equal to 190 mg/dL HDL Cholesterol 40(L) >40 mg/dL [facility] Comment:Desirable HDL: great er than 40 mg/dL Note: This HDL assay may give artificially low results in patients with liver disease. Blood Venous blood specimen / Unknown 06/04/2023 11:20 AM EDT 06/04/2023 1:22 PM EDT Anne Carrion MD LAB BLOOD ORDERABLES Final Result Performing Organization Address [facility]/ZIP Co de Phone Number [facility] [address] [place] [phone] * HPV High Risk PCR (06/12/2021 12:00 AM EDT) Swab Cervical swab / Unknown Anne Carrion MD LAB MICROBIOLOGY - GENERAL ORDERABLES Final Result Performing Organization Address [facility] Co de Phone Number [facility] [address] [place] [phone] * Pap Smear (06/12/2021 12:00 AM EDT) Swab Anne Carrion MD LAB CYTOLOGY ORDERABLES Fi nal Result Performing Organization Address [facility] de Phone Number [facility] [address] [place] [phone] * HEPATITIS C ANTIBODY (11/08/2019 12:39 PM EDT) Pathologist [facility] HEPATITIS C ANTIBODY NONREACTIVE NONREACTIVE [facility] Comment: Antibodies to HCV not detected; does not exclude early acute HCV infection. 11/08/2019 12:3 9 PM EDT Sandhya Brody HISTORICAL/NON ORDERABLE LABS Fi nal Result Performing Organization Address [facility] Co de Phone Number [facility] [address] [place] [address], * HIV AB/AG (11/08/2019 12:39 PM EDT) [...] detection of this assay. ?? The [employer] Teacher HIV Ag/Ab Combo assay result and supplemental assay results should be interpreted in conjunction with the patient's clinical presentation, history and other laboratory results. ??If the results are inconsistent with clinical evidence, additional testing is suggested to confirm the result. 11/08/2019 12:3 9 PM EDT us Sandhya Brody HISTORICAL/NON ORDERABLE LABS Fi nal Result [facility] [address] from Last 3 Months or Most Recently Relevant to Health Maintenance Insurance - [employer] Care Teams Subsorter Relationship Specialty Start Date End Date Corson, MD Anne [address] [place] [address] PCP - General Family Medicine 02/08/18 Nataly Tay NP [address] [facility] [address] [place] [address] Urology 03/02/24 Carmine Rivas MD [address] [place] [address] Pulmonary Disease 04/10/24 Marivel Bang [address] [place] [address] Orthopaedic Surgery 04/10/24
--- OUTSIDE RECORDS SUMMARY | 2024-04-27 15:28 | XMS_ITS | Encounter Summary ---
Author Organization [employer] Address [address] [facility] 7t [place] [address] Care Team Providers Care Client Support Coordinator Name Role Phone Anne Carrion MD Primary Care Provider [phone] Nataly Tay NP Unavailable Encounter Details Date [...] documented as of this encounter Care Teams Client Support Coordinator Relationship Specialty Start Date End Date Anne Carrion MD [address] [place] [address] PCP - General Family Medicine 02/08/18 Nataly Tay NP [address] [facility] [place] [address] Urology 03/02/24 documented as of this encounter
--- OUTSIDE RECORDS SUMMARY | 2024-04-27 15:28 | XMS_ITS | Encounter Summary ---
Author Organization [employer] Address [address] [facility] 7t [place] [address] Care Team Providers Care Diet Kitchen Cook Name Role Phone Anne Carrion MD Primary Care Provider [phone] Nataly Tay NP Unavailable Carmine Rivas MD Unavailable [phone] Marivel Bang Unavailable Encounter Details Date Type Department Care Team (Late st Contact Info) Description 04/27/2024 Orders Only GENERIC EXTERNAL DATA [...] Comments CBC Routine 04/27/2024 2:08 PM EDT documented in this encounter Results * (ABNORMAL) CBC (04/27/2024 2:08 PM EDT) White Blood Count 8.7 4.8 - 10.8 X10*3/uL [facility] Red Blood Count 4.41 4.20 - 5.50 X10*6/uL [facility] Hemoglobin 12.5 12.0 - 16.0 g/dl [facility] Hematocrit 36.3(L) 37.0 - 47.0 % [facility] Mean Corpuscular Volume 82.3 80.0 - 98.0 fL [facility] Mean Corpuscular Hemoglobin 28.3 27.0 - 33.0 pg [facility] Mean Corpuscular HGB Conc 34.4 31.0 - 35.0 g/dl [facility] Red Cell Distribution Width 13.8 11.0 - 16.0 % [facility] Platelet Count 384 160 - 400 X10*3/uL [facility] Mean Platelet Volume 9.1(L) 9.4 - 12.3 fL [facility] NRBC Pct Auto 0.0 0.0 - 0.2 /100WBC [facility] NRBC Abs Auto 0.000 0.0 - 0.012 X10*3/uL [facility] 04/27/2024 2:08 PM EDT 04/27/2024 2:08 PM EDT us Generic External Data Provider LAB BLOOD ORDERAB LES Final Result [facility] [address] [place] [phone] documented in this encounter Visit Diagnoses Not on filedocumented in this encounter Additional Health Concerns Assessment Noted Time PHQ-9 Depression Total Score: 18 024 1:45 PM EDT documented as of this encounter Care Teams Diet Kitchen Cook Relationship Specialty Start Date End Date Anne Carrion MD [address] [place] [address] PCP - General Family Medicine 02/08/18 Nataly Tay NP 10 [facility] [address] [place] [address] Urology 03/02/24 Carmine Rivas MD [address] [place] [address] Pulmonary Disease 04/10/24 Marivel Bang [address] [place] [address] Orthopaedic Surgery 04/10/24 documented as of this encounter
== END 2024-04-27 14:00 | disposition home or self-care (01) ==
LOC: HO.HWS 13:01
PROVIDERS: PCP Family Medicine; Visit Provider Obstetrics & Gynecology
DX: N93.9 Abnormal uterine and vaginal bleeding, unspecified (principal)
CPT/HCPCS: 99203

== ENCOUNTER 2024-04-27 14:27 | Outpatient (REF) | payer OTHER, SELFPAY ==
[2024-04-27 17:17] LABS: CT PCR NOT DETECTED (Not Detect.); NG PCR NOT DETECTED (Not Detect.)
[2024-05-03 14:18] LABS: HPV Genotype 16 Negative (Negative); HPV Genotype 18 Negative (Negative); HPV High Risk Negative (Negative)
== END 2024-04-27 14:28 | disposition home or self-care (01) ==
LOC: HO.LNP 14:27
PROVIDERS: Visit Provider Obstetrics & Gynecology
DX: N93.9 Abnormal uterine and vaginal bleeding, unspecified (principal)
CPT/HCPCS: 36415; 84443; 84702; 85027; 87491; 87591; 87626; 88175; 99202

== ENCOUNTER 2024-05-18 14:04 | Outpatient (REF) | payer OTHER, SELFPAY ==
--- NOTE | ~2024-05-18 | US_ITS ---
CLINICAL HISTORY: N93.9 - Abnormal uterine and vaginal bleeding, unspecified US pelvis transabdominal and transvaginal Comparison: 03/13/2022 Findings: Transabdominal scanning performed for overall anatomy. Transvaginal scanning performed for additional detail. Anteverted uterus is 9.0 cm length. Normal myometrium. Endometrium 13 mm thickness. No lesions. There is a myometrial 5.7 x 4.8 x 4.3 cm leiomyoma, previously measuring 4.7 x 4.5 x 3.2 cm. Right ovary 2.8 x 2.5 x 1.4 cm. Left ovary 2.6 x 2.2 x 2.1 cm. There is a hypoechoic left ovarian 1.8 x 1.4 x 1.3 cm cyst. Normal color Doppler of both ovaries. No free fluid. IMPRESSION: 1. Uterine myometrial leiomyoma 2. Almost certainly benign left ovarian cyst. Consider a 12 month follow-up pelvic ultrasound to reassess. This document has been electronically signed by: Brett Serrano MD on 05/19/2024 09:02:22
--- OUTSIDE RECORDS SUMMARY | 2024-05-18 16:52 | XMS_ITS | Patient Health Record ---
Author Organization [facility] Address [address] [place] [address] Care Team Providers Care Heating And Ventilating Worker Name Role Phone Anne Carrion MD Primary Care Provider Radha Kavin Abad Unavailable [phone] Allergies Allergen (clinical drug ingredient) Drug/Non Drug [...] Problem Reflex sympathetic dystrophy of lower extremity (793484959) Complex regional pain syndrome I of right lower limb (G90.521) Active confirmed Problem Mononeuropathy of lower limb (071403604) Neuritis of right foot (G57.91) Active confirmed Plan Of Treatment No Information Insurance Providers Payer Name Payer Address Payer Phone Subscriber Number Group Number Insured Name Patient Relationship to Insured Coverage Start Date Coverage End Date [facility] [employer] Claims [address] [place] [id number] Claribel Leal Self - patient is the insured Medical (General) History Medical History History ICD Code Depression Anxiety disorder Migraines Kidney stones Broken bones Back pain asthma Surgical History Surgery Date(Month/Year) cholecystectomy laparoscopic salpingectomy bilateral section 2011 tonsillectomy tubal ligation foot surgery 1994 elbow sx
--- OUTSIDE RECORDS SUMMARY | 2024-05-18 16:52 | XMS_ITS | Encounter Summary ---
Author Organization [employer] [facility] Address [address] [place] [address] 7t [place] [address] Care Team Providers Care Cardiac Nurse Name Role Phone Anne Carrion MD Primary Care Provider Nataly Tay NP Unavailable Carmine Rivas MD Unavailable [phone] Marivel Bagn Unavailable Leo Rao MD Unavailable Reason for Visit * Reason Comments Med Refill Encounter Details Date Type Department Care Team (Late st Contact Info) Description 01/07/2023 Refill [facility] [address] [place] [address] [phone] Jaiden Mccarthy MD [address] [place] [address] Rash Social History Tobacco Use Types Packs/Day [...] eruption documented in this encounter Care Teams Cardiac Nurse Relationship Specialty Start Date End Date Anne Carrion MD [address] [place], [place] [phone] PCP - General Family Medicine 02/08/18 Nataly Tay NP [address] [place] [address] Urology 03/02/24 Carmine Rivas MD [address] [place] [address] Pulmonary Disease 04/10/24 Marivel Bang [address] [place] [address] Orthopaedic Surgery 04/10/24 Leo Rao MD [address] [place] [address] Obstetrics and Gynecology 05/02/24 documented as of this encounter
--- OUTSIDE RECORDS SUMMARY | 2024-05-18 16:52 | XMS_ITS | Clinical Summary ---
Author Organization [employer] Address [address] [place] [address] 7t [place] [address] Care Team Providers Care Sonography Technician Name Role Phone [place], Anne CHAPMAN Primary Care Provider [phone] Nataly Tay NP Unavailable Carmine Rivas MD Unavailable [phone] Marivel Bang Unavailable Leo Rao MD Unavailable Allergies Active Allergy Reactions Criticality Noted [...] TABLET BY MOUTH ONCE DAILY 2 Active cyclobenzaprine (Flexeril) 5 MG tabletIndication s:Low [...] FOR RASH. APPLY SPARINGLY. 15 g Active mometasone-formo terol (Dulera) 200-5 MCG/ACT inhalerIndicatio ns:Moderate persistent asthma without complication Inhale 2 puffs in the morning and at bedtime. Rinse mouth with water after use to reduce aftertaste and incidence of candidiasis. Do not swallow. Active Active Problems Patient Care Coordination No te Formatting of this note migh t be different from the original. [facility] Pasteurizer Helper: Minnie, member services number [phone] Knifeman Agency: [employer] Problem Noted Date Diagnosed Date [...] as pharmacomtherapy, [facility] smoking cessation group, and [facility] pharmacy smoking cessation clinic Discussed [...] as pharmacomtherapy, [facility] smoking cessation group, and [facility] pharmacy smoking cessation clinic Discussed [...] due after 06/02/24 -eye care facilitated by [facility] -dental home is [facility] -health filed Assessment & Plan (06/03/2023 10:34 AM EDT): -next physical exam due after 06/02/24 -eye care facilitated by [facility] -dental home is [facility] - Health care proxy completed and filed Papanicolaou smear of cervix with atypical squamous cells of undetermined significance (ASC-US) 02/26/2022 Overview (02/26/2022): ASCUS on pap 2012 HPV negative with [facility]. repeat PAP 05/04/16 nilm. -Repeat pap done 06/12/2021 Abnormal uterine bleeding 02/26/2022 Overview (05/02/2024): CT done in ER 11/25/23 revealed multiple fibroids -seen by Dr. Rao 04/2024, uterine biopsy scheduled Assessment & Plan (02/26/2022 9:31 AM EST): Menses coming every 2 months. US and labs ordered 02/26/2022. Kidney stones 02/26/2022 Overview (03/03/2024): Followed by urology -US 08/23/23 Bilateral nonobstructive renal calculi. No hydronephrosis. -seen by Roger Tay NP of [facility] urology 03/02/24, follow up 6 [...] Hospitalized 11/2018 and 12/2021. Improved. Followed by staff respiratory therapist. Continue Tezspire, and Dulera and singulair as well as albuterol prn. Seen by Computer Training Specialist Carmine Rivas MD 04/06/23. Nucala changed to Tezspire. Call to Pulmonology to check the status of her injectable medicine 06/03/23 Call placed to [facility] pulmonology spoke to the nurse yesenia who reports patient should be on Tezspire 210mg every 4 weeks and that patient had appt on 04/15/23 for inj but no showed to the visit. Yesenia states they redid the orders for her today and short stay should be reaching out to patient to set up an appt. Referral placed to [facility] Pulmonology as it is closer to home, seen by Dr. Monique Hillman, [facility], FACP,FCCP 07/29/23, no changes made to regimen -seen by Dr. Rivas 04/25/24 Well controlled on Tezspire, Dulera, and albuterol MDI/nebs. Continue current regimen. Assessment & Plan (06/03/2023 10:30 AM EDT): Hospitalized 11/2018 and 12/2021. Improved. Followed by staff respiratory therapist. Continue Tezspire, and Dulera and singulair as well as albuterol prn. Seen by Computer Training Specialist Carmine Rivas MD 04/06/23. Nucala changed to Tezspire. Will call to Pulmonology to check the status of her injectable medicine 06/03/23 Referral placed to [facility] Pulmonology as it is closer to home 06/03/23 Assessment & Plan (02/26/2022 9:22 AM EST): Hospitalized 11/2018. Improved. Followed by staff respiratory therapist. Continue Nucala, and Dulera and singulair as well as albuterol prn. Referral sent 12/2021 to pulmonology at [facility], Pt was hospitalized 12/2021 and asthma [...] organization. Date Type Department Care Team Description 05/09/2024 Travel 04/27/2024 Orders Only GENERIC EXTERNAL DATA DEPARTMENT Provider, Generic External Data 04/25/2024 Travel 04/10/2024 Orders Only [facility] [address] [place] [address] Anne Carrion MD Moderate persistent asthma without complication (Primary Dx) 03/28/2024 Travel 03/14/2024 Orders Only GENERIC EXTERNAL DATA DEPARTMENT Provider, Generic External Data 03/08/2024 Travel 03/01/2024 Orders Only GENERIC EXTERNAL DATA DEPARTMENT Provider, Generic External Data Kidney stones (Primary Dx) 02/21/2024 Orders Only [facility] External Provider, [facility] from Last 3 Months Immunizations Name Administration [...] 10/31/2015, 10/31/2014, Additional history exists Depression Monitoring 03/08/2024 09/06/2023, 024 SDOH Screening 06/02/2024 06/03/2023 Pap Smear 06/12/2024 [...] topic Meningococcal Vaccine Aged Out No polo okbe eligible based on patient's age to complete this topic RSV under 20 months Aged Out No longe r eligible based on patient's age to complete this topic Rotavirus Vaccines Aged Out No longer eligible based on patient's age to complete this topic Procedures Procedure Name Priority Date/Time Associated Diagnosis Comments HCG, TOTAL, QN Routine 04/27/2024 2:08 PM EDT TSH W/REFLEX TO FT4 Routine 04/27/2024 2 :08 PM EDT CBC Routine 04/27/2024 2:08 PM EDT XR [...] Recently Relevant to Health Maintenance Results * TSH with Reflex to Free T4 (04/27/2024 2:08 PM EDT) TSH reflex Free T4 3.76 0.32 - 4.0 uIU/mL [facility] 04/27/2024 2:08 PM EDT 04/27/2024 2:08 PM EDT us Generic External Data Provider LAB BLOOD ORDERAB LES Final Result [facility] [address] [place], [place] [phone] * (ABNORMAL) CBC (04/27/2024 2:08 PM EDT) White Blood Count 8.7 4.8 - 10.8 X10*3/uL [facility] Red Blood Count 4.41 4.20 - 5.50 X10*6/uL [facility] Hemoglobin 12.5 12.0 - 16.0 g/dl [facility] Hematocrit 36.3(L) 37.0 - 47.0 % [facility] Mean Corpuscular Volume 82.3 80.0 - 98.0 fL [facility] Mean Corpuscular Hemoglobin 28.3 27.0 - 33.0 pg [facility] Mean Corpuscular HGB Conc 34.4 31.0 - 35.0 g/dl [facility] Red Cell Distribution Width 13.8 11.0 - 16.0 % [facility] Platelet Count 384 160 - 400 X10*3/uL [facility] Mean Platelet Volume 9.1(L) 9.4 - 12.3 fL [facility] NRBC Pct Auto 0.0 0.0 - 0.2 /100WBC [facility] NRBC Abs Auto 0.000 0.0 - 0.012 X10*3/uL [facility] 04/27/2024 2:08 PM EDT 04/27/2024 2:08 PM EDT Generic External Data Provider LAB BLOOD ORDERAB LES Final Result Performing Organization Address [facility] de Phone Number [facility] [address] [place] [address] [phone] * hCG, Total, Quantitative (04/27/2024 2:08 PM EDT) HCG Quantitative <2 mIU/mL [facility] Comment:Weeks post LMP Appro ximate hCG(Last Menstrual Period) Range (mIU/ml)3 - 4 weeks 9 - 1304 - 5 weeks 75 - 2,6005 - 6 weeks 850 - 20,8006 - 7 weeks 4000 - 100,2007 - 12 weeks 11,500 - 289,02016 - 16 weeks 18,300 - 137,30422 - 29 weeks (2nd trimester) 1,400 - 53,86236 - 41 weeks (3rd trimester) 940 - 60,000The Mcmahan B- hCG assay is used for the early detection ofpregnancy; it cannot be used to diagnose any conditionunrelated to . If a B-hCG level is not supportedby the clinical evidence, results should be confirmed by analternative method (qualitative urine hCG, for example). 04/27/2024 2:08 PM EDT 04/27/2024 2:08 PM EDT Generic External Data Provider LAB BLOOD ORDERAB LES Final Result Performing Organization Address [facility] de Phone Number [facility] [address] [place] [address] [phone] * XR Chest 2 Views (03/14/2024 8:18 AM EST) Anatomical Region Laterality Modality Chest Radiographic Chaparrita ging 03/14/2024 8:18 AM EST Narrative 03/14/2024 8:39 AM EST ? [facility] ?[address] ?[place] [address] ?XRay Report ? Signed ? Patient: Leal Jose Ramon,Marangeli ?MR ?? #: [id number] ? : 1985 ?Acct:[id number] ? Age/Sex: 38 / F ?ADM Date: 03/14/24 ? Loc: HO.ED ? Attending Dr: ? Ordering Physician: Generic ED Physician ?? Date of Service: 03/14/24 ?? Procedure(s): XR chest 2V ?? Accession Number(s): [id number] ? cc: Anne Carroin MD; Generic ED Physician ? EXAMINATION: ??XR [...] 0836 ? DD/ ? TD/TT: 03/14/24822 ? Magistrate: ? Procedure Note Julito Huertas - 03/14/2024 [place] [address] XRay Report Signed Patient: Edouard Roy #: [id number] : 1985Acct:[id number] Age/Sex: 38 / FADM Date: 03/14/24 Loc: HO.ED Attending Dr: Ordering Physician: Generic ED Physician Date of Service: 03/14/24 Procedure(s): XR chest 2V Accession Number(s): [id number] cc: Anne Carrion MD; Generic ED Physician [...] Kelton Rankin MD 03/14/2024 08:36 AM EST RP Dictated By: Kelton Rankin MD Signed By: <Electronically signed by Kelton Rankin MD in OV> 03/14/24835 DD/ 7 TD/TT: 03/14/24822 Magistrate: [facility] External Provider IMG XR PROCEDURES Edited Result - Final * Strep A Nucleic Acid (03/14/2024 8:02 AM EST) IDNOW SERIAL# [id number] [facility] Strep A Nucleic Acid Negative Negative [facility] Comment:All test results mus t be correlated with clinical findings.This test has not been evaluated for monitoring treatment ofinfection.Additional follow-up testing using the culture method isrequired if the result is negative and clinical symptomspersist, or in the event of an acute rheumatic feveroutbreak. 03/14/2024 8:02 AM EST 03/14/2024 8:07 AM EST Generic External Data Provider LAB MICROBIOLOGY - GENERAL ORDERABLES Final Result [facility] [address] [place] [phone] * (ABNORMAL) SARS-CoV-2 RNA, Influenza A/B, and RSV RNA, Ql NAAT (03/14/2024 8:02 AM EST) Influenza A PCR POSITIVE(A) Negative [facility] Influenza B PCR NEGATIVE Negative [facility] Resp Syncy Virus RNA Qual PCR NEGATIVE Negative [facility] SARS COV2 PCR NEGATIVE Negative [facility] Comment:All test results mus t [...] use by authorized laboratories.Testing performed on the Flexenclosure GeneXpert utilizingreal-time RT-PCR.All SARS CoV2 and positive influenza A/B results arereported to [facility]. 03/14/2024 8:02 AM EST 03/14/2024 8:07 AM EST us Generic External Data Provider LAB MICROBIOLOGY - GENERAL ORDERABLES Final Result Performing Organization Address City/State/[facility] Co de Phone Number [facility] [address] [place] [phone] * Cytopath-cell enhanced (03/01/2024 5:07 PM EST) 03/01/2024 5:07 PM EST 03/02/2024 9:00 AM EST Narrative [facility] - 03/02/2024 6:32 PM EST ----- ------- Name: Claribel Roy ?Age/Sex: 38/F ? : 1985 Unit#: [id number] ?? Attend Dr: Nataly Tay [facility] ?Re03/01/24 ?Status: DEP REF ? Location: HO.LNP ?Disch: ? ----- ------- SPEC : [id number] ?RECD: 03/02/24 ? STATUS: ??SOUT ? REQ NUM: [id number] ? MICHAELLE: 03/01/24-1706 ? SUBM DR: Nataly Tay CHILD WELFARE CASEWORKER-BC ? ENTERED: ??03/02/24 ?SP TYPE: Cytology ? [...] Copies To: ?? Anne Carrion MD ?? [facility] ?? [address] ?? [place] [address] ?? [phone] ?? Nataly Tay [facility] ?? [facility] Urology Services ?? [address] ?? [place] [address] ?? [phone] ?? [email or web address] ----- ------- Signed (signature on file) Nati Dumont 03/02/241831 ? ----- ------- ? END OF REPORT ? us Generic External Data Provider LAB CYTOLOGY ABBY TATE Final Result [facility] [address] [place] [address] [phone] * US RENAL BI (02/22/2024 12:53 PM EST) Anatomical Region Laterality Modality Abdomen Ultrasound 02/22/2024 12:5 3 PM EST Narrative 02/22/2024 12:55 PM EST ? [facility] ?[address] ?[place] [address] ? Ultrasound Report ? Signed ? Patient: Leal Jose Ramon,Marangeli ?MR ?? #: [id number] ? : 1985 ?Acct:[id number] ? Age/Sex: 38 / F ?ADM Date: 02/21/24 ? Loc: HO.US ? Attending Dr: Nataly MURPHY ? Ordering Physician: Nataly Tay ?? Date of Service: 02/21/24 ?? Procedure(s): US renal BI ?? Accession Number(s): [id number] ? cc: Anne Carrion MD; Nataly Tay [...] DD/ 1253 ? TD/TT: 02/22/24 1253 ? Magistrate: ? Procedure Note Kiya, Image - 02/22/[address] [address] Ultrasound Report Signed Patient: Edouard Roy #: [id number] : 1985Acct:[id number] Age/Sex: 38 / FADM Date: 02/21/24 Loc: HO.US Attending Dr: Nataly ROMERO-OLU Ordering Physician: Nataly Tay Date of Service: 02/21/24 Procedure(s): US renal BI Accession Number(s): [id number] cc: Anne Carrion MD; Nataly Tay [facility] CLINICAL HISTORY: N20.0 - Calculus of [...] 02/22/24 1254 DD/ 1253 TD/TT: 02/22/24 1253 Magistrate: [facility] External Provider IMG US PROCEDURES Final Result * (ABNORMAL) Lipid Panel, Standard (06/04/2023 11:20 AM EDT) Triglycerides 77 <150 mg/dL [facility] Comment:Desirable Triglyceri de: less than 150 mg/dLBorderline High Triglyceride 150-199 mg/dLHigh Triglyceride: 200-499 mg/dLVery High Triglyceride: greater than or equal to 5OO mg/dL Cholesterol 199 <200 mg/dL [facility] Comment:Desirable Cholestero l: less than 200 mg/dLBorderline High Cholesterol: 200-239 mg/dLHigh Cholesterol: greater than 239 mg/dL LDL Cholesterol Calculated 144(H) <100 mg/dL [facility] Comment:Desirable LDL: less than 100 mg/dLNear Optimal/Above Optimal LDL: 110- 129 mg/dLBorderline High LDL: 130-159 mg/dLHigh LDL: 160-189 mg/dLVery High LDL: greater than or equal to 190 mg/dL HDL Cholesterol 40(L) >40 mg/dL [facility] Comment:Desirable HDL: great er than 40 mg/dL Note: This HDL assay may give artificially low results in patients with liver disease. Blood Venous blood specimen / Unknown 06/04/2023 11:20 AM EDT 06/04/2023 1:22 PM EDT Anne Carrion MD LAB BLOOD ORDERABLES Final Result Performing Organization Address [facility] Co de Phone Number [facility] [address] [place] [phone] * HPV High Risk PCR (06/12/2021 12:00 AM EDT) Swab Cervical swab / Unknown Anne Carrion MD LAB MICROBIOLOGY - GENERAL ORDERABLES Final Result Performing Organization Address [facility] Co de Phone Number [facility] [address] [place] [phone] * Pap Smear (06/12/2021 12:00 AM EDT) Swab Anne Carrion MD LAB CYTOLOGY ORDERABLES Fi nal Result Performing Organization Address [facility] Phone Number [facility] [address] [place] [phone] * HEPATITIS C ANTIBODY (11/08/2019 12:39 PM EDT) Pathologist [facility] HEPATITIS C ANTIBODY NONREACTIVE NONREACTIVE [facility] Comment: Antibodies to HCV not detected; does not exclude early acute HCV infection. 11/08/2019 12:3 9 PM EDT Sandhya Brody HISTORICAL/NON ORDERABLE LABS Fi nal Result Performing Organization Address [facility] Co de Phone Number [facility] [address] * HIV AB/AG (11/08/2019 12:39 PM [...] detection of this assay. ?? The [employer] Household Worker HIV Ag/Ab Combo assay result and supplemental assay results should be interpreted in conjunction with the patient's clinical presentation, history and other laboratory results. ??If the results are inconsistent with clinical evidence, additional testing is suggested to confirm the result. 11/08/2019 12:3 9 PM EDT us Sandhya Brody HISTORICAL/NON ORDERABLE LABS Fi nal Result [facility] Critical access hospital [address] from Last 3 Months or Most Recently Relevant to Health Maintenance Insurance - [employer] Care Teams Sonography Technician Relationship Specialty Start Date End Date Anne Carrion MD [address] [place] [address] PCP - General Family Medicine 02/08/18 Nataly Tay NP [address] [place] [address] Urology 03/02/24 Carmine Rivas MD [address] [place] [address] Pulmonary Disease 04/10/24 Marivel Bang [address] [place] [address] Orthopaedic Surgery 04/10/24 Leo Rao MD [address] [facility] [address] [place] [address] Obstetrics and Gynecology 05/02/24
--- OUTSIDE RECORDS SUMMARY | 2024-05-18 16:52 | XMS_ITS | Encounter Summary ---
Author Organization [employer] Address [address] [facility] [address] [facility] 7t [place] [address] Care Team Providers Care Executor Of Estate Name Role Phone Anne Carrion MD Primary Care Provider [phone] Nataly Tay NP Unavailable Carmine Rivas MD Unavailable [phone] Marivel Bang Unavailable Leo Rao MD Unavailable Reason for Visit * Reason Onset Date Comments Nurse Triage 11/29/2023 Encounter Details Date Type Department Care Team (Late st Contact Info) Description 11/29/2023 Telephone [facility] [address] [place] [address] Anne Carrion MD [address] [place] [employer], [place] [phone] Nurse Triage Social History Tobacco Use Types [...] Triage call Pt was seen in ED [facility] 11/25/23 , report is on the chart. [...] documented as of this encounter Care Teams Executor Of Estate Relationship Specialty Start Date End Date Anne Carrion MD [address] [place] [address] PCP - General Family Medicine 02/08/18 Nataly Tay NP [address] [facility] [address] [place] [address] Urology 03/02/24 Carmine Rivas MD [address] [place] [address] Pulmonary Disease 04/10/24 Marivel Bang [address] [place] [address] Orthopaedic Surgery 04/10/24 Leo Rao MD [address] [place] [address] Obstetrics and Gynecology 05/02/24 documented as of this encounter
== END 2024-05-18 14:05 | disposition home or self-care (01) ==
LOC: HO.US 14:04
PROVIDERS: PCP Family Medicine; Visit Provider Obstetrics & Gynecology
DX: N93.9 Abnormal uterine and vaginal bleeding, unspecified (principal)
CPT/HCPCS: 76830; 76856

== ENCOUNTER → 2024-05-18 14:07 | Outpatient (BNV) | payer OTHER, SELFPAY | PROVIDERS: PCP Family Medicine; Visit Provider Specialist | DX: N93.9 Abnormal uterine and vaginal bleeding, unspecified (principal) | CPT/HCPCS: 76830; 76856; 93975 ==

== ENCOUNTER 2024-05-31 14:44 | Outpatient (AMB) | payer OTHER, SELFPAY ==
--- NOTE | 2024-05-31 14:54 | A.OFFVIS_ITS ---
Vital Signs 05/31/24 14:58 Height 5 ft Weight 152 lb BMI 29.7 Intake Visit Reasons: u/s results/EMB Gill Net Stringer Required: No Information Interpreted: non-clinical & clinical Accompanied by: Son Allergies benzonatate [BENZONATATE] Allergy (Severe, Verified 05/31/24 14:58) ANAPHYLAXIS banana [BANANA] Allergy (Intermediate, Verified 05/31/24 14:58) RASH coconut [COCONUT] Allergy (Intermediate, Verified 05/31/24 14:58) RASH cucumber [CUCUMBER] Allergy (Intermediate, Verified 05/31/24 14:58) RASH grape [GRAPE] Allergy (Intermediate, Verified 05/31/24 14:58) RASH arthur [ARTHUR] Allergy (Intermediate, Verified 05/31/24 14:58) RASH sulfamethoxazole [From BACTRIM] Allergy (Intermediate, Verified 05/31/24 14:58) RASH trimethoprim [From BACTRIM] Allergy (Intermediate, Verified 05/31/24 14:58) RASH cephalexin [Keflex] Allergy (Unknown, Verified 05/31/24 14:58) Unknown duloxetine [From CYMBALTA] Allergy (Unknown, Verified 05/31/24 14:58) UNKNOWN Sulfa (Sulfonamide Antibiotics) Allergy (Unknown, Verified 05/31/24 14:58) Unknown nitrofurantoin Allergy (Verified 05/31/24 14:58) Rash SEAFOOD Allergy (Intermediate, Uncoded 05/31/24 14:58) RASH antibacterial soap Allergy (Unknown, Uncoded 05/31/24 14:58) rash Tessalon Allergy (Unknown, Uncoded 05/31/24 14:58) Unknown HPI Comments Details: Presenting for follow-up and EMB, the patient does not want to go with the EMB today because she is on her menstrual cycles but would like to discuss the results. The following workup was done.: H&H= 12.5/36.3 TSH, hCG, GC and chlamydia were negative. Co testing was done was negative. Pelvic ultrasound showed the following: Anteverted uterus is 9.0 cm length. Normal myometrium. Endometrium 13 mm thickness. No lesions. There is a myometrial 5.7 x 4.8 x 4.3 cm leiomyoma, previously measuring 4.7 x 4.5 x 3.2 cm. Right ovary 2.8 x 2.5 x 1.4 cm. Left ovary 2.6 x 2.2 x 2.1 cm. There is a hypoechoic left ovarian 1.8 x 1.4 x 1.3 cm cyst. Normal color Doppler of both ovaries. No free fluid. PFS Medical History Pelviectasis Asthma Kidney stone Hx of migraine headaches Hx of anxiety disorder History of depression Surgical History Hx of bilateral salpingectomy Hx of tubal ligation Hx of section Hx of tonsillectomy Hx laparoscopic cholecystectomy Family History Mother Diabetes mellitus Hypertension Dementia Father Diabetes mellitus Hypertension Social History Alcohol intake: never Patient Tobacco Use Status: Current someday Tobacco user Tobacco use type: Cigarette Cigarettes Per Day: 2 Advance Directives Date on File: 12/11/21 service: No Current occupational status: disabled Current occupation: right handed Female Reproductive History Menstrual Age of Menarche: 10 Review of Systems Const All systems reviewed & are unremarkable except as noted in HPI and below Reports as per HPI and Reports no additional complaints GI Reports no additional complaints Reports no additional complaints Physical Exam Vital Signs: BMI result Body Mass Index 29.7 Assessment & Plan Assessment & Plan (1) Abnormal uterine bleeding (AUB): Code(s): N93.9 - Abnormal uterine and vaginal bleeding, unspecified Category: Medical Plan: Discussed with the patient the results the workup, recommended schedule EMB within 1-2 weeks to rule out endometrial pathology including endometrial hyperplasia and/or malignancy. All questions answered, the patient verbalized understanding and agreed with the plan. (2) Fibroid uterus: Code(s): D25.9 - Leiomyoma of uterus, unspecified Category: Medical Plan: Discussed with the patient the findings on pelvic ultrasound & the risk of myosarcoma; in addition reviewed with the patient that malignancy and pre malignancy cannot be ruled out without hysterectomy for pathological evaluation ; furthermore, explained to the patient the limitation of pelvic ultrasound and endometrial biopsy in the setting. Discussed with the patient the typical symptoms that are caused by myomas in cluding but not limited to pelvic pain, pressure symptoms, abnormal uterine bleeding. In addition discussed with the patient options of treatment for myomas including: Serial ultrasounds periodically to follow-up on the size of the myoma while targeting the treatment against fibroids related symptoms ( control pills, Mirena IUD, progesterone treatment, GnRH agonist/antagonist, uterine artery embolization or endometrial ablation) versus surgical treatment including hysterectomy and or myomectomy. All pros and cons, risks and benefits of all options were discussed with the patient. The patient understands that delay in surgical treatment in case of myosarcoma can affect her prognosis, after further discussion, the patient decided to think about it and get back to us next visit Coding Level of Care Code Est Pt Level 3 (24185) Diagnoses Abnormal uterine bleeding (AUB) N93.9 Fibroid uterus D25.9
[2024-05-31 14:58] VITALS: BMI 29.7
--- OUTSIDE RECORDS SUMMARY | 2024-05-31 17:31 | XMS_ITS | Encounter Summary ---
Author Organization [employer] Address [address] [place] [address] Care Team Providers Care Aerial Photographer Name Role Phone Anne Carrion MD Primary Care Provider [phone] Nataly Tay NP Unavailable Carmine Rivas MD Unavailable [phone] Marivel Bang Unavailable Leo Rao MD Unavailable Reason for Visit * Reason Onset Date Comments Nurse Triage 11/29/2023 Encounter Details Date Type Department Care Team (Late st Contact Info) Description 11/29/2023 Telephone [facility] MEDICINE [address] [place] [address] Anne Carrion MD [address] [place], [place] [phone] Nurse Triage Social History Tobacco Use Types [...] Triage call Pt was seen in ED [facility] 11/25/23 , report is on the chart. [...] documented as of this encounter Care Teams Aerial Photographer Relationship Specialty Start Date End Date Anne Carrion MD [address] [place] [phone] PCP - General Family Medicine 02/08/18 Nataly Tay NP [address] [facility] [address] [place] [address] Urology 03/02/24 Carmine Rivas MD [address] [place] [phone] Pulmonary Disease 04/10/24 Marivel Bang [address] [place] [address] Orthopaedic Surgery 04/10/24 Leo Rao MD [address] [place] [phone] Obstetrics and Gynecology 05/02/24 documented as of this encounter
--- OUTSIDE RECORDS SUMMARY | 2024-05-31 17:31 | XMS_ITS | Clinical Summary ---
Author Organization [employer] Address [address] [place] [address] 7t [place] [address] Care Team Providers Care Mis Specialist Name Role Phone Murali, Anne CHAPMAN Primary Care Provider [phone] Nataly Tay NP Unavailable Carmine Rivas MD Unavailable [phone] Marivel Bang Unavailable Leo Rao MD [...] migh t be different from the original. [facility] Teletypesetter: Minnie, member services number [phone] Client Technical Specialist Agency: [employer] Problem Noted Date Diagnosed Date [...] as pharmacomtherapy, [facility], and [facility] pharmacy smoking cessation clinic Discussed USPSTF [...] as pharmacomtherapy, [facility] smoking [facility] group, and [facility] pharmacy smoking cessation clinic Discussed USPSTF [...] due after 06/02/24 -eye care facilitated by [facility] -dental home is [facility] -health filed Assessment & Plan (06/03/2023 10:34 AM EDT): -next physical exam due after 06/02/24 -eye care facilitated by [facility] -dental home is [facility] - Health care proxy completed and filed Papanicolaou smear of cervix with atypical squamous cells of undetermined significance (ASC-US) 02/26/2022 Overview (02/26/2022): ASCUS on pap 2012 HPV negative with [facility]. repeat PAP 05/04/16 nilm. -Repeat pap done 06/12/2021 Abnormal uterine bleeding 02/26/2022 Overview (05/31/2024): CT done in ER 11/25/23 revealed multiple fibroids -seen by Dr. Rao 05/31/24, uterine biopsy scheduled -US 05/19/24IMPRESSION: Uterine myometrial leiomyoma Almost certainly benign left ovarian cyst. Consider a 12 month follow-up pelvic ultrasound to reassess. Assessment & Plan (02/26/2022 9:31 AM EST): Menses coming every 2 months. US and labs ordered 02/26/2022. Kidney stones 02/26/2022 Overview (03/03/2024): Followed by urology -US 08/23/23 Bilateral nonobstructive renal calculi. No hydronephrosis. -seen by Roger Tay NP of [facility] urology 03/02/24, follow up 6 mo [...] Hospitalized 11/2018 and 12/2021. Improved. Followed by ed tech. Continue Tezspire, and Dulera and singulair as well as albuterol prn. Seen by [employer] Representative Carmine Rivas MD 04/06/23. Nucala changed to Tezspire. Call to Pulmonology to check the status of her injectable medicine 06/03/23 Call placed to [facility] pulmonology spoke to the nurse yesenia who reports patient should be on Tezspire 210mg every 4 weeks and that patient had appt on 04/15/23 for inj but no showed to the visit. Yesenia states they redid the orders for her today and short stay should be reaching out to patient to set up an appt. Referral placed to [facility]monology as it is closer to home, seen by Dr. Monique Hillman, [facility], FACP,FCCP 07/29/23, no changes made to regimen -seen by Dr. Rivas 04/25/24 Well controlled on Tezspire, Dulera, and albuterol MDI/nebs. Continue current regimen. Assessment & Plan (06/03/2023 10:30 AM EDT): Hospitalized 11/2018 and 12/2021. Improved. Followed by ed tech. Continue Tezspire, and Dulera and singulair as well as albuterol prn. Seen by [employer] Representative Carmine Rivas MD 04/06/23. Nucala changed to Tezspire. Will call to Pulmonology to check the status of her injectable medicine 06/03/23 Referral placed to [facility]monology as it is closer to home 06/03/23 Assessment & Plan (02/26/2022 9:22 AM EST): Hospitalized 11/2018. Improved. Followed by ed tech. Continue Nucala, and Dulera and singulair as well as albuterol prn. Referral sent 12/2021 to pulmonology at [facility], Pt was hospitalized 12/2021 and asthma [...] EXTERNAL DATA DEPARTMENT Provider, Generic External Data Abnormal uterine bleeding (Primary Dx) 04/25/2024 Travel 04/10/2024 Orders Only [facility] MEDICINE [address] [place] [phone] Anne Carrion MD Moderate persistent asthma without complication (Primary Dx) 03/28/2024 Travel 03/14/2024 Orders Only GENERIC EXTERNAL DATA DEPARTMENT Provider, Generic External Data 03/08/2024 Travel from Last 3 Months Immunizations Name [...] 2023 7, 10/31/2015, 10/31/2014, Additional history exists SDOH Screening 06/02/2024 06/03/2023 Pap Smear 06/12/2024 [...] Name Priority Date/Time Associated Diagnosis Comments US PELVIS TRANSVAGINAL Routine 05/19/2024 9:02 AM EDT HCG, TOTAL, QN Routine 04/27/2024 2:08 PM EDT TSH W/REFLEX TO FT4 Routine 04/27/2024 2 :08 PM EDT CBC Routine 04/27/2024 2:08 PM EDT XR CHEST 2 VIEWS Routine 03/14/2024 8:18 AM EST SARS COV2/INFLUENZA A/B AND RSV RNA QL NAAT Routine 03/14/2024 8:02 AM EST STREP A NUCLEIC ACID Routine 03/14/2024 8:02 AM EST LIPID PANEL, STANDARD Routine 06/04/2023 11:20 AM EDT Preventative health care HPV HIGH RISK PCR Routine 06/12/2021 12: 00 AM EDT PAP SMEAR Routine 06/12/2021 12:00 AM EDT ZZZ HISTORICAL HEPATITIS C ANTIBODY Routine 11/08/2019 12:39 PM EDT ZZZ HISTORICAL HIV AB/AG Routine 11/08/2019 12:39 PM EDT from Last 3 Months or Most Recently Relevant to Health Maintenance Results * US Pelvis Transvaginal (05/19/2024 9:02 AM EDT) Anatomical Region Laterality Modality Pelvis Ultrasound 05/19/2024 9:02 AM EDT Narrative 05/19/2024 9:03 AM EDT ? [facility] ?[address] ?[place] [address] ? Ultrasound Report ? Signed ? Patient: Leal Jose Ramon,Marangeli ?MR ?? #: [id number] ? : 1985 ?Acct:[id number] ? Age/Sex: 38 / F ?ADM Date: 05/18/24 ? Loc: HO.US ? Attending Dr: Leo Rao MD ? Ordering Physician: Leo Rao MD ?? Date of Service: 05/18/24 ?? Procedure(s): US pelvic and transvaginal ?? Accession Number(s): [id number] ? cc: Anne Carrion MD; Leo Rao MD ? CLINICAL HISTORY: N93.9 - Abnormal uterine and vaginal bleeding, unspecified ? US pelvis transabdominal and transvaginal ? Comparison: 03/13/2022 ? Findings: ?? Transabdominal scanning performed for overall anatomy. Transvaginal ?? scanning performed for additional detail. ? Anteverted uterus is 9.0 cm length. ?? Normal myometrium. ?? Endometrium 13 mm thickness. No lesions. ?? There is a myometrial 5.7 x 4.8 x 4.3 cm leiomyoma, previously measuring ?? 4.7 x 4.5 x 3.2 cm. ? Right ovary 2.8 x 2.5 x 1.4 cm. ?? Left ovary 2.6 x 2.2 x 2.1 cm. ?? There is a hypoechoic left ovarian 1.8 x 1.4 x 1.3 cm cyst. ?? Normal color Doppler of both ovaries. ? No free fluid. ? IMPRESSION: ?? 1. Uterine myometrial leiomyoma ?? 2. Almost certainly benign left ovarian cyst. Consider a 12 month ?? follow-up pelvic ultrasound to reassess. ? This document has been electronically signed by: Brett Serrano MD on ?? 05/19/2024 09:02:22 ? Dictated By: ?Brett Serrano MD ? Signed By: ?<Electronically signed by Brett Serrano MD in OV> ?05/19/24 0903 ? DD/ 0902 ? TD/TT: 05/19/24 09 ? Occupational Health Coordinator: ? Procedure Note Donotuseinterpreter, Image - 05/19/2024 [place] [address] Ultrasound Report Signed Patient: Edouard Roy #: [id number] : 1985Acct:[id number] Age/Sex: 38 / FADM Date: 05/18/24 Loc: HO.US Attending Dr: Leo Rao MD Ordering Physician: Leo Rao MD Date of Service: 05/18/24 Procedure(s): US pelvic and transvaginal Accession Number(s): [id number] cc: Anne Carrion MD; Leo Rao MD CLINICAL HISTORY: N93.9 - Abnormal uterine and vaginal bleeding,unspecified US pelvis transabdominal and transvaginal Comparison: 03/13/2022 Findings: Transabdominal scanning performed for overall anatomy. Transvaginal scanning performed for additional detail. Anteverted uterus is 9.0 cm length. Normal myometrium. Endometrium 13 mm thickness. No lesions. There is a myometrial 5.7 x 4.8 x 4.3 cm leiomyoma, previously measuring 4.7 x 4.5 x 3.2 cm. Right ovary 2.8 x 2.5 x 1.4 cm. Left ovary 2.6 x 2.2 x 2.1 cm. There is a hypoechoic left ovarian 1.8 x 1.4 x 1.3 cm cyst. Normal color Doppler of both ovaries. No free fluid. IMPRESSION: 1. Uterine myometrial leiomyoma 2. Almost certainly benign left ovarian cyst. Consider a 12 month follow-up pelvic ultrasound to reassess. This document has been electronically signed by: Brett Serrano MD on 05/19/2024 09:02:22 Dictated By: Brett Serrano MD Signed By: <Electronically signed by Brett Serrano MD in OV> 05/19/24902 DD/ 1 TD/TT: 05/19/24901 Occupational Health Coordinator: us [facility] External Provider IMG US PROCEDURES Final Result * TSH with Reflex to Free T4 (04/27/2024 2:08 PM EDT) TSH reflex Free T4 3.76 0.32 - 4.0 uIU/mL [facility] 04/27/2024 2:08 PM EDT 04/27/2024 2:08 PM EDT us Generic External Data Provider LAB BLOOD ORDERAB LES Final Result [facility] [address] [place] [phone] * (ABNORMAL) CBC (04/27/2024 2:08 PM EDT) Pathologist [facility] White Blood Count 8.7 4.8 - 10.8 X10*3/uL [facility] Red Blood Count 4.41 4.20 - 5.50 X10*6/uL [facility] Hemoglobin 12.5 12.0 - 16.0 g/dl [facility] Hematocrit 36.3(L) 37.0 - 47.0 % [facility] Mean Corpuscular Volume 82.3 80.0 - 98.0 fL [facility] Mean Corpuscular Hemoglobin 28.3 27.0 - 33.0 pg [facility] Mean Corpuscular HGB Conc 34.4 31.0 - 35.0 g/dl [facility] Red Cell Distribution Width 13.8 11.0 - 16.0 % [facility] Platelet Count 384 160 - 400 X10*3/uL [facility] Mean Platelet Volume 9.1(L) 9.4 - 12.3 fL [facility] NRBC Pct Auto 0.0 0.0 - 0.2 /100WBC [facility] NRBC Abs Auto 0.000 0.0 - 0.012 X10*3/uL [facility] 04/27/2024 2:08 PM EDT 04/27/2024 2:08 PM EDT us Generic External Data Provider LAB BLOOD ORDERAB LES Final Result Performing Organization Address [facility] de Phone Number [facility] [address] [place] [phone] [phone] * hCG, Total, Quantitative (04/27/2024 2:08 PM EDT) HCG Quantitative <2 mIU/mL [facility] Comment:Weeks post LMP Appro ximate hCG(Last Menstrual Period) Range (mIU/ml)3 - 4 weeks 9 - 1304 - 5 weeks 75 - 2,6005 - 6 weeks 850 - 20,8006 - 7 weeks 4000 - 100,2007 - 12 weeks 11,500 - 289,95517 - 16 weeks 18,300 - 137,58037 - 29 weeks (2nd trimester) 1,400 - 53,47046 - 41 weeks (3rd trimester) 940 - [...] ORDERAB LES Final Result Performing Organization Address [facility] [[email or web address]] Co de Phone Number [facility] [address] [place] [address] [phone] * XR Chest 2 Views (03/14/2024 8:18 AM EST) Anatomical Region Laterality Modality Chest Radiographic Chaparrita ging 03/14/2024 8:18 AM EST Narrative 03/14/2024 8:39 AM EST ? [facility] ?[address] ?[place] [address] ?XRay Report ? Signed ? Patient: Leal Jose Ramon,Marangeli ?MR ?? #: [id number] ? : 1985 ?Acct:[id number] ? Age/Sex: 38 / F ?ADM Date: 02/04/25 ? Loc: HO.ED ? Attending Dr: ? Ordering Physician: Generic ED Physician ?? Date of Service: 03/14/24 ?? Procedure(s): XR chest 2V ?? Accession Number(s): [id number] ? cc: Anne Carrion MD; Generic ED [...] ? DD/ 7 ? TD/TT: 03/14/24822 ? Occupational Health Coordinator: ? Procedure Note Kiya, Jluito - 03/14/2024 [place] [address] XRay Report Signed Patient: Edouard Roy #: [id number] : 1985Acct:[id number] Age/Sex: 38 / FADM Date: 03/14/24 Loc: HO.ED Attending Dr: Ordering Physician: Generic ED Physician Date of Service: 03/14/24 Procedure(s): XR chest 2V Accession Number(s): [id number] cc: Anne Carrion MD; Generic ED Physician [...] in OV> 03/14/24835 DD/ 7 TD/TT: 03/14/24822 Occupational Health Coordinator: [facility] External Provider IMG XR PROCEDURES Edited Result - Final * Strep A Nucleic Acid (03/14/2024 8:02 AM EST) IDNOW SERIAL# [id number] [facility] Strep A Nucleic Acid Negative Negative [facility] Comment:All test results mus t [...] LAB MICROBIOLOGY - GENERAL ORDERABLES Final Result [facility] [address] [place] [phone] * (ABNORMAL) SARS-CoV-2 RNA, Influenza A/B, and RSV RNA, Ql NAAT (03/14/2024 8:02 AM EST) Influenza A PCR POSITIVE(A) Negative [facility] Influenza B PCR NEGATIVE Negative [facility] Resp Syncy Virus RNA Qual PCR NEGATIVE Negative [facility] SARS COV2 PCR NEGATIVE Negative [facility] Comment:All test results mus t be [...] use by authorized laboratories.Testing performed on the Scandid GeneXpert utilizingreal-time RT-PCR.All SARS CoV2 and positive influenza A/B results arereported to [facility]. 03/14/2024 8:02 AM EST 03/14/2024 8:07 AM EST us Generic External Data Provider LAB MICROBIOLOGY - GENERAL ORDERABLES Final Result [facility] [address] [place] [phone] * (ABNORMAL) Lipid Panel, Standard (06/04/2023 11:20 AM EDT) Triglycerides 77 <150 mg/dL [facility] Comment:Desirable Triglyceri de: less than 150 mg/dLBorderline High Triglyceride 150-199 mg/dLHigh Triglyceride: 200-499 mg/dLVery High Triglyceride: greater than or equal to 5OO mg/dL Cholesterol 199 <200 mg/dL [facility] Comment:Desirable Cholestero l: less than 200 mg/dLBorderline High Cholesterol: 200-239 mg/dLHigh Cholesterol: greater than 239 mg/dL LDL Cholesterol Calculated 144(H) <100 mg/dL [facility] Comment:Desirable LDL: less than 100 mg/dLNear Optimal/Above Optimal LDL: 110- 129 mg/dLBorderline High LDL: 130-159 mg/dLHigh LDL: 160-189 mg/dLVery High LDL: greater than or equal to 190 mg/dL HDL Cholesterol 40(L) >40 mg/dL [facility] Comment:Desirable HDL: great er than 40 mg/dL Note: This HDL assay may give artificially low results in patients with liver disease. Blood Venous blood specimen / Unknown 06/04/2023 11:20 AM EDT 06/04/2023 1:22 PM EDT Anne Carrion MD LAB BLOOD ORDERABLES Final Result Performing Organization Address [facility] de Phone Number [facility] [address] [place] [phone] * HPV High Risk PCR (06/12/2021 12:00 AM EDT) Swab Cervical swab / Unknown Anne Carrion MD LAB MICROBIOLOGY - GENERAL ORDERABLES Final Result Performing Organization Address [facility] de Phone Number [facility] [address] [place] [phone] * Pap Smear (06/12/2021 12:00 AM EDT) Swab Anne Carrion MD LAB CYTOLOGY ORDERABLES Fi nal Result Performing Organization Address [facility] de Phone Number [facility] [address] [place] [phone] * HEPATITIS C ANTIBODY (11/08/2019 12:39 PM EDT) Pathologist [facility] HEPATITIS C ANTIBODY NONREACTIVE NONREACTIVE [facility] Comment: Antibodies to HCV not detected; does not exclude early acute HCV infection. 11/08/2019 12:3 9 PM EDT Sandhya Brody HISTORICAL/NON ORDERABLE LABS Fi nal Result Performing Organization Address [facility] de Phone Number [facility] [address] * HIV AB/AG (11/08/2019 12:39 PM EDT) Pathologist [facility] HIV AG/AB NONREACTIVE NR FOUNDATI ON LAB [...] detection of this assay. ?? The [employer] Machine Setter HIV Ag/Ab Combo assay result and supplemental assay results should be interpreted in conjunction with the patient's clinical presentation, history and other laboratory results. ??If the results are inconsistent with clinical evidence, additional testing is suggested to confirm the result. 11/08/2019 12:3 9 PM EDT us Sandhya Brody HISTORICAL/NON ORDERABLE LABS Fi nal Result [facility] [address] from Last 3 Months or Most Recently Relevant to Health Maintenance [place] [address] [place] [address] - [employer] Care Teams Mis Specialist Relationship Specialty Start Date End Date Edwards, MD Anne [address] [place] [phone] PCP - General Family Medicine 02/08/18 Nataly Tay NP [address] [place] [address] Urology 03/02/24 Carmine Rivas MD [address] [place] [address] Pulmonary Disease 04/10/24 Marivel Bang [address] [place] [address] Orthopaedic Surgery 04/10/24 Leo Rao MD [address] [place] [phone] Obstetrics and Gynecology 05/02/24
--- OUTSIDE RECORDS SUMMARY | 2024-05-31 17:31 | XMS_ITS | Encounter Summary ---
Author Organization [facility] Address [address] [place] [address] 7[address] [place] [address] Care Team Providers Care Tool Maker Bench Name Role Phone Anne Carrion MD Primary Care Provider Nataly Tay NP Unavailable Carmine Rivas MD Unavailable [phone] Marivel Bang Unavailable Leo Rao MD Unavailable Reason for Visit * Reason Comments Med Refill Encounter Details Date Type Department Care Team (Late st Contact Info) Description 01/07/2023 Refill [facility] [address] [place] [address] [phone] Jaiden Mccarthy MD [address] [place] [address] Rash Social History Tobacco Use Types Packs/Day [...] eruption documented in this encounter Care Teams Tool Maker Bench Relationship Specialty Start Date End Date Anne Carrion MD [address] [place], [place] [phone] PCP - General Family Medicine 02/08/18 Nataly Tay NP [address] [place] [address] Urology 03/02/24 Carmine Rivas MD [address] [place] [address] Pulmonary Disease 04/10/24 Marivel Bang [address] [place] [address] Orthopaedic Surgery 04/10/24 Leo Rao MD [address] [place] [address] Obstetrics and Gynecology 05/02/24 documented as of this encounter
--- OUTSIDE RECORDS SUMMARY | 2024-05-31 17:31 | XMS_ITS | Patient Health Record ---
[facility] Address [address] [facility] [place] [address] Care Team Providers Care Topographical Surveyor Name Role Phone Anne Carrion MD Primary Care Provider Radha Kavin Abad Unavailable [phone] Allergies Allergen (clinical drug ingredient) Drug/Non Drug [...] Problem Reflex sympathetic dystrophy of lower extremity (698883075) Complex regional pain syndrome I of right lower limb (G90.521) Active confirmed Problem Mononeuropathy of lower limb (580290202) Neuritis of right foot (G57.91) Active confirmed Plan Of Treatment No Information Insurance Providers Payer Name Payer Address Payer Phone Subscriber Number Group Number Insured Name Patient Relationship to Insured Coverage Start Date Coverage End Date [facility] [employer] Claims [address] [place] [id number] Claribel Leal Self - patient is the insured Medical (General) History Medical History History ICD Code Depression Anxiety disorder Migraines Kidney stones Broken bones Back pain asthma Surgical History Surgery Date(Month/Year) cholecystectomy laparoscopic salpingectomy bilateral section 2011 tonsillectomy tubal ligation foot surgery 1994 elbow sx
== END 2024-05-31 15:11 | disposition home or self-care (01) ==
LOC: HO.HWS 14:44
PROVIDERS: PCP Family Medicine; Visit Provider Obstetrics & Gynecology
DX: N93.9 Abnormal uterine and vaginal bleeding, unspecified (principal); D25.9 Leiomyoma of uterus, unspecified
CPT/HCPCS: 99213

== ENCOUNTER → 2024-05-31 14:44 | Outpatient (BNVA) | payer OTHER, SELFPAY | PROVIDERS: PCP Family Medicine; Visit Provider Obstetrics & Gynecology | DX: N93.9 Abnormal uterine and vaginal bleeding, unspecified (principal); D25.9 Leiomyoma of uterus, unspecified | CPT/HCPCS: 99212 ==

== ENCOUNTER 2024-06-07 13:17 | Outpatient (REF) | payer OTHER, SELFPAY ==
--- OUTSIDE RECORDS SUMMARY | 2024-06-07 15:12 | XMS_ITS | Encounter Summary ---
Author Organization [employer] Address [address] [facility] 7t [place] [address] Care Team Providers Care Farm Contractor Buyer Name Role Phone Anne Carrion MD Primary Care Provider [phone] Nataly Tay NP Unavailable Carmine Rivas MD Unavailable [phone] Marivel Bang Unavailable Leo Rao MD Unavailable Reason for Visit * Reason Onset Date Comments Nurse Triage 11/29/2023 Encounter Details Date Type Department Care Team (Late st Contact Info) Description 11/29/2023 Telephone [facility] [address] [place] [address] Anne Carrion MD [address] [place], [place] [phone] Nurse Triage Social History Tobacco Use Types [...] was seen in ED [facility] 11/25/23 , report is on [...] documented as of this encounter Care Teams Farm Contractor Buyer Relationship Specialty Start Date End Date Anne Carrion MD [address] [place] [phone] PCP - General Family Medicine 02/08/18 Nataly Tay NP [address] [facility] [address] [place] [address] Urology 03/02/24 Carmine Rivas MD [address] [place] [address] Pulmonary Disease 04/10/24 Marivel Bang [address] [place] [address] Orthopaedic Surgery 04/10/24 Leo Rao MD [address] [place] [phone] Obstetrics and Gynecology 05/02/24 documented as of this encounter
--- OUTSIDE RECORDS SUMMARY | 2024-06-07 15:12 | XMS_ITS | Clinical Summary ---
Author Organization [employer] Address [address] [place] [address] 7t [place] [address] Care Team Providers Care Repatcher Name Role Phone Murali, Anne CHAPMAN Primary Care Provider [phone] Nataly Tay NP Unavailable Carmine Rivas MD Unavailable [phone] Marivel Bang Unavailable Leo Rao MD [...] t be different from the original. [facility] Employee Relations Assistant: Minnie, member services number [phone] Integration Solution Architect Agency: [employer] Problem Noted Date Diagnosed Date [...] as pharmacomtherapy, [facility] smoking cessation group, and [facility] pharmacy smoking cessation clinic Discussed USPSTF recommends [...] as pharmacomtherapy, [facility] smoking cessation group, and [facility] pharmacy smoking cessation clinic Discussed USPSTF recommends [...] care facilitated by none -dental home is [facility] -health filed Assessment & Plan (06/03/2023 10:34 AM EDT): -next physical exam due after 06/02/24 -eye care facilitated by [facility] -dental home is [employer] [employer] [facility] - Health care proxy completed and filed Papanicolaou smear of cervix with atypical squamous cells of undetermined significance (ASC-US) 02/26/2022 Overview (02/26/2022): ASCUS on pap 2012 HPV negative with [facility]. repeat PAP 05/04/16 nilm. -Repeat pap [...] hydronephrosis. -seen by Roger Tay NP of [facility] urology 03/02/24, follow up 6 mo [...] Hospitalized 11/2018 and 12/2021. Improved. Followed by endoscopy registered nurse. Continue Tezspire, and Dulera and singulair as well as albuterol prn. Seen by Results Technician Carmine Rivas MD 04/06/23. Nucala changed to Tezspire. Call to Pulmonology to check the status of her injectable medicine 06/03/23 Call placed to [facility] pulmonology spoke to the nurse yesenia who reports patient should be on Tezspire 210mg every 4 weeks and that patient had appt on 3/7/24 for inj but no showed to the visit. Yesenia states they redid the orders for her today and short stay should be reaching out to patient to set up an appt. Referral placed to [facility] Pulmonology as it is closer to home, seen by Dr. Monique Hillman, [facility], FACP,FCCP 07/29/23, no changes made to regimen -seen by Dr. Rivas 04/25/24 Well controlled on Tezspire, Dulera, and albuterol MDI/nebs. Continue current regimen. Assessment & Plan (06/03/2023 10:30 AM EDT): Hospitalized 11/2018 and 12/2021. Improved. Followed by endoscopy registered nurse. Continue Tezspire, and Dulera and singulair as well as albuterol prn. Seen by Results Technician Carmine Rivas MD 04/06/23. Nucala changed to Tezspire. Will call to Pulmonology to check the status of her injectable medicine 06/03/23 Referral placed to [facility] Pulmonology as it is closer to home 06/03/23 Assessment & Plan (02/26/2022 9:22 AM EST): Hospitalized 11/2018. Improved. Followed by endoscopy registered nurse. Continue Nucala, and Dulera and singulair as well as albuterol prn. Referral sent 12/2021 to pulmonology at [facility], Pt was hospitalized 12/2021 and asthma is [...] (Primary Dx) 04/25/2024 Travel 04/10/2024 Orders Only [facility] MEDICINE [address] [place] [address] Anne Carrion MD Moderate persistent asthma without [...] EDT Narrative 05/19/2024 9:03 AM EDT ? [facility] ?[address] ?[place] [address] ? Ultrasound Report ? Signed ? Patient: Leal Jose Ramon,Marangeli ?MR ?? #: [id number] ? : 1985 ?Acct:[id number] ? Age/Sex: 38 / F ?ADM Date: 05/18/24 ? Loc: HO.US ? Attending Dr: Leo Rao MD ? Ordering Physician: Leo Rao MD ?? Date of Service: 05/18/24 ?? Procedure(s): US pelvic and transvaginal ?? Accession Number(s): [id number] ? cc: Anne Carrion MD; Leo Rao [...] DD/ 0902 ? TD/TT: 05/19/24 0902 ? Equities Trader: ? Procedure Note Kiya, Image - 04/11/2025 [place] [address] Ultrasound Report Signed Patient: Edouard Roy #: [id number] : 1985Acct:[id number] Age/Sex: 38 / FADM Date: 05/18/24 Loc: HO.US Attending Dr: Leo Rao MD Ordering Physician: Leo Rao MD Date of Service: 05/18/24 Procedure(s): US pelvic and transvaginal Accession Number(s): [id number] cc: Anne Carrion MD; Leo Rao MD [...] in OV> 05/19/24902 DD/ 1 TD/TT: 05/19/24901 Equities Trader: us [facility] External Provider IMG US PROCEDURES Final Result * TSH with Reflex to Free T4 (04/27/2024 2:08 PM EDT) Pathologist [facility] TSH reflex Free T4 3.76 0.32 - 4.0 uIU/mL [facility] 04/27/2024 2:08 PM EDT 04/27/2024 2:08 PM EDT us Generic External Data Provider LAB BLOOD ORDERAB LES Final Result Performing Organization Address [facility] Co de Phone Number [facility] [address] [place] [phone] * (ABNORMAL) CBC (04/27/2024 2:08 PM EDT) [facility] White Blood Count 8.7 4.8 - 10.8 X10*3/uL [facility] Red Blood Count 4.41 4.20 - 5.50 X10*6/uL [facility] Hemoglobin 12.5 12.0 - 16.0 g/dl [facility] Hematocrit 36.3(L) 37.0 - 47.0 % [facility] Mean Corpuscular Volume 82.3 80.0 - 98.0 fL [facility] Mean Corpuscular Hemoglobin 28.3 27.0 - 33.0 pg [facility] Mean Corpuscular HGB Conc 34.4 31.0 - 35.0 g/dl [facility] Red Cell Distribution Width 13.8 11.0 - 16.0 % [facility] Platelet Count 384 160 - 400 X10*3/uL [facility] Mean Platelet Volume 9.1(L) 9.4 - 12.3 fL [facility] NRBC Pct Auto 0.0 0.0 - 0.2 /100WBC [facility] NRBC Abs Auto 0.000 0.0 - 0.012 X10*3/uL [facility] 04/27/2024 2:08 PM EDT 04/27/2024 2:08 PM EDT us Generic External Data Provider LAB BLOOD ORDERAB LES Final Result Performing Organization Address City/[facility] de Phone Number [facility] [address] [place] [address] [phone] * hCG, Total, Quantitative (04/27/2024 2:08 PM EDT) HCG Quantitative <2 mIU/mL [facility] Comment:Weeks post LMP Appro ximate hCG(Last Menstrual Period) Range (mIU/ml)3 - 4 weeks 9 - 1304 - 5 weeks 75 - 2,6005 - 6 weeks 850 - 20,8006 - 7 weeks 4000 - 100,2007 - 12 weeks 11,500 - 289,99756 - 16 weeks 18,300 - 137,89797 - 29 weeks (2nd trimester) 1,400 - 53,73641 - 41 weeks (3rd trimester) 940 - [...] ORDERAB LES Final Result Performing Organization Address [facility] Co de Phone Number [facility] [address] [place] [phone] * XR Chest 2 Views (03/14/2024 8:18 AM EST) Anatomical Region Laterality Modality Chest Radiographic Chaparrita ging 03/14/2024 8:18 AM EST Narrative 03/14/2024 8:39 AM EST ? [facility] ?[address] ?[place] [address] ?XRay Report ? Signed ? Patient: Leal Jose Ramon,Marangeli ?MR ?? #: [id number] ? : 1985 ?Acct:[id number] ? Age/Sex: 38 / F ?ADM Date: 02/04/25 ? Loc: HO.ED ? Attending Dr: ? Ordering Physician: Generic ED Physician ?? Date of Service: 03/14/24 ?? Procedure(s): XR chest 2V ?? Accession Number(s): [id number] ? cc: Anne Carrion MD; Generic ED [...] 0836 ? DD/ ? TD/TT: 03/14/24822 ? Equities Trader: ? Procedure Note Kiya, Image - 03/14/2024 [place] [address] XRay Report Signed Patient: Edouard Roy #: [id number] : 1985Acct:[id number] Age/Sex: 38 / FADM Date: 03/14/24 Loc: HO.ED Attending Dr: Ordering Physician: Generic ED Physician Date of Service: 03/14/24 Procedure(s): XR chest 2V Accession Number(s): [id number] cc: Anne Carrion MD; Generic ED Physician [...] in OV> 03/14/2436 DD/ 7 TD/TT: 03/14/24822 Equities Trader: [facility] External Provider IMG XR PROCEDURES Edited Result - Final * Strep A Nucleic Acid (03/14/2024 8:02 AM EST) IDNOW SERIAL# [id number] [facility] Strep A Nucleic Acid Negative Negative [facility] Comment:All test results mus t [...] LAB MICROBIOLOGY - GENERAL ORDERABLES Final Result [facility] [address] [place] [phone] * (ABNORMAL) SARS-CoV-2 RNA, Influenza A/B, and RSV RNA, Ql NAAT (03/14/2024 8:02 AM EST) Influenza A PCR POSITIVE(A) Negative [facility] Influenza B PCR NEGATIVE Negative [facility] Resp Syncy Virus RNA Qual PCR NEGATIVE Negative [facility] SARS COV2 PCR NEGATIVE Negative [facility] Comment:All test results mus t [...] use by authorized laboratories.Testing performed on the [employer] GeneXpert utilizingreal-time RT-PCR.All SARS CoV2 and positive influenza A/B results arereported to [facility]. 03/14/2024 8:02 AM EST 03/14/2024 8:07 AM EST us Generic External Data Provider LAB MICROBIOLOGY - GENERAL ORDERABLES Final Result [facility] [address] [place] [phone] * (ABNORMAL) Lipid Panel, Standard (06/04/2023 11:20 AM EDT) Triglycerides 77 <150 mg/dL [facility] Comment:Desirable Triglyceri de: less than [...] 190 mg/dL HDL Cholesterol 40(L) >40 mg/dL [facility] Comment:Desirable HDL: great er than 40 mg/dL Note: This HDL assay may give artificially low results in patients with liver disease. Blood Venous blood specimen / Unknown 06/04/2023 11:20 AM EDT 06/04/2023 1:22 PM EDT us Anne Murali MD LAB BLOOD ORDERABLES Final Result Performing Organization Address [facility] de Phone Number [facility] [address] [place] [phone] * HPV High Risk PCR (06/12/2021 12:00 AM EDT) Swab Cervical swab / Unknown Anne Carrion MD LAB MICROBIOLOGY - GENERAL ORDERABLES Final Result Performing Organization Address [facility] de Phone Number [facility] [address] [place] [phone] * Pap Smear (06/12/2021 12:00 AM EDT) Swab Anne Carrion MD LAB CYTOLOGY ORDERABLES Fi nal Result Performing Organization Address [facility] [address] [place] [phone] * HEPATITIS C ANTIBODY (11/08/2019 12:39 PM EDT) Pathologist [facility] HEPATITIS C ANTIBODY NONREACTIVE NONREACTIVE [facility] Comment: Antibodies to HCV not detected; does not exclude early acute HCV infection. 11/08/2019 12:3 9 PM EDT Sandhya Brody HISTORICAL/NON ORDERABLE LABS Fi nal Result Performing Organization Address [facility] de Phone Number [facility] [address] [place] [address], * HIV AB/AG (11/08/2019 12:39 PM EDT) [...] detection of this assay. ?? The [employer] Oxidation Operator HIV Ag/Ab Combo assay result and supplemental assay results should be interpreted in conjunction with the patient's clinical presentation, history and other laboratory results. ??If the results are inconsistent with clinical evidence, additional testing is suggested to confirm the result. 11/08/2019 12:3 9 PM EDT us Sandhya Brody HISTORICAL/NON ORDERABLE LABS Fi nal Result [facility] [address] from Last 3 Months or Most Recently Relevant to Health Maintenance Insurance < 65 [place] [id number] Care Teams Repatcher Relationship Specialty Start Date End Date [place] Sue[place], MD Anne [address] [place] [phone] PCP - General Family Medicine 1/1/19 Nataly Tay NP [address] [place] [address] Urology 03/02/24 Carmine Rivas MD [address] [place] [address] Pulmonary Disease 04/10/24 Marivel Bang [address] [place] [address] Orthopaedic Surgery 04/10/24 Leo Rao MD [address] [place] [address] [address] [place], [place] [phone] Obstetrics and Gynecology 05/02/24
--- OUTSIDE RECORDS SUMMARY | 2024-06-07 15:12 | XMS_ITS | Encounter Summary ---
Author Organization [facility] [facility] Address [address] [place] [address] 7t [place] [address] Care Team Providers Care Lcac Radar Operator/Navigator Name Role Phone Anne Carrion MD Primary Care Provider Nataly Tay NP Unavailable Carmine Rivas MD Unavailable [phone] Marivel Bang Unavailable Leo Rao MD Unavailable Reason for Visit * Reason Comments Med Refill Encounter Details Date Type Department Care Team (Late st Contact Info) Description 01/07/2023 Refill [facility] [address] [place] [address] [phone] Jaiden Mccarthy MD [address] [place] [address] Rash Social History Tobacco Use Types Packs/Day [...] eruption documented in this encounter Care Teams Lcac Radar Operator/Navigator Relationship Specialty Start Date End Date Anne Carrion MD [address] [place], [place] [phone] PCP - General Family Medicine 02/08/18 Nataly Tay NP [address] [place] [address] Urology 03/02/24 Carmine Rivas MD [address] [place] [address] Pulmonary Disease 04/10/24 Marivel Bang [address] [place] [address] Orthopaedic Surgery 04/10/24 Leo Rao MD [address] [place] [phone] Obstetrics and Gynecology 05/02/24 documented as of this encounter
== END 2024-06-07 13:18 | disposition home or self-care (01) ==
LOC: HO.LNP 13:17
PROVIDERS: PCP Family Medicine; Visit Provider Obstetrics & Gynecology
DX: N93.9 Abnormal uterine and vaginal bleeding, unspecified (principal); Z32.02 Encounter for pregnancy test, result negative
CPT/HCPCS: 58100; 81025; 88305

== ENCOUNTER 2024-06-07 13:17 | Outpatient (AMB) | payer OTHER, SELFPAY ==
--- NOTE | 2024-06-07 13:29 | MHC.OFFVIS ---
Intake Visit Reasons: EMB per Animal Killer Required: No Information Interpreted: non-clinical & clinical Healthcare Financial Analyst: Healthcare Financial Analyst Present (Ivania Valera JUAN PABLO) Accompanied by: Self / Same As Patient Allergies benzonatate [BENZONATATE] Allergy (Severe, Verified 06/07/24 13:53) ANAPHYLAXIS banana [BANANA] Allergy (Intermediate, Verified 06/07/24 13:53) RASH coconut [COCONUT] Allergy (Intermediate, Verified 06/07/24 13:53) RASH cucumber [CUCUMBER] Allergy (Intermediate, Verified 06/07/24 13:53) RASH grape [GRAPE] Allergy (Intermediate, Verified 06/07/24 13:53) RASH arthur [ARTHUR] Allergy (Intermediate, Verified 06/07/24 13:53) RASH sulfamethoxazole [From BACTRIM] Allergy (Intermediate, Verified 06/07/24 13:53) RASH trimethoprim [From BACTRIM] Allergy (Intermediate, Verified 06/07/24 13:53) RASH cephalexin [Keflex] Allergy (Unknown, Verified 06/07/24 13:53) Unknown duloxetine [From CYMBALTA] Allergy (Unknown, Verified 06/07/24 13:53) UNKNOWN Sulfa (Sulfonamide Antibiotics) Allergy (Unknown, Verified 06/07/24 13:53) Unknown nitrofurantoin Allergy (Verified 06/07/24 13:53) Rash SEAFOOD Allergy (Intermediate, Uncoded 06/07/24 13:53) RASH antibacterial soap Allergy (Unknown, Uncoded 06/07/24 13:53) rash Tessalon Allergy (Unknown, Uncoded 06/07/24 13:53) Unknown HPI Comments Details: Presenting for EMB [facility] Medical History Pelviectasis Asthma Kidney stone Hx of migraine headaches Hx of anxiety disorder History of depression Surgical History Hx of bilateral salpingectomy Hx of tubal ligation Hx of section Hx of tonsillectomy Hx laparoscopic cholecystectomy Family History Mother Diabetes mellitus Hypertension Dementia Father Diabetes mellitus Hypertension Social History Alcohol intake: never Patient Tobacco Use Status: Current someday Tobacco user Tobacco use type: Cigarette Cigarettes Per Day: 2 Advance Directives Date on File: 12/11/21 service: No Current occupational status: disabled Current occupation: right handed Female Reproductive History Menstrual Age of Menarche: 10 Review of Systems Const All systems reviewed & are unremarkable except as noted in HPI and below Reports as per HPI and Reports no additional complaints GI Reports no additional complaints Reports no additional complaints Office Procedures Endometrial Biopsy Details: The patient was counseled regarding the indication and benefits of endometrial sampling to rule out endometrial pathology including not limited to endometrial hyperplasia or endometrial cancer and others; The alternatives (Either do nothing vs. hysteroscopy D&C) & the risks were discussed with the patient including but not limited: pain, uterine perforation, bleeding, infection, possible injury to bladder, bowel, ureter, possible need for blood transfusion with all its possible risks. The patient verbalized understanding all questions answered and signed consent. Urine test done in the office was negative The patient was placed into the dorsal lithotomy position; a speculum was inserted in the vagina. Using aseptic technique for the procedure, the cervix was cleansed with Betadine. The anterior lip of the cervix was grasped with a single tooth tenaculum. The uterus was sounded to 7 cm with a 4 mm Pipelle was used. Tissues samples were obtained and placed in formalin, in a patient labeled container and sent to the pathology department. At the end of the procedure, there was minimal bleeding noted The patient tolerated the procedure well and was discharged in good condition with the following instructions: Nothing in the vagina until the bleeding stops. No sex until the bleeding stops, to call if any of the following occurs: fever (>100.4), flu-like symptoms, abdominal pain, heavy bleeding, four smelling vaginal discharge. The patient was instructed to schedule a Follow up appointment in 2 weeks to discuss pathology results of the biopsy and treatment options. This note was generated with a voice recognition program. Some errors may have been overlooked during the review of this note. Sometimes these errors may affect the content or meaning of a given sentence. [id number] Biopsy Assessment & Plan Assessment & Plan (1) Abnormal uterine bleeding (AUB): Code(s): N93.9 - Abnormal uterine and vaginal bleeding, unspecified Category: Medical Plan: EMB done, see procedure note Orders: Orders AMB Endometrial Biopsy Today N93.9 - Abnormal uterine and vaginal bleeding, unspecified AMB HCG Urine Test Today Z32.02 - Encounter for test, result negative Coding Level of Care Code Procedure Only Diagnoses Abnormal uterine bleeding (AUB) N93.9 CPT Codes Endometrial Biopsy - CPT: 90666-Rmtceqjebkz Biopsy ([id number])
--- OUTSIDE RECORDS SUMMARY | 2024-06-07 14:34 | XMS_ITS | Encounter Summary ---
Author Organization [facility] Address [address] [place] [address] [address] [place] [address] Care Team Providers Care Logging Truck Driver Name Role Phone Anne Carrion MD Primary Care Provider Nataly Tay NP Unavailable Carmine Rivas MD Unavailable [phone] Marivel Bang Unavailable Leo Rao MD Unavailable Reason for Visit * Reason Comments Med Refill Encounter Details Date Type Department Care Team (Late st Contact Info) Description 01/07/2023 Refill [facility] [address] [place] [address] [phone] Jaiden Mccarthy MD [address] [place] [address] Rash Social History Tobacco Use Types Packs/Day [...] eruption documented in this encounter Care Teams Logging Truck Driver Relationship Specialty Start Date End Date Anne Carrion MD [address] [place], [place] [phone] PCP - General Family Medicine 02/08/18 Nataly Tay NP [address] [place] [address] Urology 03/02/24 Carmine Rivas MD [address] [place] [address] Pulmonary Disease 04/10/24 Marivel Bang [address] [place] [address] Orthopaedic Surgery 04/10/24 Leo Rao MD [address] [place] [address] Obstetrics and Gynecology 05/02/24 documented as of this encounter
--- OUTSIDE RECORDS SUMMARY | 2024-06-07 14:34 | XMS_ITS | Patient Health Record ---
Author Organization [facility] Address [address] [facility] [place] [address] Care Team Providers Care Hand Meat Salter Name Role Phone Anne Carrion MD Primary Care Provider Radha Kavin Abad Unavailable [phone] Allergies Allergen (clinical drug ingredient) Drug/Non Drug [...] Problem Reflex sympathetic dystrophy of lower extremity (584190769) Complex regional pain syndrome I of right lower limb (G90.521) Active confirmed Problem Mononeuropathy of lower limb (517907907) Neuritis of right foot (G57.91) Active confirmed Plan Of Treatment No Information Insurance Providers Payer Name Payer Address Payer Phone Subscriber Number Group Number Insured Name Patient Relationship to Insured Coverage Start Date Coverage End Date [facility] [employer] S[employer] Claims [address] [place] [id number] Claribel Leal Self - patient is the insured Medical (General) History Medical History History ICD Code Depression Anxiety disorder Migraines Kidney stones Broken bones Back pain asthma Surgical History Surgery Date(Month/Year) cholecystectomy laparoscopic salpingectomy bilateral section 2011 tonsillectomy tubal ligation foot surgery 1994 elbow sx
--- OUTSIDE RECORDS SUMMARY | 2024-06-07 14:34 | XMS_ITS | Clinical Summary ---
Author Organization [employer] Address [address] [place] [address] 7t [place] [address] Care Team Providers Care Lower In Supervisor Name Role Phone Murali, Anne CHAPMAN Primary Care Provider [phone] Nataly Tay NP Unavailable Carmine Rivas MD Unavailable [phone] Marivel Bang Unavailable Leo Rao MD [...] NEBULIZATION ROUTE THREE TIMES DAILY IF NEEDED 02/04/20 22 Active montelukast (Singulair) 10 MG tabletIndication s:Allergic rhinitis, unspecified seasonality, unspecified trigger TAKE 1 TABLET BY MOUTH ONCE DAILY 12/12/19 22 Active cyclobenzaprine (Flexeril) 5 MG tabletIndication s:Low back pain, unspecified back pain laterality, unspecified chronicity, unspecified whether sciatica present 02/16/19 24 Active Diclofenac Sodium 1 % gelIndications:L ow back pain, unspecified back pain laterality, unspecified chronicity, unspecified whether sciatica present 02/16/19 24 Active Dupixent 300 MG/2ML injectionIndicat ions:Moderate persistent asthma without complication 02/16/19 24 Active Tezspire 210 MG/1.91ML solution prefilled syringeIndicatio ns:Moderate persistent asthma without complication 04/01/19 24 Active albuterol 108 (90 Base) MCG/ACT inhalerIndicatio ns:Moderate persistent asthma without complication 4 times a day 11/01/19 22 Active mepolizumab (Nucala) 100 mg/mL injectionIndicat ions:Moderate persistent asthma without complication 100 mg. 01/16/20 23 Active cetirizine (ZyrTEC) 10 MG tabletIndication s:Allergic rhinitis, unspecified seasonality, unspecified trigger Take 1 tablet (10 mg) by mouth Once per day. 90 tablet 3 06/03/19 24 Active FLUoxetine (PROzac) 20 MG capsuleIndicatio ns:Severe episode of recurrent major depressive disorder, without psychotic features (CMS/HCC) Take 1 capsule (20 mg) by mouth Once per day. 30 capsule 11 06/03/19 24 Active EPINEPHrine (Epipen) 0.3 MG/0.3ML injection syringeIndicatio ns:Moderate persistent asthma without complication Use IM prn anaphlayxis 1 each 2 06/03/19 24 Active nabumetone (Relafen) 500 MG tablet Take 1 tablet (500 mg) by mouth 2 times daily. 60 tablet 11/29/19 24 025 Active Acetaminophen Extra Strength 500 MG tabletIndication s:Low back pain, unspecified back pain laterality, unspecified chronicity, unspecified whether sciatica present TAKE 2 TABLETS BY MOUTH EVERY 6 HOURS NEEDED 60 tablet 2 12/23/19 24 Active triamcinolone (Kenalog) 0.1 % creamIndications :Rash APPLY TOPICALLY IN THE MORNING AND AT BEDTIME IF NEEDED FOR RASH. APPLY SPARINGLY. 15 g 01/02/20 24 Active mometasone-formo terol (Dulera) 200-5 MCG/ACT inhalerIndicatio ns:Moderate persistent asthma without complication Inhale 2 puffs in the morning and at bedtime. Rinse mouth with water after use to reduce aftertaste and incidence of candidiasis. Do not swallow. Active cholecalciferol (Vitamin D-3) 25 MCG (1000 UT) tabletIndication s:Vitamin D Deficiency Take 1 tablet (25 mcg) by mouth Once per day. 90 tablet 3 06/03/19 24 025 Active Problems Patient Care Coordination No te Formatting of this note migh t be different from the original. [facility] Social Service Technician: Minnie, member services number [phone] [employer] Agency: [facility] Problem Noted Date Diagnosed Date [...] as pharmacomtherapy, [facility] smoking cessation group, and [facility] pharmacy smoking cessation clinic Discussed USPSTF [...] as pharmacomtherapy, [facility] smoking cessation group, and [facility] pharmacy smoking cessation clinic Discussed USPSTF [...] care facilitated by none -dental home is [facility] -health filed Assessment & Plan (06/03/2023 10:34 AM EDT): -next physical exam due after 06/02/24 -eye care facilitated by [facility] -dental home is [facility] - Health care proxy completed and filed Papanicolaou smear of cervix with atypical squamous cells of undetermined significance (ASC-US) 02/26/2022 Overview (02/26/2022): ASCUS on pap 2012 HPV negative with [facility]. repeat PAP 05/04/16 nilm. -Repeat pap [...] hydronephrosis. -seen by Roger Tay NP of [facility] urology 03/02/24, follow up 6 mo -urine [...] Hospitalized 11/2018 and 12/2021. Improved. Followed by vehicle calibration engineer. Continue Tezspire, and Dulera and singulair as well as albuterol prn. Seen by Boat Outfitter Carmine Rivas MD 04/06/23. Nucala changed to Tezspire. Call to Pulmonology to check the status of her injectable medicine 06/03/23 Call placed to [facility] spoke to the nurse yesenia who reports patient should be on Tezspire 210mg every 4 weeks and that patient had appt on 3/7/24 for inj but no showed to the visit. Yesenia states they redid the orders for her today and short stay should be reaching out to patient to set up an appt. Referral placed to [facility] Pulmonology as it is closer to home, seen by Dr. Monique Hillman, [facility], FACP,FCCP 07/29/23, no changes made to regimen -seen by Dr. Rivas 04/25/24 Well controlled on Tezspire, Dulera, and albuterol MDI/nebs. Continue current regimen. Assessment & Plan (06/03/2023 10:30 AM EDT): Hospitalized 11/2018 and 12/2021. Improved. Followed by vehicle calibration engineer. Continue Tezspire, and Dulera and singulair as well as albuterol prn. Seen by Boat Outf[employer] Carmine Rivas MD 04/06/23. Nucala changed to Tezspire. Will call to Pulmonology to check the status of her injectable medicine 06/03/23 Referral placed to [facility] Pulmonology as it is closer to home 06/03/23 Assessment & Plan (02/26/2022 9:22 AM EST): Hospitalized 11/2018. Improved. Followed by vehicle calibration engineer. Continue Nucala, and Dulera and singulair as well as albuterol prn. Referral sent 12/2021 to pulmonology at [facility], Pt was hospitalized 12/2021 and asthma [...] (Primary Dx) 04/25/2024 Travel 04/10/2024 Orders Only [facility] [address] [place] [phone] Anne Carrion MD Moderate persistent asthma without complication (Primary Dx) 03/28/2024 Travel 03/14/2024 Orders Only GENERIC EXTERNAL DATA DEPARTMENT Provider, Generic External Data from Last 3 Months Immunizations Name Administration [...] is your housing situation today? I have otiliovivek saucedo 06/03/[address] you [...] EDT Narrative 05/19/2024 9:03 AM EDT ? [facility] ?[address] ?[place] [address] ? Ultrasound Report ? Signed ? Patient: Leal Jose Ramon,Marangeli ?MR ?? #: [id number] ? : 1985 ?Acct:[id number] ? Age/Sex: 38 / F ?ADM Date: 05/18/24 ? Loc: HO.US ? Attending Dr: Leo Rao MD ? Ordering Physician: Leo Rao MD ?? Date of Service: 05/18/24 ?? Procedure(s): US pelvic and transvaginal ?? Accession Number(s): [id number] ? cc: Anne Carrion MD; Leo Rao [...] 0903 ? DD/ 0902 ? TD/TT: 05/19/24 0902 ? Immunopathologist: ? Procedure Note Kiya, Image - 04/11/2025 [place] [address] Ultrasound Report Signed Patient: Edouard Roy #: [id number] : 1985Acct:[id number] Age/Sex: 38 / FADM Date: 05/18/24 Loc: HO.US Attending Dr: Leo Rao MD Ordering Physician: Leo Rao MD Date of Service: 05/18/24 Procedure(s): US pelvic and transvaginal Accession Number(s): [id number] cc: Anne Carrion MD; Leo Rao MD [...] in OV> 05/19/24902 DD/ 1 TD/TT: 05/19/24901 Immunopathologist: us [facility] External Provider IMG US PROCEDURES Final Result * TSH with Reflex to Free T4 (04/27/2024 2:08 PM EDT) Pathologist [facility] TSH reflex Free T4 3.76 0.32 - 4.0 uIU/mL [facility] 04/27/2024 2:08 PM EDT 04/27/2024 2:08 PM EDT us Generic External Data Provider LAB BLOOD ORDERAB LES Final Result Performing Organization Address [facility] Co de Phone Number [facility] [address] [place] [phone] * (ABNORMAL) CBC (04/27/2024 2:08 PM EDT) [facility] White Blood Count 8.7 4.8 - 10.8 X10*3/uL [facility] Red Blood Count 4.41 4.20 - 5.50 X10*6/uL [facility] Hemoglobin 12.5 12.0 - 16.0 g/dl [facility] Hematocrit 36.3(L) 37.0 - 47.0 % [facility] Mean Corpuscular Volume 82.3 80.0 - 98.0 fL [facility] Mean Corpuscular Hemoglobin 28.3 27.0 - 33.0 pg [facility] Mean Corpuscular HGB Conc 34.4 31.0 - 35.0 g/dl [facility] Red Cell Distribution Width 13.8 11.0 - 16.0 % [facility] Platelet Count 384 160 - 400 X10*3/uL [facility] Mean Platelet Volume 9.1(L) 9.4 - 12.3 fL [facility] NRBC Pct Auto 0.0 0.0 - 0.2 /100WBC [facility] NRBC Abs Auto 0.000 0.0 - 0.012 X10*3/uL [facility] 04/27/2024 2:08 PM EDT 04/27/2024 2:08 PM EDT us Generic External Data Provider LAB BLOOD ORDERAB LES Final Result Performing Organization Address City/[facility] de Phone Number [facility] [address] [place] [phone] * hCG, Total, Quantitative (04/27/2024 2:08 PM EDT) HCG Quantitative <2 mIU/mL [facility] Comment:Weeks post LMP Appro ximate hCG(Last Menstrual Period) Range (mIU/ml)3 - 4 weeks 9 - 1304 - 5 weeks 75 - 2,6005 - 6 weeks 850 - 20,8006 - 7 weeks 4000 - 100,2007 - 12 weeks 11,500 - 289,54381 - 16 weeks 18,300 - 137,32412 - 29 weeks (2nd trimester) 1,400 - 53,34625 - 41 weeks (3rd trimester) 940 - [...] ORDERAB LES Final Result Performing Organization Address [facility] Co de Phone Number [facility] [address] [place] [phone] * XR Chest 2 Views (03/14/2024 8:18 AM EST) Anatomical Region Laterality Modality Chest Radiographic Chaparrita ging 03/14/2024 8:18 AM EST Narrative 03/14/2024 8:39 AM EST ? [facility] ?[address] ?[place] [address] ?XRay Report ? Signed ? Patient: Leal Jose Ramon,Marangeli ?MR ?? #: [id number] ? : 1985 ?Acct:[id number] ? Age/Sex: 38 / F ?ADM Date: 02/04/25 ? Loc: HO.ED ? Attending Dr: ? Ordering Physician: Generic ED Physician ?? Date of Service: 03/14/24 ?? Procedure(s): XR chest 2V ?? Accession Number(s): [id number] ? cc: Anne Carrion MD; Generic ED [...] 0836 ? DD/ ? TD/TT: 03/14/24822 ? Immunopathologist: ? Procedure Note Kiya, Image - 03/14/2024 [place] [address] XRay Report Signed Patient: Edouard Roy #: [id number] : 1985Acct:[id number] Age/Sex: 38 / FADM Date: 03/14/24 Loc: HO.ED Attending Dr: Ordering Physician: Generic ED Physician Date of Service: 03/14/24 Procedure(s): XR chest 2V Accession Number(s): [id number] cc: Anne Carrion MD; Generic ED Physician [...] in OV> 03/14/2436 DD/ 7 TD/TT: 03/14/24822 Immunopathologist: [facility] External Provider IMG XR PROCEDURES Edited Result - Final * Strep A Nucleic Acid (03/14/2024 8:02 AM EST) [employer]NOW SERIAL# [id number] [facility] Strep A Nucleic Acid Negative Negative [facility] Comment:All test results mus t [...] LAB MICROBIOLOGY - GENERAL ORDERABLES Final Result [facility] [address] [place] [phone] * (ABNORMAL) SARS-CoV-2 RNA, Influenza A/B, and RSV RNA, Ql NAAT (03/14/2024 8:02 AM EST) Influenza A PCR POSITIVE(A) Negative [facility] Influenza B PCR NEGATIVE Negative [facility] Resp Syncy Virus RNA Qual PCR NEGATIVE Negative [facility] SARS COV2 PCR NEGATIVE Negative [facility] Comment:All test results mus t [...] use by authorized laboratories.Testing performed on the [employer] GeneXpert utilizingreal-time RT-PCR.All SARS CoV2 and positive influenza A/B results arereported to [facility]. 03/14/2024 8:02 AM EST 03/14/2024 8:07 AM EST us Generic External Data Provider LAB MICROBIOLOGY - GENERAL ORDERABLES Final Result [facility] [address] [place] [phone] * (ABNORMAL) Lipid Panel, Standard (06/04/2023 11:20 AM EDT) Triglycerides 77 <150 mg/dL [facility] Comment:Desirable Triglyceri de: less than 150 mg/dLBorderline High Triglyceride 150-199 mg/dLHigh Triglyceride: 200-499 mg/dLVery High Triglyceride: greater than or equal to 5OO mg/dL Cholesterol 199 <200 mg/dL [facility] Comment:Desirable Cholestero l: less than 200 mg/dLBorderline High Cholesterol: 200-239 mg/dLHigh Cholesterol: greater than 239 mg/dL LDL Cholesterol Calculated 144(H) <100 mg/dL [facility] Comment:Desirable LDL: less than 100 [...] 11:20 AM EDT 06/04/2023 1:22 PM EDT us Anne Murali MD LAB BLOOD ORDERABLES Final Result Performing Organization Address [facility] de Phone Number [facility] [address] [place] [phone] * HPV High Risk PCR (06/12/2021 12:00 AM EDT) Swab Cervical swab / Unknown Anne Carrion MD LAB MICROBIOLOGY - GENERAL ORDERABLES Final Result Performing Organization Address [facility] de Phone Number [facility] [address] [place] [phone] * Pap Smear (06/12/2021 12:00 AM EDT) Swab Anne Carrion MD LAB CYTOLOGY ORDERABLES Fi nal Result Performing Organization Address [facility] [address] [place] [phone] * HEPATITIS C ANTIBODY (11/08/2019 12:39 PM EDT) Pathologist [facility] HEPATITIS C ANTIBODY NONREACTIVE NONREACTIVE [facility] Comment: Antibodies to HCV not detected; does not exclude early acute HCV infection. 11/08/2019 12:3 9 PM EDT Sandhya Brody HISTORICAL/NON ORDERABLE LABS Fi nal Result Performing Organization Address [facility] de Phone Number [facility] [address] [place] [address], * HIV AB/AG (11/08/2019 12:39 PM EDT) [...] detection of this assay. ?? The [employer] Analyst HIV Ag/Ab Combo assay result and supplemental assay results should be interpreted in conjunction with the patient's clinical presentation, history and other laboratory results. ??If the results are inconsistent with clinical evidence, additional testing is suggested to confirm the result. 11/08/2019 12:3 9 PM EDT us Sandhya Brody HISTORICAL/NON ORDERABLE LABS Fi nal Result [facility] [address] from Last 3 Months or Most Recently Relevant to Health Maintenance Insurance < 65 [place] [id number] Care Teams Lower In Supervisor Relationship Specialty Start Date End Date [place], MD Anne [address] [place] [phone] PCP - General Family Medicine 1/1/19 Naatly Tay NP [address] [place] [address] Urology 03/02/24 Carmine Rivas MD [address] [place] [address] Pulmonary Disease 04/10/24 Marivel Bang [address] [place] [address] Orthopaedic Surgery 04/10/24 Leo Rao MD [address] [place] [address] [address] [place], [place] [phone] Obstetrics and Gynecology 05/02/24
--- OUTSIDE RECORDS SUMMARY | 2024-06-07 14:34 | XMS_ITS | Encounter Summary ---
Author Organization [employer] Address [address] [facility] 7t [place] [address] Care Team Providers Care Paint Tinter Name Role Phone Anne Carrion MD Primary Care Provider [phone] Nataly Tay NP Unavailable Carmine Rivas MD Unavailable [phone] Marivel Bang Unavailable Leo Rao MD Unavailable Reason for Visit * Reason Onset Date Comments Nurse Triage 11/29/2023 Encounter Details Date Type Department Care Team (Late st Contact Info) Description 11/29/2023 Telephone [facility] [address] [place] [address] Anne Carrion MD [address] [place], [place] [phone] Nurse Triage Social History Tobacco Use Types [...] Triage call Pt was [place] in [place] [facility] [place]25[place]23 , report is on the chart. [...] documented as of this encounter Care Teams Paint Tinter Relationship Specialty Start Date End Date Anne Carrion MD [address] [place] [phone] PCP - General Family Medicine 02/08/18 Nataly Tay NP [address] [facility] [address] [place] [address] Urology 03/02/24 Carmine Rivas MD [address] [place] [phone] Pulmonary Disease 04/10/24 Marivel Bang [address] [place] [address] Orthopaedic Surgery 04/10/24 Leo Rao MD [address] [place] [phone] Obstetrics and Gynecology 05/02/24 documented as of this encounter
== END 2024-06-07 15:46 | disposition home or self-care (01) ==
LOC: HO.HWS 13:17
PROVIDERS: PCP Family Medicine; Visit Provider Obstetrics & Gynecology
DX: N93.9 Abnormal uterine and vaginal bleeding, unspecified (principal); Z32.02 Encounter for pregnancy test, result negative
CPT/HCPCS: 58100

== ENCOUNTER 2024-07-05 09:29 | Outpatient (AMB) | payer OTHER, SELFPAY ==
--- NOTE | 2024-07-05 09:33 | MHC.OFFVIS ---
Intake Visit Reasons: EMB Results Allergies benzonatate [BENZONATATE] Allergy (Severe, Verified 07/05/24 09:33) ANAPHYLAXIS banana [BANANA] Allergy (Intermediate, Verified 07/05/24 09:33) RASH coconut [COCONUT] Allergy (Intermediate, Verified 07/05/24 09:33) RASH cucumber [CUCUMBER] Allergy (Intermediate, Verified 07/05/24 09:33) RASH grape [GRAPE] Allergy (Intermediate, Verified 07/05/24 09:33) RASH arthur [ARTHUR] Allergy (Intermediate, Verified 07/05/24 09:33) RASH sulfamethoxazole [From BACTRIM] Allergy (Intermediate, Verified 07/05/24 09:33) RASH trimethoprim [From BACTRIM] Allergy (Intermediate, Verified 07/05/24 09:33) RASH cephalexin [Keflex] Allergy (Unknown, Verified 07/05/24 09:33) Unknown duloxetine [From CYMBALTA] Allergy (Unknown, Verified 07/05/24 09:33) UNKNOWN Sulfa (Sulfonamide Antibiotics) Allergy (Unknown, Verified 07/05/24 09:33) Unknown nitrofurantoin Allergy (Verified 07/05/24 09:33) Rash SEAFOOD Allergy (Intermediate, Uncoded 06/07/24 13:53) RASH antibacterial soap Allergy (Unknown, Uncoded 06/07/24 13:53) rash Tessalon Allergy (Unknown, Uncoded 06/07/24 13:53) Unknown HPI Comments Details: The patient is schedule telehealth visit to discuss the AUB workup. The following workup was done.: H&H= 12.5/36.3 TSH, hCG, GC and chlamydia were negative. Co testing was done was negative. EMB pathology showed the following: Endometrium, biopsy: Early secretory endometrium; no atypia or hyperplasia identified. Pelvic ultrasound showed the following: Anteverted uterus is 9.0 cm length. Normal myometrium. Endometrium 13 mm thickness. No lesions. There is a myometrial 5.7 x 4.8 x 4.3 cm leiomyoma, previously measuring 4.7 x 4.5 x 3.2 cm. Right ovary 2.8 x 2.5 x 1.4 cm. Left ovary 2.6 x 2.2 x 2.1 cm. There is a hypoechoic left ovarian 1.8 x 1.4 x 1.3 cm cyst. Normal color Doppler of both ovaries. No free fluid. PFSH Medical History Pelviectasis Asthma Kidney stone Hx of migraine headaches Hx of anxiety disorder History of depression Surgical History Hx of bilateral salpingectomy Hx of tubal ligation Hx of section Hx of tonsillectomy Hx laparoscopic cholecystectomy Family History Mother Diabetes mellitus Hypertension Dementia Father Diabetes mellitus Hypertension Social History Alcohol intake: never Patient Tobacco Use Status: Current someday Tobacco user Tobacco use type: Cigarette Cigarettes Per Day: 2 Advance Directives Date on File: 12/11/21 service: No Current occupational status: disabled Current occupation: right handed Female Reproductive History Menstrual Age of Menarche: 10 Review of Systems Const All systems reviewed & are unremarkable except as noted in HPI and below Reports as per HPI and Reports no additional complaints GI Reports no additional complaints Reports no additional complaints Assessment & Plan Assessment & Plan (1) Abnormal uterine bleeding (AUB): Comment: Uterine myoma Code(s): N93.9 - Abnormal uterine and vaginal bleeding, unspecified Category: Medical Plan: Discussed with the patient the results of the work up done and options of treatment including Lysteda, BCP's, Mirena IUD, endometrial ablation and hysterectomy. All pros, cons, risks and benefits if each option was discussed with the patient and the patient decided to proceed with definitive surgical management. Discussed with the patient the different types of hysterectomies including, vaginal, laparoscopic assisted vaginal, robotic assisted laparoscopic,& abdominal with BSO. All pros, cons, r/b of each approach were discussed the patient including evidence that morbidity is less and recovery is shorter with minimally invasive approaches to hysterectomy. Discussed with the patient the lack of availability of the robot DaVinci robot and/or minimally invasive signal intelligence/electronic warfare specialist at [facility]. Will refer to [facility] minimally invasive forest technician. Instructed the patient to call our office back in case a referral appointment is not scheduled, missed or canceled so that we will assist on rescheduling another appointment, the patient verbalized understanding agreed with the plan. Coding Level of Care Code Est Pt Level 3 (50868) Diagnoses Abnormal uterine bleeding (AUB) N93.9
--- OUTSIDE RECORDS SUMMARY | 2024-07-05 10:08 | XMS_ITS | Encounter Summary ---
Author Organization [employer] Address [address] [facility] 7t [place] [address] Care Team Providers Care Firearms Inspector Name Role Phone Anne Carrion MD Primary Care Provider [phone] Nataly Tay NP Unavailable Carmine Rivas MD Unavailable [phone] Marivel Bang Unavailable Leo Rao MD Unavailable Encounter Details Date Type Department Care Team (Latest Contact Info) Description 07/04/2024 Travel Social History Tobacco Use Types Packs/Day Years Used Date Smoking Tobacco: Never Passive Smoke Exposure: Never Smokeless Tobacco: Never Depression Answer Date Recorded Patient Health Questionnaire-9 Score 18 09/06/2023 Patient Health Questionnaire-9 Score 18 09/06/2023 Last PHQ-9: Questionnaire Data Not on file 0 09/06/2023 Housing Stability Answer Date Recorded What is your housing situation today? I have oitlio saucedo 06/03/[address] you [...] documented as of this encounter Care Teams Firearms Inspector Relationship Specialty Start Date End Date Anne Carrion MD [address] [place] [address] PCP - General Family Medicine 02/08/18 Nataly Tay NP [address] [place] [address] Urology 03/02/24 Carmine Rivas MD [address] [place] [phone] Pulmonary Disease 04/10/24 Marivel Bang [address] [place] [address] Orthopaedic Surgery 04/10/24 Leo Rao MD [address] [address] Obstetrics and Gynecology 05/02/24 documented as of this encounter
== END 2024-07-05 10:04 | disposition home or self-care (01) ==
LOC: HO.HWS 09:29
PROVIDERS: PCP Family Medicine; Visit Provider Obstetrics & Gynecology
DX: N93.9 Abnormal uterine and vaginal bleeding, unspecified (principal)
CPT/HCPCS: 99213

== ENCOUNTER → 2024-07-05 09:29 | Outpatient (BNVA) | payer OTHER, SELFPAY | PROVIDERS: PCP Family Medicine; Visit Provider Obstetrics & Gynecology | DX: N93.9 Abnormal uterine and vaginal bleeding, unspecified (principal) | CPT/HCPCS: 99212 ==

== ENCOUNTER 2024-08-09 11:20 | Outpatient (REF) | payer OTHER, SELFPAY ==
--- NOTE | ~2024-08-09 | US_ITS ---
EXAMINATION: US KIDNEY BILATERAL HISTORY: N20.0 - Calculus of kidney TECHNIQUE: Real-time grayscale ultrasound imaging of the kidneys was performed and images were reviewed. COMPARISON: Comparison is made with the prior examination dated 02/21/2024. FINDINGS: Right kidney: The right kidney measures 10.0 x 5.9 x 4.9 cm. Renal parenchymal echotexture and thickness are normal. There are no masses. There is a 3 mm nonobstructing calculus at the upper pole. There is no hydronephrosis. Left Kidney: The left kidney measures 10.5 x 5.7 x 4.6 cm. Renal parenchymal echotexture and thickness are normal. There are no masses. There is no hydronephrosis or renal calculi. US/US renal BI IMPRESSION: 3 mm nonobstructing right renal calculus. Otherwise unremarkable renal ultrasound. Electronically signed by: Kelton Rankin MD 08/09/2024 12:41 PM EDT
--- OUTSIDE RECORDS SUMMARY | 2024-08-09 12:06 | XMS_ITS | Clinical Summary ---
Author Organization [employer] Address [address] [place] [address] 7 [place] [address] Care Team Providers Care Senior Oracle Database Developer Name Role Phone [place], Anne CHAPMAN Primary Care Provider [phone] Nataly Tay NP Unavailable Carmine Rivas MD Unavailable [phone] Marivel Bang Unavailable Leo Rao MD [...] 02/04/20 22 Active montelukast (Singulair) 10 MG tabletIndicatio ns:Allergic rhinitis, unspecified seasonality, unspecified trigger TAKE 1 TABLET BY MOUTH ONCE DAILY 12/12/19 22 Active cyclobenzaprine (Flexeril) 5 MG tabletIndicatio ns:Low back pain, unspecified back pain laterality, unspecified chronicity, unspecified whether sciatica present 02/16/19 24 Active Diclofenac Sodium 1 % gelIndications: Low back pain, unspecified back pain laterality, unspecified chronicity, unspecified whether sciatica present 02/16/19 24 Active Dupixent 300 MG/2ML injectionIndica tions:Moderate persistent asthma without complication 02/16/19 24 Active Tezspire 210 MG/1.91ML solution prefilled syringeIndicati ons:Moderate persistent asthma without complication 04/01/19 24 Active albuterol 108 (90 Base) MCG/ACT inhalerIndicati ons:Moderate persistent asthma without complication 4 times a day 11/01/19 22 Active mepolizumab (Nucala) 100 mg/mL injectionIndica tions:Moderate persistent asthma without complication 100 mg. 01/16/20 23 Active FLUoxetine (PROzac) 20 MG capsuleIndicati ons:Severe episode of recurrent major depressive disorder, without psychotic features (CMS/HCC) Take 1 capsule (20 mg) by mouth Once per day. 30 capsule 11 06/03/19 24 Active nabumetone (Relafen) 500 MG tablet Take 1 tablet (500 mg) by mouth 2 times daily. 60 tablet 11/29/19 24 2024 Active Acetaminophen Extra Strength 500 MG tabletIndicatio ns:Low back pain, unspecified back pain laterality, unspecified chronicity, unspecified whether sciatica present TAKE 2 TABLETS BY MOUTH EVERY 6 HOURS NEEDED 60 tablet 2 12/23/19 24 Active triamcinolone (Kenalog) 0.1 % creamIndication s:Rash APPLY TOPICALLY IN THE MORNING AND AT BEDTIME IF NEEDED FOR RASH. APPLY SPARINGLY. 15 g 01/02/20 24 Active mometasone-form oterol (Dulera) 200-5 MCG/ACT inhalerIndicati ons:Moderate persistent asthma without complication Inhale 2 puffs in the morning and at bedtime. Rinse mouth with water after use to reduce aftertaste and incidence of candidiasis. Do not swallow. Active cetirizine (ZyrTEC) 10 MG tabletIndicatio ns:Allergic rhinitis, unspecified seasonality, unspecified trigger TAKE 1 TABLET BY MOUTH DAILY 90 tablet 3 06/21/19 25 Active EPINEPHrine (Epipen) 0.3 MG/0.3ML injection syringeIndicati ons:Moderate persistent asthma without complication INJECT 1 PEN IN THE MUSCLE ONE TIME DIRECTED NEEDED FOR ANAPHYLAXIS 2 each 08/10/19 Active EPINEPHrine (Epipen) 0.3 MG/0.3ML injection syringeIndicati ons:Moderate persistent asthma without complication Use IM prn anaphlayxis 1 each 2 06/03/19 24 2024 Discontinued Active Problems Patient Care Coordination No te Formatting of this note migh t be different from the original. [facility] [employer] Consultant: Minnie, member services number [phone] Tabber Agency: [employer] Problem Noted Date Diagnosed Date [...] as pharmacomtherapy, [facility] smoking cessation group, and [facility] pharmacy smoking cessation clinic Discussed USPSTF [...] as pharmacomtherapy, [facility] smoking cessation group, and [facility] pharmacy smoking cessation clinic Discussed USPSTF [...] care facilitated by none -dental home is [facility] -health filed Assessment & Plan (06/03/2023 10:34 AM EDT): -next physical exam due after 06/02/24 -eye care facilitated by [facility] -dental home is [facility] - Health care proxy completed and filed Papanicolaou smear of cervix with atypical squamous cells of undetermined significance (ASC-US) 02/26/2022 Overview (02/26/2022): ASCUS on pap 2012 HPV negative with [facility]. repeat PAP 05/04/16 nilm. -Repeat pap done 06/12/2021 Abnormal uterine bleeding 02/26/2022 Overview (07/06/2024): CT done in ER 11/25/23 revealed multiple fibroids -seen by Dr. Rao 05/31/24, uterine biopsy scheduled -US 05/19/24IMPRESSION: Uterine myometrial leiomyoma Almost certainly benign left ovarian cyst. Consider a 12 month follow-up pelvic ultrasound to reassess. -EMB done with Dr. Rao 06/07/24: Early secretory endometrium; no atypia or hyperplasia identified. -note from Dr. Rao Discussed with the patient the results of the work up done and options of treatment including Lysteda, BCP's, Mirena IUD, endometrial ablation and hysterectomy. All pros, cons, risks and bnefits if each option was discussed with the patient and the patient decided to proceed with definitive surgical management. Discussed with the patient the different types oysterectomies including, vaginal, laparoscopic assisted vaginal, robotic assisted laparoscopic, abdominal with BSO. All pros, cons, r/b of each approach were discussed the patient including evidence that morbidity is less and recovery is shorter with minimally invasive approaches to hysterectomy. Discussed with the patient the lack of availability of the robot DaVinci robot and/or minimally invasive sr. social media & mobile manager specialist at [facility]. Will refer to [facility] minimally invasive fermenting cellar dropper. Assessment & Plan (02/26/2022 9:31 AM EST): Menses coming every 2 months. US and labs ordered 02/26/2022. Kidney stones 02/26/2022 Overview (03/03/2024): Followed by urology -US 08/23/23 Bilateral nonobstructive renal calculi. No hydronephrosis. -seen by Roger Tay NP of [facility] urology 03/02/24, follow up 6 mo [...] Hospitalized 11/2018 and 12/2021. Improved. Followed by college recruiter. Continue Tezspire, and Dulera and singulair as well as albuterol prn. Seen by Contract Post Office Clerk Carmine Rivas MD 04/06/23. Nucala changed to Tezspire. Call to Pulmonology to check the status of her injectable medicine 06/03/23 Call placed to [facility] spoke to the nurse yesenia who reports patient should be on Tezspire 210mg every 4 weeks and that patient had appt on 04/15/23 for inj but no showed to the visit. Yeseina states they redid the orders for her today and short stay should be reaching out to patient to set up an appt. Referral placed to [facility] Pulmonology as it is closer to home, seen by Dr. Monique Hillman, [facility], FACP,FCCP 07/29/23, no changes made to regimen -seen by Dr. Rivas 04/25/24 Well controlled on Tezspire, Dulera, and albuterol MDI/nebs. Continue current regimen. Assessment & Plan (06/03/2023 10:30 AM EDT): Hospitalized 11/2018 and 12/2021. Improved. Followed by college recruiter. Continue Tezspire, and Dulera and singulair as well as albuterol prn. Seen by Contract Post Office Clerk Carmine Rivas MD 04/06/23. Nucala changed to Tezspire. Will call to Pulmonology to check the status of her injectable medicine 06/03/23 Referral placed to [facility] Pulmonology as it is closer to home 06/03/23 Assessment & Plan (02/26/2022 9:22 AM EST): Hospitalized 11/2018. Improved. Followed by college recruiter. Continue Nucala, and Dulera and singulair as well as albuterol prn. Referral sent 12/2021 to pulmonology at [facility], Pt was hospitalized 12/2021 and asthma [...] organization. Date Type Department Care Team Description 08/09/[address] [facility] [address] [place] [address] Anne Carrion MD Moderate persistent asthma without complication 07/27/2024 Travel 07/20/2024 Travel 07/04/2024 Travel 06/19/[address] [facility] [address] [place] [address] Anne Carrion MD Allergic rhinitis, unspecified seasonality, unspecified trigger 06/19/2024 Travel 06/07/2024 Orders Only GENERIC EXTERNAL DATA DEPARTMENT Provider, Generic External Data Abnormal uterine bleeding (Primary Dx) from Last 3 Months Immunizations Immunization Administration Dates Next Due DTaP 07/01/1989, 8,04/25/1986,1985,1985 [...] 96 11/29/2023 1:55 PM EDT Temperature 36.8 C (98.3 F) 11/29/2023 1:55 PM EDT Respiratory Rate 21 11/29/2023 1:55 PM EDT Oxygen Saturation 98% 06/03/2023 9:42 AM EDT Inhaled Oxygen Concentration - - Weight 64.5 kg (142 lb 3.2 oz) 11/29/2023 1:55 P M EDT Height 152.4 cm (5') 11/29/2023 1:55 PM EDT Body Mass Index 27.77 11/29/2023 1:55 PM EDT Plan of Treatment Health Maintenance Due Date Last Done Comments Disability Screening 1985 Alcohol/Substance Use Screening 1997 Family Planning (PISQ) 2000 DTaP/Tdap/Td Vaccines (7 - Td or Tdap) 11/25/2021 11/26/2011, 08/28/2002, 12/25/1994, Additional history exists Depression Monitoring 03/08/2024 09/06/2023, 024 SDOH Screening 06/02/2024 06/03/2023 Influenza Vaccine (#1) 2024 7, 10/31/2015, 10/31/2014, Additional history exists Tobacco Screening 11/28/2024 11/29/2023 Cervical Cancer Screening 06/12/2026 HPV/Cotest 06/12/2026 06/12/2021, 06/12/2021 Pap Smear 06/12/2026 06/12/2021, 06/12/2021 Lipid Panel 06/03/2028 06/04/2023 [...] Years) and At-Risk Patients (6 to 49) Years Completed 06/03/2023 HIB Vaccines Aged Out No longer eligi ble based on patient's age to complete this topic HPV Vaccines Aged Out No longer eligi ble based on patient's age to complete this topic Hepatitis A Vaccines Aged Out No long er eligible based on patient's age to complete this topic Meningococcal B Vaccine Aged Out No l onger eligible based on patient's age to complete [...] Procedure Name Priority Date/Time Associated Diagnosis Comments HEMATOXYLIN AND EOSIN STAIN Routine 06/07/2024 1:59 PM EDT US PELVIS TRANSVAGINAL Routine 05/19/2024 9:02 AM EDT LIPID PANEL, STANDARD Routine 06/04/2023 11:20 AM EDT Preventative health care HPV HIGH RISK PCR Routine 06/12/2021 12: 00 AM EDT PAP SMEAR Routine 06/12/2021 12:00 AM EDT ZZZ HISTORICAL HEPATITIS C ANTIBODY Routine 11/08/2019 12:39 PM EDT ZZZ HISTORICAL HIV AB/AG Routine 11/08/2019 12:39 PM EDT from Last 3 Months or Most Recently Relevant to Health Maintenance Results * Hematoxylin and Eosin Stain (06/07/2024 1:59 PM EDT) 06/07/2024 1:59 PM EDT 06/08/2024 8:21 AM EDT [facility] - 06/09/2024 3:56 PM EDT ----- ------- Name: Claribel Roy Age/Sex: 38/F : 1985 Unit#: [id number] Attend Dr: Leo Rao MD Re06/07/24 Status: DEP REF Location: [facility] Disch: ----- ------- SPEC : [id number] RECD: 06/08/24 STATUS: [facility] RE NUM: [id number] MICHAELLE: 06/07/24-[address] [facility] [address]: Leo Rao MD ENTERED: 06/08/24 SP TYPE: Surgical OTHR DR: Anne Carrion MD ORDERED: HE Stain/2, Gross Micro L4 Diagnosis Endometrium, biopsy: Early secretory endometrium; no atypia or hyperplasia identified. Clinical History AUB Microscopic Description Microscopic sections reviewed. Material Received EMB Gross Description Received in formalin labeled EMB are multiple irregular and tubular cast fragments of swartz tissue, scant mucus and blood aggregating 2.0 x 1.5 x 0.45 cm, submitted in toto in a cassette labeled A. CEDS Copies To: Anne Carrion MD [facility] [address] [place] [address] Leo Rao MD [facility] Women's Services [address] [place] [address] ----- ------- Signed (signature on file) Lavelle Gonzalez MD 06/09/24 1556 ----- ------- END OF REPORT us Generic External Data Provider LAB BLOOD ORDERAB LES Final Result [facility] [address] [place] [address] [phone] * US Pelvis Transvaginal (05/19/2024 9:02 AM EDT) Anatomical Region Laterality Modality Pelvis Ultrasound 05/19/2024 9:02 AM EDT Narrative 05/19/2024 9:03 AM EDT [address] [address] Ultrasound Report Signed Patient: Claribel Roy MR #: [id number] : 1985 Acct:[id number] Age/Sex: 38 / F ADM Date: 05/18/24 Loc: HO.US Attending Dr: Leo aRo MD Ordering Physician: Leo Rao MD Date of Service: 05/18/24 Procedure(s): US pelvic and transvaginal Accession Number(s): [id number] cc: Anne Carrion MD; Leo Rao MD CLINICAL HISTORY: N93.9 - Abnormal uterine and vaginal bleeding, unspecified US pelvis transabdominal and transvaginal Comparison: 03/13/2022 [...] in OV> 05/19/24902 DD/ 1 TD/TT: 05/19/24901 Glass Selector: Procedure Note Donotuseinterpreter, Image - 05/19/[address] [address] Ultrasound Report Signed Patient: Edouard Roy #: [id number] : 1985Acct:[id number] Age/Sex: 38 / FADM Date: 05/18/24 Loc: HO.US Attending Dr: Leo Rao MD Ordering Physician: Leo Rao MD Date of Service: 05/18/24 Procedure(s): US pelvic and transvaginal Accession Number(s): [id number] cc: Anne Carrion MD; Leo Rao MD [...] MD in OV> 05/19/24902 DD/ 1 TD/TT: 05/19/24 09 Glass Selector: us [facility] External Provider IMG US PROCEDURES Final Result * (ABNORMAL) Lipid Panel, Standard (06/04/2023 11:20 AM EDT) Triglycerides 77 <150 mg/dL [facility] Comment:Desirable Triglyceri de: less than [...] 190 mg/dL HDL Cholesterol 40(L) >40 mg/dL [facility] Comment:Desirable HDL: great er than 40 mg/dL Note: This HDL assay may give artificially low results in patients with liver disease. Blood Venous blood specimen / Unknown 06/04/2023 11:20 AM EDT 06/04/2023 1:22 PM EDT Anne Carrion MD LAB BLOOD ORDERABLES Final Result Performing Organization Address [facility] Co de Phone Number [facility] [address] [place] [phone] * HPV High Risk PCR (06/12/2021 12:00 AM EDT) Swab Cervical swab / Unknown Anne Carrion MD LAB MICROBIOLOGY - GENERAL ORDERABLES Final Result Performing Organization Address [facility] Co de Phone Number [facility] [address] [place] [phone] * Pap Smear (06/12/2021 12:00 AM EDT) Swab Anne Carrion MD LAB CYTOLOGY ORDERABLES Fi nal Result Performing Organization Address [facility] Co de Phone Number [facility] [address] [place] [phone] * HEPATITIS C ANTIBODY (11/08/2019 12:39 PM EDT) Pathologist [facility] HEPATITIS C ANTIBODY NONREACTIVE NONREACTIVE [facility] Comment: Antibodies to HCV not detected; does not exclude early acute HCV infection. 11/08/2019 12:3 9 PM EDT Sandhya Ronn HISTORICAL/NON ORDERABLE LABS Fi nal Result Performing Organization Address [facility] Phone Number [facility] [address] * HIV AB/AG (11/08/2019 12:39 PM EDT) [facility] HIV AG/AB NONREACTIVE [facility] Comment: HIV-1 p24 Ag and/or HIV-1/HIV-2 Ab not detected. A test result that is nonreactive does not exclude the possibility of exposure to or infection with HIV-1 and/or HIV-2. Nonreactive results in this assay for individuals with prior exposure to HIV-1 and/or HIV-2 may be due to antigen and antibody levels that are below the limit of detection of this assay. The [employer] Examiner HIV Ag/Ab Combo assay result and supplemental assay results should be interpreted in conjunction with the patient's clinical presentation, history and other laboratory results. If the results are inconsistent with clinical evidence, additional testing is suggested to confirm the result. 11/08/2019 12:3 9 PM EDT Sandhya Ronn HISTORICAL/NON ORDERABLE LABS Fi nal Result Performing Organization Address [facility] Number [facility] [address] from Last 3 Months or Most Recently Relevant to Health Maintenance Insurance [facility] STANDARD [employer] ONE CARE < 65 [place] [id number] Care Teams Senior Oracle Database Developer Relationship Specialty Start Date End Date [place], MD Anne [address] [place] [phone] PCP - General Family Medicine 02/08/18 Nataly Tay NP [address] [place] [address] [place] [phone] Urology 03/02/24 Carmine Rivas MD [address] [place] [phone] Pulmonary Disease 04/10/24 Marivel Bang [address] [place] [address] Orthopaedic Surgery 04/10/24 Leo Rao MD [address] [place] [phone] Obstetrics and Gynecology 05/02/24
--- OUTSIDE RECORDS SUMMARY | 2024-08-09 12:07 | XMS_ITS | Patient Health Record ---
Author Organization [facility] Address [address] [facility] [place] [address] Care Team Providers Care Calender Let Off Helper Name Role Phone Anne Carrion MD Primary Care Provider Kavin Lainez Unavailable [phone] Allergies Allergen (clinical drug ingredient) Drug/Non Drug [...] Status Nucala Active Montelukast Sodium 10 MG Oral; Duration: 30 Active Dulera Active Cetirizine HCl 10 MG Oral; Duration: 30 Active Albuterol Sulfate HFA 108 (90 Base) MCG/ACT Inhalation; Duration: 16 Active Social History Tobacco Use: Social History Observation [...] Problem Status W/U Status Risk Notes Problem Complex regional pain syndrome type I of right lower limb (disorder) (703531809076634) Complex regional pain syndrome I of right lower limb (G90.521) Active confirmed Problem Mononeuropathy of lower limb (861728837) Neuritis of right foot (G57.91) Active confirmed Plan Of Treatment No Information Insurance Providers Payer Name Payer Address Payer Phone Subscriber Number Group Number Insured Name Patient Relationship to Insured Coverage Start Date Coverage End Date [facility] [employer] [address] [place] [id number] Claribel Leal Self - patient is the insured Medical (General) History Medical History History ICD Code Depression Anxiety disorder Migraines Kidney stones Broken bones Back pain asthma Surgical History Surgery Date(Month/Year) cholecystectomy laparoscopic salpingectomy bilateral section 2011 tonsillectomy tubal ligation foot surgery 1995 elbow sx
== END 2024-08-09 11:21 | disposition home or self-care (01) ==
LOC: HO.US 11:20
PROVIDERS: PCP Family Medicine; Visit Provider Nurse Practitioner Family
DX: N20.0 Calculus of kidney (principal)
CPT/HCPCS: 76775

== ENCOUNTER → 2024-08-09 11:21 | Outpatient (BNV) | payer OTHER, SELFPAY | PROVIDERS: PCP Family Medicine; Visit Provider Radiology Diagnostic Radiology | DX: N20.0 Calculus of kidney (principal) | CPT/HCPCS: 76775 ==

== ENCOUNTER 2024-10-03 08:51 | Outpatient (AMB) | payer OTHER, SELFPAY ==
[2024-10-03 08:56] VITALS: BP 122/77; PULSE 77; O2SAT 98
--- NOTE | 2024-10-03 08:56 | MHC.OFFVIS ---
Vital Signs 10/03/24 08:56 Weight 150 lb BP 122/77 Blood Pressure Location Lt brachial Position Sitting Pulse 77 Pulse Source Pulse Oximeter Pulse Oximetry (%) 98 Oxygen Delivery Method Room Air Intake Visit Reasons: Asthma Allergies benzonatate (BENZONATATE) Allergy (Severe, Verified 10/03/24 09:06) ANAPHYLAXIS banana (BANANA) Allergy (Intermediate, Verified 10/03/24 09:06) RASH coconut (COCONUT) Allergy (Intermediate, Verified 10/03/24 09:06) RASH cucumber (CUCUMBER) Allergy (Intermediate, Verified 10/03/24 09:06) RASH grape (GRAPE) Allergy (Intermediate, Verified 10/03/24 09:06) RASH arthur (ARTHUR) Allergy (Intermediate, Verified 10/03/24 09:06) RASH sulfamethoxazole (From BACTRIM) Allergy (Intermediate, Verified 10/03/24 09:06) RASH trimethoprim (From BACTRIM) Allergy (Intermediate, Verified 10/03/24 09:06) RASH cephalexin (Keflex) Allergy (Unknown, Verified 10/03/24 09:06) Unknown duloxetine (From CYMBALTA) Allergy (Unknown, Verified 10/03/24 09:06) UNKNOWN Sulfa (Sulfonamide Antibiotics) Allergy (Unknown, Verified 10/03/24 09:06) Unknown nitrofurantoin Allergy (Verified 10/03/24 09:06) Rash SEAFOOD Allergy (Intermediate, Uncoded 06/07/24 13:53) RASH antibacterial soap Allergy (Unknown, Uncoded 06/07/24 13:53) rash Tessalon Allergy (Unknown, Uncoded 06/07/24 13:53) Unknown HPI HPI Asthma: Details: 39-year-old lady followed for underlying asthma and environmental allergies. She has been previously switched from Nucala to Tezspire, with reasonable control of his symptoms. She continues on Dulera and albuterol MDI. She denies recent exacerbations. Patient does complain of seasonally worsening dry skin and multiple other environmental allergies. She is awaiting ship steward and assembly mechanic evaluation. [facility] Medical History Pelviectasis Asthma Kidney stone Hx of migraine headaches Hx of anxiety disorder History of depression Surgical History Hx of bilateral salpingectomy Hx of tubal ligation Hx of section Hx of tonsillectomy Hx laparoscopic cholecystectomy Family History Mother Diabetes mellitus Hypertension Dementia Father Diabetes mellitus Hypertension Social History Alcohol intake: never Patient Tobacco Use Status: Current someday Tobacco user Tobacco use type: Cigarette Cigarettes Per Day: 2 Advance Directives Date on File: 12/11/21 service: No Current occupational status: disabled Current occupation: right handed Female Reproductive History Menstrual Age of Menarche: 10 Review of Systems Const Denies daytime sleepiness, Denies excessive sweating, Denies fatigue, Denies fever(s), Denies lethargy, Denies malaise, Denies night sweats, Denies snoring and Denies weight loss Eyes Denies blurry vision and Denies itchy eyes ENT Denies nasal congestion, Denies post nasal drip, Denies sinus pain, Denies sinus pressure and Denies other ( Thrush) Card Denies chest pain, Denies pedal edema, Denies dyspnea, Denies orthopnea and Denies paroxysmal nocturnal dyspnea Resp Denies cough, Denies hemoptysis, Denies excessive phlegm production, Denies dyspnea, Denies snoring and Denies wheezing GI Denies abdominal pain and Denies heartburn Musc Denies myalgias, Denies arthralgias and Denies joint swelling Skin/Breast Denies rash Neuro Denies memory loss and Denies seizure-like activity Psych Denies abnormal sleep pattern, Denies anxiety and Denies memory loss Endo Denies excessive sweating, Denies fatigue and Denies heat intolerance Edgar/Lymph Denies easy bruising Aller/Immun Denies itchy eyes, Denies seasonal rhinorrhea and Denies wheezing Physical Exam Vital Signs: Last Vital Signs Pulse 77 10/03/24 08:56 BP 122/77 10/03/24 08:56 Pulse Ox 98 10/03/24 08:56 Oxygen Delivery Method Room Air 10/03/24 08:56 Const General: no acute distress and alert Nutritional Appearance: not obese Orientation/consciousness: Other orientation findings ( oriented) HEENT Head: Yes atraumatic Eyes General: appearance normal, both eyes and all related structures Sclerae: sclerae normal EOM: EOMs intact bilaterally Neck Neck: Yes supple Lymphatic: no lymphadenopathy noted Resp Effort & Inspection: normal respiratory effort and no use of accessory muscles Auscultation: clear to auscultation bilaterally Cardio Rate: regular rate Rhythm: regular rhythm Heart sounds: no gallops, no murmurs and no rubs Skin General skin exam: other ( warm) Extrem General: No clubbing, No cyanosis and No edema Assessment & Plan Assessment & Plan (1) Severe persistent asthma: Code(s): J45.50 - Severe persistent asthma, uncomplicated Category: Medical Plan: Well controlled on current regimen of Tezspire, Dulera, and albuterol MDI/nebs. Continue current regimen. (2) Environmental allergies: Code(s): Z91.09 - Other allergy status, other than to drugs and biological substances Category: Medical Plan: Well controlled on current regimen of Tezspire, Singulair, and Zyrtec. Continue current regimen. Coding Level of Care Code Est Pt Level 4 (93926) Diagnoses Severe persistent asthma J45.50 Environmental allergies Z91.09
--- OUTSIDE RECORDS SUMMARY | 2024-10-03 09:11 | XMS_ITS | Clinical Summary ---
Author Organization [employer] Address [address] [facility] 7[address] [place] [address] Care Team Providers Care Instructor Pilot Name Role Phone Churchill, Anne CHAPMAN Primary Care Provider [phone] Nataly Tay NP Unavailable Carmine Rivas MD Unavailable [phone] Marivel Bang Unavailable Leo Rao MD [...] 01/16/20 23 Active FLUoxetine (PROzac) 20 MG capsuleIndicatio ns:Severe [...] not swallow. Active cetirizine (ZyrTEC) 10 MG tabletIndication s:Allergic rhinitis, unspecified seasonality, unspecified trigger TAKE 1 TABLET BY MOUTH DAILY 90 tablet 3 06/21/19 25 Active EPINEPHrine (Epipen) 0.3 MG/0.3ML injection syringeIndicatio ns:Moderate persistent asthma without complication INJECT 1 PEN IN THE MUSCLE ONE TIME DIRECTED NEEDED FOR ANAPHYLAXIS 2 each 08/10/19 25 Active cholecalciferol (Vitamin D3) 25 MCG (1000 UT) tabletIndication s:Vitamin D deficiency TAKE 1 TABLET BY MOUTH EVERY DAY 90 tablet 3 08/19/19 25 Active SUMAtriptan (Imitrex) 25 MG tabletIndication s:Chronic migraine without aura without status migrainosus, not intractable Take 1 tablet (25 mg) by mouth 1 (one) time if needed for migraine for up to 1 dose. May repeat dose once in 2 hours if no relief. Do not exceed 2 doses in 24 hours. 9 tablet 09/19/19 25 Active amitriptyline (Elavil) 25 MG tabletIndication s:Chronic migraine without aura without status migrainosus, not intractable Take 1 tablet (25 mg) by mouth at bedtime. 30 tablet 1 09/19/19 25 025 Active Magnesium 400 MG capsuleIndicatio ns:Chronic migraine without aura without status migrainosus, not intractable Take 400 mg by mouth Once per day. 30 capsule 1 09/19/19 25 Active ondansetron (Zofran) 4 MG tabletIndication s:Chronic migraine without aura without status migrainosus, not intractable Take 2 tablets (8 mg) by mouth every 8 (eight) hours if needed for nausea or vomiting for up to 7 days. 20 tablet 1 09/19/19 25 025 Active Problems Patient Care Coordination No te Formatting of this note migh t be different from the original. [facility] [place] Population Geneticist: Minnie, member services number [phone] Manager Rn Case Agency: [facility] Problem Noted Date Diagnosed Date Chronic bilateral low back pain 11/25/2023 Overview (11/25/2023): XR l spine 11/24/23 Mild degenerative changes of the lower lumbar spine. PTSD (post-traumatic stress disorder) 09/30/2023 Metatarsal stress fracture of right foot 024 Pelviectasis 06/03/2023 Tobacco use disorder 06/03/2023 Overview (06/03/2023): -Cigg/day: 5 -Age started: 16 -Total years smokin -Pack year history: ~ 2.75 Encouraged smoking cessation resources such as pharmacomtherapy, [facility] smoking cessation group, and [facility] pharmacy smoking cessation clinic [facility] annual lung cancer screening with low [...] as pharmacomtherapy, [facility] smoking cessation group, and [facility] pharmacy smoking cessation clinic [facility] annual lung cancer screening with low [...] care facilitated by none -dental home is [email or web address] -health filed Assessment & Plan (06/03/2023 10:34 AM EDT): -next physical exam due after 06/02/24 -eye care facilitated by none -dental home is [email or web address] - Health care proxy completed and filed Papanicolaou smear of cervix with atypical squamous cells of undetermined significance (ASC-US) 02/26/2022 Overview (02/26/2022): ASCUS on pap 2012 HPV negative with [facility]. repeat PAP 05/04/16 nilm. -Repeat pap [...] the robot DaVinci robot and/or minimally invasive acute care occupational therapist specialist at [facility]. Will refer to [facility] minimally invasive manager talent management. Assessment & Plan (02/26/2022 9:31 AM EST): Menses coming every 2 months. US and labs ordered 02/26/2022. Kidney stones 02/26/2022 Overview (08/09/2024): Followed by urology -US 08/23/23 Bilateral nonobstructive renal calculi. No hydronephrosis. -seen by Roger Tay NP of [facility] urology 03/02/24, follow up 6 mo -urine cytology 03/04/24 Urine: Negative for high-grade urothelial carcinoma. -US 08/09/24 US/US renal BI IMPRESSION: 3 mm nonobstructing right renal calculus. Otherwise unremarkable renal ultrasound. Assessment & Plan (02/26/2022 9:30 AM EST): [...] Hospitalized 11/2018 and 12/2021. Improved. Followed by lepidopterist. Continue Tezspire, and Dulera and singulair as well as albuterol prn. Seen by Fruit Distributor Carmine Rivas MD 04/06/23. Nucala changed to Tezspire. Call to Pulmonology to check the status of her injectable medicine 06/03/23 Call placed to [facility] pulmonology spoke to the nurse yesenia who reports patient should be on Tezspire 210mg every 4 weeks and that patient had appt on 04/15/23 for inj but no showed to the visit. Yesenia states they redid the orders for her today and short stay should be reaching out to patient to set up an appt. Referral placed to [facility] Pulmonology as it is closer to home, seen by Dr. Monique Hillman, [facility], FACP,FCCP 07/29/23, no changes made to regimen -seen by Dr. Rivas 04/25/24 Well controlled on Tezspire, Dulera, and albuterol MDI/nebs. Continue current regimen. Assessment & Plan (06/03/2023 10:30 AM EDT): Hospitalized 11/2018 and 12/2021. Improved. Followed by lepidopterist. Continue Tezspire, and Dulera and singulair as well as albuterol prn. Seen by Fruit Distributor Carmine Rivas MD 04/06/23. Nucala changed to Tezspire. Will call to Pulmonology to check the status of her injectable medicine 06/03/23 Referral placed to [facility] Pulmonology as it is closer to home 06/03/23 Assessment & Plan (02/26/2022 9:22 AM EST): Hospitalized 11/2018. Improved. Followed by lepidopterist. Continue Nucala, and Dulera and singulair as [...] Restart Zyrtec 10 MG, refills provided 06/03/23 Migraine 06/09/2018 Overview (11/25/2022): On 06/2018, started amitriptyline 25mg for migraine prophylax. headaches improved then pt d/c with return of headaches. Restart amitriptyline 25mg po qhs 10/2018 As of 06/12/2021, not active. Assessment & Plan (09/18/2024 4:35 PM EDT): I advise to avoid migraine triggers like red wine, chocolate, cheese, strong perfumes I will start patient on amitriptyline 25 mg at bedtime I will prescribe the patient sumatriptan 25 mg as needed I will prescribe the patient magnesium supplement to take daily I will prescribe the patient Zofran for nausea I will refer patient to neurology Plan is to follow-up with her in 4 to 6 weeks for possible titration of medication Backache 09/14/2011 Severe episode of recurrent major [...] AM EST): Continue with therapist. No SI/HI Resolved Problems Problem Noted Date Diagnosed Date Resolved Date Right elbow pain 06/03/2023 08/09/2024 of parent 12/16/2022 11/25/2023 Insomnia 06/09/2018 08/09/2024 Posterior rhinorrhea 07/15/2017 023 Excessive and frequent menstruation 07/02/2017 11/25/2023 Lateral epicondylitis 07/01/20122024 Headache 09/14/2011 11/25/2022 Malaise and fatigue 09/14/2011 08/10/19 25 Encounters * This document contains information received from the source organization and may not represent a complete record from that organization. Date Type Department Care Team Description 09/19/2024 Travel 09/18/2024 3:15 PM EDT Office Visit [facility] MEDICINE [address] [place] [phone] Zainab Child MD Chronic migraine without aura without status migrainosus, not intractable 09/18/2024 Travel 09/15/2024 Telephone [facility]INE [address] [place] [address] Anne Carrion MD Chart Prep 09/15/2024 Travel 09/14/2024 Telephone [facility] MEDICINE [address] [place] [address] Anne Carrion MD Nurse Triage 09/14/2024 Travel 08/18/2024 Refill [facility]INE [address] [place] [address] Anne Carrion MD Vitamin D deficiency 08/14/2024 Travel 08/09/2024 Orders Only [facility] External Provider, [facility] Kidney stones (Primary Dx) 08/09/2024 Refill [facility] [address] [place] [address] Anne Carrion MD Moderate persistent asthma without complication 07/27/2024 Travel 07/20/2024 Travel 07/04/2024 Travel from Last 3 Months Immunizations Immunization Administration [...] Types Packs/Day Years Used Date Smoking Tobacco: Former Cigarettes Passive Smoke Exposure: Past Smokeless Tobacco: Former Tobacco Cessation:Counseling Given: Not Answered Depression Answer [...] Sign Reading Time Taken Comments Blood Pressure 138/86 09/18/2024 3:11 PM EDT Pulse 76 09/18/2024 3:11 PM EDT Temperature 36.7 C (98 F) 09/18/2024 3:11 PM EDT Respiratory Rate 16 09/18/2024 3:11 PM EDT Oxygen Saturation 98% 06/03/2023 9:42 AM EDT Inhaled Oxygen Concentration - - Weight 69.1 kg (152 lb 4 oz) 09/18/2024 3:11 PM EDT Height 154 cm (5' 0.63 ) 09/18/2024 3:11 PM EDT Body Mass Index 29.12 09/18/2024 3:11 PM EDT Plan of Treatment Upcoming Encounters Date Type Department Care Team (Late st Contact Info) Description 11/20/2024 10:45 AM EDT Office Visit [facility] MEDICINE [address] [place] [address] Anne Carrion MD [address] [place] [address] Health Maintenance Due Date Last Done Comments Alcohol/Substance Use Screening 1997 Family Planning (PISQ) 2000 HPV Vaccines (1 - 3-dose series) 2000 DTaP/Tdap/Td Vaccines (7 - Td or Tdap) 11/25/2021 11/26/2011, 08/28/2002, 12/25/1994, Additional history exists Depression Monitoring 03/08/2024 09/06/2023, 024 SDOH Screening 06/02/2024 06/03/2023 Influenza Vaccine (#1) 2024 7, 10/31/2015, 10/31/2014, Additional history exists Disability Screening 09/15/2025 09/15/2024 Tobacco Screening 09/18/2025 09/18/2024 Cervical Cancer Screening 06/12/2026 HPV/Cotest 06/12/2026 06/12/2021, [...] Associated Diagnosis Comments US RENAL BI Routine 08/09/2024 11:57 AM EDT LIPID PANEL, STANDARD Routine 06/04/2023 [...] Health Maintenance Results * US RENAL BI (08/09/2024 11:57 AM EDT) Anatomical Region Laterality Modality Abdomen Ultrasound 08/09/2024 11:5 7 AM EDT Narrative 08/09/2024 12:44 PM EDT [place] [address] Ultrasound Report Signed Patient: Claribel Roy MR #: [id number] : 1985 Acct:[id number] Age/Sex: 39 / F ADM Date: 08/09/24 Loc: . Attending Dr: Nataly MURPHY Ordering Physician: Nataly Tay Date of Service: 08/09/24 Procedure(s): US renal BI Accession Number(s): [id number] cc: Anne Carrion MD; Nataly Tay EXAMINATION: US KIDNEY BILATERAL HISTORY: N20.0 - Calculus of kidney TECHNIQUE: Real-time grayscale ultrasound imaging of the kidneys was performed and images were reviewed. COMPARISON: Comparison is made with the prior examination dated 02/21/2024. FINDINGS: Right kidney: The right kidney measures 10.0 x 5.9 x 4.9 cm. Renal parenchymal echotexture and thickness are normal. There are no masses. There is a 3 mm nonobstructing calculus at the upper pole. There is no hydronephrosis. Left Kidney: The left kidney measures 10.5 x 5.7 x 4.6 cm. Renal parenchymal echotexture and thickness are normal. There are no masses. There is no hydronephrosis or renal calculi. US/US renal BI IMPRESSION: 3 mm nonobstructing right renal calculus. Otherwise unremarkable renal ultrasound. Electronically signed by: Kelton Rankin MD 08/09/2024 12:41 PM EDT RP Dictated By: Kelton Rankin MD Signed By: <Electronically signed by Kelton Rankin MD in OV> 08/09/24 1241 DD/ 1157 TD/TT: 08/09/24 1230 Manager Of Broadcast Content: Procedure Note Donotuseinterpreter, Image - 08/09/2024 [place] [address] Ultrasound Report Signed Patient: Edouard Roy #: [id number] : 1985Acct:[id number] Age/Sex: 39 / FADM Date: 08/09/24 Loc: .US Attending Dr: Nataly MURPHY Ordering Physician: Nataly Tay Date of Service: 08/09/24 Procedure(s): US renal BI Accession Number(s): [id number] cc: Anne Carrion MD; Nataly Tay EXAMINATION: US KIDNEY BILATERAL HISTORY: N20.0 - Calculus of kidney TECHNIQUE: Real-time grayscale ultrasound imaging of the kidneys was performed and images were reviewed. COMPARISON: Comparison is made with the prior examination dated 02/21/2024. FINDINGS: Right kidney: The right kidney measures 10.0 x 5.9 x 4.9 cm. Renal parenchymal echotexture and thickness are normal. There are no masses. There is a 3 mm nonobstructing calculus at the upper pole. There is no hydronephrosis. Left Kidney: The left kidney measures 10.5 x 5.7 x 4.6 cm. Renal parenchymal echotexture and thickness are normal. There are no masses. There is no hydronephrosis or renal calculi. US/US renal BI IMPRESSION: 3 mm nonobstructing right renal calculus. Otherwise unremarkable renal ultrasound. Electronically signed by: Kelton Rankin MD 08/09/2024 12:41 PM EDT RP Dictated By: Kelton Rankin MD Signed By: <Electronically signed by Kelton Rankin MD in OV> 08/09/24 1241 DD/ 1157 TD/TT: 08/09/24 1230 Manager Of Broadcast Content: [facility] External Provider IMG US PROCEDURES Final Result * (ABNORMAL) Lipid Panel, Standard (06/04/2023 11:20 AM EDT) Triglycerides 77 <150 mg/dL [facility] Comment:Desirable Triglyceri de: less than 150 mg/dLBorderline High Triglyceride 150-199 mg/dLHigh Triglyceride: 200-499 mg/dLVery High Triglyceride: greater than or equal to 5OO mg/dL Cholesterol 199 <200 mg/dL [facility] Comment:Desirable Cholestero l: less than 200 mg/dLBorderline High Cholesterol: 200-239 mg/dLHigh Cholesterol: greater than 239 mg/dL LDL Cholesterol Calculated 144(H) <100 mg/dL [facility] Comment:Desirable LDL: less than 100 mg/dLNear Optimal/Above Optimal LDL: 110- 129 mg/dLBorderline High LDL: 130-159 mg/dLHigh LDL: 160-189 mg/dLVery High LDL: greater than or equal to 190 mg/dL HDL Cholesterol 40(L) >40 mg/dL [facility] Comment:Desirable HDL: great er than 40 mg/dL Note: This HDL assay may give artificially low results in patients with liver disease. Blood Venous blood specimen / Unknown 06/04/2023 11:20 AM EDT 06/04/2023 1:22 PM EDT Anne Carrion MD LAB BLOOD ORDERABLES Final Result [facility] [address] [place] [address] [phone] * HPV High Risk PCR (06/12/2021 12:00 AM EDT) Swab Cervical swab / Unknown Anne Carrion MD LAB MICROBIOLOGY - GENERAL ORDERABLES Final Result Performing Organization Address [facility] Co de Phone Number [facility] [address] [place] [phone] * Pap Smear (06/12/2021 12:00 AM EDT) Swab Anne Carrion MD LAB CYTOLOGY ORDERABLES Fi nal Result Performing Organization Address [facility] Co de Phone Number [facility] [address] [place] [phone] * HEPATITIS C ANTIBODY (11/08/2019 12:39 PM EDT) Pathologist [facility] HEPATITIS C ANTIBODY NONREACTIVE NONREACTIVE [facility] Comment: Antibodies to HCV not detected; does not exclude early acute HCV infection. 11/08/2019 12:3 9 PM EDT Sandhya Brody HISTORICAL/NON ORDERABLE LABS Fi nal Result Performing Organization Address [facility] Co de Phone Number [facility] [address] * HIV AB/AG (11/08/2019 12:39 PM EDT) Pathologist [facility] HIV AG/AB NONREACTIVE [facility] [...] of detection of this assay. The [employer] HIV Ag/Ab Combo assay result and supplemental assay results should be interpreted in conjunction with the patient's clinical presentation, history and other laboratory results. If the results are inconsistent with clinical evidence, additional testing is suggested to confirm the result. 11/08/2019 12:3 9 PM EDT us Sandhya Brody HISTORICAL/NON ORDERABLE LABS Fi nal Result [facility] [address] from Last 3 Months or Most Recently Relevant to Health Maintenance Insurance [employer] < 65 Care Teams Instructor Pilot Relationship Specialty Start Date End Date Churchill, MD Anne [address] [place] [phone] PCP - General Family Medicine 02/08/18 Nataly Tay NP [address] [place] [address] Urology 03/02/24 Carmine Rivas MD [address] [place] [phone] Pulmonary Disease 04/10/24 Marivel Bang [address] [place] [address] Orthopaedic Surgery 04/10/24 Leo Rao MD [address] [facility] [address] [place] [address] Obstetrics and Gynecology 05/02/24
--- OUTSIDE RECORDS SUMMARY | 2024-10-03 09:11 | XMS_ITS | Encounter Summary ---
Author Organization [employer] Address [address] [facility] 7t [place] [address] Care Team Providers Care Lease Operator Name Role Phone Anne Carrion MD Primary Care Provider [phone] Nataly Tay NP Unavailable Carmine Rivas MD Unavailable [phone] Marivel Bang Unavailable Leo Rao MD Unavailable Reason for Visit * Reason Onset Date Comments Nurse Triage 11/29/2023 Encounter Details Date Type Department Care Team (Late st Contact Info) Description 11/29/2023 Telephone [facility] [address] [place] [address] Anne Carrion MD [address] [place], [place] [phone] Nurse Triage Social History Tobacco Use Types [...] documented in this encounter Plan of Treatment Upcoming Encounters Date Type Department Care Team (Late st Contact Info) Description 11/20/2024 10:45 AM EDT Office Visit [facility] [address] [place] [address] Anne Carrion MD [address] [place] [address] documented as of this encounter Visit Diagnoses Not on filedocumented in this encounter Additional Health Concerns Assessment Noted Time PHQ-9 Depression Total Score: 18 024 1:45 PM EDT documented as of this encounter Care Teams Lease Operator Relationship Specialty Start Date End Date Anne Carrion MD [address] [place] [address] PCP - General Family Medicine 02/08/18 Nataly Tay NP [address] [facility] [address] [place] [address] Urology 03/02/24 Carmine Rivas MD [address] [place] [phone] Pulmonary Disease 04/10/24 Marivel Bang [address] [place] [address] Orthopaedic Surgery 04/10/24 Leo Rao MD [address] [facility] [address] [place] [address] Obstetrics and Gynecology 05/02/24 documented as of this encounter
--- OUTSIDE RECORDS SUMMARY | 2024-10-03 09:11 | XMS_ITS | Encounter Summary ---
Author Organization [employer] Address [address] [facility] [address] [place] [address] Care Team Providers Care Community Development Aide Name Role Phone Anne Carrion MD Primary Care Provider [phone] Nataly Tay NP Unavailable Carmine Rivas MD Unavailable [phone] Marivel Bang Unavailable Leo Rao MD Unavailable Reason for Visit * Reason Comments Med Refill Encounter Details Date Type Department Care Team (Late st Contact Info) Description 01/07/2023 Refill [facility] [address] [place] [address] [id number] Jaiden Mccarthy MD [address] [place] [address] [id number] Rash Social History Tobacco Use Types Packs/Day [...] as of this encounter Plan of Treatment Upcoming Encounters Date Type Department Care Team (Late st Contact Info) Description 11/20/2024 10:45 AM EDT Office Visit [facility] [address] [place] [address] Anne Carrion MD [address] [place] [phone] documented as of this encounter Visit Diagnoses Diagnosis Rash Rash and other nonspecific skin eruption documented in this encounter Care Teams Community Development Aide Relationship Specialty Start Date End Date Anne Carrion MD [address] [place] [phone] PCP - General Family Medicine 02/08/18 Nataly Tay NP [address] [place] [address] Urology 03/02/24 Carmine Rivas MD [address] [place] [id number] Pulmonary Disease 04/10/24 Marivel Bang [address] [place] [address] Orthopaedic Surgery 04/10/24 Leo Rao MD [address] [facility] [address] [place] [address] Obstetrics and Gynecology 05/02/24 documented as of this encounter
--- OUTSIDE RECORDS SUMMARY | 2024-10-03 09:11 | XMS_ITS | Patient Health Record ---
Author Organization [facility] Address [address] [facility] [place] [address] Care Team Providers Care Utility Agent Name Role Phone Anne Carrion MD Primary Care Provider Kavin Lainez Unavailable [phone] Allergies Allergen (clinical drug ingredient) Drug/Non Drug [...] type I of right lower limb (disorder) (343898257829334) Complex regional pain syndrome I of right lower limb (G90.521) Active confirmed Problem Mononeuropathy of lower limb (780067094) Neuritis of right foot (G57.91) Active confirmed Plan Of Treatment No Information Insurance Providers Payer Name Payer Address Payer Phone Subscriber Number Group Number Insured Name Patient Relationship to Insured Coverage Start Date Coverage End Date [facility] [employer] Claims [address] [place] [phone] [id number] Claribel Leal Self - patient is the insured Medical (General) History Medical History History ICD Code Depression Anxiety disorder Migraines Kidney stones Broken bones Back pain asthma Surgical History Surgery Date(Month/Year) cholecystectomy laparoscopic salpingectomy bilateral section 2011 tonsillectomy tubal ligation foot surgery 1995 elbow sx
== END 2024-10-03 09:18 | disposition home or self-care (01) ==
LOC: HO.HPS 08:51
PROVIDERS: PCP Family Medicine; Visit Provider Internal Medicine Pulmonary Disease
DX: J45.50 Severe persistent asthma, uncomplicated (principal); Z91.09 Other allergy status, other than to drugs and biological substances
CPT/HCPCS: 99214

== ENCOUNTER → 2024-10-03 08:51 | Outpatient (BNVA) | payer OTHER, SELFPAY | PROVIDERS: PCP Family Medicine; Visit Provider Internal Medicine Pulmonary Disease | DX: J45.50 Severe persistent asthma, uncomplicated (principal); Z91.09 Other allergy status, other than to drugs and biological substances | CPT/HCPCS: 99212 ==

== ENCOUNTER 2024-10-17 08:32 | Emergency (ER) | payer OTHER, SELFPAY ==
--- NOTE | ~2024-10-17 | XR_ITS ---
EXAMINATION: XR CHEST 2 VIEWS HISTORY: cough, fever COMPARISON: Comparison is made with the prior examination dated 03/14/2024. FINDINGS: PA and lateral views of the chest are submitted. The lungs are expanded and clear. There is no pleural effusion, pneumothorax, or pulmonary vascular congestion. The heart is normal in size. The bones are intact. XR/XR chest 2V IMPRESSION: No acute cardiopulmonary abnormality. Electronically signed by: Kelton Rankin MD 10/17/2024 10:32 AM EDT
[2024-10-17 08:41] VITALS: BP 139/75; PULSE 117; RESP 18; TEMP 36.7; O2SAT 97; BMI 44.0
[2024-10-17 09:07] LABS: IDNOW Serial# 08D9AD1C; Strep A Nucleic Acid Negative (Negative)
--- NOTE | 2024-10-17 09:19 | ED.URI ---
HPI - URI/Sore Throat General Chief Complaint: Upper Respiratory Symptoms Stated Complaint: Cough, sore throat, fever Time Seen by Provider: 10/17/24 08:50 Source: patient and old records reviewed Mode of arrival: ambulatory Limitations: no limitations History of Present Illness ED Provider: MELLO HAIRSTON Narrative: 39 yo female with PMH of asthma, eczema who notes her son was sick last week with a cold but it was mild she became sick 2 days ago with cough, fevers, wheezing, sore throat, runny nose. No recent travel or procedures and no steroid use. She took tylenol for fever and tried neb therapy [employer]. She is producing clear/yellow sputum. MD elicited complaint: fever, cough, sore throat, rhinorrhea and nasal congestion Pertinent past history: asthma Onset (ago): day(s) (2) Consistency: constant Severity: moderate Description of mucous: watery and yellow Able to tolerate fluids by mouth: Yes Exacerbating factors: swallowing Relieving factors: nothing Context: sick contacts Associated symptoms: fever, chills, headache, rhinorrhea, nasal congestion, sore throat, cough and shortness of breath Treatments prior to arrival: acetaminophen Related Data Home Medications ?Medication ?Instructions ?Recorded ?Confirmed cholecalciferol (vitamin D3) 25 25 mcg PO DAILY 10/26/23 mcg (1,000 unit) tablet Previous Rx's ?Medication ?Instructions ?Recorded cyclobenzaprine 5 mg tablet 5 mg PO Q8H PRN pain (scale score 02/16/23 7-10) 5 days #8 tabs diclofenac sodium 1 % topical gel 4 g topical QID #100 grams 02/16/23 (Arthritis Pain (diclofenac)) cetirizine 10 mg tablet (Zyrtec) 10 mg PO DAILY PRN allergy 02/17/23 symptoms #10 tabs diphenhydramine HCl 25 mg tablet 25 mg PO Q8H PRN itching #14 tabs 02/17/23 (Benadryl Allergy) tezepelumab-ekko 210 mg/1.91 mL 210 mg (1.91 mL) subcut Q4W 28 06/03/23 (110 mg/mL) subcutaneous syringe days #1.91 mL (Tezspire) pyridoxine (vitamin B6) 100 mg 100 mg PO DAILY 90 days #90 tabs 08/31/23 tablet ondansetron 4 mg disintegrating 4 mg PO Q8H PRN nausea and 09/11/23 tablet vomiting #10 tabs albuterol sulfate 90 mcg/actuation 1 inh inhalation QID PRN shortness 10/26/23 aerosol inhaler of breath or wheezing #8.5 grams morphine 15 mg immediate release 15 mg PO Q8H PRN pain (scale score 11/25/23 tablet 4-6) #6 tabs albuterol sulfate 2.5 mg/3 mL 3 mg (3.6 mL) inhalation Q4H PRN 01/05/24 (0.083 %) solution for nebulization Wheezing #180 mL cetirizine 10 mg tablet 10 mg PO BID #180 tabs 06/20/24 montelukast 10 mg tablet 10 mg PO BEDTIME #90 tabs 09/15/24 Dulera 200 mcg-5 mcg/actuation HFA 2 puff PO BID #13 grams 10/10/24 aerosol inhaler (mometasone-formoterol) azithromycin 250 mg tablet See Rx Instructions PO .COMPLEX #6 10/17/24 tabs prednisone 20 mg tablet 40 mg (2 x 20 mg) PO DAILY 5 days 10/17/24 #10 tabs Allergies Allergy/AdvReac Type Severity Reaction Status Date / Time benzonatate (BENZONATATE) Allergy Severe ANAPHYLAXIS Verified 10/17/24 08:44 banana (BANANA) Allergy Intermediate RASH Verified 10/17/24 08:44 coconut (COCONUT) Allergy Intermediate RASH Verified 10/17/24 08:44 cucumber (CUCUMBER) Allergy Intermediate RASH Verified 10/17/24 08:44 grape (GRAPE) Allergy Intermediate RASH Verified 10/17/24 08:44 arthur (ARTHUR) Allergy Intermediate RASH Verified 10/17/24 08:44 sulfamethoxazole (From Allergy Intermediate RASH Verified 10/17/24 08:44 BACTRIM) trimethoprim (From BACTRIM) Allergy Intermediate RASH Verified 10/17/24 08:44 cephalexin (Keflex) Allergy Unknown Unknown Verified 10/17/24 08:44 duloxetine (From CYMBALTA) Allergy Unknown UNKNOWN Verified 10/17/24 08:44 Sulfa (Sulfonamide Allergy Unknown Unknown Verified 10/17/24 08:44 Antibiotics) nitrofurantoin Allergy Rash Verified 10/17/24 08:44 SEAFOOD Allergy Intermediate RASH Uncoded 06/07/24 13:53 antibacterial soap Allergy Unknown rash Uncoded 06/07/24 13:53 Tessalon Allergy Unknown Unknown Uncoded 06/07/24 13:53 Review of Systems Review of Systems: Constitutional : pos Fever, pos Chills ENT/Mouth : No Hoarseness, pos sore throat, pos Rhinorrhea Eyes: No Redness, No Discharge, No Vision Changes Cardiovascular : No Chest Pain, positive SOB, positive Dyspnea on Exertion, No Edema Respiratory : positive Cough, pos Sputum, positive Wheezing, Gastrointestinal : No Nausea, No Vomiting, No Diarrhea, No abdominal Pain Genitourinary : No Dysuria, No Hematuria Musculoskeletal : No joint pain, No Myalgias Skin : No rash Neuro : No Weakness, No Numbness, pos Headache Psych : No anxiety, depression All other systems reviewed and are negative [facility] Medical History Attestation statement: The following information was validated with the patient. Source: old records reviewed Medical History Pelviectasis Asthma Kidney stone Hx of migraine headaches Hx of anxiety disorder History of depression Surgical History Hx of bilateral salpingectomy Hx of tubal ligation Hx of section Hx of tonsillectomy Hx laparoscopic cholecystectomy Family History Family History Mother Diabetes mellitus Hypertension Dementia Father Diabetes mellitus Hypertension Social History Social History Alcohol intake: never Patient Tobacco Use Status: Current someday Tobacco user Tobacco use type: Cigarette Cigarettes Per Day: 2 Advance Directives: Yes Advance Directives on File: Yes Advance Directives Date on File: 12/11/21 service: No Current occupational status: disabled Current occupation: right handed Physical Exam Vital Signs: Vital Signs: Last Vital Signs Temp 98.1 F 10/17/24 08:41 Pulse 104 H 10/17/24 09:27 Resp 22 H 10/17/24 09:27 BP 139/75 10/17/24 08:41 Pulse Ox 97 10/17/24 08:41 O2 Del Method Room Air 10/17/24 08:41 BMI result Body Mass Index 44.0 Appearance: Alert. Oriented X3. No acute distress. Eyes: Pupils equal, round and reactive to light. ENT: Pharynx red no exudates Neck: Normal inspection. Neck supple. CVS: Normal heart rate and rhythm. Pulses normal. Respiratory: No respiratory distress. Breath sounds diff insp and exp wheezes Abdomen: Soft and nontender. Skin: Skin warm and dry. Normal skin color. Extremities: No lower extremity edema. Neuro: Oriented X 3. No motor deficit. No sensory deficit. Medications Administered Discontinued Medications Generic Name Dose Route Start Last Admin Trade Name [place] PRN Reason Stop Dose Admin Levalbuterol HCl 2.5 mg/ 0 mg 10/17/24 09:27 10/17/24 09:31 Ipratropium [place] 0.5 mg INHALE 10/17/24 09:28 5 dose ONCE ONE Administration Guaifenesin/Codeine Phosphate 5 ml 10/17/24 09:11 10/17/24 09:20 Guaifen/Codeine Sf 200/20/10ml 10 Ml Liquid PO 10/17/24 09:12 5 ml ONCE ONE Administration Ibuprofen 600 mg 10/17/24 09:09 10/17/24 09:20 Ibuprofen 600 Mg Tablet PO 10/17/24 09:10 600 mg ONCE ONE Administration Ondansetron HCl 4 mg 10/17/24 09:09 10/17/24 09:20 Ondansetron Odt 4 Mg Tab.Rapdis TRANSLINGU 10/17/24 09:10 4 mg ONCE ONE Administration Prednisone 40 mg 10/17/24 09:09 10/17/24 09:20 Prednisone 20 Mg Tablet PO 10/17/24 09:10 40 mg ONCE ONE Administration Medical Decision Making Medical Decision Making [facility] Narrative: 39 yo female with PMH of asthma, eczema here with c/o URI symptoms and asthma x 2 days. At this time will need swabs, CXR, PO prednisone, neb and supportive medications. Could be bronchitis, URI, asthma Differential Diagnosis Differential Diagnoses: The differential diagnosis associated with the presentation includes bronchitis, URI, asthma Admission/Observation Consideration of admission/observation: Escalation of care including admission/observation considered no hypoxia, tolerating PO no resp distress stable for DC lungs CTAB Lab Data [facility] Lab Attestation statement: I reviewed the patient's lab results. Labs: Lab Results 10/17/24 Range/Units 08:48 COVID-19 (ILENE) Negative (Negative) COVID-19 Clin Com See Note Influenza Type A (DIONY) Negative (Negative) Influenza Type B (DIONY) Negative (Negative) Influenza A & B Note See Note S. pyogenes GrpA DIONY Negative (Negative) Independent Interpretation I performed an independent interpretation of an: Plain X-Ray (no pneumonia) Radiology Impression Discussion of test interpretation with radiology: I have reviewed the radiologist's reading. External Record Review External record reviewed: Outpatient record Prescription Management I considered prescription management with: Antibiotic and Other Discharge Plan Discharge Clinical Impression: Bronchitis Patient Disposition: Home, Self-Care Instructions: Acute Bronchitis (ED) Additional Instructions: chest xray is normal negative for Covid and flu continue to take all the medications rest and stay hydrated return for any worsening symptoms or concerns. Prescriptions: New azithromycin 250 mg tablet See Rx Instructions .ROUTE .COMPLEX Qty: 6 0RF Rx Instructions: For 250 mg dose pack: take 500 mg today (day 1), then 250 mg for 4 days (days 2-5) prednisone 20 mg tablet 40 mg PO DAILY 5 Days Qty: 10 0RF No Action Tezspire 210 mg/1.91 mL (110 mg/mL) syringe 210 mg subcut Q4W 28 Days Qty: 1.91 12RF albuterol sulfate 2.5 mg /3 mL (0.083 %) solution for nebulization 3 mg inhalation Q4H PRN (Reason: Wheezing) Qty: 180 6RF cetirizine 10 mg tablet 10 mg PO BID Qty: 180 0RF montelukast 10 mg tablet 10 mg PO BEDTIME Qty: 90 0RF Dulera 200-5 mcg/actuation HFA aerosol inhaler 2 puff PO BID Qty: 13 0RF ondansetron 4 mg tablet,disintegrating 4 mg PO Q8H PRN (Reason: nausea and vomiting) Qty: 10 0RF morphine 15 mg tablet 15 mg PO Q8H PRN (Reason: pain (scale score 4-6)) Qty: 6 0RF Rx Instructions: Partial Fill upon patient request. diclofenac sodium [Arthritis Pain (diclofenac)] 1 % gel 4 g topical QID Qty: 100 0RF Rx Instructions: apply to single knee, ankle, foot; for foot includes sole/toes/top of foot cyclobenzaprine 5 mg tablet 5 mg PO Q8H PRN (Reason: pain (scale score 7-10)) 5 Days Qty: 8 0RF diphenhydramine HCl [Benadryl Allergy] 25 mg tablet 25 mg PO Q8H PRN (Reason: itching) Qty: 14 0RF cetirizine [Zyrtec] 10 mg tablet 10 mg PO DAILY PRN (Reason: allergy symptoms) Qty: 10 0RF pyridoxine (vitamin B6) 100 mg tablet 100 mg PO DAILY 90 Days Qty: 90 1RF cholecalciferol (vitamin D3) 25 mcg (1,000 unit) tablet 25 mcg PO DAILY albuterol sulfate 90 mcg/actuation HFA aerosol inhaler 1 inh inhalation QID PRN (Reason: shortness of breath or wheezing) Qty: 8.5 6RF Print Language: Serbian
[2024-10-17] MEDS: guaiFEN/Codeine SF 200/20/10ML 10 ML LIQUID 5 ML PO (09:20)
[2024-10-17 09:21] LABS: COVID-19 Test Negative (Negative); IDNOW Serial# 55D5AD1C; IDNOW Serial# 58CA691E; Influenza B2 Negative (Negative)
[2024-10-17 09:27] VITALS: PULSE 104; RESP 22; O2SAT 95
[2024-10-17] MEDS: levalbuterol HCL 2.5 MG, Ipratropium Bromide 0.5 MG INHALE (09:31)
--- OUTSIDE RECORDS SUMMARY | 2024-10-17 10:22 | XMS_ITS | Clinical Summary ---
Author Organization [employer] Address [address] [facility] 7t [place] [address] Care Team Providers Care Advanced Registered Nurse Name Role Phone [place], Anne CHAPMAN Primary Care Provider [phone] Nataly Tay NP Unavailable Carmine Rivas MD Unavailable [phone] Marivel Bang Unavailable Leo Rao MD [...] migh t be different from the original. [facility] [place] Technical Writing Lead/Mgr: Minine, member services number [phone] Rehabilitation Specialist Agency: [facility] Problem Noted Date Diagnosed [...] [facility] smoking cessation group, and [facility] pharmacy smoking cessation clinic [facility]ed [facility] annual lung cancer screening with [...] [facility] smoking cessation group, and [facility] pharmacy smoking cessation clinic Discussed [facility] annual lung cancer screening with [...] care facilitated by none -dental home is [facility] -health filed Assessment & Plan (06/03/2023 10:34 AM EDT): -next physical exam due after 06/02/24 -eye care facilitated by none -dental home is [facility] - Health care proxy completed and filed Papanicolaou smear of cervix with atypical squamous cells of undetermined significance (ASC-US) 02/26/2022 Overview (02/26/2022): ASCUS on pap 2012 HPV negative with [facility]. repeat PAP 05/04/16 nilm. -Repeat pap done [...] the robot DaVinci robot and/or minimally invasive bolt labeler specialist at [facility]. Will refer to [facility] minimally invasive assistant activities director. Assessment & Plan (02/26/2022 9:31 AM EST): Menses coming every 2 months. US and labs ordered 02/26/2022. Kidney stones 02/26/2022 Overview (08/09/2024): Followed by urology -US 08/23/23 Bilateral nonobstructive renal calculi. No hydronephrosis. -seen by Roger Tay NP of [facility] urology 03/02/24, follow up 6 mo -urine [...] Moderate persistent asthma without complication 02/24/2022 Overview (10/03/2024): Hospitalized 11/2018 and 12/2021. Improved. Followed by revolving field assembler. Continue Tezspire, and Dulera and singulair as well as albuterol prn. Seen by Sap Gatherer Carmine Rivas MD 04/06/23. Nucala changed to Tezspire. Call to Pulmonology to check the status of her injectable medicine 06/03/23 [place] [facility] [place] spoke to the nurse yesenia who reports patient should be on Tezspire 210mg every 4 weeks and that patient had appt on 04/15/23 for inj but no showed to the visit. Yesenia states they redid the orders for her today and short stay should be reaching out to patient to set up an appt. [place] [facility] [place], seen by Dr. Monique Hillman, [facility], FACP,FCCP 07/29/23, no changes made to regimen -seen by Dr. Rivas 10/03/24 Well controlled on current regimen of Tezspire, Dulera, and albuterol MDI/nebs. Continue current regimen. Assessment & Plan (06/03/2023 10:30 AM EDT): Hospitalized 11/2018 and 12/2021. Improved. Followed by revolving field assembler. Continue Tezspire, and Dulera and singulair as well as albuterol prn. Seen by Sap Gatherer Carmine Rivas MD 04/06/23. Nucala changed to Tezspire. Will call to Pulmonology to check the status of her injectable medicine 06/03/23 Referral placed to [facility] [place] it [place] closer to [place] 06/03/23 Assessment & Plan (02/26/2022 9:22 AM EST): Hospitalized 11/2018. Improved. Followed by revolving field assembler. Continue Nucala, and Dulera and singulair as well as albuterol prn. Referral sent 12/2021 to pulmonology at [facility], Pt was hospitalized 12/2021 and asthma [...] organization. Date Type Department Care Team Description 10/17/2024 Orders Only GENERIC EXTERNAL DATA DEPARTMENT Provider, Generic External Data 09/19/2024 Travel 09/18/2024 3:15 PM EDT Office Visit [facility]ICINE [address] [place] [address] Zainab Child MD Chronic migraine without aura without status migrainosus, not intractable 09/18/2024 Travel 09/15/2024 Telephone [facility]INE [address] [place] [address] Anne Carrion MD Chart Prep 09/15/2024 Travel 09/14/2024 Telephone [facility] MEDICINE [address] [place] [address] Anne Carrion MD Nurse Triage 09/14/2024 Travel 08/18/2024 Refill [facility] [address] [place] [address] Anne Carrion MD Vitamin D deficiency 08/14/2024 Travel 08/09/2024 Orders Only [facility] External Provider, [facility] Kidney stones (Primary Dx) 08/09/2024 Refill [facility] MEDICINE [address] [place] [address] Anne Carrion MD Moderate persistent asthma without complication 07/27/2024 Travel 07/20/2024 Travel from Last 3 Months Immunizations Immunization [...] 10:45 AM EDT Office Visit [facility]ICINE [address] [place] [address] Anne Carrion MD [address] [place] [address] Health Maintenance Due Date Last [...] Procedure Name Priority Date/Time Associated Diagnosis Comments COVID-19 ID NOW (RODRÍGUEZ) Routine 10/17/2024 8:48 AM EDT INFLUENZA A B2 ID NOW (RODRÍGUEZ) Routine 10/17/2024 8:48 AM EDT STREP A NUCLEIC ACID Routine 10/17/2024 8:48 AM EDT US RENAL BI Routine 08/09/2024 11:57 AM [...] Recently Relevant to Health Maintenance Results * Influenza A B2 ID NOW (Rodríguez) (10/17/2024 8:48 AM EDT) IDNOW SERIAL# [id number] [facility] Influenza A Negative Negative [facility] Influenza B2 Negative Negative [facility] Influenza A B2 Note See Note [facility] Comment:The Rodríguez ID NOW In fluenza A B2 test is used for thequalitative detection of influenza A and B from patientswith signs and symptoms of respiratory infection.Negative results do not preclude influenza virus infectionand should not be used as the sole basis for diagnosis,treatment or other patient management decisions.There is a risk of false negative results due to thepresence of variants in the viral targets of the assay, lowlevels of virus in the specimen and co- infection withRespiratory Syncytial Virus. 10/17/2024 8:48 AM EDT 10/17/2024 8:51 AM EDT Generic External Data Provider LAB MICROBIOLOGY - GENERAL ORDERABLES Final Result Performing Organization Address [facility] de Phone Number [facility] [address] [place] [phone] * Strep A Nucleic Acid (10/17/2024 8:48 AM EDT) IDNOW SERIAL# [id number] [facility] Strep A Nucleic Acid Negative Negative [facility] Comment:All test results mus t be correlated with clinical findings.This test has not been evaluated for monitoring treatment ofinfection.Additional follow-up testing using the culture method isrequired if the result is negative and clinical symptomspersist, or in the event of an acute rheumatic feveroutbreak. 10/17/2024 8:48 AM EDT 10/17/2024 8:51 AM EDT [employer] External Data Provider LAB MICROBIOLOGY - GENERAL ORDERABLES Final Result Performing Organization Address [facility] de Phone Number [facility] [address] [place] [phone] * COVID-19 ID NOW (RODRÍGUEZ) (10/17/2024 8:48 AM EDT) IDNOW SERIAL# [id number] [facility] COVID-19 TEST Negative Negative [facility] COVID-19 NOTE See Note [facility] Comment: Results are for the identification of SARS-CoV2 RNA. TheSARS-CoV2 RNA is generally detectable in respiratory samplesduring the acute phase of infection. Positive results areindicative of the presence of SARS-CoV-2 RNA; clinicalcorrelation with patient history and other diagnosticinformation is necessary to determine patient infectionstatus. Positive results do not rule out bacterial infectionor co- infection with other viruses.Testing facilities within the [facility] and itsterritories are required to report all positive results tothe appropriate public health authorities.Negative results should be treated as presumptive and, ifinconsistent with clinical signs and symptoms or necessaryfor patient management, should be tested with differentauthorized or cleared molecular tests. Negative results donot preclude SARS-CoV2 RNA infection and should not be usedas the sole basis for patient management decisions. Negativeresults should be considered in the context of a patient'srecent exposures, history and the presence of clinical signsand symptoms consistent with COVID-19.This test has been authorized by the FDA under an EmergencyUse Authorization (EUA) for use by authorized laboratories.Testing performed on the [employer] NOW utilizing NAAT. 10/17/2024 8:48 AM EDT 10/17/2024 8:51 AM EDT us Generic External Data Provider LAB MOLECULAR GUILLERMO GNOSTICS ORDERABLES Final Result Performing Organization Address City/State/[facility] Co de Phone Number [facility] [address] [place] [address] [phone] * US RENAL BI (08/09/2024 11:57 AM EDT) Anatomical Region Laterality Modality Abdomen Ultrasound 08/09/2024 11:5 7 AM EDT Narrative 08/09/2024 12:44 PM EDT [address] [address] Ultrasound Report Signed Patient: Claribel Roy MR #: [id number] : 1985 Acct:[id number] Age/Sex: 39 / F ADM Date: 08/09/24 Loc: . Attending Dr: Nataly MURPHY Ordering Physician: Nataly Tay Date of Service: 08/09/24 Procedure(s): US renal BI Accession Number(s): [id number] cc: Anne Carrion MD; Nataly Tay EXAMINATION: [...] 08/09/24 1241 DD/ 1157 TD/TT: 08/09/24 1230 Log Cutter: Procedure Note Donotuseinterpreter, Image - 08/09/2024 [place] [address] Ultrasound Report Signed Patient: Edouard Roy #: [id number] : 1985Acct:[id number] Age/Sex: 39 / FADM Date: 08/09/24 Loc: .US Attending Dr: Nataly MURPHY Ordering Physician: Nataly Tay Date of Service: 08/09/24 Procedure(s): US renal BI Accession Number(s): [id number] cc: Anne Carrion MD; Nataly Tay EXAMINATION: [...] 08/09/24 1241 DD/ 1157 TD/TT: 08/09/24 1230 Log Cutter: us [facility] External Provider IMG US PROCEDURES Final Result * (ABNORMAL) Lipid Panel, Standard (06/04/2023 11:20 AM EDT) Triglycerides 77 <150 mg/dL [facility] Comment:Desirable Triglyceri de: less than 150 mg/dLBorderline High Triglyceride 150-199 mg/dLHigh Triglyceride: 200-499 mg/dLVery High Triglyceride: greater than or equal to 5OO mg/dL Cholesterol 199 <200 mg/dL [facility] Comment:Desirable Cholestero l: less than 200 mg/dLBorderline High Cholesterol: 200-239 mg/dLHigh Cholesterol: greater than 239 mg/dL LDL Cholesterol Calculated 144(H) <100 mg/dL [facility] Comment:Desirable LDL: less than 100 mg/dLNear Optimal/Above Optimal LDL: 110- 129 mg/dLBorderline High LDL: 130-159 mg/dLHigh LDL: 160-189 mg/dLVery High LDL: greater than or equal to 190 mg/dL HDL Cholesterol 40(L) >40 mg/dL [facility] Comment:Desirable HDL: great er than 40 mg/dL Note: This HDL assay may give artificially low results in patients with liver disease. Blood Venous blood specimen / Unknown 06/04/2023 11:20 AM EDT 06/04/2023 1:22 PM EDT Anne Carrion MD LAB BLOOD ORDERABLES Final Result Performing Organization Address [facility] Co de Phone Number [facility] [address] [place] [address] [phone] * HPV High Risk PCR (06/12/2021 12:00 AM EDT) Swab Cervical swab / Unknown Anne Carrion MD LAB MICROBIOLOGY - GENERAL ORDERABLES Final Result Performing Organization Address [facility] de Phone Number [facility] [address] [place] [address] [phone] * Pap Smear (06/12/2021 12:00 AM EDT) Swab Anne Carrion MD LAB CYTOLOGY ORDERABLES Fi nal Result Performing Organization Address [facility] Co de Phone Number [facility] [address] [place] [phone] * HEPATITIS C ANTIBODY (11/08/2019 12:39 PM EDT) [facility] HEPATITIS C ANTIBODY NONREACTIVE NON[facility] Comment: Antibodies to HCV not detected; does not exclude early acute HCV infection. 11/08/2019 12:3 9 PM EDT Sandhya Brody HISTORICAL/NON ORDERABLE LABS Fi nal Result Performing Organization Address [facility] Co de Phone Number [facility] [address] [place] [address], * HIV AB/AG (11/08/2019 12:39 PM EDT) Pathologist [facility] HIV AG/AB NONREACTIVE NR FOUNDATI ON LAB [...] limit of detection of this assay. The Rodríguez Customer Support Manager HIV Ag/Ab Combo assay result and supplemental assay results should be interpreted in conjunction with the patient's clinical presentation, history and other laboratory results. If the results are inconsistent with clinical evidence, additional testing is suggested to confirm the result. 11/08/2019 12:3 9 PM EDT us Sandhya Brody HISTORICAL/NON ORDERABLE LABS Fi nal Result [facility] [address] from Last 3 Months or Most Recently Relevant to Health Maintenance Insurance [facility] < 65 Care Teams Advanced Registered Nurse Relationship Specialty Start Date End Date Murali, MD Anne [address] [place] [address] PCP - General Family Medicine 02/08/18 Nataly Tay NP [address] [facility] [address] [place] [address] Urology 03/02/24 Carmine Rivas MD [address] [place] [address] Pulmonary Disease 04/10/24 Marivel Bang [address] [place] [address] Orthopaedic Surgery 04/10/24 Leo Rao MD [address] [facility] [address] [place] [address] Obstetrics and Gynecology 05/02/24
--- OUTSIDE RECORDS SUMMARY | 2024-10-17 10:22 | XMS_ITS | Encounter Summary ---
Author Organization [employer] Address [address] [facility] 7t [place] [address] Care Team Providers Care Hosting Engineer Name Role Phone Murali, Anne CHAPMAN Primary Care Provider [phone] Nataly Tay NP Unavailable Carmine Rivas MD Unavailable [phone] Marivel Bang Unavailable Leo Rao MD Unavailable Encounter Details Date Type Department Care Team (Late st Contact Info) Description 10/17/2024 Orders Only GENERIC EXTERNAL DATA DEPARTMENT Provider, Generic External Data Social History Tobacco Use Types Packs/Day Years Used Date Smoking Tobacco: Former Cigarettes Passive Smoke Exposure: Past Smokeless Tobacco: Former Depression Answer Date Recorded Patient Health Questionnaire-9 [...] Description 11/20/2024 10:45 AM EDT Office Visit [facility] MEDICINE [address] [place], [place] [phone] Anne Carrion MD [address] [place], [place] [phone] documented as of this encounter Procedures Procedure Name Priority Date/Time Associated Diagnosis Comments INFLUENZA A B2 ID NOW (RODRÍGUEZ) Routine 10/17/2024 8:48 AM EDT STREP A NUCLEIC ACID Routine 10/17/2024 8:48 AM EDT COVID-19 ID NOW (RODRÍGUEZ) Routine 10/17/2024 8:48 AM EDT documented in this encounter Results * Influenza A B2 ID NOW (Rodríguez) (10/17/2024 8:48 AM EDT) IDNOW SERIAL# [id number] [facility] Influenza A Negative Negative [facility] Influenza B2 Negative Negative [facility] Influenza A B2 Note See Note [facility] Comment:The Rodríguez ID NOW In [...] EDT us Generic External Data Provider LAB MICROBIOLOGY - GENERAL ORDERABLES Final Result [facility] [address] [place] [phone] * COVID-19 ID NOW (SoLatina) (10/17/2024 8:48 AM EDT) IDNOW SERIAL# [id number] [facility] COVID-19 TEST Negative Negative [facility] COVID-19 NOTE See Note [facility] Comment: Results are for the identification of SARS-CoV2 RNA. TheSARS-CoV2 RNA is generally detectable in respiratory samplesduring the acute phase of infection. Positive results areindicative of the presence of SARS-CoV-2 RNA; clinicalcorrelation with patient history and other diagnosticinformation is necessary to determine patient infectionstatus. Positive results do not rule out bacterial infectionor co- infection with other viruses.Testing facilities within the [facility] and itsterritories are required to report all [...] use by authorized laboratories.Testing performed on the [employer] ID NOW utilizing NAAT. 10/17/2024 8:48 AM EDT 10/17/2024 8:51 AM EDT us Generic External Data Provider LAB MOLECULAR GUILLERMO GNOSTICS ORDERABLES Final Result Performing Organization Address [facility] Co de Phone Number [facility] [address] [place] [phone] * Strep A Nucleic Acid (10/17/2024 8:48 AM EDT) IDNOW SERIAL# [id number] [facility] Strep A Nucleic Acid Negative Negative [facility] Comment:All test results mus t [...] GENERAL ORDERABLES Final Result Performing Organization Address [facility] de Phone Number [facility] [address] [place] [phone] documented in this encounter Visit Diagnoses Not on filedocumented in this encounter Additional Health Concerns Assessment Noted Time PHQ-9 Depression Total Score: 18 09/05/ 024 1:45 PM EDT documented as of this encounter Care Teams Hosting Engineer Relationship Specialty Start Date End Date Anne Carrion MD [address] [place] [phone] PCP - General Family Medicine 02/08/18 Nataly Tay NP [address] [place] [address] Urology 03/02/24 Carmine Rivas MD [address] [place] [address] Pulmonary Disease 04/10/24 Marivel Bang [address] [place] [address] Orthopaedic Surgery 04/10/24 Leo Rao MD [address] [place] [address] Obstetrics and Gynecology 05/02/24 documented as of this encounter
--- OUTSIDE RECORDS SUMMARY | 2024-10-17 10:22 | XMS_ITS | Encounter Summary ---
Author Organization [employer] Address [address] [facility] 7t [place] [address] Care Team Providers Care Senior National Account Manager Name Role Phone Anne Carrion MD Primary Care Provider [phone] Nataly Tay NP Unavailable Carmine Rivas MD Unavailable [phone] Marivel Bang Unavailable Leo Rao MD Unavailable Reason for Visit * Reason Comments Med Refill Encounter Details Date Type Department Care Team (Late st Contact Info) Description 01/07/2023 Refill [facility] [address] [place] [phone] Jaiden Mccarthy MD [address] [place] [address] [phone] Rash Social History Tobacco Use Types Packs/Day [...] Description 11/20/2024 10:45 AM EDT Office Visit [facility] [address] [place] [address] Anne Carrion MD [address] [place] [phone] documented as of this encounter Visit Diagnoses Diagnosis Rash Rash and other nonspecific skin eruption documented in this encounter Care Teams Senior National Account Manager Relationship Specialty Start Date End Date Anne Carrion MD [address] [place] [phone] PCP - General Family Medicine 02/08/18 Nataly Tay NP [address] [place] [address] Urology 03/02/24 Carmine Rivas MD [address] [place] [address] Pulmonary Disease 04/10/24 Marivel Bang [address] [place] [address] Orthopaedic Surgery 04/10/24 Leo Rao MD [address] [facility] [address] [place] [address] Obstetrics and Gynecology 05/02/24 documented as of this encounter
--- OUTSIDE RECORDS SUMMARY | 2024-10-17 10:22 | XMS_ITS | Encounter Summary ---
Author Organization [employer] Address [address] [facility] 7t [place] [address] Care Team Providers Care Chainstitch Sewing Machine Operator Name Role Phone Anne Carrion MD Primary Care Provider [phone] Nataly Tay NP Unavailable Carmine Rivas MD Unavailable [phone] Marivel Bang Unavailable Leo Rao MD Unavailable Reason for Visit * Reason Onset Date Comments Nurse Triage 11/29/2023 Encounter Details Date Type Department Care Team (Late st Contact Info) Description 11/29/2023 Telephone [facility] MEDICINE [address] [place] [address] Anne Carrion MD [address] [place], [place] [phone] Nurse Triage Social History Tobacco Use Types [...] call Pt was seen in [facility] 11/25/23 , report is on the chart. [...] Description 11/20/2024 10:45 AM EDT Office Visit [facility] MED[facility] [address] [place] [address] Anne Carrion MD [address] [place] [address] documented as of this encounter Visit Diagnoses Not on filedocumented in this encounter Additional Health Concerns Assessment Noted Time PHQ-9 Depression Total Score: 18 024 1:45 PM EDT documented as of this encounter Care Teams Chainstitch Sewing Machine Operator Relationship Specialty Start Date End Date Anne Carrion MD [address] [place] [address] PCP - General Family Medicine 02/08/18 Nataly Tay NP [address] [facility] [address] [place] [address] Urology 03/02/24 Carmine Rivas MD [address] [place] [address] Pulmonary Disease 04/10/24 Marivel Bang [address] [place] [address] Orthopaedic Surgery 04/10/24 Leo Rao MD [address] [facility] [address] [place] [address] Obstetrics and Gynecology 05/02/24 documented as of this encounter
--- OUTSIDE RECORDS SUMMARY | 2024-10-17 10:22 | XMS_ITS | Patient Health Record ---
Author Organization [facility] Address [address] [facility] [place] [address] Care Team Providers Care Claim Adjuster Name Role Phone Anne Carrion MD Primary Care Provider Kavin Lainez Unavailable [phone] Allergies Allergen (clinical drug ingredient) Drug/Non Drug [...] type I of right lower limb (disorder) (189712121447474) Complex regional pain syndrome I of right lower limb (G90.521) Active confirmed Problem Mononeuropathy of lower limb (195127310) Neuritis of right foot (G57.91) Active confirmed Plan Of Treatment No Information Insurance Providers Payer Name Payer Address Payer Phone Subscriber Number Group Number Insured Name Patient Relationship to Insured Coverage Start Date Coverage End Date [facility] [employer] Claims [address] [place] [phone] [id number] Claribel Leal Self - patient is the insured Medical (General) History Medical History History ICD Code Depression Anxiety disorder Migraines Kidney stones Broken bones Back pain asthma Surgical History Surgery Date(Month/Year) cholecystectomy laparoscopic salpingectomy bilateral section 2011 tonsillectomy tubal ligation foot surgery 1995 elbow sx
[2024-10-17 10:48] VITALS: BP 146/77; PULSE 91; RESP 18; TEMP 37; O2SAT 100
[2024-10-17 11:00] VITALS: BP 146/77; PULSE 91; RESP 18; TEMP 37; O2SAT 100
== END 2024-10-17 11:00 | disposition home or self-care (01) ==
PROVIDERS: Emergency Provider Emergency Medicine; PCP Family Medicine
DX: J40 Bronchitis, not specified as acute or chronic (principal); R05.9 Cough, unspecified; J02.9 Acute pharyngitis, unspecified; R50.9 Fever, unspecified; Z03.818 Encounter for observation for suspected exposure to other biological agents ruled out
CPT/HCPCS: 71046; 87502; 87635; 87651; 94640; 99284

== ENCOUNTER → 2024-10-17 09:09 | Outpatient (BNV) | payer OTHER, SELFPAY | PROVIDERS: Emergency Provider Emergency Medicine; PCP Family Medicine; Visit Provider Radiology Diagnostic Radiology | DX: R05.9 Cough, unspecified (principal) | CPT/HCPCS: 71046 ==

== ENCOUNTER 2024-10-24 08:36 | Outpatient (REF) | payer OTHER, SELFPAY | END 2024-10-24 08:37 | disposition home or self-care (01) | LOC: HO.LAB 08:36 | PROVIDERS: PCP Family Medicine; Visit Provider Nurse Practitioner Family | DX: N20.0 Calculus of kidney (principal); R31.29 Other microscopic hematuria | CPT/HCPCS: 81003; 88112; 99212 ==

== ENCOUNTER 2024-10-24 08:36 | Outpatient (AMB) | payer OTHER, SELFPAY ==
--- NOTE | 2024-10-24 08:45 | A.OFFVIS_ITS ---
Intake Visit Reasons: follow up/US Intake Note: Patient is present for US F/U Urology Medication:VITAMIN B6 Antibiotic Allergy:SULFA,BACTRIM,CEPHALEXIN,NITROFURANTOIN Blood Thinner:NONE White Washer Required: No Allergies benzonatate (BENZONATATE) Allergy (Severe, Verified 10/24/24 09:11) ANAPHYLAXIS banana (BANANA) Allergy (Intermediate, Verified 10/24/24 09:11) RASH coconut (COCONUT) Allergy (Intermediate, Verified 10/24/24 09:11) RASH cucumber (CUCUMBER) Allergy (Intermediate, Verified 10/24/24 09:11) RASH grape (GRAPE) Allergy (Intermediate, Verified 10/24/24 09:11) RASH arthur (ARTHUR) Allergy (Intermediate, Verified 10/24/24 09:11) RASH sulfamethoxazole (From BACTRIM) Allergy (Intermediate, Verified 10/24/24 09:11) RASH trimethoprim (From BACTRIM) Allergy (Intermediate, Verified 10/24/24 09:11) RASH cephalexin (Keflex) Allergy (Unknown, Verified 10/24/24 09:11) Unknown duloxetine (From CYMBALTA) Allergy (Unknown, Verified 10/24/24 09:11) UNKNOWN Sulfa (Sulfonamide Antibiotics) Allergy (Unknown, Verified 10/24/24 09:11) Unknown nitrofurantoin Allergy (Verified 10/24/24 09:11) Rash SEAFOOD Allergy (Intermediate, Uncoded 10/24/24 09:11) RASH antibacterial soap Allergy (Unknown, Uncoded 10/24/24 09:11) rash Tessalon Allergy (Unknown, Uncoded 10/24/24 09:11) Unknown Medication List - Last Reconciled 10/24/24 by JEFFREY Foster albuterol sulfate 90 mcg/actuation 1 inh inhalation QID PRN albuterol sulfate 3 mg (3.6 mL) inhalation Q4H PRN cetirizine (Zyrtec) 10 mg PO DAILY PRN cetirizine 10 mg PO BID cholecalciferol (vitamin D3) 25 mcg PO DAILY diphenhydramine HCl (Benadryl Allergy) 25 mg PO Q8H PRN Dulera 200-5 mcg/actuation (mometasone-formoterol) 2 puffs PO BID NS montelukast 10 mg PO BEDTIME ondansetron 4 mg PO Q8H PRN prednisone 40 mg (2 x 20 mg) PO DAILY 5 days tezepelumab-ekko (Tezspire) 210 mg (1.91 mL) subcut Q4W 28 days HPI Comments Details: Claribel is a pleasant 39-year-old female patient of Dr. Carrion. She has a past medical history of asthma, migraines, anxiety, and depression. She is being seen today in the office for follow-up regarding her nephrolithiasis. In discussion with the patient today she reports to be doing and feeling well. She reports having seeked emergency room care last week for ongoing issues with her asthma and bronchitis however feels symptoms have significantly improved in his feeling much better. She denies having had any bothersome urinary issues or concerns since her last office visit here. Recent renal imaging results were reviewed with the patient today. 09/01 3 mm nonobstructing right renal calculus. Otherwise unremarkable renal ultrasound. When asked she reports compliance with vitamin B6 and is requesting a refill. In office urinalysis results reviewed with the patient today 3+ microscopic hematuria. We did discuss potential causes of microscopic hematuria as well as further workup in risks and benefits of these interventions. She does have a history of nicotine dependence as well as recreational marijuana. Will continue with surveillance monitoring at this time per patient request. She otherwise denies any bothersome urinary issues or concerns. When asked she denies urinary urgency, urinary frequency, incontinence, nocturia, hematuria, dysuria, foul smelling urine, changes to urinary stream, fever, and or chills. She is happy with her current voiding parameters. She otherwise offers no other issues or concerns at this time. Urine Cytology: 03/03 & 03/04 Negative for high-grade urothelial carcinoma PFSH Medical History Pelviectasis Asthma Kidney stone Hx of migraine headaches Hx of anxiety disorder History of depression Surgical History Hx of bilateral salpingectomy Hx of tubal ligation Hx of section Hx of tonsillectomy Hx laparoscopic cholecystectomy Family History Mother Diabetes mellitus Hypertension Dementia Father Diabetes mellitus Hypertension Social History Alcohol intake: never Patient Tobacco Use Status: Current someday Tobacco user Tobacco use type: Cigarette Cigarettes Per Day: 2 Advance Directives Date on File: 12/11/21 service: No Current occupational status: disabled Current occupation: right handed Female Reproductive History Menstrual Age of Menarche: 10 Review of Systems Const Reports as per HPI Eyes Reports no additional complaints ENT Reports no additional complaints Card Reports no additional complaints Resp Reports as per HPI GI Reports as per HPI Reports as per HPI Musc Reports no additional complaints Neuro Reports no additional complaints Psych Reports as per HPI Endo Reports no additional complaints Physical Exam Const General: cooperative, healthy appearing, comfortable, no acute distress, well developed, alert and awake Orientation/consciousness: patient oriented x3 Limitations: no limitations HEENT Head: Yes normal to inspection, Yes normocephalic and Yes atraumatic Ears: hearing grossly normal bilaterally Eyes General: appearance normal, both eyes and all related structures Neck Neck: Yes normal visual inspection and Yes trachea midline Chest Chest palpation & inspection: normal inspection of the chest Resp Effort & Inspection: normal respiratory effort and able to speak in complete sentences Cardio Rate: regular rate GI Inspection: Yes normal to inspection General: Yes no CVA tenderness Back/Spine/Pelvis Back: no CVA tenderness Cervical Spine: normal cervical lordosis Neuro General: patient oriented x3 Extrem General: Yes normal to inspection Psych Appearance: grossly normal and well kempt Mental Status: mental status grossly normal Speech and movement: Normal speech and movement present and Clear speech present Affect: normal affect Attitude: cooperative Thought process: Normal thought process present Thought content: Normal thought content present Insight: Fair insight present (Psych) Judgement: Fair judgement present (Psych) Results AMB Urinalysis, Automated UA Leukoctes 0 Mandi/uL Last Edit by CAPRI Martinez on 10/24/24 09:00 UA Nitrite Negative Last Edit by CAPRI Martinez on 10/24/24 09:00 UA Urobilinogen 0.2 mg/dL Last Edit by CAPRI Martinez on 10/24/24 09:0 0 UA Protein 0 mg/dL Last Edit by CAPRI Martinez on 10/24/24 09:00 UA pH 6.0 Last Edit by CAPRI Martinez on 10/24/24 09:00 UA Blood 200 Santos/uL Last Edit by CAPRI Martinez on 10/24/24 09:00 UA Specific [place] 1.015 Last Edit by CAPRI Martinez on 10/24/24 09: 00 UA Ketone Negative Last Edit by CAPRI Martinez on 10/24/24 09:00 UA Bilirubin 0 mg/dL Last Edit by CAPRI Martinez on 10/24/24 09:00 UA Glucose 0 mg/dL Last Edit by CAPRI Martinez on 10/24/24 09:00 Results Reviewed Results Reviewed: Laboratory Last Values Urine pH (Auto) 6.0 10/24/24 08:59 Specific [place] (Auto) 1.015 10/24/24 08:59 Urine Protein (Auto) 0 mg/dL 10/24/24 08:59 Glucose (UA)(Auto) 0 mg/dL 10/24/24 08:59 Urine Ketones (Auto) Negative 10/24/24 08:59 Urine Blood (Auto) 200 Santos/uL 10/24/24 08:59 Urine Nitrite (Auto) Negative 10/24/24 08:59 Urine Bilirubin (Auto) 0 mg/dL 10/24/24 08:59 Urine Urobilinogen (Auto) 0.2 mg/dL 10/24/24 08:59 Leukocyte Esterase (Auto) 0 Mandi/uL 10/24/24 08:59 Date of Service: 08/09/24 Procedure(s): US renal BI FINDINGS: Right kidney: The right kidney measures 10.0 x 5.9 x 4.9 cm. Renal parenchymal echotexture and thickness are normal. There are no masses. There is a 3 mm nonobstructing calculus at the upper pole. There is no hydronephrosis. Left Kidney: The left kidney measures 10.5 x 5.7 x 4.6 cm. Renal parenchymal echotexture and thickness are normal. There are no masses. There is no hydronephrosis or renal calculi. IMPRESSION: 3 mm nonobstructing right renal calculus. Otherwise unremarkable renal ultrasound. Assessment & Plan Assessment & Plan (1) Kidney stone: Code(s): N20.0 - Calculus of kidney Category: Medical (2) Microscopic hematuria: Code(s): R31.29 - Other microscopic hematuria Category: Medical Plan In office urinalysis results reviewed with the patient today; as noted above; will send for urine cytology Recent renal imaging results reviewed with the patient today. Previous urine cytology results reviewed with the patient today; as noted above. Discussed at length potential causes for nephrolithiasis as well as microscopic hematuria. Discussed at length further workup of microscopic hematuria given history of nicotine dependence as well as recreational marijuana with CT urogram, cytology, in office cystoscopy versus surveillance monitoring; these interventions were discussed at length risks and benefits of these interventions; will continue with surveillance monitoring at this time per patient request. Discussed and stressed the importance of limiting/quitting nicotine dependence as well as recreational marijuana for overall health and well-being. Educated, instructed, and encouraged to continue drinking adequate amount of daily fluid intake. Continue vitamin B6 as discussed and prescribed. Continue adding 1 oz of lemon juice to water daily. Renal ultrasound in 6 months. Follow-up in 6 months with imaging to be completed prior; or sooner with any issues, concerns, and or questions. Orders: Orders US renal BI 6 Months N20.0 - Calculus of kidney AMB Urinalysis Automated Today Z13.9 - Encounter for screening, unspecified Urine Cytology Today R31.29 - Other microscopic hematuria Medications: Discontinued prednisone Discontinued Reason: Patient Completed Course 40 mg (2 x 20 mg) PO DAILY 5 days 10 tabs 0RF Patient Instructions: The patient had an opportunity to ask questions regarding the treatment plan. All questions were answered. Physical exam, labs, and imaging were discussed and reviewed in detail. As well as risks, benefits, and discussion of treatment choices. No major barriers to understanding were identified. The patient expressed understanding and agreement with the above treatment plan. The patient was made aware they should contact our office by phone for worsening of their current condition, the appearance of new symptoms, or with any que stions or concerns. Compliance is encouraged with any medications and follow up testing that is ordered. It is a privilege to be allowed the opportunity to participate in? your urological care.? Again, if you have any questions or concerns If you have any questions or concerns please do not hesitate to contact me. The office is [phone]. This note is constructed using voice recognition software. While every effort has been made to ensure accuracy complaints coordinator errors may have been included. Yours sincerely, Nataly Tay, [employer] INTER[employer] Coding Level of Care Code Est Pt Level 3 (40932) Diagnoses Kidney stone N20.0 Microscopic hematuria R31.29
--- OUTSIDE RECORDS SUMMARY | 2024-10-24 10:19 | XMS_ITS | Encounter Summary ---
Author Organization [employer] Address [address] [place] [address] Care Team Providers Care Watershed Coordinator Name Role Phone Anne Carrion MD Primary Care Provider [phone] Nataly Tay NP Unavailable Carmine Rivas MD Unavailable [phone] Marivel Bang Unavailable Leo Rao MD Unavailable Reason for Visit * Reason Comments Med Refill Encounter Details Date Type Department Care Team (Late st Contact Info) Description 01/07/2023 Refill [facility] [address] [place] [address] [id number] Jaiden Mccarthy MD [address] [place] [address] [id number] Rash Social History Tobacco Use Types Packs/Day [...] Description 11/20/2024 10:45 AM EDT Office Visit [facility] [address] [place] [address] Anne Carrion MD [address] [place] [phone] documented as of this encounter Visit Diagnoses Diagnosis Rash Rash and other nonspecific skin eruption documented in this encounter Care Teams Watershed Coordinator Relationship Specialty Start Date End Date Anne Carrion MD [address] [place] [id number] PCP - General Family Medicine 02/08/18 Nataly Tay NP [address] [place] [address] Urology 03/02/24 Carmine Rivas MD [address] [place] [id number] Pulmonary Disease 04/10/24 Marivel Bang [address] [place] [address] Orthopaedic Surgery 04/10/24 Leo Rao MD [address] [facility] [address] [place] [address] Obstetrics and Gynecology 05/02/24 documented as of this encounter
--- OUTSIDE RECORDS SUMMARY | 2024-10-24 10:19 | XMS_ITS | Patient Health Record ---
Author Organization [facility] Address [address] [address] Care Team Providers Care Hearing Care Practitioner Name Role Phone Anne Carrion MD Primary Care Provider Kavin Lainez Unavailable [phone] Allergies Allergen (clinical drug ingredient) Drug/Non Drug [...] type I of right lower limb (disorder) ([id number]) Complex regional pain syndrome I of right lower limb (G90.521) Active confirmed Problem Mononeuropathy of lower limb ([id number]) Neuritis of right foot (G57.91) Active confirmed Plan Of Treatment No Information Insurance Providers Payer Name Payer Address Payer Phone Subscriber Number Group Number Insured Name Patient Relationship to Insured Coverage Start Date Coverage End Date [facility] [employer] Claims [address] [place] [phone] [id number] Claribel Leal Self - patient is the insured Medical (General) History Medical History History ICD Code Depression Anxiety disorder Migraines Kidney stones Broken bones Back pain asthma Surgical History Surgery Date(Month/Year) cholecystectomy laparoscopic salpingectomy bilateral section 2011 tonsillectomy tubal ligation foot surgery 1995 elbow sx
--- OUTSIDE RECORDS SUMMARY | 2024-10-24 10:19 | XMS_ITS | Clinical Summary ---
Author Organization [employer] Address 75 [facility] 7t [place] [address] Care Team Providers Care Payment Poster Name Role Phone [place]moren[place], Anne CHAPMAN Primary Care Provider [phone] Nataly Tay NP Unavailable Carmine Rivas MD Unavailable [phone] Marivel Bang Unavailable Leo Rao MD [...] at bedtime. 30 tablet 1 09/19/19 25 Active Magnesium 400 MG capsuleIndicatio ns:Chronic migraine [...] migh t be different from the original. [facility] [place] Educator Senior Clinical: Minnie, member services number [phone] Wood Craftsman Agency: Pérez Problem Noted Date Diagnosed Date [...] as pharmacomtherapy, [facility] smoking cessation group, and [facility] pharmacy smoking cessation clinic [facility]ed [facility] lung cancer screening with low [...] as pharmacomtherapy, [facility] smoking cessation group, and [facility] pharmacy smoking cessation clinic Discussed [...] after 06/02/24 -eye care facilitated by [email or web address] Assessment & Plan (06/03/2023 10:34 AM EDT): -next physical exam due after 06/02/24 -[email or web address] - Health care proxy completed and filed Papanicolaou smear of cervix with atypical squamous cells of undetermined significance (ASC-US) 02/26/2022 Overview (02/26/2022): ASCUS on pap 2012 HPV negative with [facility]. repeat PAP 05/04/16 nilm. -Repeat pap [...] the lack of availability of the robot Light[employer] Logicinci robot and/or minimally invasive carpenter assembler specialist at [facility]. Will refer to [facility] minimally invasive biostatistics teacher. Assessment & Plan (02/26/2022 9:31 AM EST): Menses coming every 2 months. US and labs ordered 02/26/2022. Kidney stones 02/26/2022 Overview (08/09/2024): Followed by urology -US 08/23/23 Bilateral nonobstructive renal calculi. No hydronephrosis. -seen by Roger Tay NP of [facility] urology 03/02/24, follow up 6 mo [...] Hospitalized 11/2018 and 12/2021. Improved. Followed by billing coordinator. Continue Tezspire, and Dulera and singulair as well as albuterol prn. Seen by Infectious Diseases Physician Carmine Rivas MD 04/06/23. Nucala changed to Tezspire. Call to Pulmonology to check the status of her injectable medicine 06/03/23 Call placed to [facility] pulmonology spoke to the nurse yesenia who reports patient should be on Tezspire 210mg every 4 weeks and that patient had appt on 04/15/23 for inj but no showed to the visit. Yesenia states they redid the orders for her today and short stay should be reaching out to patient to set up an appt. Referral placed to [facility] Pulmonology as it is closer to home, seen by Dr. Monique Hillman, [facility], FACP,FCCP 07/29/23, no changes made to regimen -seen by Dr. Rivas 10/03/24 Well controlled on current regimen of Tezspire, Dulera, and albuterol MDI/nebs. Continue current regimen. Assessment & Plan (06/03/2023 10:30 AM EDT): Hospitalized 11/2018 and 12/2021. Improved. Followed by billing coordinator. Continue Tezspire, and Dulera and singulair as well as albuterol prn. Seen by Infectious Diseases Physician Carmine Rivas MD 04/06/23. Nucala changed to Tezspire. Will call to Pulmonology to check the status of her injectable medicine 06/03/23 Referral placed to [facility] Pulmonology as it is closer to home 06/03/23 Assessment & Plan (02/26/2022 9:22 AM EST): Hospitalized 11/2018. Improved. Followed by billing coordinator. Continue Nucala, and Dulera and singulair as well as albuterol prn. Referral sent 12/2021 to pulmonology at [facility], Pt was hospitalized 12/2021 and asthma [...] Travel 09/18/2024 3:15 PM EDT Office Visit [facility] MEDICINE [address] [place] [address] Zainab Child MD Chronic migraine without aura without status migrainosus, not intractable 09/18/2024 Travel 09/15/2024 Telephone [facility] MEDICINE [address] [place] [address] Anne Carrion MD Chart Prep 09/15/2024 Travel 09/14/2024 Telephone [facility] MEDICINE [address] [place] [address] Anne Carrion MD Nurse Triage 09/14/2024 Travel 08/18/2024 Refill [facility] MEDICINE [address] [place] [address] Anne Carrion MD Vitamin D deficiency 08/14/2024 Travel 08/09/2024 Orders Only External Provider, [facility] Kidney stones (Primary Dx) 08/09/2024 Refill [facility] MEDICINE [address] [place] [address] Anne Carrion MD Moderate persistent asthma without complication 07/27/2024 Travel from Last 3 Months Immunizations Immunization [...] Description 11/20/2024 10:45 AM EDT Office Visit [facility] MEDICINE [address] [place] [address] Anne Carrion MD [address] [place] [address] Health Maintenance Due Date Last [...] Diagnosis Comments XR CHEST 2 VIEWS Routine 10/17/2024 10:1 5 AM EDT COVID-19 ID NOW (RODRÍGUEZ) Routine [...] Maintenance Results * XR Chest 2 Views (10/17/2024 10:15 AM EDT) Anatomical Region Laterality Modality Chest Radiographic Chaparrita ging 10/17/2024 10:1 5 AM EDT Narrative 10/17/2024 10:35 AM EDT [address] [address] XRay Report Signed Patient: Claribel Roy MR #: [id number] : 1985 Acct:[id number] Age/Sex: 39 / F ADM Date: 10/17/24 Loc: HO.ED Attending Dr: Ordering Physician: Airam Morel DO Date of Service: 10/17/24 Procedure(s): XR chest 2V Accession Number(s): [id number] cc: Anne Carrion MD; Airam Morel DO Reason for Exam: cough, fever EXAMINATION: XR CHEST 2 VIEWS HISTORY: cough, fever COMPARISON: Comparison is made with the prior examination dated 03/14/2024. FINDINGS: PA and lateral views of the chest are submitted. The lungs are expanded and clear. There is no pleural effusion, pneumothorax, or pulmonary vascular congestion. The heart is normal in size. The bones are intact. XR/XR chest 2V IMPRESSION: No acute cardiopulmonary abnormality. Electronically signed by: Kelton Rankin MD 10/17/2024 10:32 AM EDT RP Dictated By: Kelton Rankin MD Signed By: <Electronically signed by Kelton Rankin MD in OV> 10/17/24 1032 DD/ 1015 TD/TT: 10/17/24 1019 Payloader Operator: Procedure Note Donotuseinterpreter, Image - 10/17/[address] [address] XRay Report Signed Patient: Edouard Roy #: [id number] : 1985Acct:[id number] Age/Sex: 39 / FADM Date: 10/17/24 Loc: .ED Attending Dr: Ordering Physician: Airam Morel DO Date of Service: 10/17/24 Procedure(s): XR chest 2V Accession Number(s): [id number] cc: Anne Carrion MD; Airam Morel DO Reason for Exam: cough, fever EXAMINATION: XR CHEST 2 VIEWS HISTORY: cough, fever COMPARISON: Comparison is made with the prior examination dated 03/14/2024. FINDINGS: PA and lateral views of the chest are submitted. The lungs are expanded and clear. There is no pleural effusion, pneumothorax, or pulmonary vascular congestion. The heart is normal in size. The bones are intact. XR/XR chest 2V IMPRESSION: No acute cardiopulmonary abnormality. Electronically signed by: Kelton Rankin MD 10/17/2024 10:32 AM EDT RP Dictated By: Kelton Rankin MD Signed By: <Electronically signed by Kelton Rankin MD in OV> 10/17/24 1032 DD/ 1015 TD/TT: 10/17/24 1019 Payloader Operator: [facility] External Provider IMG XR PROCEDURES Edited Result - Final * Influenza A B2 ID NOW (Rodríguez) (10/17/2024 8:48 AM EDT) IDNOW SERIAL# [id number] [facility] Influenza A Negative Negative LABS Influenza B2 Negative Negative LABS Influenza A B2 Note See Note LABS Comment:The Rodríguez ID NOW In fluenza [...] GENERAL ORDERABLES Final Result Performing Organization Address City/State/[facility] Co de Phone Number LABS [address] [place] [phone] * Strep A Nucleic Acid (10/17/2024 8:48 AM EDT) IDNOW SERIAL# [id number] [facility] Strep A Nucleic Acid Negative Negative LABS Comment:All test results mus t be [...] GENERAL ORDERABLES Final Result Performing Organization Address City/[facility]/ZIP Co de Phone Number LABS [address] [place] [phone] * COVID-19 ID NOW (RODRÍGUEZ) (10/17/2024 8:48 AM EDT) IDNOW SERIAL# [id number] [facility] COVID-19 TEST Negative Negative [facility] COVID-19 NOTE See Note [facility] Comment: Results are for the identification of SARS-CoV2 RNA. TheSARS-CoV2 RNA is generally detectable in respiratory samplesduring the acute phase of infection. Positive results areindicative of the presence of SARS-CoV-2 RNA; clinicalcorrelation with patient history and other diagnosticinformation is necessary to determine patient infectionstatus. Positive results do not rule out bacterial infectionor co- infection with other viruses.Testing facilities within the [facility] and [facility] are required to report all positive results [...] use by authorized laboratories.Testing performed on the Rodríguez ID NOW utilizing NAAT. 10/17/2024 8:48 AM EDT 10/17/2024 8:51 AM EDT us Generic External Data Provider LAB MOLECULAR GUILLERMO GNOSTICS ORDERABLES Final Result LABS [address] [place] [phone] * US RENAL BI (08/09/2024 11:57 AM EDT) Anatomical Region Laterality Modality Abdomen Ultrasound 08/09/2024 11:5 7 AM EDT Narrative 08/09/2024 12:44 PM EDT [address] [address] Ultrasound Report Signed Patient: Claribel Roy MR #: [id number] : 1985 Acct:[id number] Age/Sex: 39 / F ADM Date: 08/09/24 Loc: HO.US Attending Dr[facility] Ordering Physician: Nataly Tay Date of Service: 08/09/24 Procedure(s): US renal BI Accession Number(s): [id number] cc: Anne Carrion MD; Nataly Tay NUTRITION SERVICES WORKERNICOLA EXAMINATION: US KIDNEY BILATERAL HISTORY: N20.0 - [...] Kelton Rankin MD 08/09/2024 12:41 PM EDT Dictated By: Kelton Rankin MD Signed By: <Electronically signed by Kelton Rankin MD in OV> 08/09/24 1241 DD/ 1157 TD/TT: 08/09/24 1230 Payloader Operator: Procedure Note Donotuseinterpreter, Image - 08/09/[address] [address] Ultrasound Report Signed Patient: Edouard Roy #: [id number] : 1985Acct:[id number] Age/Sex: 39 / FADM Date: 08/09/24 Loc: HO.US Attending Dr: Nataly FIELD Ordering Physician: Nataly Tay Date of Service: 08/09/24 Procedure(s): US renal BI Accession Number(s): [id number] cc: Anne Carrion MD; Nataly Tay EXAMINATION: [...] Kelton Rankin MD 08/09/2024 12:41 PM EDT Dictated By: Kelton Rankin MD Signed By: <Electronically signed by Kelton Rankin MD in OV> 08/09/24 1241 DD/ 1157 TD/TT: 08/09/24 1230 Payloader Operator: us [facility] External Provider IMG US PROCEDURES Final Result * (ABNORMAL) Lipid Panel, Standard (06/04/2023 11:20 AM EDT) Triglycerides 77 <150 mg/dL [facility] Comment:Desirable Triglyceri de: less than 150 mg/dLBorderline High Triglyceride 150-199 mg/dLHigh Triglyceride: 200-499 mg/dLVery High Triglyceride: greater than or equal to 5OO mg/dL Cholesterol 199 <200 mg/dL LABS Comment:Desirable Cholestero l: less than 200 mg/dLBorderline High Cholesterol: 200-239 mg/dLHigh Cholesterol: greater than 239 mg/dL LDL Cholesterol Calculated 144(H) <100 mg/dL LABS Comment:Desirable LDL: less than 100 mg/dLNear Optimal/Above Optimal LDL: 110- 129 mg/dLBorderline High LDL: 130-159 mg/dLHigh LDL: 160-189 mg/dLVery High LDL: greater than or equal to 190 mg/dL HDL Cholesterol 40(L) >40 mg/dL [facility] Comment:Desirable HDL: great er than 40 mg/dL Note: This HDL assay may give artificially low results in patients with liver disease. Blood Venous blood specimen / Unknown 06/04/2023 11:20 AM EDT 06/04/2023 1:22 PM EDT Anne Carrion MD LAB BLOOD ORDERABLES Final Result Performing Organization Address City/[facility]/ZIP Co de Phone Number LABS [address] [place] [phone] * HPV High Risk PCR (06/12/2021 12:00 AM EDT) Swab Cervical swab / Unknown Anne Carrion MD LAB MICROBIOLOGY - GENERAL ORDERABLES Final Result Performing Organization Address City/[facility]/ZIP Co de Phone Number LABS [address] [place] [phone] * Pap Smear (06/12/2021 12:00 AM EDT) Swab Anne Carrion MD LAB CYTOLOGY ORDERABLES Fi nal Result Performing Organization Address [place]/[facility]/ZIP Co de Phone Number LABS [address] [place] [phone] * HEPATITIS C ANTIBODY (11/08/2019 12:39 PM EDT) HEPATITIS C ANTIBODY [facility] Comment: Antibodies to HCV not detected; does not exclude early acute HCV infection. 11/08/2019 12:3 9 PM EDT Sandhya Brody HISTORICAL/NON ORDERABLE LABS Fi nal Result Performing Organization Address [facility] Phone Number [facility] [address] * HIV AB/AG (11/08/2019 12:39 PM [...] of detection of this assay. The Rodríguez El Teacher HIV Ag/Ab Combo assay result and supplemental assay results should be interpreted in conjunction with the patient's clinical presentation, history and other laboratory results. If the results are inconsistent with clinical evidence, additional testing is suggested to confirm the result. 11/08/2019 12:3 9 PM EDT Sandhya Brody HISTORICAL/NON ORDERABLE LABS Fi nal Result Performing Organization Address [place]/[facility] Co de Phone Number [facility] [address] from Last 3 Months or Most Recently Relevant to Health Maintenance [place] [address] STANDARD [facility] CARE < 65 Care Teams Payment Poster Relationship Specialty Start Date End Date Montmorency, MD Anne [address] [place] [phone] PCP - General Family Medicine 02/08/[address] [place] [address] Urology 03/02/24 Carmine Rivas MD [address] [place] [address] Pulmonary Disease 04/10/24 Marivel Bang [address] [place] [address] Orthopaedic Surgery 04/10/24 Leo Rao MD [address] [place] [address] Obstetrics and Gynecology 05/02/24
--- OUTSIDE RECORDS SUMMARY | 2024-10-24 10:19 | XMS_ITS | Encounter Summary ---
Author Organization [employer] Address 75 [facility] 7t [place] [address] Care Team Providers Care Automatic Spooler Operator Name Role Phone Anne Carrion MD Primary Care Provider [phone] Nataly Tay NP Unavailable Carmine Rivas MD Unavailable [phone] Marivel Bang Unavailable Leo Rao MD Unavailable Reason for Visit * Reason Onset Date Comments Nurse Triage 11/29/2023 Encounter Details Date Type Department Care Team (Late st Contact Info) Description 11/29/2023 Telephone [facility] MEDICINE [address] [place] [address] Anne Carrion MD [address] [place], [place] [phone] Nurse Triage Social History Tobacco Use Types [...] Triage call Pt was seen in ED [facility] 11/25/23 , report is on the chart. [...] Description 11/20/2024 10:45 AM EDT Office Visit [facility] MEDICINE [address] [place] [address] Anne Carrion MD [address] [place] [address] documented as of this encounter Visit Diagnoses Not on filedocumented in this encounter Additional Health Concerns Assessment Noted Time PHQ-9 Depression Total Score: 18 024 1:45 PM EDT documented as of this encounter Care Teams Automatic Spooler Operator Relationship Specialty Start Date End Date Anne Carrion MD [address] [place] [address] PCP - General Family Medicine 02/08/18 Nataly Tay NP [address] [facility] [address] [place] [address] Urology 03/02/24 Carmine Rivas MD [address] [place] [address] Pulmonary Disease 04/10/24 Marivel Bang [address] [place] [address] Orthopaedic Surgery 04/10/24 Leo Rao MD [address] [facility] [address] [place] [address] Obstetrics and Gynecology 05/02/24 documented as of this encounter
== END 2024-10-24 09:32 | disposition home or self-care (01) ==
LOC: HO.HUSH 08:36
PROVIDERS: PCP Family Medicine; Visit Provider Nurse Practitioner Family
DX: N20.0 Calculus of kidney (principal); R31.29 Other microscopic hematuria; Z13.9 Encounter for screening, unspecified
CPT/HCPCS: 99213

== ENCOUNTER 2024-10-31 07:58 | Outpatient (AMB) | payer OTHER, SELFPAY ==
[2024-10-31 08:04] VITALS: BP 132/94; PULSE 75; RESP 16; O2SAT 100; BMI 28.7
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
--- OUTSIDE RECORDS SUMMARY | 2024-10-31 08:04 | XMS_ITS | Encounter Summary ---
Author Organization [employer] Address 75 [facility] 7t [place] [address] Care Team Providers Care Sewer Name Role Phone [place], Anne CHAPMAN Primary Care Provider [phone]- [phone] Nataly Tay NP Unavailable Carmine Rivas MD Unavailable [phone] Marivel Bang Unavailable Leo Rao MD Unavailable Encounter Details Date Type Department Care Team (Late st Contact Info) Description 10/24/2024 Orders Only GENERIC EXTERNAL DATA DEPARTMENT Provider, [...] Description 11/20/2024 10:45 AM EDT Office Visit [facility] MEDICINE [address] [place], [place] [phone] Anne Carrion MD [address] [place], [place] [phone] documented as of this encounter Procedures Procedure Name Priority Date/Time Associated Diagnosis Comments CYTOPATH-CELL ENHANCED Routine 10/24/2024 8:45 AM EDT documented in this encounter Results * Cytopath-cell enhanced (10/24/2024 8:45 AM EDT) 10/24/2024 8:45 AM EDT 10/25/2024 11:20 AM EDT [facility] - 10/29/2024 3:01 PM EDT ----- ------- Name: Claribel Roy Age/Sex: 39/F : 1985 Unit#: [id number] Attend Dr: Nataly Tay [facility] Re10/24/24 Status: [facility] Disch: ----- ------- SPEC : [id number] RECD: 10/25/24 STATUS: ELEONORA EL NUM: [id number] MICHAELLE: 10/24/[address] [facility] [address]: Nataly Tay [facility] ENTERED: 10/25/24 SP TYPE: Cytology OTHR DR: Anne Carrion MD ORDERED: Cyto-enhanced Diagnosis Urine, cytology: Negative for high-grade urothelial carcinoma. COMMENT: Review of the cytology preparation demonstrates a cellular specimen composed of squames and urothelial cells. Red blood cells are noted. There is no significant atypia seen. Clinical History Other microscopic hematuria Material Received Urine Gross Description Received is 15 cc of clear yellow fluid from which a ThinPrep slide is prepared. IHC S/NG Disclaimer NOTE: Unless otherwise stated, all tissue is formalin-fixed and paraffin-embedded. Some or all of the immunohistochemical tests reported herein may have been developed and their performance characteristics determined by [facility]. They have not been cleared or approved by the U.S. Food and Drug Administration (FDA). However, the FDA has determined that such clearance or approval is not necessary. This laboratory is certified under the Clinical Laboratory Improvement Amendments of 1988 (CLIA) as qualified to perform high complexity clinical laboratory testing. Copies To: Anne Carrion MD [address] [address] Nataly Tay [facility] [address] [place] [address] Dr. Garza [address] [place] [address] [email or web address] CONTINUED ON NEXT PAGE ----- ------- Name: Claribel Roy Age/Sex: 39/F : 1985 Unit#: [id number] Attend Dr: Nataly Tay [facility] Re10/24/24 Status: DEP REF Location: [facility] Disch: ----- ------- SPEC : [id number] RECD: 10/25/24-1119 STATUS: ELEONORA EL NUM: [id number] MICHAELLE: 10/24/24-[address] [facility] [address]: Nataly Tay [facility] ENTERED: 10/25/24-131 SP TYPE: Cytology OTHR DR: Anne Carrion MD ORDERED: Cyto-enhanced ----- ------- Signed (signature on file) Noy Sequeira MD 10/29/24 1501 ----- ------- END OF REPORT us Generic External Data Provider LAB CYTOLOGY ORDE RABMELLO Final Result [facility] [address] [place] [phone] [phone] documented in this encounter Visit Diagnoses Diagnosis Kidney stones- Primary Calculus of kidney documented in this encounter Additional Health Concerns Assessment Noted Time PHQ-9 Depression Total Score: 18 024 1:45 PM EDT documented as of this encounter Care Teams Sewer Relationship Specialty Start Date End Date Anne Carrion MD [address] [place] [address] PCP - General Family Medicine 02/08/18 Nataly Tay NP 10 [facility] [address] [place] [address] Urology 03/02/24 Carmine Rivas MD [address] [place] [address] Pulmonary Disease 04/10/24 Marivel Bang [address] [place] [address] Orthopaedic Surgery 04/10/24 Leo Rao MD 230 [facility] 3RD [place] [address] Obstetrics and Gynecology 05/02/24 documented as of this encounter
--- OUTSIDE RECORDS SUMMARY | 2024-10-31 08:04 | XMS_ITS | Encounter Summary ---
Author Organization [employer] Address 75 [facility] 7t [place] [address] Care Team Providers Care Nurse Aide Name Role Phone Anne Carrion MD Primary Care Provider [phone] Nataly Tay NP Unavailable Carmien Rivas MD Unavailable [phone] Marivel Bang Unavailable Leo Rao MD Unavailable Reason for Visit * Reason Onset Date Comments Nurse Triage 11/29/2023 Encounter Details Date Type Department Care Team (Late st Contact Info) Description 11/29/2023 Telephone [facility] MEDICINE [address] [place] [address] Anne Carrion MD [address] [place], [place] [phone] Nurse Triage Social History Tobacco Use Types [...] Triage call Pt was [facility] in ED [facility] 11/25/23 , report is on the chart. [...] Description 11/20/2024 10:45 AM EDT Office Visit [facility] MEDICINE [address] [place] [address] Anne Carrion MD [address] [place] [address] documented as of this encounter Visit Diagnoses Not on filedocumented in this encounter Additional Health Concerns Assessment Noted Time PHQ-9 Depression Total Score: 18 024 1:45 PM EDT documented as of this encounter Care Teams Nurse Aide Relationship Specialty Start Date End Date Anne Carrion MD [address] [place] [address] PCP - General Family Medicine 02/08/18 Nataly Tay NP 10 [facility] [address] [place] [address] Urology 03/02/24 Carmine Rivas MD [address] [place] [address] Pulmonary Disease 04/10/24 Marivel Bang [address] [place] [address] Orthopaedic Surgery 04/10/24 Leo Rao MD 230 [facility] [address] [place] [address] Obstetrics and Gynecology 05/02/24 documented as of this encounter
--- OUTSIDE RECORDS SUMMARY | 2024-10-31 08:04 | XMS_ITS | Clinical Summary ---
Author Organization [employer] Address [address] [facility] [facility] [address] [place] [address] Care Team Providers Care Nailing Machine Feeder Name Role Phone [place], Anne CHAPMAN Primary Care Provider [phone] Nataly Tay NP Unavailable Carmine Rivas MD Unavailable [phone] Marivel Bang Unavailable Leo Rao MD [...] asthma without complication 100 mg. 3 Active FLUoxetine (PROzac) 20 MG capsuleIndicatio ns:Severe episode of recurrent major depressive disorder, without psychotic features (CMS/HCC) Take 1 capsule (20 mg) by mouth Once per day. 30 capsule 11 4 Active nabumetone (Relafen) 500 MG tablet [...] RASH. APPLY SPARINGLY. 15 g 4 Active mometasone-formo terol (Dulera) 200-5 MCG/ACT inhalerIndicatio ns:Moderate persistent asthma without complication Inhale 2 puffs in the morning and at bedtime. Rinse mouth with water after use to reduce aftertaste and incidence of candidiasis. Do not swallow. Active cetirizine (ZyrTEC) 10 MG tabletIndication s:Allergic rhinitis, unspecified seasonality, unspecified trigger TAKE 1 TABLET BY MOUTH DAILY 90 tablet 3 5 Active EPINEPHrine (Epipen) 0.3 MG/0.3ML injection syringeIndicatio ns:Moderate persistent asthma without complication INJECT 1 PEN IN THE MUSCLE ONE TIME DIRECTED NEEDED FOR ANAPHYLAXIS 2 each 5 Active cholecalciferol (Vitamin D3) 25 MCG (1000 UT) tabletIndication s:Vitamin D deficiency TAKE 1 TABLET BY MOUTH EVERY DAY 90 tablet 3 5 Active SUMAtriptan (Imitrex) 25 MG tabletIndication s:Chronic migraine without aura without status migrainosus, not intractable Take 1 tablet (25 mg) by mouth 1 (one) time if needed for migraine for up to 1 dose. May repeat dose once in 2 hours if no relief. Do not exceed 2 doses in 24 hours. 9 tablet 5 Active amitriptyline (Elavil) 25 MG tabletIndication s:Chronic migraine without aura without status migrainosus, not intractable Take 1 tablet (25 mg) by mouth at bedtime. 30 tablet 1 5 Active Magnesium 400 MG capsuleIndicatio ns:Chronic migraine without aura without status migrainosus, not intractable Take 400 mg by mouth Once per day. 30 capsule 1 5 Active Active Problems Patient Care Coordination No te Formatting of this note migh t be different from the original. [facility] Economic Research Assistant: Minnie, member services number [phone] Sub Prior Agency: [facility] Problem Noted Date Diagnosed Date Chronic bilateral low back pain 11/25/2023 Overview (11/25/2023): XR l spine 11/24/23 Mild degenerative changes of the lower lumbar spine. PTSD (post-traumatic stress disorder) 09/30/2023 Pelviectasis 06/03/2023 Tobacco use disorder 06/03/2023 Overview (06/03/2023): -Cigg/day: 5 -Age started: 16 -Total years smokin -Pack year history: ~ 2.75 Encouraged smoking cessation resources such as pharmacomtherapy, [facility] smoking cessation group, and [facility] pharmacy smoking cessation clinic Discussed USPSTF [...] Encouraged smoking cessation resources such as pharmacomtherapy, [facility] smoking cessation group, and [facility] pharmacy smoking cessation clinic Discussed USPSTF [...] due after 06/02/24 -eye care facilitated by [facility] filed Assessment & Plan (06/03/2023 10:34 AM EDT): -next physical exam due after 06/02/24 -eye care facilitated by [facility] care proxy completed and filed Papanicolaou smear of cervix with atypical squamous cells of undetermined significance (ASC-US) 02/26/2022 Overview (02/26/2022): ASCUS on pap 2012 HPV negative with [facility]. repeat PAP 05/04/16 nilm. -Repeat pap [...] the lack of availability of the robot needmadei robot and/or minimally invasive planning manager specialist at [facility]. Will refer to [facility] minimally invasive joint special operations. Assessment & Plan (02/26/2022 9:31 AM EST): Menses coming every 2 months. US and labs ordered 02/26/2022. Kidney stones 02/26/2022 Overview (10/30/2024): Followed by urology -US 08/23/23 Bilateral nonobstructive renal calculi. No hydronephrosis. -seen by Roger Tay NP of [facility] urology 03/02/24, follow up 6 mo -urine cytology 03/04/24 Urine: Negative for high-grade urothelial carcinoma. -US 08/09/24 US/US renal BI IMPRESSION: 3 mm nonobstructing right renal calculus. Otherwise unremarkable renal ultrasound. -note from Roger Tay 10/23/24 reveiwed -urine cytology 10/30/24 Negative for high-grade urothelial carcinoma Assessment & Plan (02/26/2022 9:30 AM EST): [...] Hospitalized 11/2018 and 12/2021. Improved. Followed by underwriting sales representative. Continue Tezspire, and Dulera and singulair as well as albuterol prn. Seen by Machine Printer Hose Carmine Rivas MD 04/06/23. Nucala changed to Tezspire. Call to Pulmonology to check the status of her injectable medicine 06/03/23 Call placed to [facility] pulmonology spoke to the nurse yesenia who reports patient should be on Tezspire 210mg every 4 weeks and that patient had appt on 04/15/23 for inj but no showed to the visit. Yesenia states they redid the orders for her today and short stay should be reaching out to patient to set up an appt. Referral placed to [facility] as it is closer to home, seen by Dr. Monique Hillman, MDMMEL, FACP,FCCP 07/29/23, no changes made to regimen -seen by Dr. Rivas 10/03/24 Well controlled on current regimen of Tezspire, Dulera, and albuterol MDI/nebs. Continue current regimen. Assessment & Plan (06/03/2023 10:30 AM EDT): Hospitalized 11/2018 and 12/2021. Improved. Followed by underwriting sales representative. Continue Tezspire, and Dulera and singulair as well as albuterol prn. Seen by Machine Printer Hose Carmine Rivas MD 04/06/23. Nucala changed to Tezspire. Will call to Pulmonology to check the status of her injectable medicine 06/03/23 Referral placed to [facility] as it is closer to home 06/03/23 Assessment & Plan (02/26/2022 9:22 AM EST): Hospitalized 11/2018. Improved. Followed by underwriting sales representative. Continue Nucala, and Dulera and singulair as well as albuterol prn. Referral sent 12/2021 to pulmonology at [facility], Pt was hospitalized 12/2021 and asthma is [...] Problem Noted Date Diagnosed Date Resolved Date Metatarsal stress fracture of right foot 06/03/2023 10/26/2024 Right elbow pain 06/03/2023 08/09/2024 of parent 12/16/2022 11/25/2023 Insomnia 06/09/2018 08/09/2024 Posterior rhinorrhea 07/15/2017 023 Excessive and frequent menstruation 07/02/2017 11/25/2023 Lateral epicondylitis 07/01/20122024 Headache 09/14/2011 11/25/2022 Malaise and fatigue 09/14/2011 08/10/19 Encounters * This document contains information received from the source organization and may not represent a complete record from that organization. Date Type Department Care Team Description 10/24/2024 Orders Only GENERIC EXTERNAL DATA DEPARTMENT Provider, Generic External Data Kidney stones (Primary Dx) 10/17/2024 Orders Only GENERIC EXTERNAL DATA DEPARTMENT Provider, Generic External Data 09/19/2024 Travel 09/18/2024 3:15 PM EDT Office Visit [facility] [address] [place] [address] Zainab Child MD Chronic migraine without aura without status migrainosus, not intractable 09/18/2024 Travel 09/15/2024 Telephone [facility] [address], [place] [phone] Anne Carrion MD Chart Prep 09/15/2024 Travel 09/14/2024 Telephone [facility] [address], [place] [phone] Anne Carrion MD Nurse Triage 09/14/2024 Travel 08/18/2024 Refill [facility] [address], [place] [phone] Anne Carrion MD Vitamin D deficiency 08/14/2024 Travel 08/09/2024 Orders Only [facility] External Provider, [facility] Kidney stones (Primary Dx) 08/09/2024 Refill [facility] [address] [place] [address] Anne Carrion MD Moderate persistent asthma without complication from Last 3 Months Immunizations Immunization Administration [...] the past 12 months, has t he [employer], gas, oil or water company threatened to [...] Description 11/20/2024 10:45 AM EDT Office Visit [facility] [address] [place] [address] Anne Carrion MD [address] [place] [address] Health Maintenance Due Date Last [...] CYTOPATH-CELL ENHANCED Routine 10/24/2024 8:45 AM EDT XR CHEST 2 VIEWS Routine 10/17/2024 10:1 [...] Recently Relevant to Health Maintenance Results * Cytopath-cell enhanced (10/24/2024 8:45 AM EDT) 10/24/2024 8:45 AM EDT 10/25/2024 11:20 AM EDT [facility] - 10/29/2024 3:01 PM EDT ----- ------- Name: Claribel Roy Age/Sex: 39/F : 1985 Unit#: [id number] Attend Dr: Nataly Tay [facility] Re10/24/24 Status: [facility] Disch: ----- ------- SPEC : [id number] RECD: 10/25/24-1119 STATUS: ELEONORA EL NUM: [id number] MICHAELLE: 10/24/24-[address] [facility] [address]: Nataly Tay [facility] ENTERED: 10/25/24-131 SP TYPE: Cytology OTHR DR: [...] developed and their performance characteristics determined by [facility]. They have not been cleared or approved by the U.S. Food and Drug Administration (FDA). However, the FDA has determined that such clearance or approval is not necessary. This laboratory is certified under the Clinical Laboratory Improvement Amendments of 1988 (CLIA) as qualified to perform high complexity clinical laboratory testing. Copies To: Anne Carrion MD [address] [address] Nataly Tay [facility] [address] [place] [address] Dr. [address] [place] [address] , Inc. CONTINUED ON NEXT PAGE ----- ------- Name: Tom Roytasneem Age/Sex: 39/F : 1985 Unit#: [id number] Attend Dr: Nataly Tay [facility] Re10/24/24 Status: DEP REF Location: [facility] Disch: ----- ------- SPEC : [id number] RECD: 10/25/24-1119 STATUS: ELEONORA EL NUM: [id number] MICHAELLE: 10/24/24-[address] [facility] [address]: Nataly Tay [facility] ENTERED: 10/25/24-1314 SP TYPE: Cytology OTHR DR: Anne Carrion MD ORDERED: Cyto-enhanced ----- ------- Signed (signature on file) Noy Sequeira MD 10/29/24 1501 ----- ------- END OF REPORT us Generic External Data Provider LAB CYTOLOGY ELIZABETHMerary TATE Final Result Performing Organization Address City/State/[facility] Co de Phone Number [facility] [address] [place] [phone] * XR Chest 2 Views (10/17/2024 10:15 AM EDT) Anatomical Region Laterality Modality Chest Radiographic Chaparrita ging 10/17/2024 10:1 5 AM EDT Narrative 10/17/2024 10:35 AM EDT [address] [address] XRay Report Signed Patient: Claribel Roy MR #: [id number] : 1985 Acct:[id number] Age/Sex: 39 / F ADM Date: 10/17/24 Loc: .ED Attending Dr: Ordering Physician: Airam Morel DO Date of Service: 10/17/24 Procedure(s): XR chest 2V Accession Number(s): [id number] cc: Anne Carrion MD; Airam Morel DO [...] 10/17/24 1032 DD/ 1015 TD/TT: 10/17/24 1019 Redrying Machine Operator: Procedure Note Kiya, Image - 10/17/[address] [address] XRay Report Signed Patient: Edouard Roy #: [id number] : 1985Acct:[id number] Age/Sex: 39 / FADM Date: 10/17/24 Loc: .ED Attending Dr: Ordering Physician: Airam Morel DO Date of Service: 10/17/24 Procedure(s): XR chest 2V Accession Number(s): [id number] cc: Anne Carrion MD; Airam Morel DO [...] Kelton Rankin MD 10/17/2024 10:32 AM EDT Dictated By: Kelton Rankin MD Signed By: <Electronically signed by Kelton Rankin MD in OV> 10/17/24 1032 DD/ 1015 TD/TT: 10/17/24 1019 Redrying Machine Operator: [facility] External Provider IMG XR PROCEDURES Edited Result - Final * Influenza A B2 ID NOW (Rodríguez) (10/17/2024 8:48 AM EDT) IDNOW SERIAL# [id number] [facility] Influenza A Negative Negative [facility] Influenza B2 Negative Negative [facility] Influenza A B2 Note See Note [facility] Comment:The Rodríguez ID NOW In fluenza [...] GENERAL ORDERABLES Final Result Performing Organization Address [facility] de Phone Number [facility] [address] [place] [phone] * Strep A Nucleic Acid (10/17/2024 8:48 AM EDT) IDNOW SERIAL# [id number] [facility] Strep A Nucleic Acid Negative Negative [facility] Comment:All test results mus [...] GENERAL ORDERABLES Final Result Performing Organization Address [facility] de Phone Number [facility] [address] [place] [phone] * COVID-19 ID NOW (RODRÍGUEZ) (10/17/2024 8:48 AM EDT) IDNOW SERIAL# [id number] [facility] COVID-19 TEST Negative Negative [facility] COVID-19 NOTE See Note [facility] Comment: Results are for the identification of SARS-CoV2 RNA. TheSARS-CoV2 RNA is generally detectable in respiratory samplesduring the acute phase of infection. Positive results areindicative of the presence of SARS-CoV-2 RNA; clinicalcorrelation with patient history and other diagnosticinformation is necessary to determine patient infectionstatus. Positive results do not rule out bacterial infectionor co- infection with other viruses.Testing facilities within the [facility] and itsterritories are required to report all [...] use by authorized laboratories.Testing performed on the [employer] ID NOW utilizing NAAT. 10/17/2024 8:48 AM EDT 10/17/2024 8:51 AM EDT us Generic External Data Provider LAB MOLECULAR GUILLERMO GNOSTICS ORDERABLES Final Result [facility] [address] [place] [phone] * US RENAL BI (08/09/2024 11:57 AM EDT) Anatomical Region Laterality Modality Abdomen Ultrasound 08/09/2024 11:5 7 AM EDT Narrative 08/09/2024 12:44 PM EDT [address] [address] Ultrasound Report Signed Patient: Claribel Roy MR #: [id number] : 1985 Acct:[id number] Age/Sex: 39 / F ADM Date: 08/09/24 Loc: HO.US Attending Dr: Nataly MURPHY Ordering Physician: Nataly Tay Date of Service: 08/09/24 Procedure(s): US renal BI Accession Number(s): [id number] cc: Anne Carrion MD; Nataly Tay EXAMINATION: [...] 08/09/24 1241 DD/ 1157 TD/TT: 08/09/24 1230 Redrying Machine Operator: Procedure Note Donotuseinterpreter, Image - 08/09/[address] [address] Ultrasound Report Signed Patient: Edouard Roy #: [id number] : 1985Acct:[id number] Age/Sex: 39 / FADM Date: 08/09/24 Loc: HO.US Attending Dr: Nataly MURPHY Ordering Physician: Nataly Tay Date of Service: 08/09/24 Procedure(s): US renal BI Accession Number(s): [id number] cc: Anne Carrion MD; Nataly Tay [facility] EXAMINATION: US KIDNEY BILATERAL HISTORY: N20.0 - [...] 08/09/24 1241 DD/ 1157 TD/TT: 08/09/24 1230 Redrying Machine Operator: us [facility] External Provider IMG US PROCEDURES Final Result * (ABNORMAL) Lipid Panel, Standard (06/04/2023 11:20 AM EDT) Triglycerides 77 <150 mg/dL [facility] Comment:Desirable Triglyceri de: less than 150 mg/dLBorderline High Triglyceride 150-199 mg/dLHigh Triglyceride: 200-499 mg/dLVery High Triglyceride: greater than or equal to 5OO mg/dL Cholesterol 199 <200 mg/dL [facility] Comment:Desirable Cholestero l: less than 200 mg/dLBorderline High Cholesterol: 200-239 mg/dLHigh Cholesterol: greater than 239 mg/dL LDL Cholesterol Calculated 144(H) <100 mg/dL [facility] Comment:Desirable LDL: less than 100 mg/dLNear Optimal/Above Optimal LDL: 110- 129 mg/dLBorderline High LDL: 130-159 mg/dLHigh LDL: 160-189 mg/dLVery High LDL: greater than or equal to 190 mg/dL HDL Cholesterol 40(L) >40 mg/dL [facility] Comment:Desirable HDL: great er than 40 mg/dL Note: This HDL assay may give artificially low results in patients with liver disease. Blood Venous blood specimen / Unknown 06/04/2023 11:20 AM EDT 06/04/2023 1:22 PM EDT Anne Carrion MD LAB BLOOD ORDERABLES Final Result Performing Organization Address [facility] Co de Phone Number [facility] [address] [place] [phone] * HPV High Risk PCR (06/12/2021 12:00 AM EDT) Swab Cervical swab / Unknown Anne Carrion MD LAB MICROBIOLOGY - GENERAL ORDERABLES Final Result Performing Organization Address [facility] Co de Phone Number [facility] [address] [place] [phone] * Pap Smear (06/12/2021 12:00 AM EDT) Swab Anne Carrion MD LAB CYTOLOGY ORDERABLES Fi nal Result Performing Organization Address [facility] Co de Phone Number [facility] [address] [place] [phone] * HEPATITIS C ANTIBODY (11/08/2019 12:39 PM EDT) Pathologist [facility] HEPATITIS C ANTIBODY NONREACTIVE NONREACTIVE [facility] Comment: Antibodies to HCV not detected; does not exclude early acute HCV infection. 11/08/2019 12:3 9 PM EDT Sandhya Brody HISTORICAL/NON ORDERABLE LABS Fi nal Result Performing Organization Address [facility] Co de Phone Number [facility] [address] * HIV AB/AG (11/08/2019 12:39 PM EDT) Pathologist [facility] HIV AG/AB NONREACTIVE [facility] [...] of detection of this assay. The Rodríguez Sample Prep Technician HIV Ag/Ab Combo assay result and supplemental assay results should be interpreted in conjunction with the patient's clinical presentation, history and other laboratory results. If the results are inconsistent with clinical evidence, additional testing is suggested to confirm the result. 11/08/2019 12:3 9 PM EDT Sandhya Brody HISTORICAL/NON ORDERABLE LABS Fi nal Result Performing Organization Address [facility] de Phone Number [facility] [address] from Last 3 Months or Most Recently Relevant to Health Maintenance Insurance STANDARD [id number] < 65 Care Teams Nailing Machine Feeder Relationship Specialty Start Date End Date [place], MD Anne [address] [place] [phone] PCP - General Family Medicine 02/08/18 Nataly Tay NP [address] [place] [address] [address] [place] [address] Urology 03/02/24 Carmine Rivas MD [address] [place] [phone] Pulmonary Disease 04/10/24 Marivel Bang [address] [place] [address] Orthopaedic Surgery 04/10/24 Leo Rao MD [address] [place] [phone] Obstetrics and Gynecology 05/02/24
--- OUTSIDE RECORDS SUMMARY | 2024-10-31 08:05 | XMS_ITS | Encounter Summary ---
Author Organization [employer] Address [address] [facility] [address] [place] [address] Care Team Providers Care Bank Runner Name Role Phone Anne Carrion MD Primary Care Provider [phone] Nataly Tay NP Unavailable Carmine Rivas MD Unavailable [phone] Marivel Bang Unavailable Leo Rao MD Unavailable Reason for Visit * Reason Comments Med Refill Encounter Details Date Type Department Care Team (Late st Contact Info) Description 01/07/2023 Refill [facility] [address] [place] [address] [id number] Jaiden Mccarthy MD [address] [place] [address] [id number] Rash Social History Tobacco Use Types Packs/Day [...] 11/20/2024 10:45 AM EDT Office Visit [facility] [address] [place] [address] Anne Carrion MD [address] [place] [phone] documented as of this encounter Visit Diagnoses Diagnosis Rash Rash and other nonspecific skin eruption documented in this encounter Care Teams Bank Runner Relationship Specialty Start Date End Date Anne Carrion MD [address] [place] [phone] PCP - General Family Medicine 02/08/18 Nataly Tay NP [address] [place] [address] Urology 03/02/24 Carmine Rivas MD [address] [place] [phone] Pulmonary Disease 04/10/24 Marivel Bang [address] [place] [address] Orthopaedic Surgery 04/10/24 Leo Rao MD [address] [facility] [address] [place] [address] Obstetrics and Gynecology 05/02/24 documented as of this encounter
--- OUTSIDE RECORDS SUMMARY | 2024-10-31 08:05 | XMS_ITS | Patient Health Record ---
Author Organization [facility] Address [address] [facility] [place] [address] Care Team Providers Care Policy Intern Name Role Phone Anne Carrion MD Primary Care Provider Kavin Lainez Unavailable [phone] Allergies Allergen (clinical drug ingredient) Drug/Non Drug [...] type I of right lower limb (disorder) ([id number]) Complex regional pain syndrome I of right lower limb (G90.521) Active confirmed Problem Mononeuropathy of lower limb (990417767) Neuritis of right foot (G57.91) Active confirmed Plan Of Treatment No Information Insurance Providers Payer Name Payer Address Payer Phone Subscriber Number Group Number Insured Name Patient Relationship to Insured Coverage Start Date Coverage End Date [facility] [employer] Claims [address] [place] [id number] Claribel Leal Self - patient is the insured Medical (General) History Medical History History ICD Code Depression Anxiety disorder Migraines Kidney stones Broken bones Back pain asthma Surgical History Surgery Date(Month/Year) cholecystectomy laparoscopic salpingectomy bilateral section 2011 tonsillectomy tubal ligation foot surgery 1995 elbow sx
== END 2024-10-31 08:29 | disposition home or self-care (01) ==
LOC: HO.HSM 07:59
PROVIDERS: PCP Family Medicine; Visit Provider Nurse Practitioner
DX: G43.009 Migraine without aura, not intractable, without status migrainosus (principal); M54.81 Occipital neuralgia
CPT/HCPCS: 99204

== ENCOUNTER → 2024-10-31 07:58 | Outpatient (BNVA) | payer OTHER, SELFPAY | PROVIDERS: PCP Family Medicine; Visit Provider Nurse Practitioner | DX: G43.009 Migraine without aura, not intractable, without status migrainosus (principal); M54.81 Occipital neuralgia; Z79.899 Other long term (current) drug therapy | CPT/HCPCS: 99202 ==

== ENCOUNTER 2024-11-16 07:52 | Emergency (ER) | payer OTHER, SELFPAY ==
--- NOTE | ~2024-11-16 | XR_ITS ---
EXAMINATION: XR CHEST CLINICAL INFORMATION: cough COMPARISON: 10/17/2024. TECHNIQUE: PA view of the chest was obtained. FINDINGS: The cardiac silhouette is mildly prominent. The mediastinal and hilar contours appear normal. The lungs are clear bilaterally. No pneumothorax or effusion. No focal osseous or soft tissue abnormality. There are cholecystectomy clips present. XR/XR chest 1V IMPRESSION: No active pulmonary disease. Mild cardiac enlargement. Electronically signed by: Abelino Ramirez MD 11/16/2024 08:30 AM EDT
[2024-11-16 07:54] VITALS: BP 135/68; PULSE 87; RESP 18; TEMP 36.6; O2SAT 98; BMI 29.2
[2024-11-16 08:22] LABS: IDNOW Serial# 58CA691E; Strep A Nucleic Acid Negative (Negative)
[2024-11-16 08:27] LABS: COVID-19 Test Negative (Negative); IDNOW Serial# 55D5AD1C
--- NOTE | 2024-11-16 08:37 | ED_ITS ---
HPI - URI/Sore Throat General Chief Complaint: Upper Respiratory Symptoms Stated Complaint: sore throat Time Seen by Provider: 11/16/24 08:19 Source: patient and RN notes reviewed Mode of arrival: ambulatory Limitations: no limitations History of Present Illness ED Provider: Iqra Bazan PA-C HPI Narrative: This is a 39-year-old female, with a past medical history of asthma, who present s emergency department with concerns of sore throat and left ear pain x1 week. Patient has been taking Tylenol and Motrin for her symptoms which has provided her with some relief. She denies any fevers, chills, chest pain, cough, shortness of breath, abdominal pain, nausea, vomiting or diarrhea. No dizziness or headaches. No recent swimming. No other complaints or concerns at this time. MD elicited complaint: sore throat Consistency: constant Severity: moderate Able to tolerate fluids by mouth: Yes Exacerbating factors: nothing Relieving factors: nothing Associated symptoms: sore throat Treatments prior to arrival: none Related Data Home Medications ?Medication ?Instructions ?Recorded ?Confirmed cholecalciferol (vitamin D3) 25 25 mcg PO DAILY 10/31/24 mcg (1,000 unit) tablet amitriptyline 25 mg tablet 25 mg PO BEDTIME 10/31/24 0 10/31/24 ondansetron HCl 4 mg tablet mg PO 10/31/24 10/31/24 Previous Rx's ?Medication ?Instructions ?Recorded cetirizine 10 mg tablet (Zyrtec) 10 mg PO DAILY PRN al lergy 02/17/23 symptoms #10 tabs diphenhydramine HCl 25 mg tablet 25 mg PO Q8H PRN itch ing #14 tabs 02/17/23 (Benadryl Allergy) tezepelumab-ekko 210 mg/1.91 mL 210 mg (1.91 mL) subcu t Q4W 28 06/03/23 (110 mg/mL) subcutaneous syringe days #1.91 mL (Tezspire) ondansetron 4 mg disintegrating 4 mg PO Q8H PRN nausea and 09/11/23 tablet vomiting #10 tabs albuterol sulfate 90 mcg/actuation 1 inh inhalation QI D PRN shortness 10/26/23 aerosol inhaler of breath or wheezing #8.5 g surya albuterol sulfate 2.5 mg/3 mL 3 mg (3.6 mL) inhalation Q4H PRN 01/05/24 (0.083 %) solution for nebulization Wheezing #180 mL montelukast 10 mg tablet 10 mg PO BEDTIME #90 tabs sumatriptan succinate 50 mg tablet See Rx Instructions PO .COMPLEX 10/31/24 #10 tabs Dulera 200 mcg-5 mcg/actuation HFA 2 puff PO BID #13 g surya 11/07/24 aerosol inhaler (mometasone-formoterol) acetaminophen 500 mg tablet 1,000 mg (2 x 500 mg) PO Q 8H PRN 11/16/24 (Tylenol Extra Strength) pain #30 tabs ibuprofen 600 mg tablet 600 mg PO Q6H PRN pain #30 t abs 11/16/24 ofloxacin 0.3 % ear drops 10 drp otic (ear) left DAILY 7 11/16/24 days #10 mL Allergies Allergy/AdvReac Type Severity Reaction Status Date / Time benzonatate (BENZONATATE) Allergy Severe ANAPHYLAXIS Verified 11/16/24 07:57 banana (BANANA) Allergy Intermediate RASH Verified 11/16/24 07:57 coconut (COCONUT) Allergy Intermediate RASH Verified 11/16/24 07:57 cucumber (CUCUMBER) Allergy Intermediate RASH Verified 11/16/24 07:57 grape (GRAPE) Allergy Intermediate RASH Verified 11/16/24 07:57 arthur (ARTHUR) Allergy Intermediate RASH Verified 11/16/24 07:57 sulfamethoxazole (From Allergy Intermediate RASH Verified 11/16/24 07:57 BACTRIM) trimethoprim (From BACTRIM) Allergy Intermediate RASH Verified 11/16/24 07:57 cephalexin (Keflex) Allergy Unknown Unknown Verified 11/16/24 07:57 duloxetine (From CYMBALTA) Allergy Unknown UNKNOWN Verified 11/16/24 07:57 Sulfa (Sulfonamide Allergy Unknown Unknown Verified 11/16/24 07:57 Antibiotics) nitrofurantoin Allergy Rash Verified 11/16/24 07:57 SEAFOOD Allergy Intermediate RASH Uncoded 10/24/24 09:11 antibacterial soap Allergy Unknown rash Uncoded 10/24/24 09:11 Tessalon Allergy Unknown Unknown Uncoded 10/24/24 09:11 Review of Systems Review of Systems: Constitutional : No Fever, No Chills ENT/Mouth : + sore throat, No Rhinorrhea Eyes: No Eye Pain, No Swelling, No Redness Cardiovascular : No Chest Pain, No SOB Respiratory : No Cough, No Sputum Gastrointestinal : No Nausea, No Vomiting, No Diarrhea, No abdominal Pain Genitourinary : No Dysuria, No Hematuria Musculoskeletal : No joint pain, No Myalgias, No Joint Swelling Skin : No Skin Lesions Neuro : No Weakness, No Numbness, No Headache All other systems reviewed and are negative Yes all other systems are reviewed and are negative Constitutional: Constitutional: Reports as per HPI [facility] Past Medical History Attestation statement: The following information was validated with the patient. Medical History SADAF (generalized anxiety disorder) Allergic rhinitis Migraine Pelviectasis Asthma Kidney stone Hx of migraine headaches Hx of anxiety disorder History of depression Surgical History Hx of bilateral salpingectomy Hx of tubal ligation Hx of section Hx of tonsillectomy Hx laparoscopic cholecystectomy Family History Family History Mother Diabetes mellitus Hypertension Dementia Father Diabetes mellitus Hypertension Social History Social History Alcohol intake: never Patient Tobacco Use Status: Current someday Tobacco user Tobacco use type: Cigarette Cigarettes Per Day: 2 Advance Directives: Yes Advance Directives on File: Yes Advance Directives Date on File: 12/11/21 Do you have a plan to hurt others: No Plan service: No Current occupational status: disabled Current occupation: right handed Physical Exam Vital Signs: Vital Signs: Last Vital Signs Temp 97.8 F 11/16/24 07:54 Pulse 87 11/16/24 07:54 Resp 18 11/16/24 07:54 BP 135/68 11/16/24 07:54 Pulse Ox 98 11/16/24 07:54 O2 Del Method Room Air 11/16/24 07:54 BMI result Body Mass Index 29.2 Const: General: cooperative, comfortable and no acute distress Orientation/consciousness: patient oriented x3 Limitations: no limitations HEENT: Other: Right auditory canal nonerythematous, nonedematous, TM intact. Left auditory canal slightly erythematous, nonedematous. Oropharynx widely patent, no tonsillar edema or exudates. No trismus, drooling, or dysphonia. Head: Yes normal to inspection, Yes normocephalic and Yes atraumatic Ears: hearing grossly normal bilaterally General nose exam: Normal external nose present Face and sinus: Yes normal facial exam Mouth: Normal oral and palatal mucosa present, oropharynx normal and moist mucous membranes Throat: Yes posterior oropharynx normal Eyes: General: appearance normal, both eyes and all related structures Eyelids: Yes eyelids normal Conjunctivae: conjunctivae normal Sclerae: sclerae normal Pupils: Equal, round and reactive pupils present EOM: EOMs intact bilaterally Neck: Neck: Yes normal visual inspection, Yes full ROM and Yes no lymphadenopathy Lymphatic: no lymphadenopathy noted Chest: Chest palpation & inspection: normal inspection of the chest Resp: Effort & Inspection: normal respiratory effort and able to speak in complete sentences Auscultation: clear to auscultation bilaterally, no crackles, no rales, no rhonchi and no wheezes Cardio: Rate: regular rate Rhythm: regular rhythm Heart sounds: S1 normal heart sound present and S2 normal heart sound present GI: Inspection: Yes normal to inspection Skin: General skin exam: no rashes or lesions noted Trauma: no lacerations or abrasions Wounds: no wounds Neuro: General: patient oriented x3 and moves all extremities Cranial nerves: Yes Equal, round and reactive pupils present Extrem: General: Yes normal to inspection Right upper extremity: normal to inspection Left upper extremity: normal to inspection Right lower extremity: normal to inspection Left lower extremity: normal to inspection Medications Administered Discontinued Medications Generic Name Dose Route Start Last Admin Trade Name Freq PRN Reason Stop Dose Admin Acetaminophen 975 mg 11/16/24 08:36 11/16/24 08:43 Acetaminophen 325 Mg Tablet PO 11/16/24 08:37 975 mg ONCE ONE Administration Medical Decision Making Medical Decision Making [facility] Narrative: This is a 39-year-old female, with a past medical history of asthma, who presents emergency department with concerns of sore throat and left ear pain x1 week. On arrival, patient is well-appearing, appears to be under no acute distress, vital signs within normal limits. She is speaking in full sentences. Left auditory canal slightly erythematous when compared to right. Differential diagnoses include COVID, flu, strep, influenza. Chest x-ray was obtained prior to my evaluation, acute abnormality seen. Symptoms likely consistent with acute otitis externa, however will await influenza swab. SUPERVISOR FLESHING is considered however upon examination, she has no pharyngeal swelling, no trismus, drooling, or dysphonia. Patient medicated with Tylenol. 9:51 AM 11/16/2024 (Iqra Bazan PA-C): COVID, flu, and strep test negative. Chest x-ray shows enlarged cardiac silhouette, discussed this with patient, she will follow-up with her PCP. Will treat as otitis externa with ofloxacin. Given strict return precautions, patient understands and agrees with plan. Patient stable for discharge. Differential Diagnosis Differential Diagnoses: The differential diagnosis associated with the presentation includes See above Lab Data MDM Lab Attestation statement: I reviewed the patient's lab results. Negative Labs: Lab Results 11/16/24 11/16/24 Range/Units 08:04 08:42 COVID-19 (ILENE) Negative (Negative) COVID-19 Clin Com See Note Influenza Type A (DIONY) Negative (Negative) Influenza Type B (DIONY) Negative (Negative) Influenza A & B Note See Note S. pyogenes GrpA DIONY Negative (Negative) Radiology Impression Discussion of test interpretation with radiology: I have reviewed the radiologist's reading. Radiologist Impression: TECHNIQUE: PA view of the chest was obtained. FINDINGS: The cardiac silhouette is mildly prominent. The mediastinal and hilar contours appear normal. The lungs are clear bilaterally. No pneumothorax or effusion. No focal osseous or soft tissue abnormality. There are cholecystectomy clips present. XR/XR chest 1V IMPRESSION: No active pulmonary disease. Mild cardiac enlargement. Electronically signed by: Abelino Ramirez MD 11/16/2024 08:30 AM EDT RP Dictated By: Abelino Ramirez MD Discharge Plan Discharge Clinical Impression: Otitis externa Patient Disposition: Home, Self-Care Instructions: [facility] (ED) Additional Instructions: You were seen in the emergency department due to a sore throat and ear pain. You tested negative for COVID, flu, and strep throat today. Your chest x-ray does not show a pneumonia. You do have an enlarged heart, please follow-up with your primary care physician. You have had this on previous x-rays in the past. Your left ear appears to be infected, please use antibiotic ear drops as prescribed. Finish the entire course even if your symptoms improve. Please continue taking Tylenol, you can take a 1000 mg every 8 hours. You also can take ibuprofen 600 mg every 6 hours. Please take this with food as this can cause an upset stomach. Please follow-up with your primary care physician regarding this visit. If any new or worsening symptoms occur including but not limited to severe chest pain, shortness of breath, please seek emergent care. Prescriptions: New ofloxacin 0.3 % drops 10 drp otic (ear) left DAILY 7 Days Qty: 10 0RF acetaminophen [Tylenol Extra Strength] 500 mg tablet 1,000 mg PO Q8H PRN (Reason: pain) Qty: 30 0RF ibuprofen 600 mg tablet 600 mg PO Q6H PRN (Reason: pain) Qty: 30 0RF No Action Tezspire 210 mg/1.91 mL (110 mg/mL) syringe 210 mg subcut Q4W 28 Days Qty: 1.91 12RF albuterol sulfate 2.5 mg /3 mL (0.083 %) solution for nebulization 3 mg inhalation Q4H PRN (Reason: Wheezing) Qty: 180 6RF montelukast 10 mg tablet 10 mg PO BEDTIME Qty: 90 0RF Dulera 200-5 mcg/actuation HFA aerosol inhaler 2 puff PO BID Qty: 13 0RF ondansetron 4 mg tablet,disintegrating 4 mg PO Q8H PRN (Reason: nausea and vomiting) Qty: 10 0RF diphenhydramine HCl [Benadryl Allergy] 25 mg tablet 25 mg PO Q8H PRN (Reason: itching) Qty: 14 0RF cetirizine [Zyrtec] 10 mg tablet 10 mg PO DAILY PRN (Reason: allergy symptoms) Qty: 10 0RF cholecalciferol (vitamin D3) 25 mcg (1,000 unit) tablet 25 mcg PO DAILY albuterol sulfate 90 mcg/actuation HFA aerosol inhaler 1 inh inhalation QID PRN (Reason: shortness of breath or wheezing) Qty: 8.5 6RF ondansetron HCl 4 mg tablet PO amitriptyline 25 mg tablet 25 mg PO BEDTIME sumatriptan succinate 50 mg tablet See Rx Instructions PO .COMPLEX Qty: 10 3RF Rx Instructions: take 1 tab at onset of headache; if no relief may repeat 1 tab after at least 2 hrs; max = 4 tabs/24 hr PO Stand Alone Forms: Work/School Release Print Language: Uzbek
[2024-11-16 09:09] LABS: IDNOW Serial# 55D5AD1C; Influenza B2 Negative (Negative)
[2024-11-16 10:13] VITALS: BP 135/68; PULSE 87; RESP 18; TEMP 36.6; O2SAT 98
== END 2024-11-16 10:13 | disposition home or self-care (01) ==
PROVIDERS: Physician Assistant Medical; Emergency Provider Emergency Medicine; PCP Family Medicine
DX: H60.92 Unspecified otitis externa, left ear (principal); R93.1 Abnormal findings on diagnostic imaging of heart and coronary circulation; J45.909 Unspecified asthma, uncomplicated; Z88.2 Allergy status to sulfonamides; Z91.018 Allergy to other foods
CPT/HCPCS: 71045; 87502; 87635; 87651; 99283

== ENCOUNTER → 2024-11-16 07:59 | Outpatient (BNV) | payer OTHER, SELFPAY | PROVIDERS: Emergency Provider Emergency Medicine; PCP Family Medicine; Visit Provider Radiology Diagnostic Radiology | DX: I51.7 Cardiomegaly (principal) | CPT/HCPCS: 71045 ==

== ENCOUNTER 2024-12-06 18:59 | Outpatient (REF) | payer OTHER, SELFPAY ==
--- NOTE | ~2024-12-06 | MR_ITS ---
EXAMINATION: MR BRAIN WITHOUT CONTRAST CLINICAL INFORMATION: R 51.9. Headache. Unspecified. COMPARISON: None available. TECHNIQUE: MRI of the brain was obtained using routine sequences without contrast. FINDINGS: No restricted diffusion. No acute intracranial hemorrhage, mass effect, midline shift, hydrocephalus or herniation. Pearl-white matter differentiation is normal. Posterior cranial fossa contents demonstrated no signal abnormality or mass effect. Normal position of the cerebellar tonsils. Sellar/suprasellar region demonstrated no signal abnormality or gross masses. Flow-void signal within the main cerebral vessels is normal. MR/MR head/brain wo con IMPRESSION: No acute or structural brain abnormality. Electronically signed by: Jin Vergara MD 12/06/2024 08:05 PM EDT
--- OUTSIDE RECORDS SUMMARY | 2024-12-06 20:24 | XMS_ITS | Encounter Summary ---
Author Organization [employer] Address [address] [facility] 7[address] [place] [address] Care Team Providers Care Grinder Set Up Operator Thread Name Role Phone Anne Carrion MD Primary Care Provider [phone] Nataly Tay NP Unavailable Carmine Rivas MD Unavailable [phone] Marivel Bang Unavailable Leo Rao MD Unavailable Lisette Dominguez Unavailable [phone] Reason for Visit * Reason Comments Med Refill Encounter Details Date Type Department Care Team (Late st Contact Info) Description 01/07/2023 Refill [facility] [address] [place] [address] [id number] Jaiden Mccarthy MD [address] [place], [place] [phone] Rash Social History Tobacco Use Types Packs/Day [...] eruption documented in this encounter Care Teams Grinder Set Up Operator Thread Relationship Specialty Start Date End Date Anne Carrion MD [address] [place] [address] PCP - General Family Medicine 02/08/18 Nataly Tay NP [address] [place] [address] Urology 03/02/24 Carmine Rivas MD [address] [place] [address] Pulmonary Disease 04/10/24 Marivel Bang [address] [place] [address] Orthopaedic Surgery 04/10/24 Leo Rao MD [address] [facility] [address] [place] [address] Obstetrics and Gynecology 05/02/24 Lisette Dominguez [address] [place] [address] Allergy 11/28/24 Jesika Quinn CNP Neurology 11/01/24 documented as of this encounter
--- OUTSIDE RECORDS SUMMARY | 2024-12-06 20:24 | XMS_ITS | Encounter Summary ---
Author Organization [employer] Address [address] [facility] 7[address] [place] [address] Care Team Providers Care Rn Neonatal Icu Name Role Phone Anne Carrion MD Primary Care Provider [phone] Nataly Tay NP Unavailable Carmine Rivas MD Unavailable [phone] Marivel Bang Unavailable Leo Rao MD Unavailable Lisette Dominguez Unavailable [phone] Reason for Visit * Reason Onset Date Comments Nurse Triage 11/29/2023 Encounter Details Date Type Department Care Team (Late st Contact Info) Description 11/29/2023 Telephone [facility] [address] [place] [address] Anne Carrion MD [address] [place], [place] [phone] Nurse Triage Social History Tobacco Use Types [...] the past 12 months, has t he [employer], gas, oil or [employer] threatened to shut off services in your [...] Triage call Pt was seen in [facility] 11/25/23 , report is on the chart. [...] documented as of this encounter Care Teams Rn Neonatal Icu Relationship Specialty Start Date End Date Anne Carrion MD [address] [place] [phone] PCP - General Family Medicine 02/08/18 Nataly Tay NP [address] [facility] [address] [place] [address] Urology 03/02/24 Carmine Rivas MD [address] [place] [address] Pulmonary Disease 04/10/24 Marivel Bang [address] [place] [address] Orthopaedic Surgery 04/10/24 Leo Rao MD [address] [facility] [address] [place] [address] Obstetrics and Gynecology 05/02/24 Lisette Dominguez [address] [place] [address] Allergy 11/28/24 Jesika Quinn CNP Neurology 11/01/24 documented as of this encounter
--- OUTSIDE RECORDS SUMMARY | 2024-12-06 20:24 | XMS_ITS | Clinical Summary ---
Author Organization [employer] Address [address] [facility] [address] [place] [address] Care Team Providers Care Beam Builder Helper Name Role Phone Mckean, Anne CHAPMAN Primary Care Provider [phone] Nataly Tay NP Unavailable Carmine Rivas MD Unavailable [phone] Marivel Bang Unavailable Leo Rao MD Unavailable Lisette Dominguez Unavailable [phone] Allergies Active Allergy Reactions Criticality Noted Date [...] NEBULIZATION ROUTE THREE TIMES DAILY IF NEEDED 022 Active Tezspire 210 MG/1.91ML solution prefilled syringeIndicati ons:Moderate persistent asthma without complication 024 Active albuterol 108 (90 Base) MCG/ACT inhalerIndicati ons:Moderate persistent asthma without complication 4 times a day 022 Active FLUoxetine (PROzac) 20 MG capsuleIndicati ons:Severe episode of recurrent major depressive disorder, without psychotic features (CMS/HCC) (HCC) Take 1 capsule (20 mg) by mouth Once per day. 30 capsule 11 024 Active Acetaminophen Extra Strength 500 MG tabletIndicatio ns:Low back pain, unspecified back pain laterality, unspecified chronicity, unspecified whether sciatica present TAKE 2 TABLETS BY MOUTH EVERY 6 HOURS NEEDED 60 tablet 2 024 Active mometasone-form oterol (Dulera) 200-5 MCG/ACT inhalerIndicati ons:Moderate persistent asthma without complication Inhale 2 puffs in the morning and at bedtime. Rinse mouth with water after use to reduce aftertaste and incidence of candidiasis. Do not swallow. Active cetirizine (ZyrTEC) 10 MG tabletIndicatio ns:Allergic rhinitis, unspecified seasonality, unspecified trigger TAKE 1 TABLET BY MOUTH DAILY 90 tablet 3 025 Active EPINEPHrine (Epipen) 0.3 MG/0.3ML injection syringeIndicati ons:Moderate persistent asthma without complication INJECT 1 PEN IN THE MUSCLE ONE TIME DIRECTED NEEDED FOR ANAPHYLAXIS 2 each 025 Active cholecalciferol (Vitamin D3) 25 MCG (1000 UT) tabletIndicatio ns:Vitamin D deficiency TAKE 1 TABLET BY MOUTH EVERY DAY 90 tablet 3 025 Active SUMAtriptan (Imitrex) 25 MG tabletIndicatio ns:Chronic migraine without aura without status migrainosus, not intractable Take 1 tablet (25 mg) by mouth 1 (one) time if needed for migraine for up to 1 dose. May repeat dose once in 2 hours if no relief. Do not exceed 2 doses in 24 hours. 9 tablet 025 Active montelukast (Singulair) 5 mg split tabletIndicatio ns:Moderate persistent asthma without complication 10 mg. 024 Active montelukast (Singulair) 10 MG tabletIndicatio ns:Allergic rhinitis, unspecified seasonality, unspecified trigger TAKE 1 TABLET BY MOUTH ONCE DAILY 2024 Discontinued(M ed list cleanup (will not trigger notification to Pharmacy)) cyclobenzaprine (Flexeril) 5 MG tabletIndicatio ns:Low back pain, unspecified back pain laterality, unspecified chronicity, unspecified whether sciatica present 2024 Discontinued(M ed list cleanup (will not trigger notification to Pharmacy)) Diclofenac Sodium 1 % gelIndications: Low back pain, unspecified back pain laterality, unspecified chronicity, unspecified whether sciatica present 2024 Discontinued(M ed list cleanup (will not trigger notification to Pharmacy)) Dupixent 300 MG/2ML injectionIndica tions:Moderate persistent asthma without complication 2024 Discontinued(M ed list cleanup (will not trigger notification to Pharmacy)) mepolizumab (Nucala) 100 mg/mL injectionIndica tions:Moderate persistent asthma without complication 100 mg. 023 2024 Discontinued(M ed list cleanup (will not trigger notification to Pharmacy)) nabumetone (Relafen) 500 MG tablet Take 1 tablet (500 mg) by mouth 2 times daily. 60 tablet 2024 Discontinued(M ed list cleanup (will not trigger notification to Pharmacy)) triamcinolone (Kenalog) 0.1 % creamIndication s:Rash APPLY TOPICALLY IN THE MORNING AND AT BEDTIME IF NEEDED FOR RASH. APPLY SPARINGLY. 15 g 2024 Discontinued(M ed list cleanup (will not trigger notification to Pharmacy)) amitriptyline (Elavil) 25 MG tabletIndicatio ns:Chronic migraine without aura without status migrainosus, not intractable Take 1 tablet (25 mg) by mouth at bedtime. 30 tablet 1 025 2024 Discontinued(M ed list cleanup (will not trigger notification to Pharmacy)) Magnesium 400 MG capsuleIndicati ons:Chronic migraine without aura without status migrainosus, not intractable Take 400 mg by mouth Once per day. 30 capsule 1 025 2024 Discontinued(M ed list cleanup (will not trigger notification to Pharmacy)) Active Problems Patient Care Coordination No te Formatting of this note migh t be different from the original. [facility] [employer] Manager: Minnie, member services number [phone] Deputy Controller Agency: [employer] Problem Noted Date Diagnosed Date Abnormal CXR 11/20/2024 Overview (11/20/2024): -CXR in ER 11/2024 revealed No active pulmonary disease. Mild cardiac enlargement. -chest x-ray 10/2024 was normal -will check Echo Assessment & Plan (11/20/2024 11:39 AM EDT): -CXR in ER 11/2024 revealed No active pulmonary disease. Mild cardiac enlargement. -chest x-ray 10/2024 was normal -will check Echo Orders: Transthoracic Echo (TTE) Complete; Future Chronic bilateral low back pain 11/25/2023 Overview (11/25/2023): XR l spine 11/24/23 Mild degenerative changes of the lower lumbar spine. PTSD (post-traumatic stress disorder) 09/30/2023 Pelviectasis 06/03/2023 Tobacco use disorder 06/03/2023 Overview (11/20/2024): -Cigg/day: quit 09/2024!!! -Age started: 16 -Total years smokin -Pack year history: ~ 2.75 Assessment & Plan (11/20/2024 11:39 AM EDT): -Cigg/day: quit 09/2024!!! -Age started: 16 -Total years smokin -Pack year history: ~ 2.75 Assessment & Plan (06/03/2023 10:37 AM EDT): -Cigg/day: 5 -Age started: 16 -Total years smokin -Pack year history: ~ 2.75 Encouraged smoking cessation resources such as pharmacomtherapy, [facility] smoking cessation group, and [facility] pharmacy smoking cessation clinic Discussed USPSTF [...] lb weight loss. -trial of fluoxetine 12/16/2022 Other specified health status 11/25/2022 Overview (11/20/2024): -next physical exam due after 11/20/25 -eye care facilitated by [facility] home is [facility] -health care proxy filed 11/20/24 Assessment & Plan (11/20/2024 11:39 AM EDT): -next physical exam due after 11/20/25 [facility] -health care proxy filed 11/20/24 Assessment & Plan (06/03/2023 10:34 AM EDT): -next physical exam due after 06/02/24 -[facility] - Health care proxy completed and filed Papanicolaou smear of cervix with atypical squamous cells of undetermined significance (ASC-US) 02/26/2022 Overview (02/26/2022): ASCUS on pap 2012 HPV negative with [facility]. repeat PAP 05/04/16 nilm. -Repeat pap done 06/12/2021 Abnormal uterine bleeding 02/26/2022 Overview (11/20/2024): CT done in ER 11/25/23 revealed multiple [...] the robot DaVinci robot and/or minimally invasive barrel coater specialist at [facility]. Will refer to [facility] minimally invasive lithograph printer. Assessment & Plan (11/20/2024 11:39 AM EDT): CT done in ER 11/25/23 revealed multiple [...] the robot DaVinci robot and/or minimally invasive barrel coater specialist at [facility]. Will refer to [facility] minimally invasive lithograph printer. Assessment & Plan (02/26/2022 9:31 AM EST): Menses coming every 2 months. US and labs ordered 02/26/2022. Kidney stones 02/26/2022 Overview (10/30/2024): Followed by urology -US 08/23/23 Bilateral nonobstructive renal calculi. No hydronephrosis. -seen by Roger Tay NP of [facility] urology 03/02/24, follow up 6 [...] with blood pressure control. Assessment & Plan (11/20/2024 11:39 AM EDT): Diagnosed on 06/12/21. Did not tolerate amlodipine [...] Hospitalized 11/2018 and 12/2021. Improved. Followed by forensic economist. Continue Tezspire, and Dulera and singulair as well as albuterol prn. Seen by Technician Automated Equipment Carmine Rivas MD 04/06/23. Nucala changed to Tezspire. Call to Pulmonology to check the status of her injectable medicine 06/03/23 Call placed to [facility] pul[facility] spoke to the nurse yesenia who reports patient should be on Tezspire 210mg every 4 weeks and that patient had appt on 04/15/23 for inj but no showed to the visit. Yesenia states they redid the orders for her today and short stay should be reaching out to patient to set up an appt. Referral placed to [facility] as it is closer to home, seen by Dr. Monique Hillman, [facility], FACP,FCCP 07/29/23, no changes made to regimen -seen by Dr. Rivas 10/03/24 Well controlled on current regimen of Tezspire, Dulera, and albuterol MDI/nebs. Continue current regimen. Assessment & Plan (11/20/2024 11:39 AM EDT): Hospitalized 11/2018 and 12/2021. Improved. Followed by forensic economist. Continue Tezspire, and Dulera and singulair as well as albuterol prn. Seen by Technician Automated Equipment Carmine Rivas MD 04/06/23. Nucala changed to Tezspire. Call to Pulmonology to check the status of her injectable medicine 06/03/23 Call placed to [facility] pulmonology spoke to the nurse yesenia who reports patient should be on Tezspire 210mg every 4 weeks and that patient had appt on 04/15/23 for inj but no showed to the visit. Yesenia states they redid the orders for her today and short stay should be reaching out to patient to set up an appt. Referral placed to [facility]monology as it is closer to home, seen by Dr. Monique Hillman, [facility], FACP,FCCP 07/29/23, no changes made to regimen -seen by Dr. Rivas 10/03/24 Well controlled on current regimen of Tezspire, Dulera, and albuterol MDI/nebs. Continue current regimen. Assessment & Plan (06/03/2023 10:30 AM EDT): Hospitalized 11/2018 and 12/2021. Improved. Followed by forensic economist. Continue Tezspire, and Dulera and singulair as well as albuterol prn. Seen by Technician Automated Equipment Carmine Rivas MD 04/06/23. Nucala changed to Tezspire. Will call to Pulmonology to check the status of her injectable medicine 06/03/23 Referral placed to [facility] as it is closer to home 06/03/23 Assessment & Plan (02/26/2022 9:22 AM EST): Hospitalized 11/2018. Improved. Followed by forensic economist. Continue Nucala, and Dulera and singulair as well as albuterol prn. Referral sent 12/2021 to pulmonology at [facility], Pt was hospitalized 12/2021 and asthma [...] MG, refills provided 06/03/23 Migraine 06/09/2018 Overview (11/01/2024): On 06/2018, started amitriptyline 25mg for migraine prophylax. headaches improved then pt d/c with return of headaches. Restart amitriptyline 25mg po qhs 10/2018 As of 06/12/2021, not active. -seen by mary 11/01/24 I will have her perform a course of physical therapy for myofascial component. She is agreeable to this and would like to go to the [facility]. -continue amitriptyline 25 mg nightly -trial of sumatriptan 50 mg for abortive therapy -MRI of the brain without contrast -trial of physical therapy for myofascial release -follow up in 2 months or sooner if needed Assessment & Plan (09/18/2024 4:35 PM EDT): [...] major depressive disorder, without psychotic features (CMS/HCC) 09/14/2011 Overview (11/20/2024): -Continue with therapist. No suicidal or homicidal ideation -Restart Fluoxetine 20 Mg, refills provided 06/03/23 -on waiting list for psychiatrist. Assessment & Plan (11/20/2024 11:39 AM EDT): -Continue with therapist. No suicidal or homicidal ideation -Restart Fluoxetine 20 Mg, refills provided 06/03/23 -on waiting list for psychiatrist. Assessment & Plan (06/03/2023 10:35 AM EDT): [...] organization. Date Type Department Care Team Description 11/20/2024 10:45 AM EDT Office Visit [address] [address] Anne Carrion MD Preventative health care (Primary Dx); Moderate persistent asthma without complication; Essential hypertension; Severe episode of recurrent major depressive disorder, without psychotic features (CMS/HCC) (HCC); Dietary counseling; Exercise counseling; Overweight; Encounter for immunization; Abnormal CXR; Abnormal uterine bleeding; Tobacco use disorder 11/20/2024 Travel 11/17/[address] [address] Anne Carrion MD chartprep 11/16/2024 Orders Only GENERIC EXTERNAL DATA DEPARTMENT Provider, Generic External Data 11/13/2024 Travel 10/24/2024 Orders Only GENERIC EXTERNAL DATA DEPARTMENT Provider, Generic External Data Kidney stones (Primary Dx) 10/17/2024 Orders Only GENERIC EXTERNAL DATA DEPARTMENT Provider, Generic External Data 09/19/2024 Travel 09/18/2024 3:15 PM EDT Office Visit [address] [address] Zainab Child MD Chronic migraine without aura without status migrainosus, not intractable 09/18/2024 Travel 09/15/[address] [address] Anne Carrion MD Chart Prep 09/15/2024 Travel 09/14/[address] [address] Anne Carrion MD Nurse Triage 09/14/2024 Travel from Last 3 Months Immunizations Immunization [...] tox oid, preservative free, adsorbed 08/28/2002,12/25/1994 Tdap 11/20/2024,11/26/2011 Varicella 01/01/2003,09/17/1998 Family History Medical History Relation Name Comments Hypertension Father Diabetes Mother Hypertension Mother Cancer Neg Hx Relation Name Status Comments Father Mother Social History Tobacco Use Types Packs/Day Years Used Date Smoking Tobacco: Former Cigarettes Passive Smoke Exposure: Past Smokeless Tobacco: Former Tobacco Cessation:Counseling Given: Not Answered Depression Answer Date Recorded Patient Health Questionnaire-9 Score 16 11/20/2024 Patient Health Questionnaire-9 Score 16 11/20/2024 Last PHQ-9: Questionnaire Data Not on file 1 Housing Stability Answer Date Recorded What is [...] Answer Date Recorded Patient Health Questionnaire-2 Score 5 11/20/2024 Comments Unknown Intention Date Recorded No desire to become (finding) 1 Sex and Gender Information Value Date Recorded Sex Assigned at Female 12/08/2021 10:15 AM EDT Legal Sex Female 10:15 AM EDT Gender Identity Female 12/08/2021 10:15 AM EDT Sexual Orientation Straight 12/08/2021 10 :15 AM EDT Last Filed Vital Signs Vital Sign Reading Time Taken Comments Blood Pressure 134/86 11/20/2024 10:59 AM EDT Pulse 80 11/20/2024 10:59 AM EDT Temperature 36.2 C (97.1 F) 11/20/2024 10:59 AM EDT Respiratory Rate 20 11/20/2024 10:59 AM EDT Oxygen Saturation 98% 06/03/2023 9:42 AM EDT Inhaled Oxygen Concentration - - Weight 69.7 kg (153 lb 9.6 oz) 11/20/2024 10:59 AM EDT Height 154 cm (5' 0.63 ) 11/20/2024 10:59 AM EDT Body Mass Index 29.38 11/20/2024 10:59 AM EDT Plan of Treatment Health Maintenance Due Date Last Done Comments HPV Vaccines (1 - 3-dose series) 2000 SDOH Screening 06/02/2024 06/03/2023 Depression Monitoring 05/21/2025 11/20/2024, 025 Influenza Vaccine (#1) 2025 7, 10/31/2015, 10/31/2014, Additional history exists Postponed from 10/09/2024 (Patient Refused) Disability Screening 09/15/2025 09/15/2024 Alcohol/Substance Use Screening 11/20/2025 11/20/2024 Family Planning (PISQ) 11/20/2025 11/20/2024 Tobacco Screening 11/20/2025 11/20/2024 Cervical Cancer Screening 06/12/2026 HPV/Cotest 06/12/2026 06/12/2021, 06/12/2021 Pap Smear 06/12/2026 06/12/2021, 06/12/2021 Lipid Panel 06/03/2028 06/04/2023 DTaP/Tdap/Td Vaccines (8 - Td or Tdap) 11/20/2034 11/20/2024, 11/26/2011, 08/28/2002, Additional history exists Zoster Vaccines (1 of 2) 07/15/2035 RSV [...] Procedure Name Priority Date/Time Associated Diagnosis Comments MR BRAIN WO CONTRAST Routine 12/06/2024 7:08 PM EDT INFLUENZA A B2 ID NOW (RODRÍGUEZ) Routine 11/16/2024 8:42 AM EDT XR CHEST 1 VIEW Routine 11/16/2024 8:25 AM EDT COVID-19 ID NOW (RODRÍGUEZ) Routine 11/16/2024 8:04 AM EDT STREP A NUCLEIC ACID Routine 11/16/2024 8:04 AM EDT CYTOPATH-CELL ENHANCED Routine 10/24/2024 8:45 AM EDT XR CHEST 2 VIEWS Routine 10/17/2024 10:1 5 AM EDT COVID-19 ID NOW (RODRÍGUEZ) Routine 10/17/2024 8:48 AM EDT INFLUENZA A B2 ID NOW (RODRÍGUEZ) Routine 10/17/2024 8:48 AM EDT STREP A NUCLEIC ACID Routine 10/17/2024 8:48 AM EDT LIPID PANEL, STANDARD Routine 06/04/2023 11:20 AM EDT Preventative health care HPV HIGH RISK PCR Routine 06/12/2021 12: 00 AM EDT PAP SMEAR Routine 06/12/2021 12:00 AM EDT ZZZ HISTORICAL HEPATITIS C ANTIBODY Routine 11/08/2019 12:39 PM EDT ZZZ HISTORICAL HIV AB/AG Routine 11/08/2019 12:39 PM EDT from Last 3 Months or Most Recently Relevant to Health Maintenance Results * MR Brain w/o Contrast (12/06/2024 7:08 PM EDT) Anatomical Region Laterality Modality Brain Magnetic Resonan ce 12/06/2024 7:08 PM EDT Narrative 12/06/2024 8:08 PM EDT [address] [address] Magnetic Resonance Report Signed Patient: Claribel Roy MR #: [id number] : 1985 Acct:[id number] Age/Sex: 39 / F ADM Date: 12/06/24 Loc: HO.MRI Attending Dr: Jesika You CNP Ordering Physician: Jesika You CNP Date of Service: 12/06/24 Procedure(s): MR head/brain wo con Accession Number(s): [id number] cc: Jesika You CNP; Anne Carrion MD Reason for Exam: R51.9 - Headache, unspecified EXAMINATION: MR BRAIN WITHOUT CONTRAST CLINICAL INFORMATION: R 51.9. Headache. Unspecified. COMPARISON: None available. TECHNIQUE: MRI of the brain was obtained using routine sequences without contrast. FINDINGS: No restricted diffusion. No acute intracranial hemorrhage, mass effect, midline shift, hydrocephalus or herniation. Pearl-white matter differentiation is normal. Posterior cranial fossa contents demonstrated no signal abnormality or mass effect. Normal position of the cerebellar tonsils. Sellar/suprasellar region demonstrated no signal abnormality or gross masses. Flow-void signal within the main cerebral vessels is normal. MR/MR head/brain wo con IMPRESSION: No acute or structural brain abnormality. Electronically signed by: Jin Vergara MD 12/06/2024 08:05 PM EDT RP Dictated By: Jin Clark MD Signed By: <Electronically signed by Jin Cleary MD in OV> 12/06/242004 DD/ 07 TD/TT: 12/06/241923 Bobbin Fixer: Procedure Note Donotuseinterpreter, Image - 12/06/2024 [place] [address] Magnetic Resonance Report Signed Patient: Edouard Roy #: [id number] : 1985Acct:[id number] Age/Sex: 39 / FADM Date: 12/06/24 Loc: HO.MRI Attending Dr: Jesika You CNP Ordering Physician: Jesika You CNP Date of Service: 12/06/24 Procedure(s): MR head/brain wo con Accession Number(s): [id number] cc: Jesika You CNP; Anne Carrion MD Reason for Exam: R51.9 - Headache, unspecified EXAMINATION: MR BRAIN WITHOUT CONTRAST CLINICAL INFORMATION: R 51.9. Headache. Unspecified. COMPARISON: None available. TECHNIQUE: MRI of the brain was obtained using routine sequences without contrast. FINDINGS: No restricted diffusion. No acute intracranial hemorrhage, mass effect, midline shift, hydrocephalus or herniation. Pearl-white matter differentiation is normal. Posterior cranial fossa contents demonstrated no signal abnormality or mass effect. Normal position of the cerebellar tonsils. Sellar/suprasellar region demonstrated no signal abnormality or gross masses. Flow-void signal within the main cerebral vessels is normal. MR/MR head/brain wo con IMPRESSION: No acute or structural brain abnormality. Electronically signed by: Jin Vergara MD 12/06/2024 08:05 PM EDT RP Dictated By: Jin Clark MD Signed By: <Electronically signed by Jin Cleary MDin OV> 12/06/242004 DD/ 07 TD/TT: 12/06/241923 Bobbin Fixer: [facility] External Provider IMG MRI PROCEDURES Final Result * Influenza A B2 ID NOW (Rodríguez) (11/16/2024 8:42 AM EDT) Only the most recent of2 resultswithin the time period is included. IDNOW SERIAL# [id number] [facility] Influenza A Negative Negative [facility] Influenza B2 Negative Negative [facility] Influenza A B2 Note See Note [facility] Comment:The Rodríguez ID NOW In fluenza [...] specimen and co- infection withRespiratory Syncytial Virus. 11/16/2024 8:42 AM EDT 11/16/2024 8:45 AM EDT Generic External Data Provider LAB MICROBIOLOGY - GENERAL ORDERABLES Final Result [facility] [address] [place] [id number] [phone] * XR Chest 1 View (11/16/2024 8:25 AM EDT) Anatomical Region Laterality Modality Chest Radiographic Chaparrita ging 11/16/2024 8:25 AM EDT Narrative 11/16/2024 8:33 AM EDT [address] [address] XRay Report Signed Patient: Claribel Roy MR #: [id number] : 1985 Acct:[id number] Age/Sex: 39 / F ADM Date: 11/16/24 Loc: HO.ED Attending Dr: Ordering Physician: Generic ED Physician Date of Service: 11/16/24 Procedure(s): XR chest 1V Accession Number(s): [id number] cc: Anne Carrion MD; Generic ED Physician Reason for Exam: cough EXAMINATION: XR CHEST CLINICAL INFORMATION: cough COMPARISON: 10/17/2024. TECHNIQUE: PA view of the chest was obtained. FINDINGS: The cardiac silhouette is mildly prominent. The mediastinal and hilar contours appear normal. The lungs are clear bilaterally. No pneumothorax or effusion. No focal osseous or soft tissue abnormality. There are cholecystectomy clips present. XR/XR chest 1V IMPRESSION: No active pulmonary disease. Mild cardiac enlargement. Electronically signed by: Abelino Ramirez MD 11/16/2024 08:30 AM EDT Dictated By: Abelino Ramirez MD Signed By: <Electronically signed by Abelino Ramirez MD in OV> 11/16/24829 DD/ 4 TD/TT: 11/16/24826 Bobbin Fixer: Procedure Note Donotaishainterpreter, Image - 11/16/[address] [address] XRay Report Signed Patient: Divya RoyR #: [id number] : 1985Acct:[id number] Age/Sex: 39 / FADM Date: 11/16/24 Loc: HO.ED Attending Dr: Ordering Physician: Generic ED Physician Date of Service: 11/16/24 Procedure(s): XR chest 1V Accession Number(s): [id number] cc: Anne Carrion MD; Generic ED Physician Reason for Exam: cough EXAMINATION: XR CHEST CLINICAL INFORMATION: cough COMPARISON: 10/17/2024. TECHNIQUE: PA view of the chest was obtained. FINDINGS: The cardiac silhouette is mildly prominent. The mediastinal and hilar contours appear normal. The lungs are clear bilaterally. No pneumothorax or effusion. No focal osseous or soft tissue abnormality. There are cholecystectomy clips present. XR/XR chest 1V IMPRESSION: No active pulmonary disease. Mild cardiac enlargement. Electronically signed by: Abelino Ramirez MD 11/16/2024 08:30 AM EDT RP Workstation: [id number] Dictated By: Abelino Ramirez MD Signed By: <Electronically signed by Abelino Ramirez MD in OV> 11/16/24829 DD/ 4 TD/TT: 11/16/24826 Bobbin Fixer: [facility] External Provider IMG XR PROCEDURES Final Result * Strep A Nucleic Acid (11/16/2024 8:04 AM EDT) Only the most recent of2 resultswithin the time period is included. IDNOW SERIAL# [id number] [facility] Strep A Nucleic Acid Negative Negative [facility] Comment:All test results mus t be correlated with clinical findings.This test has not been evaluated for monitoring treatment ofinfection.Additional follow-up testing using the culture method isrequired if the result is negative and clinical symptomspersist, or in the event of an acute rheumatic feveroutbreak. 11/16/2024 8:04 AM EDT 11/16/2024 8:07 AM EDT Generic External Data Provider LAB MICROBIOLOGY - GENERAL ORDERABLES Final Result [facility] [address] [place] [phone] * COVID-19 ID NOW (RODRÍGUEZ) (11/16/2024 8:04 AM EDT) Only the most recent of2 resultswithin the time period is included. IDLENINW SERIAL# [id number] [facility] COVID-19 TEST Negative Negative [facility] COVID-19 NOTE See Note [facility] Comment: Results are for the identification of SARS-CoV2 RNA. TheSARS-CoV2 RNA is generally detectable in respiratory samplesduring the acute phase of infection. Positive results areindicative of the presence of SARS-CoV-2 RNA; clinicalcorrelation with patient history and other diagnosticinformation is necessary to determine patient infectionstatus. Positive results do not rule out bacterial infectionor co- infection with other viruses.Testing facilities within the [facility] and itsterritories are required to report all [...] on the Rodríguez ID NOW utilizing NAAT. 11/16/2024 8:04 AM EDT 11/16/2024 8:07 AM EDT us Generic External Data Provider LAB MOLECULAR GUILLERMO GNOSTICS ORDERABLES Final Result [facility] [address] [place] [address] [phone] * Cytopath-cell enhanced (10/24/2024 8:45 AM EDT) 10/24/2024 8:45 AM EDT 10/25/2024 11:20 AM EDT [facility] - 10/29/2024 3:01 PM EDT ----- ------- Name: Elvis AlbrightTomtasneem Age/Sex: 39/F : 1985 Unit#: [id number] Attend Dr: Nataly Tay [facility] Re10/24/24 Status: [facility] RE[facility] Disch: ----- ------- SPEC : [id number] RECD: 10/25/24-0 STATUS: ELEONORA [facility] NUM: [id number] MICHAELLE: 10/24/24-[address] [facility] [address]: Nataly Tay [facility] ENTERED: 10/25/24-1314 SP TYPE: Cytology OT DR: Anne Carrion MD ORDERED: Cyto-enhanced Diagnosis [...] developed and their performance characteristics determined by [facility]. They have not been cleared or approved by the U.S. Food and Drug Administration (FDA). However, the FDA has determined that such clearance or approval is not necessary. This laboratory is certified under the Clinical Laboratory Improvement Amendments of 1988 (CLIA) as qualified to perform high complexity clinical laboratory testing. Copies To: Anne Carrion MD [address] [address] Nataly Tay [facility] [address] [place] [address] [address] [place] [address] [email or web address] CONTINUED ON NEXT PAGE ----- ------- Name: Elvis AlbrightTomtasneem Age/Sex: 39/F : 1985 Unit#: [id number] Attend Dr: Nataly Tay [facility] Re10/24/24 Status: DEP REF [facility] Disch: ----- ------- SPEC : [id number] RECD: 10/25/24 STATUS: ELEONORA EL NUM: [id number] MICHAELLE: 10/24/[address] [facility] [address]: Nataly Tay [facility] ENTERED: 10/25/24-131 SP TYPE: Cytology OTHR DR: Anne Carrion MD ORDERED: Cyto-enhanced ----- ------- Signed (signature on file) Noy Sequeira MD 10/29/24 1501 ----- ------- END OF REPORT us Generic External Data Provider LAB CYTOLOGY ABBY TATE Final Result [facility] [address] [place] [address] [phone] * XR Chest 2 Views (10/17/2024 10:15 AM EDT) Anatomical Region Laterality Modality Chest Radiographic Chaparrita ging 10/17/2024 10:1 5 AM EDT Narrative 10/17/2024 10:35 AM EDT [address] [address] XRay Report Signed Patient: Claribel Roy MR #: [id number] : 1985 Acct:[id number] Age/Sex: 39 / F ADM Date: 10/17/24 Loc: .ED Attending Dr: Ordering Physician: Airam Morel DO Date of Service: 10/17/24 Procedure(s): XR chest 2V Accession Number(s): [id number] cc: Anne Carrion MD; Airam Morel DO [...] 10/17/24 1032 DD/ 1015 TD/TT: 10/17/24 1019 Bobbin Fixer: Procedure Note Donotuseinterpreter, Image - 10/17/2024 [place] [address] XRay Report Signed Patient: Edouard Roy #: [id number] : 1985Acct:[id number] Age/Sex: 39 / FADM Date: 10/17/24 Loc: .ED Attending Dr: Ordering Physician: Airam Morel DO Date of Service: 10/17/24 Procedure(s): XR chest 2V Accession Number(s): [id number] cc: Anne Carrion MD; Airam Morel DO [...] 10/17/24 1032 DD/ 1015 TD/TT: 10/17/24 1019 Bobbin Fixer: [facility] External Provider IMG XR PROCEDURES Edited Result - Final * (ABNORMAL) Lipid Panel, Standard (06/04/2023 11:20 AM EDT) Triglycerides 77 <150 mg/dL [facility] Comment:Desirable Triglyceri de: less than 150 mg/dLBorderline High Triglyceride 150-199 mg/dLHigh Triglyceride: 200-499 mg/dLVery High Triglyceride: greater than or equal to 5OO mg/dL Cholesterol 199 <200 mg/dL [facility] Comment:Desirable Cholestero l: less than 200 mg/dLBorderline High Cholesterol: 200-239 mg/dLHigh Cholesterol: greater than 239 mg/dL LDL Cholesterol Calculated 144(H) <100 mg/dL [facility] Comment:Desirable LDL: less than 100 mg/dLNear Optimal/Above Optimal LDL: 110- 129 mg/dLBorderline High LDL: 130-159 mg/dLHigh LDL: 160-189 mg/dLVery High LDL: greater than or equal to 190 mg/dL HDL Cholesterol 40(L) >40 mg/dL [facility] Comment:Desirable HDL: great er than 40 mg/dL Note: This HDL assay may give artificially low results in patients with liver disease. Blood Venous blood specimen / Unknown 06/04/2023 11:20 AM EDT 06/04/2023 1:22 PM EDT Anne Carrion MD LAB BLOOD ORDERABLES Final Result [facility] [address] [place] [phone] * HPV High Risk PCR (06/12/2021 12:00 AM EDT) Swab Cervical swab / Unknown Anne Carrion MD LAB MICROBIOLOGY - GENERAL ORDERABLES Final Result [facility] [address] [place] [address] [phone] * Pap Smear (06/12/2021 12:00 AM EDT) Swab Anne Carrion MD LAB CYTOLOGY ORDERABLES Fi nal Result Performing Organization Address [facility] de Phone Number [facility] [address] [place] [address] [phone] * HEPATITIS C ANTIBODY (11/08/2019 12:39 PM EDT) HEPATITIS C ANTIBODY [facility] Comment: Antibodies to HCV not detected; does not exclude early acute HCV infection. 11/08/2019 12:3 9 PM EDT Sandhya Brody HISTORICAL/NON ORDERABLE LABS Fi nal Result Performing Organization Address [facility] Phone Number [facility] [address] * HIV AB/AG (11/08/2019 12:39 PM [...] of detection of this assay. The [employer] Employee Counselor HIV Ag/Ab Combo assay result and supplemental assay results should be interpreted in conjunction with the patient's clinical presentation, history and other laboratory results. If the results are inconsistent with clinical evidence, additional testing is suggested to confirm the result. 11/08/2019 12:3 9 PM EDT Sandhya Brody HISTORICAL/NON ORDERABLE LABS Fi nal Result Performing Organization Address 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 Advance Directives and Livin g Will 11/20/2024 Health Care Proxy Care Teams Beam Builder Helper Relationship Specialty Start Date End Date Murali, MD Anne [address] [place] [address] PCP - General Family Medicine 02/08/18 Nataly Tay NP [address] [place] [address] [place] [address] Urology 03/02/24 Carmine Rivas MD [address] [place] [phone] Pulmonary Disease 04/10/24 Marivel Bang [address] [place] [address] Orthopaedic Surgery 04/10/24 Leo Rao MD [address] [place] [address] Obstetrics and Gynecology 05/02/24 Lisette Dominguez [address] [place] [address] Allergy 11/28/24 Jesika Quinn CNP Neurology 11/01/24
== END 2024-12-06 19:00 | disposition home or self-care (01) ==
LOC: HO.MRI 18:59
PROVIDERS: PCP Family Medicine; Visit Provider Nurse Practitioner
DX: R51.9 Headache, unspecified (principal)
CPT/HCPCS: 70551

== ENCOUNTER → 2024-12-06 19:07 | Outpatient (BNV) | payer OTHER, SELFPAY | PROVIDERS: PCP Family Medicine; Visit Provider Radiology Diagnostic Radiology | DX: R51.9 Headache, unspecified (principal) | CPT/HCPCS: 70551 ==

== ENCOUNTER 2024-12-25 08:54 | Outpatient (AMB) | payer OTHER, SELFPAY ==
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
[2024-12-25 09:01] VITALS: BP 143/94; PULSE 76; RESP 16; O2SAT 99
== END 2024-12-25 09:20 | disposition home or self-care (01) ==
LOC: HO.HSM 08:55
PROVIDERS: PCP Family Medicine; Visit Provider Nurse Practitioner
DX: G43.009 Migraine without aura, not intractable, without status migrainosus (principal); M54.81 Occipital neuralgia
CPT/HCPCS: 99214

== ENCOUNTER → 2024-12-25 08:54 | Outpatient (BNVA) | payer OTHER, SELFPAY | PROVIDERS: PCP Family Medicine; Visit Provider Nurse Practitioner | DX: G43.009 Migraine without aura, not intractable, without status migrainosus (principal); M54.81 Occipital neuralgia | CPT/HCPCS: 99212 ==

== ENCOUNTER → 2025-01-02 12:41 | Outpatient (REF) | payer OTHER, SELFPAY ==
--- NOTE | 2025-01-02 12:44 | CA_ITS ---
Transthoracic Echocardiogram Patient (Last, First, Middle): Claribel Roy, Gender: F Date of : 1985 Age: 39 Procedure Date: 01/02/2025 Procedure Type: Transthoracic Echocardiogram Location: OP Height: 152.4 cm Weight: 66.68 kg BSA: 1.64 m2 Heart Rate: 89 bpm BP: 128 / 78 mmHg Admitting Interviewer: SB Referring MD: Anne Carrion MD Symptoms: Cardiomegaly on chest XRAY Study Quality: Adequate w contrast ECG Rhythm: Sinus Conclusions: - The left ventricular systolic function is mildly decreased. The visually estimated ejection fraction is between 45-50%. - No obvious valvular pathology seen on this study. Findings Procedure Information Contrast agent, definity, is being given per protocol without apparent complications. The quality of the study was technically difficult. The study quality is limited by lung artifact. Left Ventricle Normal left ventricular cavity size. There is normal left ventricular wall thickness. The left ventricular systolic function is mildly decreased. The visually estimated ejection fraction is between 45-50%. There is no evidence of regional wall motion abnormalities. Diastolic function is normal for age. Right Ventricle Normal right ventricular cavity size. There is mildly decreased right ventricular systolic function. Atria Both atria are normal in size. Aortic Valve There is a normal trileaflet aortic valve. There is no aortic valve stenosis. There is no aortic valve regurgitation. Mitral Valve The mitral valve appears normal. There is no mitral valve regurgitation. There is no mitral valve stenosis. Pulmonic Valve The pulmonic valve is likely normal. Tricuspid Valve Normal tricuspid valve structure. There is no tricuspid valve regurgitation. Tricuspid regurgitation envelope is inadequate for calculation of right ventricular systolic pressure. Great Vessels The asc aorta is normal in size. Venous The inferior vena cava is normal in size and collapses greater than 50% with inspiration. Pericardium/Pleural Widened pericardial space, unable to distinguish between adipose tissue and effusion. Prior Study Comparison No prior study available for comparison. Recommendations, Care & Conclusions No obvious valvular pathology seen on this study. Measurements 2D Linear Measurements IVSd: 0.97 0.6-0.9/0.6-1.0 cm LVIDd: 4.51 3.9-5.3/4.2-5.9 cm LVIDd Index: 2.75 2.4-3.2/2.2-3.1 cm/m2 LVIDs: 2.42 2.0-3.6 cm LVPWd: 0.84 0.7-1.1 cm LA Diam: 3.40 2.7-3.8/3.0-4.0 cm LAIDs Index: 2.07 1.5-2.3 cm/m2 LV Mass: 166.88 67-162/88-224 g LV Mass Index: 101.76 43-95/49-115 g/m2 LVOT Diam: 2.00 3.0+(-)1.3 cm 2D Systolic Function EF 4C: 60.20 >55% EF 2C: 42.70 >55% EF BiP: 52.70 >55% Mitral Valve MV Pk E: 0.57 MV PK A: 0.53 MV Decel Time: 187.00 E/A: 1.10 E'Lateral: 7.51 E'Medial: 5.87 E/E' Med: 9.60 E/E' Lat: 7.50 PHT: 55.00 MVA PHT: 4.00 Decel [place]: 3.03 Aortic Valve AoV Pk Danielito: 1.20 AoV Mn Danielito: 0.87 AoV VTI: 0.22 AoV Pk Grad: 6.00 Aov Mn Grad: 3.00 CECELIA Cont.VTI: 2.44 LVOT LVOT Pk Danielito: 0.83 LVOT Mn Danielito: 0.61 LVOT VTI: 0.17 LVOT Pk Grad: 3.00 LVOT Mn Grad: 2.00 LVOT Diam: 2.00 LVOT Area: 3.14 Diastolic Function MV Pk E: 0.57 MV Pk A: 0.53 E/A: 1.10 E'Medial: 5.87 E/E' Med: 9.60 E' Laterial: 7.51 E/E' Lat: 7.50 Right Ventricle TAPSE (mm): 16.50 TVS' Danielito: 9.79 Tricuspid Valve RA Press: 3.00 Great Vessels Aorta Sinus of Valsalva: 3.00 2.0-3.5 cm Ao Asc: 2.40 2.1-3.4 cm Ao Arch: 2.30 Ao Desc: 1.40 Pulmonary Valve PV Pk Danielito: 0.64 Peak PV Grad: 2.00 Updated in Other Vendor System with Status of Final Christian Montanez MD electronically signed on 01/03/2025 9:33:19 AM with status of Final
--- OUTSIDE RECORDS SUMMARY | 2025-01-02 16:13 | XMS_ITS | Encounter Summary ---
Author Organization [employer] Address [address] [facility] 7[address] [place] [address] Care Team Providers Care Manager Call Name Role Phone Anne Carrion MD Primary Care Provider [phone] Nataly Tay NP Unavailable Carmine Rivas MD Unavailable [phone] Marivel Bang Unavailable Leo Rao MD Unavailable Lisette Dominguez Unavailable [phone] Reason for Visit * Reason Comments Med Refill Encounter Details Date Type Department Care Team (Late st Contact Info) Description 01/07/2023 Refill [facility] [address] [place] [address] [phone] Jaiden Mccarthy MD [address] [place], [place] [phone] Rash Social History Tobacco Use Types Packs/Day [...] eruption documented in this encounter Care Teams Manager Call Relationship Specialty Start Date End Date Anne Carrion MD [address] [place] [address] PCP - General Family Medicine 02/08/18 Nataly Tay NP [address] [place] [address] Urology 03/02/24 Carmine Rivas MD [address] [place] [address] Pulmonary Disease 04/10/24 Marivel Bang [address] [place] [address] Orthopaedic Surgery 04/10/24 Leo Rao MD [address] [facility] [address] [place] [address] Obstetrics and Gynecology 05/02/24 Lisette Dominguez [address] [place] [address] Allergy 11/28/24 Jesika Quinn CNP Neurology 11/01/24 documented as of this encounter
--- OUTSIDE RECORDS SUMMARY | 2025-01-02 16:13 | XMS_ITS | Encounter Summary ---
Author Organization [employer] Address [address] [facility] 7[address] [place] [address] Care Team Providers Care Project Leader Name Role Phone Anne Carrion MD Primary Care Provider [phone] Nataly Tay NP Unavailable Carmine Rivas MD Unavailable [phone] Marivel Bang Unavailable Leo Rao MD Unavailable Lisette Dominguez Unavailable [phone] Reason for Visit * Reason Onset Date Comments Nurse Triage 11/29/2023 Encounter Details Date Type Department Care Team (Late st Contact Info) Description 11/29/[address] [facility] [address] [place] [address] Anne Carrion MD [address] [place], [place] [phone] Nurse Triage Social History Tobacco Use Types [...] the past 12 months, has t he [employer], gas, oil or water [employer] threatened to shut off services in your [...] Triage call Pt was seen in ED [facility] 11/25/23 , report is on the chart. [...] documented as of this encounter Care Teams Project Leader Relationship Specialty Start Date End Date Anne Carrion MD [address] [place] [phone] PCP - General Family Medicine 02/08/18 Nataly Tay NP [address] [facility] [address] [place] [address] Urology 03/02/24 Carmine Rivsa MD [address] [place] [address] Pulmonary Disease 04/10/24 Marivel Bang [address] [place] [address] Orthopaedic Surgery 04/10/24 Leo Rao MD [address] [facility] [address] [place] [address] Obstetrics and Gynecology 05/02/24 Lisette Dominguez [address] [place] [address] Allergy 11/28/24 Jesika Quinn CNP Neurology 11/01/24 documented as of this encounter
--- OUTSIDE RECORDS SUMMARY | 2025-01-02 16:13 | XMS_ITS | Patient Health Record ---
[facility] Organization [facility] Address [address] [place] [address] Care Team Providers Care Laborer [place] Name Role Phone Anne Carrion MD Primary Care Provider Kavin Lainez Unavailable [phone] Allergies Allergen (clinical drug ingredient) Drug/Non Drug [...] type I of right lower limb (disorder) (330174897677455) Complex regional pain syndrome I of right lower limb (G90.521) Active confirmed Problem Mononeuropathy of lower limb (493374887) Neuritis of right foot (G57.91) Active confirmed Plan Of Treatment No Information Insurance Providers Payer Name Payer Address Payer Phone Subscriber Number Group Number Insured Name Patient Relationship to Insured Coverage Start Date Coverage End Date [facility] [employer] Claims [address] [place] [id number] Claribel Leal Self - patient is the insured Medical (General) History Medical History History ICD Code Depression Anxiety disorder Migraines Kidney stones Broken bones Back pain asthma Surgical History Surgery Date(Month/Year) cholecystectomy laparoscopic salpingectomy bilateral section 2011 tonsillectomy tubal ligation foot surgery 1995 elbow sx
--- OUTSIDE RECORDS SUMMARY | 2025-01-02 16:13 | XMS_ITS | Clinical Summary ---
Author Organization [employer] Address [address] [facility] [address] [place] [address] Care Team Providers Care Spool Maker Name Role Phone Vernon, Anne CHAPMAN Primary Care Provider [phone] Lakisha Tay NP Unavailable Carmine Rivas MD Unavailable [phone] Marivel Bang Unavailable Leo Rao MD Unavailable Lisette Dominguez Unavailable [phone] Allergies Active Allergy Reactions Criticality Noted [...] THREE TIMES DAILY IF NEEDED 2 Active Tezspire 210 MG/1.91ML solution prefilled syringeIndicatio ns:Moderate persistent asthma without complication 4 Active albuterol 108 (90 Base) MCG/ACT inhalerIndicatio ns:Moderate persistent asthma without complication 4 times a day 2 Active FLUoxetine (PROzac) 20 MG capsuleIndicatio ns:Severe episode of recurrent major depressive disorder, without psychotic features (CMS/HCC) (HCC) Take 1 capsule (20 mg) by mouth Once per day. 30 capsule 11 4 Active Acetaminophen Extra Strength 500 MG tabletIndication s:Low back pain, unspecified back pain laterality, unspecified chronicity, unspecified whether sciatica present TAKE 2 TABLETS BY MOUTH EVERY 6 HOURS NEEDED 60 tablet 2 4 Active mometasone-formo terol (Dulera) 200-5 MCG/ACT [...] in 24 hours. 9 tablet 5 Active montelukast (Singulair) 5 mg split tabletIndication s:Moderate persistent asthma without complication 10 mg. 4 Active Active Problems Patient Care Coordination No te Formatting of this note migh t be different from the original. [facility] Legal Contracts Specialist: Minnie, member services number [phone] Pharmacist Aide Agency: [facility] Problem Noted Date Diagnosed Date [...] as pharmacomtherapy, [facility] smoking cessation group, and [facility] pharmacy smoking cessation clinic Discussed USPSTF [...] due after 11/20/25 -eye care facilitated by [facility] -dental home is [facility] -health care proxy filed 11/20/24 Assessment & Plan (11/20/2024 11:39 AM EDT): -next physical exam due after 11/20/25 -eye care facilitated by [facility] -dental home is [facility] -health care proxy filed 11/20/24 Assessment & Plan (06/03/2023 10:34 AM EDT): -next physical exam due after 06/02/24 -eye care [facility] home is [facility] - Health care proxy completed and filed Papanicolaou smear of cervix with atypical squamous cells of undetermined significance (ASC-US) 02/26/2022 Overview (02/26/2022): ASCUS on pap 2012 HPV negative with [facility]. repeat PAP 05/04/16 nilm. -Repeat pap [...] the robot DaVinci robot and/or minimally invasive recreation leader specialist at [facility]. Will refer to [facility] minimally invasive wiring mechanic. Assessment & Plan (11/20/2024 11:39 AM EDT): [...] the robot DaVinci robot and/or minimally invasive recreation leader specialist at [facility]. Will refer to [facility] minimally invasive wiring mechanic. Assessment & Plan (02/26/2022 9:31 AM EST): [...] Hospitalized 11/2018 and 12/2021. Improved. 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 Continue Tezspire, and Dulera and singulair as well as albuterol prn. Seen by Detonator Maker Carmine Rivas MD 04/06/23. Nucala changed to Tezspire. Call to Pulmonology to check the status of her injectable medicine 06/03/23 Call placed to [facility] pulmonology spoke to the nurse yesenia who reports patient should be on Tezspire 210mg every 4 weeks and that patient had appt on 04/15/23 for inj but no showed to the visit. Yesenia states they redid the orders for her today and short stay should be reaching out to patient to set up an appt. Referral placed to [facility] Pulmonology as it is closer to home, seen by Dr. Monique Hillman, [facility], FACP,FCCP 07/29/23, no changes made to regimen -seen by Dr. Rivas 10/03/24 Well controlled on current regimen of Tezspire, Dulera, and albuterol MDI/nebs. Continue current regimen. Assessment & Plan (11/20/2024 11:39 AM EDT): Hospitalized 11/2018 and 12/2021. Improved. 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 Continue Tezspire, and Dulera and singulair as well as albuterol prn. Seen by Detonator Maker Carmine Rivas MD 04/06/23. Nucala changed to Tezspire. Call to Pulmonology to check the status of her injectable medicine 06/03/23 Call placed to [facility] pulmonology spoke to the nurse yesenia who reports patient should be on Tezspire 210mg every 4 weeks and that patient had appt on 04/15/23 for inj but no showed to the visit. Yesenia states they redid the orders for her today and short stay should be reaching out to patient to set up an appt. Referral placed to [facility] Pulmonology as it is closer to home, seen by Dr. Monique Hillman, [facility], FACP,FCCP 07/29/23, no changes made to regimen -seen by Dr. Rivas 10/03/24 Well controlled on current regimen of Tezspire, Dulera, and albuterol MDI/nebs. Continue current regimen. Assessment & Plan (06/03/2023 10:30 AM EDT): Hospitalized 11/2018 and 12/2021. Improved. 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 Continue Tezspire, and Dulera and singulair as well as albuterol prn. Seen by Detonator Maker Carmine Rivas MD 04/06/23. Nucala changed to Tezspire. Will call to Pulmonology to check the status of her injectable medicine 06/03/23 Referral placed to [facility] Pulmonology as it is closer to home 06/03/23 Assessment & Plan (02/26/2022 9:22 AM EST): Hospitalized 11/2018. Improved. 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 Continue Nucala, and Dulera and singulair as well as albuterol prn. Referral sent 12/2021 to pulmonology at [facility], Pt was hospitalized 12/2021 and asthma [...] MG, refills provided 06/03/23 Migraine 06/09/2018 Overview (12/26/2024): On 06/2018, started amitriptyline 25mg for migraine prophylax. headaches improved then pt d/c with return of headaches. Restart amitriptyline 25mg po qhs 10/2018 As of 06/12/2021, not active. -seen by mary 12/11/24 I will have her perform a course of physical therapy for myofascial component. She is agreeable to this and would like to go to the [facility]. -MRI of the brain without contrast 12/06/24 MR/MR head/brain wo con: No acute or structural brain abnormality. -trial of physical therapy for myofascial release -mary note from 12/25/24 -increase amitriptyline from 25 mg to 50 mg nightly -trial of sumatriptan 50 mg for abortive therapy (still has some hesitation on starting this though education was given today) -could consider candesartan as next step given slightly elevated blood pressure -follow up in 6 months or sooner if needed Assessment & [...] organization. Date Type Department Care Team Description 12/27/2024 Travel 11/20/2024 10:45 AM EDT Office Visit [facility] [address] [place] [address] Anne Carrion MD Preventative health care (Primary Dx); Moderate persistent asthma without complication; Essential hypertension; Severe episode of recurrent major depressive disorder, without psychotic features (CMS/HCC) (HCC); Dietary counseling; Exercise counseling; Overweight; Encounter for immunization; Abnormal CXR; Abnormal uterine bleeding; Tobacco use disorder 11/20/2024 Travel 11/17/2024 Telephone [facility] [address] [place] [address] Anne Carrion MD chartprep 11/16/2024 Orders Only GENERIC EXTERNAL DATA DEPARTMENT Provider, Generic External Data Chronic migraine without aura without status migrainosus, not intractable (Primary Dx) 11/13/2024 Travel 10/24/2024 Orders Only GENERIC EXTERNAL DATA DEPARTMENT Provider, Generic External Data Kidney stones (Primary Dx) 10/17/2024 Orders Only GENERIC EXTERNAL DATA DEPARTMENT Provider, Generic External Data from Last 3 Months Immunizations Immunization Administration [...] PM EDT Narrative 12/06/2024 8:08 PM EDT [place] [address] Magnetic Resonance Report Signed Patient: Claribel Roy MR #: [id number] : 1985 Acct:[id number] Age/Sex: 39 / F ADM Date: 12/06/24 Loc: HO.MRI Attending Dr: Jesika You CNP Ordering Physician: Jesika You CNP Date of Service: 12/06/24 Procedure(s): MR head/brain wo con Accession Number(s): [id number] cc: Jesika You CNP; Anne Carrion MD [...] in OV> 12/06/242004 DD/ 07 TD/TT: 12/06/241923 Emergency Telecommunications Dispatcher: Procedure Note Donotuseinterpreter, Image - 12/06/2024 [place] [address] Magnetic Resonance Report Signed Patient: Edouard Roy #: [id number] : 1985Acct:[id number] Age/Sex: 39 / FADM Date: 12/06/24 Loc: HO.MRI Attending Dr: Jesika You CNP Ordering Physician: Jesika Yuo CNP Date of Service: 12/06/24 Procedure(s): MR head/brain wo con Accession Number(s): [id number] cc: Jesika You CNP; Anne Carrion MD [...] MDin OV> 12/06/242004 DD/ 07 TD/TT: 12/06/241923 Emergency Telecommunications Dispatcher: [facility] External Provider IMG MRI PROCEDURES Final Result * Influenza A B2 ID NOW (Rodríguez) (11/16/2024 8:42 AM EDT) Only the most recent of2 resultswithin the time period is included. IDNOW SERIAL# [id number] [facility] Influenza A Negative Negative [facility] Influenza B2 Negative Negative [facility] Influenza A B2 Note See Note [facility] Comment:The Rodríguez ID NOW In [...] ORDERABLES Final Result [facility] [address] [place] [phone] * XR Chest 1 View (11/16/2024 8:25 AM EDT) Anatomical Region Laterality Modality Chest Radiographic Chaparrita ging 11/16/2024 8:25 AM EDT Narrative 11/16/2024 8:33 AM EDT [address] [address] XRay Report Signed Patient: Claribel Roy MR #: [id number] : 1985 Acct:[id number] Age/Sex: 39 / F ADM Date: 11/16/24 Loc: HO.ED Attending Dr: Ordering Physician: Generic ED Physician Date of Service: 11/16/24 Procedure(s): XR chest 1V Accession Number(s): [id number] cc: Anne Carrion MD; Generic ED Physician [...] in OV> 11/16/24829 DD/ 4 TD/TT: 11/16/24826 Emergency Telecommunications Dispatcher: Procedure Note Donotuseinterpreter, Image - 11/16/2024 [place] [address] XRay Report Signed Patient: Divya RoyR #: [id number] : 1985Acct:[id number] Age/Sex: 39 / FADM Date: 11/16/24 Loc: HO.ED Attending Dr: Ordering Physician: Generic ED Physician Date of Service: 11/16/24 Procedure(s): XR chest 1V Accession Number(s): [id number] cc: Anne Carrion MD; Generic ED Physician [...] Ramirez MD 11/16/2024 08:30 AM EDT RP Dictated By: Abelino Ramirez MD Signed By: <Electronically signed by Abelino Ramirez MD in OV> 11/16/24829 DD/ 4 TD/TT: 11/16/24826 Emergency Telecommunications Dispatcher: [facility] External Provider IMG XR PROCEDURES Final Result * Strep A Nucleic Acid (11/16/2024 8:04 AM EDT) Only the most recent of2 resultswithin the time period is included. IDNOW SERIAL# [id number] [facility] Strep A Nucleic Acid [...] ORDERABLES Final Result [facility] [address] [place] [address] [phone] * COVID-19 ID NOW (RODRÍGUEZ) (11/16/2024 8:04 AM EDT) Only the most recent of2 resultswithin the time period is included. IDNOW SERIAL# [id number] [facility] COVID-19 TEST Negative Negative [facility] COVID-19 NOTE See Note [facility] Comment: Results are for the identification of SARS-CoV2 RNA. TheSARS-CoV2 RNA is generally detectable in respiratory samplesduring the acute phase of infection. Positive results areindicative of the presence of SARS-CoV-2 RNA; clinicalcorrelation with patient history and other diagnosticinformation is necessary to determine patient infectionstatus. Positive results do not rule out bacterial infectionor co- infection with other viruses.Testing facilities within the [place] and [facility] are required to report all positive [...] use by authorized laboratories.Testing performed on the OutSystems NOW utilizing NAAT. 11/16/2024 8:04 AM EDT 11/16/2024 8:07 AM EDT us Generic External Data Provider LAB MOLECULAR GUILLERMO GNOSTICS ORDERABLES Final Result [facility] [address] [place] [phone] * Cytopath-cell enhanced (10/24/2024 8:45 AM EDT) 10/24/2024 8:45 AM EDT 10/25/2024 11:20 AM EDT Narrative [facility] - 10/29/2024 3:01 PM EDT ----- ------- Name: Claribel Roy Age/Sex: 39/F : 1985 Unit#: [id number] Attend Dr: Lakisha Tay [facility] Re10/24/24 Status: [facility] Dis[facility]: ----- ------- SPEC : [id number] RECD: 10/25/24-1120 STATUS: ELEONORA EL NUM: [id number] MICHAELLE: 10/24/24-[address] [facility] [address]: Lakisha Tay [facility] ENTERED: 10/25/24-131 SP TYPE: Cytology OTHR [...] laboratory testing. Copies To: Anne Carrion MD [address] [place] [address] [address] Lakisha Tay [facility] [address] [place] [address] Dr. Garza [address] [place] [phone] [email or web address] CONTINUED ON NEXT PAGE ----- ------- Name: Elvis AlbrightClaribel Age/Sex: 39/F : 1985 Unit#: [id number] Attend Dr: Lakisha Tay [facility] Re10/24/24 Status: DEP [facility] Disch: ----- ------- SPEC : [id number] RECD: 10/25/24-1119 STATUS: TEDVijaya EL NUM: [id number] MICHAELLE: 10/24/[address] [facility] [address]: Lakisha Tay [facility] ENTERED: 10/25/24-1313 SP TYPE: Cytology OTHR DR: Anne Carrion MD ORDERED: Cyto-enhanced ----- ------- Signed (signature on file) Noy Sequeira MD 10/29/24 1501 ----- ------- END OF REPORT us Generic External Data Provider LAB CYTOLOGY ABBY TATE Final Result [facility] [address] [place] [phone] * XR Chest 2 Views (10/17/2024 10:15 AM EDT) Anatomical Region Laterality Modality Chest Radiographic Chaparrita ging 10/17/2024 10:1 5 AM EDT Narrative 10/17/2024 10:35 AM EDT [address] [address] XRay Report Signed Patient: Claribel Roy MR #: [id number] : 1985 Acct:[id number] Age/Sex: 39 / F ADM Date: 10/17/24 Loc: .ED Attending Dr: Ordering Physician: Airam Morel DO Date of Service: 10/17/24 Procedure(s): XR chest 2V Accession Number(s): [id number] cc: Anne Carrion MD; Airam Morel DO [...] 10/17/24 1032 DD/ 1015 TD/TT: 10/17/24 1019 Emergency Telecommunications Dispatcher: Procedure Note Kiya, Image - 10/17/[address] [address] XRay Report Signed Patient: Edouard Roy #: [id number] : 1985Acct:[id number] Age/Sex: 39 / FADM Date: 10/17/24 Loc: .ED Attending Dr: Ordering Physician: Airam Morel DO Date of Service: 10/17/24 Procedure(s): XR chest 2V Accession Number(s): [id number] cc: Anne Carrion MD; Airam Morel DO [...] 10/17/24 1032 DD/ 1015 TD/TT: 10/17/24 1019 Emergency Telecommunications Dispatcher: [facility] External Provider IMG XR PROCEDURES [...] 190 mg/dL HDL Cholesterol 40(L) >40 mg/dL [facility] Comment:Desirable HDL: great er than 40 mg/dL Note: This HDL assay may give artificially low results in patients with liver disease. Blood Venous blood specimen / Unknown 06/04/2023 11:20 AM EDT 06/04/2023 1:22 PM EDT Anne Carrion MD LAB BLOOD ORDERABLES Final Result Performing Organization Address [facility] Co de Phone Number [facility] [address] [place] [phone] * HPV High Risk PCR (06/12/2021 12:00 AM EDT) Swab Cervical swab / Unknown Anne Carrion MD LAB MICROBIOLOGY - GENERAL ORDERABLES Final Result Performing Organization Address [facility]/ZIP Co de Phone Number [facility] [address] [place] [phone] * Pap Smear (06/12/2021 12:00 AM EDT) Swab Anne Carrion MD LAB CYTOLOGY ORDERABLES Fi nal Result Performing Organization Address [facility] Co de Phone Number [facility] [address] [place] [phone] * HEPATITIS C ANTIBODY (11/08/2019 12:39 PM EDT) HEPATITIS C ANTIBODY NONREACTIVE NONREACTIVE [facility] Comment: Antibodies to HCV not detected; does not exclude early acute HCV infection. 11/08/2019 12:3 9 PM EDT Sandhya Syoney HISTORICAL/NON ORDERABLE LABS Fi nal Result Performing Organization Address [facility] Phone Number [facility] [address] * HIV AB/AG (11/08/2019 12:39 PM [...] of detection of this assay. The Rod[employer] HIV Ag/Ab Combo assay result and supplemental assay results should be interpreted in conjunction with the patient's clinical presentation, history and other laboratory results. If the results are inconsistent with clinical evidence, additional testing is suggested to confirm the result. 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 [place] [phone] Allergy 11/28/24 Jesika Quinn CNP Neurology 11/01/24
== END ==
LOC: HO.CARD 12:41
PROVIDERS: PCP Family Medicine; Visit Provider Family Medicine
DX: R93.89 Abnormal findings on diagnostic imaging of other specified body structures (principal); I51.7 Cardiomegaly
CPT/HCPCS: 93306; Q9957

== ENCOUNTER → 2025-01-02 12:44 | Outpatient (BNV) | payer OTHER, SELFPAY | PROVIDERS: PCP Family Medicine; Visit Provider Internal Medicine | DX: I51.7 Cardiomegaly (principal) | CPT/HCPCS: 93306 ==